=== PATIENT | female | born 1970 | race Caucasian/White ===

== ENCOUNTER 2024-06-12 09:27 | Day surgery (SDC) | payer BC, SELFPAY ==
[2024-06-12] VITALS (9 sets, daily range): BP systolic 102–132; BP diastolic 66–120; PULSE 77–92; RESP 14–18; TEMP 36.4–37.4; O2SAT 94–100; BMI 23.4
--- NOTE | 2024-06-12 09:40 | PRE.ANES_ITS ---
ASA Classification* ASA Classification ASA Classification: 2 Assessment & Plan Anesthesia* Anesthesia Assessment Anesthesia Assessment: Discussed sedation and/or anesthesia options, risks, benefits, and alternatives with patient/parents/legal guardian/POA. Questions invited. The patient/parents/legal guardian/POA seems to understand and agrees to proceed with anesthesia plan. Reviewed the physical assessment, medical history, allergy history and patient home medications list prior to surgery/procedure/anesthetic and documented any changes. Performed airway and anesthesia risk assessments. Anesthesia Type Anesthesia Type: MAC Anesthesia Focused Assessment* Airway Assessment Mouth opens: >3 cm Mallampati Score: II Focused Labs Anesthesia Preop lab: CBC CHEMISTRY COAG Pre-Assessment Diagnosis/Proposed Procedure Planned Operative Procedure(s): Colonoscopy,EGD Anesthesia History Anesthesia History - specialty therapist: Anesthesia History - specialty therapist Hx Hospitalization No 06/07/24 14:20 Any Problems With Anesthesia No 06/07/24 14:20 Cholinesterase deficiency No 06/07/24 14:20 You/Your Family Experience No 06/07/24 14:20 fever (hyperthermia) with Relationship Recent Exposure to Contagious Disease Does patient have nerve No 06/07/24 14:20 stimulator Patient instructed to have device shut off --Does patient have Pacemaker or ICD? When Was Last Pacemaker Check QUESTION #4 FULL TEXT: You/Your Family Experience fever (hyperthermia) with Anesthesia Last Oral Intake Last Oral intake: Last Oral Intake NPO since Meds taken in AM with sips of water? Meds patient instructed to take am of surgery PONV PONV - specialty therapist: PONV - specialty therapist Female Yes 06/07/24 14:20 HX of Motion Sickness No 06/07/24 14:20 HX of N/V After Surgery No 06/07/24 14:20 Non-Smoker No 06/07/24 14:20 Duration of Surgery greater No 06/07/24 14:20 than 60 minutes Number of Risk Factors 1 06/07/24 14:20 PONV Score Low Risk 06/07/24 14:20 Respiratory Assessment Respiratory Assessment - specialty therapist: Respiratory Tract Infection Hx - specialty therapist Hx Respiratory Tract Infection No 06/07/24 14:20 STOP Sleep Apnea STOP Sleep Apnea - specialty therapist: STOP Sleep Apnea - specialty therapist Hx Hypertension No 06/07/24 14:20 Hx Sleep Apnea No 06/07/24 14:20 CPAP BIPAP Do you snore loudly (louder No 06/07/24 14:20 than talking or can be heard Do you often feel tired/ No 06/07/24 14:20 fatigued/ sleepy during daytime? Has anyone observed you stop No 06/07/24 14:20 breathing during sleep? STOP Results Negative 06/07/24 14:20 QUESTION #5 FULL TEXT : Do you snore loudly (louder than talking or can be heard through closed doors)? 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 Specify any problems Hx of Preganancy in last 3 No 06/07/24 14:20 Months Nurse Filling Out Transfusion JZOLLINGE 06/07/24 14:20 & Questions: Date: 06/07/24 06/07/24 14:20 Time: 14:22 06/07/24 14:20 Patient unable to answer at this time (ie. confused, unrespo /Reproduction History /Reproductive History - specialty therapist: /Reproductive Hx- specialty therapist Hx Now No 06/07/24 14:20 Gestational Age (in weeks): EDC: Hx Hx Para Hx Section SAB No 06/07/24 14:20 PFSH Medical History Wears glasses Wears dentures Anxiety High cholesterol Loss of consciousness Heartburn Seizures Smoker Home Medications ?Medication ?Instructions ?Recorded ?Last Taken ?Type atorvastatin 80 mg tablet 80 mg PO QHS 04/04/24 Unknow n History Allergy/AdvReac Type Severity Reaction Status Date / Time No Known Allergies Allergy Verified 06/07/24 14:06 Surgical History Hx of appendectomy Hx of tonsillectomy Hx of hysterectomy, total Social History Smoking Status: Current every day smoker tobacco type: cigarettes Review of Systems (Anesthesia) ROS Narrative System reviewed and no additional complaints, except as documented.
--- NOTE | 2024-06-12 10:45 | EGD_PTH ---
[id number] LOC: EN U#:[id number] AGE/SX: 53/F ROOM: RE06/12/[address]: Dr. Helio Rose DO : 1970 BED: DIS: 06/12/2024 SPEC #: [id number] RECD: 06/12/24 15:46 STATUS: KEE MEGHANA #: [id number] DYLAN: 06/12/24 10:[address]: Helio Rose DEPT: SURGICAL PATHOLOGY RECD BY: Luzma Jaramillo ENTERED: 06/13/24 06:57 SP TYPE: EGD BIOPSY OT DR: Dr. Slim Black MD Tissues: A - Esophagus, NOS B - Gastric mucous membrane C - Duodenum, NOS D - Duodenum, NOS E - Cecum, NOS F - Ascending colon G - Ileum, NOS H - Sigmoid colon biopsy I - Rectum, NOS Procedures: Immunohistochemical Stains Surgery Specimen Level IV HEADER OPERATION: EGD with biopsy, colonoscopy with polypectomies, biopsy PRE-OP DIAGNOSIS: Abdominal symptoms, epigastric pain, alternating constipation and diarrhea TISSUE SUBMITTED: A- Distal esophagus biopsy, B- Gastric ulcer biopsy, C- Duodenum polyp biopsy #1, D- Duodenum polyp biopsy #2, E- Cecum polyps, F- Ascending colon polyp, G- Terminal ileum biopsy, H- Sigmoid colon polyp, I- Rectal sigmoid colon lesion biopsy MICROSCOPIC DIAGNOSIS A. Distal esophagus, biopsy: * Benign squamous epithelium * Oxyntocardiac type mucosa with mild chronic inflammation, negative for goblet cells B. Stomach, gastric ulcer, biopsy: * Oxyntic mucosa with chronic active inflammation with surface erosion and fibrinous material (See note) Note: An immunostain for Helicobacter pylori organisms is in progress and will be reported as an addendum C. Small bowel, duodenum, polyp, biopsy #1: * Benign small bowel mucosa with gastric foveolar metaplasia D. Small bowel, duodenum, polyp, biopsy #2: * Benign small bowel mucosa with prominent Yomi's glands and focal gastric foveolar metaplasia E. Colon, cecum, polyp x 2, biopsy: * Tubular adenomas F. Ascending colon, polyp, biopsy: * Serrated polyp with features of sessile serrated adenoma G. Small bowel, terminal ileum, biopsy: * Small bowel mucosa with no pathologic change H. Sigmoid colon, polyp, biopsy: * Tubular adenoma I. Rectum-sigmoid colon, lesion, biopsy: * Tubular adenoma with high grade dysplasia A. MICROSCOPIC DESCRIPTION Slides are reviewed. These tests were developed and their performance characteristics determined by [facility]. They may not have been cleared or approved by the [place]. Food and Drug Administration. The FDA has determined that such clearance or approval is not necessary. The above immunohistochemical/dualISH markers are ordered and reviewed by the Pathologist. GROSS DESCRIPTION A. Received in formalin in a container labeled with the patient's name, date of , and distal esophagus biopsy are 2 ji-pink fragments of mucosal tissue measuring 0.3 x 0.3 x 0.3 cm and 0.6 x 0.2 x 0.2 cm. Submitted in toto in A1. B. Received in formalin in a container labeled with the patient's name, date of , and gastric ulcer biopsy are 2 ji-pink fragments of mucosal tissue, each measuring 0.7 x 0.2 x 0.2 cm. Submitted in toto in B1. C. Received in formalin in a container labeled with the patient's name, date of , and duodenum polyp biopsy #1 is a 0.6 x 0.3 x 0.2 cm fragment of ji-pink mucosal tissue. Submitted in toto in C1. D. Received in formalin in a container labeled with the patient's name, date of , and duodenum polyp biopsy #2 is a 0.5 x 0.3 x 0.2 cm fragment of ji-pink mucosal tissue. Submitted in toto in D1. E. Received in formalin in a container labeled with the patient's name, date of , and cecum polyps x 2 are multiple ji-pink fragments of mucosal tissue measuring 2.2 x 1.3 x 0.4 cm in aggregate. Submitted in toto in E1. F. Received in formalin in a container labeled with the patient's name, date of , and ascending colon polyp are multiple ji-pink fragments of mucosal tissue measuring 0.7 x 0.5 x 0.3 cm in aggregate. Submitted in toto in F1. G. Received in formalin in a container labeled with the patient's name, date of , and terminal ileum biopsy are 2 ji-pink fragments of mucosal tissue, each measuring approximately 0.5 x 0.3 x 0.2 cm. Submitted in toto in G1. H. Received in formalin in a container labeled with the patient's name, date of , and sigmoid colon polyp is a 1.2 x 0.8 x 0.8 cm red-ji polyp with a 0.5 cm in length by 0.5 cm in diameter stalk (margin inked black). Serial sections reveal ji-brown surfaces. Submitted entirely in H1. I. Received in formalin in a container labeled with the patient's name, date of , and rectal sigmoid colon lesion biopsy are multiple ji-pink fragments of mucosal tissue measuring 1.3 x 0.7 x 0.3 cm in aggregate. Submitted in toto in I1. [facility] 06/18/2024 CPT:[id number] ADDENDUM ADDENDUM 06/18/2024 15:07 ADDENDUM 06/18/2024 15:07 ADDENDUM 06/18/2024 15:07 ADDENDUM 06/18/2024 15:07 ADDENDUM 06/18/2024 15:07 The immunostain for Helicobacter pylori organisms on part A and B is negative.
--- NOTE | 2024-06-12 11:09 | HP.PCM_ITS ---
HPI - General General Date of Admission: 06/12/24 Date of Service: 06/12/24 Chief Complaint: abdominal pain and CRS HPI Narrative Pt has had epigastric abd pain for around 3 years now. The pain is central and does not radiate to either side. She has been seen by her PCP a few time regarding this and they have done work up for her gallbladder which was negative. SHe did try omeprazole for a few months and she did not get relief. SHe does endorse some issues with constipation alternating with loose stools. SHe has had this issues for many years. She takes laxatives PRN but this gives her loose stools. SHe has bright red blood in her stool on occasion. She has never had a colonoscopy. Her brother from colon cancer in his 40s. She denies any n/v, heartburn, or lower abd pain. [facility] Medical History Wears glasses Wears dentures Anxiety High cholesterol Loss of consciousness Heartburn Seizures Smoker Home Medications ?Medication ?Instructions ?Recorded ?Last Taken ?Type atorvastatin 80 mg tablet 80 mg PO QHS 04/04/24 History Allergy/AdvReac Type Severity Reaction Status Date / Time No Known Allergies Allergy Verified 06/12/24 09:49 Surgical History Hx of appendectomy Hx of tonsillectomy Hx of hysterectomy, total Social History Smoking Status: Current every day smoker tobacco type: cigarettes ROS Constitutional Constitutional: Denies fatigue, fever(s), poor appetite, weight gain or weight loss Gastrointestinal Gastrointestinal: Denies belching, bloating, change in bowel habits, change in stool character, chewing difficulty, coffee ground emesis, constipation, cramping, diarrhea, dyspepsia, dysphagia, early satiety, excessive flatus, fecal incontinence, heartburn, hematemesis, hematochezia, hemorrhoids, loose stools, melena, nausea, odynophagia, rectal bleeding, tenesmus, vomiting or weight changes Vital Signs Vital Signs Vital Signs: 06/12/24 09:50 06/12/24 09:50 Temperature 99.3 F H Temperature Source Temporal Pulse Rate 92 Respiratory Rate 16 Respiratory Pattern Normal Blood Pressure 117/66 Blood Pressure Mean 83 Blood Pressure Source Monitor Blood Pressure Position Semi-Fowlers Blood Pressure Location Right Arm Pulse Ox 96 Oxygen Delivery Method Room Air Weight Weight: 136 lb 10.986 oz Body Mass Index (BMI) 23.4 Physical Exam Const alert, oriented x3, no apparent distress and healthy appearing General Appearance: cooperative GI normal to inspection, nondistended, normoactive bowel sounds, soft to palpation, non-tender and non-distended Percussion: normal to percussion Rectal Exam: deferred Assessment & Plan Assessment/Plan (1) Alternating constipation and diarrhea: (2) Epigastric pain: (3) RUQ pain: PLAN: Assessment and Plan Assessment and Plan (1) Abdominal symptoms: (2) Epigastric pain: Status: Acute (3) Alternating constipation and diarrhea: Status: Acute Plan: This is a 53 yo female pt here today for evaluation of abd pain and alternating constipation and loose stools. She has had the abd pain for a few years now. Her PCP has ruled out gallbladder etiology with US. She will undergo EGD to assess for gastritis or esophagitis. She will take Carafate 1 gram BID while she waits on endoscopy. Pt has had IBS type symptoms for many years. She has never had a colonoscopy and has a family hx of colon cancer in her brother. SHe will also have a colonoscopy. -EGD and colonoscopy -Start carafate 1 gram BID -f/u after procedure to discuss treatment plan Medications: New sucralfate 1 g PO BID 60 tabs 0RF
--- NOTE | 2024-06-12 12:20 | OP.CCLET_ITS ---
06/12/2024 Slim Black Re : Upper GI endoscopy procedure for Corine Juniorr Wayne This procedure was performed on Wednesday, June 12, 2024. My impressions and recommendations are as follows: Impressions : - LA Grade B reflux esophagitis with no bleeding. Biopsied. - Small hiatal hernia. - A few gastric polyps. Treated with a hot snare. - Multiple duodenal polyps. Biopsied. Recommendations : - Discharge patient to home. - Resume previous diet. - Continue present medications. - Await pathology results. - Repeat upper endoscopy for surveillance of multiple polyps. My findings are described in the full procedure note, which is enclosed. If I can be of further assistance, please feel free to contact me at . Sincerely, Helio Rose, 06/12/2024 12:20:00 PM This report has been signed electronically.
--- NOTE | 2024-06-12 12:20 | OP.EGD_ITS ---
Patient Name: Corine Rubi Procedure Date: 06/12/2024 11:13 AM Date of : 1970 Age: 53 Procedure: Upper GI endoscopy Indications: Epigastric abdominal pain Providers: Helio Rsoe DO Referring MD: Slim Black Medicines: Monitored Anesthesia Care Patient Profile: This is a 53 year old female. Refer to note in patient chart for documentation of history and physical. Patient has symptoms. Patient has symptoms of chronic abdominal cramping and chronic epigastric abdominal pain. Complications: No immediate complications. Procedure: Pre-Anesthesia Assessment: - Prior to the procedure, a History and Physical was performed, and patient medications and allergies were reviewed. The patient is competent. The risks and benefits of the procedure and the sedation options and risks were discussed with the patient. All questions were answered and informed consent was obtained. Patient identification and proposed procedure were verified by the physician in the pre-procedure area. Mental Status Examination: alert and oriented. Airway Examination: normal oropharyngeal airway and neck mobility. Respiratory Examination: clear to auscultation. CV Examination: normal. Prophylactic Antibiotics: The patient does not require prophylactic antibiotics. Prior Anticoagulants: The patient has taken no anticoagulant or antiplatelet agents except for NSAID medication. ASA Grade Assessment: II - A patient with mild systemic disease. After reviewing the risks and benefits, the patient was deemed in satisfactory condition to undergo the procedure. The anesthesia plan was to use monitored anesthesia care (MAC). Immediately prior to administration of medications, the patient was re-assessed for adequacy to receive sedatives. The heart rate, respiratory rate, oxygen saturations, blood pressure, adequacy of pulmonary ventilation, and response to care were monitored throughout the procedure. The physical status of the patient was re-assessed after the procedure. After obtaining informed consent, the endoscope was passed under direct vision. Throughout the procedure, the patient's blood pressure, pulse, and oxygen saturations were monitored continuously. The Colonoscope was introduced through the mouth, and advanced to the fourth part of the duodenum. Small bowel enteroscopy was deemed necessary. The upper GI endoscopy was accomplished without difficulty. The patient tolerated the procedure well. Scope In: 11:23:11 AM Scope Out: 11:29:36 AM Total Procedure Duration Time 0 hours 6 minutes 25 seconds Findings: LA Grade B (one or more mucosal breaks greater than 5 mm, not extending between the tops of two mucosal folds) esophagitis with no bleeding was found 38 to 40 cm from the incisors. Biopsies were taken with a cold forceps for histology. Verification of patient identification for the specimen was done. Estimated blood loss was minimal. A small hiatal hernia was present. A few 4 mm hyperplastic polyps with bleeding and stigmata of recent bleeding were found in the gastric body. Coagulation for hemostasis using snare was successful. Estimated blood loss was minimal. Multiple 10 mm sessile polyps with no bleeding were found in the duodenal bulb, in the first portion of the duodenum and in the second portion of the duodenum. Biopsies were taken with a cold forceps for histology. Verification of patient identification for the specimen was done. Estimated blood loss was minimal. Few cratered gastric ulcers were found in the gastric body. The largest lesion was 6 mm in largest dimension. Biopsies were taken with a cold forceps for histology. Verification of patient identification for the specimen was done. Biopsies were taken with a cold forceps for Helicobacter pylori testing. Verification of patient identification for the specimen was done. Estimated blood loss was minimal. Impression: - LA Grade B reflux esophagitis with no bleeding. Biopsied. - Small hiatal hernia. - A few gastric polyps. Treated with a hot snare. - Multiple duodenal polyps. Biopsied. Recommendation: - Discharge patient to home. - Resume previous diet. - Continue present medications. - Await pathology results. - Repeat upper endoscopy for surveillance of multiple polyps. Procedure Code(s): --- Professional --- 17027, 59, Small intestinal endoscopy, enteroscopy beyond second portion of duodenum, not including ileum; with control of bleeding (eg, injection, bipolar cautery, unipolar cautery, laser, heater probe, stapler, plasma tungsten tender) 60304, 51, Small intestinal endoscopy, enteroscopy beyond second portion of duodenum, not including ileum; with biopsy, single or multiple CPT copyright 2021 [employer]. All rights reserved. The codes documented in this report are preliminary and upon greens picker review may be revised to meet current compliance requirements. Helio Rose DO 06/12/2024 12:20:00 PM This report has been signed electronically. Number of Addenda: 0 Note Initiated On: 06/12/2024 11:13 AM
--- NOTE | 2024-06-12 12:23 | PCM.POST.ANE ---
Anesthesia: Postop Eval I Current Vital Signs Temperature: 97.7 F Pulse Rate: 77 Blood Pressure: 102/76 Respiratory Rate: 18 Pulse Ox: 94 Oxygen Delivery Method: Room Air Assessment Airway patent: Yes Spontaneous unlabored respirations: Yes Mental status: Awake and Calm nausea: No Vomiting: No Anesthesia Complication: No Fluid Hydration Crystalloid volume administer (ml): 80 Total IV fluid infused: 80 Progress Note Anesthesia document: Postop Eval 1 completed: Yes
--- NOTE | 2024-06-12 12:26 | OP.COLON_ITS ---
Patient Name: Corine Rubi Procedure Date: 06/12/2024 11:29 AM Date of : 1970 Age: 53 Procedure: Colonoscopy Indications: Abdominal pain in the left lower quadrant, Clinically significant diarrhea of unexplained origin Providers: Helio Rose DO Referring MD: Slim Black Medicines: Monitored Anesthesia Care Patient Profile: This is a 53 year old female. Refer to note in patient chart for documentation of history and physical. Patient has symptoms. Patient has symptoms of chronic abdominal cramping and chronic epigastric abdominal pain. Last Colonoscopy: none. The patient's first colonoscopy is today. Complications: No immediate complications. Procedure: Pre-Anesthesia Assessment: - Prior to the procedure, a History and Physical was performed, and patient medications and allergies were reviewed. The patient is competent. The risks and benefits of the procedure and the sedation options and risks were discussed with the patient. All questions were answered and informed consent was obtained. Patient identification and proposed procedure were verified by the physician in the pre-procedure area. Mental Status Examination: alert and oriented. Airway Examination: normal oropharyngeal airway and neck mobility. Respiratory Examination: clear to auscultation. CV Examination: normal. Prophylactic Antibiotics: The patient does not require prophylactic antibiotics. Prior Anticoagulants: The patient has taken no anticoagulant or antiplatelet agents except for NSAID medication. ASA Grade Assessment: II - A patient with mild systemic disease. After reviewing the risks and benefits, the patient was deemed in satisfactory condition to undergo the procedure. The anesthesia plan was to use monitored anesthesia care (MAC). Immediately prior to administration of medications, the patient was re-assessed for adequacy to receive sedatives. The heart rate, respiratory rate, oxygen saturations, blood pressure, adequacy of pulmonary ventilation, and response to care were monitored throughout the procedure. The physical status of the patient was re-assessed after the procedure. After I obtained informed consent, the scope was passed under direct vision. Throughout the procedure, the patient's blood pressure, pulse, and oxygen saturations were monitored continuously. The Colonoscope was introduced through the anus and advanced to the terminal ileum. The colonoscopy was performed without difficulty. The patient tolerated the procedure well. The quality of the bowel preparation was adequate. The terminal ileum, ileocecal valve, appendiceal orifice, and rectum were photographed. Scope In: 11:31:13 AM Scope Withdrawal Time 0 hours 27 minutes 13 seconds Scope Out: 12:06:18 PM Total Procedure Duration Time 0 hours 35 minutes 5 seconds Findings: The perianal and digital rectal examinations were normal. Multiple small and large-mouthed diverticula were found in the recto-sigmoid colon, sigmoid colon and descending colon. Five sessile polyps were found in the sigmoid colon, ascending colon and cecum. The polyps were 16 mm in size. These polyps were removed with a cold snare. Resection and retrieval were complete. Verification of patient identification for the specimen was done. Estimated blood loss was minimal. A 20 mm polyp was found in the sigmoid colon. The polyp was pedunculated. The polyp was removed with a hot snare. Resection and retrieval were complete. Verification of patient identification for the specimen was done. Area was tattooed with an injection of 1 mL of Mariely ink. An infiltrative non-obstructing large mass was found in the recto-sigmoid colon. The mass was partially circumferential (involving one-half of the lumen circumference). The mass measured three cm in length. In addition, its diameter measured seven mm. This was biopsied with a cold forceps for histology. Verification of patient identification for the specimen was done. Estimated blood loss was minimal. Patchy mild inflammation characterized by erythema was found in the distal ileum and in the terminal ileum. Biopsies were taken with a cold forceps for histology. Verification of patient identification for the specimen was done. Estimated blood loss was minimal. A 5 mm polyp was found in the rectum. The polyp was sessile. Impression: - Diverticulosis in the recto-sigmoid colon, in the sigmoid colon and in the descending colon. - Five 16 mm polyps in the sigmoid colon, in the ascending colon and in the cecum, removed with a cold snare. Resected and retrieved. - One 20 mm polyp in the sigmoid colon, removed with a hot snare. Resected and retrieved. Tattooed. - Likely malignant tumor in the recto-sigmoid colon. Biopsied. - Mild inflammation was found in the ileum secondary to ileitis. Biopsied. Recommendation: - Discharge patient to home. - Resume previous diet. - Continue present medications. - Await pathology results. - Repeat colonoscopy for surveillance based on pathology results. Procedure Code(s): --- Professional --- 21977, Colonoscopy, flexible; with removal of tumor(s), polyp(s), or other lesion(s) by snare technique 98400, 59, Colonoscopy, flexible; with biopsy, single or multiple 35355, Colonoscopy, flexible; with directed submucosal injection(s), any substance CPT copyright 2021 [employer]. All rights reserved. The codes documented in this report are preliminary and upon remote medical coder review may be revised to meet current compliance requirements. Helio Rose DO 06/12/2024 12:26:27 PM This report has been signed electronically. Number of Addenda: 0 Note Initiated On: 06/12/2024 11:29 AM
--- NOTE | 2024-06-12 12:27 | OP.CCLET_ITS ---
06/12/2024 Slim Black Re : Colonoscopy procedure for Corine Juniorr Wayne This procedure was performed on Wednesday, June 12, 2024. My impressions and recommendations are as follows: Impressions : - Diverticulosis in the recto-sigmoid colon, in the sigmoid colon and in the descending colon. - Five 16 mm polyps in the sigmoid colon, in the ascending colon and in the cecum, removed with a cold snare. Resected and retrieved. - One 20 mm polyp in the sigmoid colon, removed with a hot snare. Resected and retrieved. Tattooed. - Likely malignant tumor in the recto-sigmoid colon. Biopsied. - Mild inflammation was found in the ileum secondary to ileitis. Biopsied. Recommendations : - Discharge patient to home. - Resume previous diet. - Continue present medications. - Await pathology results. - Repeat colonoscopy for surveillance based on pathology results. My findings are described in the full procedure note, which is enclosed. If I can be of further assistance, please feel free to contact me at . Sincerely, Helio Rose, 06/12/2024 12:26:27 PM This report has been signed electronically.
--- NOTE | 2024-06-12 13:06 | PCM.POSTANE2 ---
Anesthesia Postop Eval I Sum Postop Eval Completion status Anesthesia document: Postop Eval 1 completed: Yes Anesthesia Postop Eval I Summary Anesthesia Postop Eval I Summary: Anesthesia Postop Eval I: Assessment Summary Airway patent Yes 06/12/24 12:24 [email or web address] Spontaneous unlabored Yes 06/12/24 12:24 [email or web address] respirations Mental status Awake,Calm 06/12/24 12:24 [email or web address] nausea No 06/12/24 12:24 [email or web address] Vomiting No 06/12/24 12:24 [email or web address] Anesthesia Postop Eval I: Fluid Summary Crystalloid volume administer 80 06/12/24 12:24 [email or web address] (ml) Colloids volume administered ( ml) Blood Product volume administered (ml) Total IV fluid infused 80 06/12/24 12:24 [email or web address] Anesthesia Postop Eval I: Summary Notes Anesthesia Complication No 06/12/24 12:24 [email or web address] Anesthesia Complication Comment: Post-operative progress note Anesthesia: Postop Eval II Evaluation Mental status: Awake Pain Level: 0 nausea: No Vomiting: No
== END 2024-06-12 13:10 | disposition home or self-care (01) ==
LOC: EN 09:34 → AC 09:36
PROVIDERS: PCP Family Medicine; Referring Provider Family Medicine; Visit Provider Internal Medicine Gastroenterology
PROC: 0DJD8ZZ Inspection of Lower Intestinal Tract, Via Natural or Artificial Opening Endoscopic (ICD-10-PCS; CPT 45378; principal; 2024-06-12 10:40)
DX: K21.00 Gastro-esophageal reflux disease with esophagitis, without bleeding (principal); K44.9 Diaphragmatic hernia without obstruction or gangrene; D12.0 Benign neoplasm of cecum; D12.2 Benign neoplasm of ascending colon; D12.5 Benign neoplasm of sigmoid colon; D12.7 Benign neoplasm of rectosigmoid junction; K31.7 Polyp of stomach and duodenum; K57.30 Diverticulosis of large intestine without perforation or abscess without bleeding; K25.9 Gastric ulcer, unspecified as acute or chronic, without hemorrhage or perforation; G89.29 Other chronic pain; E78.00 Pure hypercholesterolemia, unspecified; F17.210 Nicotine dependence, cigarettes, uncomplicated; Z79.899 Other long term (current) drug therapy; Z80.0 Family history of malignant neoplasm of digestive organs
CPT/HCPCS: 44361; 44366; 45385; 45380; 45381; 88305; 88342; A4216; A4648; J2405

== ENCOUNTER 2024-10-30 08:19 | Day surgery (SDC) | payer BC, SELFPAY ==
[2024-10-30] VITALS (8 sets, daily range): BP systolic 83–123; BP diastolic 62–78; PULSE 66–76; RESP 16–18; TEMP 36.2–36.6; O2SAT 97–100; BMI 22.3
--- NOTE | 2024-10-30 08:45 | HP.PCM_ITS ---
HPI - General General Date of Admission: 10/30/24 Date of Service: 10/30/24 Chief Complaint: Erosive esophagitis and bleeding gastric polyps HPI Narrative HUNTER STUART, is a 54 F who presentsChief Complaint: epigastric pain Details: HUNTER STUART, is a 53 F who presents to the office today for f/u. I established Mar 2024 with epigastric abd pain for around 3 years. Gallbladder work up unremarkable. Constipation alternating with loose stools for many years. Uses laxatives PRN. No hx of colonoscopy. Pt brother passes away from colon cancer in his 40s. EGD 06.12.24; - LA Grade B reflux esophagitis with no bleeding. Biopsied. - Small hiatal hernia. - A few gastric polyps. Treated with a hot snare. - Multiple duodenal polyps. Biopsied. Colonoscopy 06.12.24; - Diverticulosis in the recto-sigmoid colon, in the sigmoid colon and in the descending colon. - Five 16 mm polyps in the sigmoid colon, in the ascending colon and in the cecum, removed with a cold snare. Resected and retrieved. - One 20 mm polyp in the sigmoid colon, removed with a hot snare. Resected and retrieved. Tattooed. - Likely malignant tumor in the recto-sigmoid colon. Biopsied. - Mild inflammation was found in the ileum secondary to ileitis. Biopsied. 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 Dr. Rose contacted patient with results. Recommendation for referral to surgery for partial colectomy OV [id number] Pt here today to discus results of EGD and colonoscopy. [facility] Medical History (Updated 10/24/24 @ 16:27 by Whitley Veronica) Cancer Former smoker Wears glasses Wears dentures Anxiety High cholesterol Loss of consciousness Seizures Home Medications ?Medication ?Instructions ?Recorded ?Last Taken ?Type atorvastatin 80 mg tablet 80 mg PO QHS 04/04/24 History pantoprazole 40 mg tablet,delayed 40 mg PO BID 3 month s #180 tabs 10/04/24 Unknown Rx release lidocaine-prilocaine 2.5 %-2.5 % 1 applic topical PRN PRN PORT 10/24/24 Unknown History topical cream magnesium oxide 250 mg PO DAILY 10/24/24 Unk nown History prochlorperazine maleate 10 mg 10 mg PO Q6H PRN nausea and 10/24/24 Unknown History tablet vomiting Allergy/AdvReac Type Severity Reaction Status Date / Time No Known Allergies Allergy Verified 10/30/24 08:45 Surgical History (Updated 10/24/24 @ 16:27 by Whitley Veronica) History of partial colectomy Hx of colonoscopy History of vascular access device Hx of appendectomy Hx of tonsillectomy Hx of hysterectomy, total Social History Smoking Status: Former smoker ROS Constitutional Constitutional: Denies fatigue, fever(s), poor appetite, weight gain or weight loss Gastrointestinal Gastrointestinal: Denies belching, bloating, change in bowel habits, change in stool character, chewing difficulty, coffee ground emesis, constipation, cramping, diarrhea, dyspepsia, dysphagia, early satiety, excessive flatus, fecal incontinence, heartburn, hematemesis, hematochezia, hemorrhoids, loose stools, melena, nausea, odynophagia, rectal bleeding, tenesmus, vomiting or weight changes Physical Exam Const alert, oriented x3, no apparent distress and healthy appearing General Appearance: cooperative GI normal to inspection, nondistended, normoactive bowel sounds, soft to palpation, non-tender and non-distended Percussion: normal to percussion Rectal Exam: deferred Assessment & Plan Assessment/Plan (1) RUQ pain: (2) Epigastric pain: (3) Alternating constipation and diarrhea: (4) Colonic mass: PLAN: Assessment and Plan Assessment and Plan (1) Colonic mass: Status: Acute Plan: This is a 53 yo female pt here today for follow up after EGD and colonoscopy. Pt established with [facility] in Mar 2024 with epigastric pain and family hx of colon cancer. EGD showed one gastric ulcer. I have started her on pantoprazole 40 mg BID. Repeat EGD in 3 months. Colonoscopy with multiple pre cancerous polyps and one colonic mass with path consistent with TA with high grade dysplasia. Recommendation was for recto-sigmoid resection. I have referred her to colorectal surgery at [facility]. Pt was made aware of these results following her colonoscopy however I discussed referral with her today. -Referred to colorectal for TA with high grade dysplasia -Repeat EGD in 3 months -Start pantopraole 40 mg BID Orders: Referrals General Surgery C18.9 - Malignant neoplasm of colon, unspecified, K63.89 - Other specified diseases of intestine Colon & Rectal Surgery C18.9 - Malignant neoplasm of colon, unspecified, K63.89 - Other specified diseases of intestine
--- NOTE | 2024-10-30 09:12 | PCM.PRE.AN2 ---
ASA Classification* ASA Classification ASA Classification: 2 (colorectal CA, former smoker. Port accessed by nursing for use for the case) Assessment & Plan Anesthesia* Anesthesia Assessment Anesthesia Assessment: Discussed sedation and/or anesthesia options, risks, benefits, and alternatives with patient/parents/legal guardian/POA. Questions invited. The patient/parents/legal guardian/POA seems to understand and agrees to proceed with anesthesia plan. Reviewed the physical assessment, medical history, allergy history and patient home medications list prior to surgery/procedure/anesthetic and documented any changes. Performed airway and anesthesia risk assessments. 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 When Was Last Pacemaker Check QUESTION #4 FULL TEXT: You/Your Family Experience fever (hyperthermia) with Anesthesia Last Oral Intake Last Oral intake: Last Oral Intake NPO since 20:00 10/30/24 08:49 Meds taken in AM with sips of water? Meds patient instructed to take am of surgery PONV PONV - oil and gas superintendent: PONV - oil and gas superintendent Female Yes 10/24/24 16:22 HX of Motion Sickness No 10/24/24 16:22 HX of N/V After Surgery No 10/24/24 16:22 Non-Smoker Yes 10/24/24 16:22 Duration of Surgery greater No 10/24/24 16:22 than 60 minutes Number of Risk Factors 2 10/24/24 16:22 PONV Score Moderate Risk 10/24/24 16:22 Height & Weight Height & Weight: Anesthesia: Height & Weight Height 5 ft 4 in 10/30/24 08:49 Weight: 59 kg 10/30/24 08:49 Body Mass Index (BMI) 22.3 10/30/24 08:49 Respiratory Assessment Respiratory Assessment - oil and gas superintendent: Respiratory Tract Infection Hx - oil and gas superintendent Hx Respiratory Tract Infection No 10/24/24 16:22 STOP Sleep Apnea STOP Sleep Apnea - oil and gas superintendent: STOP Sleep Apnea - oil and gas superintendent Hx Hypertension No 10/24/24 16:22 Hx Sleep Apnea No 10/24/24 16:22 CPAP BIPAP Do you snore loudly (louder No 10/24/24 16:22 than talking or can be heard Do you often feel tired/ Yes 10/24/24 16:22 fatigued/ sleepy during daytime? Has anyone observed you stop No 10/24/24 16:22 breathing during sleep? STOP Results Negative 10/24/24 16:22 QUESTION #5 FULL TEXT : Do you snore loudly (louder than talking or can be heard through closed doors)? 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 Specify any problems Hx of Preganancy in last 3 No 10/24/24 16:22 Months Nurse Filling Out Transfusion DSCHRIBER 10/24/24 16:22 & Questions: Date: 10/24/24 10/24/24 16:22 Time: 16:23 10/24/24 16:22 Patient unable to answer at this time (ie. confused, unrespo /Reproduction History /Reproductive History - oil and gas superintendent: /Reproductive Hx- oil and gas superintendent Hx Now No 10/24/24 16:22 Gestational Age (in weeks): EDC: Hx Hx Para Hx Section SAB No 10/24/24 16:22 Active Medications Active Medications: Current Medications Generic Name Dose Route Start Last Admin Trade Name Freq PRN Reason Stop Dose Admin Lactated Ringer's 1,000 mls @ 15 mls/hr 10/30/24 08:45 IV .Q48H RUDY Sodium Chloride 10 - 40 ml 10/30/24 09:10 0.9% Saline Lock 10 Ml Syringe IV UD PRN Port-a-Cath (VAD)/R Port Flush Sodium Chloride 10 - 40 ml 10/30/24 09:10 0.9 % Nacl (Sterile) Posiflush 10 Ml IV UD PRN Port access or dressing change [facility] Medical History (Updated 10/24/24 @ 16:27 by Whitley Veronica) Cancer Former smoker Wears glasses Wears dentures Anxiety High cholesterol Loss of consciousness Seizures Home Medications ?Medication ?Instructions ?Recorded ?Last Taken ?Type atorvastatin 80 mg tablet 80 mg PO QHS 04/04/24 06/11/24 History pantoprazole 40 mg tablet,delayed 40 mg PO BID 3 months #180 tabs 10/04/24 10/29/24 Rx release lidocaine-prilocaine 2.5 %-2.5 % 1 applic topical PRN PRN PORT 10/24/24 10/30/24 History topical cream magnesium oxide 250 mg PO DAILY 10/24/24 10/29/24 History prochlorperazine maleate 10 mg 10 mg PO Q6H PRN nausea and 10/24/24 Unknown History tablet vomiting MetamuciL 1XD constipa 10/30/24 10/29/24 History Allergy/AdvReac Type Severity Reaction Status Date / Time No Known Allergies Allergy Verified 10/30/24 08:45 Surgical History (Updated 10/24/24 @ 16:27 by Whitley Veronica) History of partial colectomy Hx of colonoscopy History of vascular access device Hx of appendectomy Hx of tonsillectomy Hx of hysterectomy, total Social History Smoking Status: Former smoker Review of Systems (Anesthesia) ROS Narrative System reviewed and no additional complaints, except as documented. Physical Exam Const alert, oriented x3 and average body habitus Resp normal respiratory effort, normal air movement and clear to auscultation bilaterally Cardio regular rate, regular rhythm, no murmurs and diaphoretic
[2024-10-30] MEDS: Lactated Ringers 1,000 ML 15 ML IV (09:13)
--- NOTE | 2024-10-30 09:30 | EGD_PTH ---
PATIENT: HUNTER STUART LOC: EN U#:[id number] AGE/SX: 54/F ROOM: RE10/30/[address]: Dr. Helio Rose DO : 1970 BED: DIS: 10/30/2024 SPEC #: [id number] RECD: 10/30/24 12:40 STATUS: KEE REKristen #: [id number] DYLAN: 10/30/24 09:[address]: Helio Rose DEPT: SURGICAL PATHOLOGY RECD BY: Gus Flood ENTERED: 10/30/24 14:39 SP TYPE: EGD BIOPSY DHRUV DR: Dr. Slim Black MD Tissues: A - Gastric mucous membrane B - Duodenum, NOS C - Ampulla of Vater Procedures: Immunohistochemical Stains Surgery Specimen Level IV HEADER OPERATION: EGD with biopsy and polypectomy, hemostasis clip PRE-OP DIAGNOSIS: Right upper quadrant pain, epigastric pain TISSUE SUBMITTED: A- Gastric antrum biopsy, B- Duodenum polyp biopsy, C- Ampulla biopsy MICROSCOPIC DIAGNOSIS A. Gastric antrum, biopsy: - Chronic gastritis with features of reactive gastropathy. - IHC negative for H. pylori organisms. B. Duodenum, polyp, biopsy: - Yomi gland hyperplasia. - Reactive epithelial change. C. Ampulla, biopsy: - Gastric metaplasia. - Reactive epithelial changes. MICROSCOPIC DESCRIPTION Slides are reviewed. All matched controls reacted appropriately. These tests were developed and their performance characteristics determined by [facility]. They may not have been cleared or approved by the [place]. Food and Drug Administration. The FDA has determined that such clearance or approval is not necessary. The above immunohistochemical/dualISH markers are viewed by the Pathologist. GROSS DESCRIPTION A. Received in fixative is one container labeled with the patient's name and designated Gastric antrum biopsy. The specimen consists of one irregular fragment of light ji soft tissue that measures 0.4 cm. The specimen is totally submitted in one cassette. B. Received in fixative is one container labeled with the patient's name and designated Duodenum polyp. The specimen consists of 6 ji-pink to red focally cauterized polypoid tissue fragments, 0.3 cm to 0.6 x 0.4 x 0.3 cm. The resection margin of the largest fragment is inked black and it is bisected. Entirely submitted in 1 cassette.C. Received in fixative is one container labeled with the patient's name and designated Ampulla biopsy. The specimen consists of one irregular fragment of light ji soft tissue that measures 0.2 cm. The specimen is totally submitted in one cassette. [place] 10/30/2024 CPT:08915q9,10673
--- NOTE | 2024-10-30 10:20 | OP.EGD_ITS ---
Patient Name: Corine Rubi Procedure Date: 10/30/2024 9:49 AM Date of : 1970 Age: 54 Procedure: Upper GI endoscopy Indications: Peptic ulcer Providers: Helio Rose DO Referring MD: Slim Black Medicines: Monitored Anesthesia Care Patient Profile: This is a 54 year old female. Refer to note in patient chart for documentation of history and physical. Patient has symptoms of chronic epigastric abdominal pain. Complications: No immediate complications. Procedure: Pre-Anesthesia Assessment: - Prior to the procedure, a History and Physical was performed, and patient medications and allergies were reviewed. The patient is competent. The risks and benefits of the procedure and the sedation options and risks were discussed with the patient. All questions were answered and informed consent was obtained. Patient identification and proposed procedure were verified by the physician in the pre-procedure area. Mental Status Examination: alert and oriented. Airway Examination: normal oropharyngeal airway and neck mobility. Respiratory Examination: clear to auscultation. CV Examination: normal. ASA Grade Assessment: II - A patient with mild systemic disease. After reviewing the risks and benefits, the patient was deemed in satisfactory condition to undergo the procedure. The anesthesia plan was to use monitored anesthesia care (MAC). Immediately prior to administration of medications, the patient was re-assessed for adequacy to receive sedatives. The heart rate, respiratory rate, oxygen saturations, blood pressure, adequacy of pulmonary ventilation, and response to care were monitored throughout the procedure. The physical status of the patient was re-assessed after the procedure. After obtaining informed consent, the endoscope was passed under direct vision. Throughout the procedure, the patient's blood pressure, pulse, and oxygen saturations were monitored continuously. The Endoscope was introduced through the mouth, and advanced to the second part of duodenum. The patient tolerated the procedure well. Scope In: 9:57:39 AM Scope Out: 10:10:45 AM Total Procedure Duration Time 0 hours 13 minutes 6 seconds Findings: The examined esophagus was normal. One non-bleeding superficial gastric ulcer with no stigmata of bleeding was found in the prepyloric region of the stomach. The lesion was 3 mm in largest dimension. Biopsies were taken with a cold forceps for histology. Verification of patient identification for the specimen was done. Biopsies were taken with a cold forceps for Helicobacter pylori testing. Verification of patient identification for the specimen was done. Estimated blood loss was minimal. Three 8 mm sessile polyps with no bleeding were found in the duodenal bulb, in the first portion of the duodenum and in the second portion of the duodenum. The polyp was removed with a hot snare. Resection and retrieval were complete. Verification of patient identification for the specimen was done. To prevent bleeding after the polypectomy, one hemostatic clip was successfully placed. 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 There was no bleeding at the end of the procedure. Localized moderate mucosal changes characterized by scalloping were found at the major papilla. Biopsies were taken with a cold forceps for histology. Verification of patient identification for the specimen was done. Estimated blood loss was minimal. A single 5 mm sessile polyp was found in the first portion of the duodenum. Coagulation for destruction of remaining portion of lesion using monopolar probe was successful. Estimated blood loss was minimal. Impression: - Normal esophagus. - Non-bleeding gastric ulcer with no stigmata of bleeding. Biopsied. - Three duodenal polyps. Resected and retrieved. Clip was placed. 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 - Mucosal changes in the duodenum. Biopsied. - A single duodenal polyp. Treated with a monopolar probe. Recommendation: - Discharge patient to home. - Resume previous diet. - Continue present medications. - Await pathology results. Procedure Code(s): --- Professional --- 86567, Esophagogastroduodenoscopy, flexible, transoral; with removal of tumor(s), polyp(s), or other lesion(s) by snare technique 42635, 59,51, Esophagogastroduodenoscopy, flexible, transoral; with biopsy, single or multiple CPT copyright 2021 [employer]. All rights reserved. The codes documented in this report are preliminary and upon lease picker review may be revised to meet current compliance requirements. Helio Rose DO 10/30/2024 10:20:05 AM This report has been signed electronically. Number of Addenda: 0 Note Initiated On: 10/30/2024 9:49 AM
--- NOTE | 2024-10-30 10:20 | OP.PROVAT_ITS ---
10/30/2024 Slim Black Re : Upper GI endoscopy procedure for Corine Beck Wayne This procedure was performed on Wednesday, October 30, 2024. My impressions and recommendations are as follows: Impressions : - Normal esophagus. - Non-bleeding gastric ulcer with no stigmata of bleeding. Biopsied. - Three duodenal polyps. Resected and retrieved. Clip was placed. 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 - Mucosal changes in the duodenum. Biopsied. - A single duodenal polyp. Treated with a monopolar probe. Recommendations : - Discharge patient to home. - Resume previous diet. - Continue present medications. - Await pathology results. My findings are described in the full procedure note, which is enclosed. If I can be of further assistance, please feel free to contact me at . Sincerely, Helio Friend, 10/30/2024 10:20:05 AM This report has been signed electronically.
--- NOTE | 2024-10-30 10:21 | PCM.POST.ANE ---
Anesthesia: Postop Eval I Current Vital Signs Temperature: 97.2 F Pulse Rate: 66 Blood Pressure: 119/78 Respiratory Rate: 16 Pulse Ox: 97 Oxygen Delivery Method: Room Air Assessment Airway patent: Yes Spontaneous unlabored respirations: Yes Mental status: Asleep nausea: No Vomiting: No Anesthesia Complication: No Fluid Hydration Crystalloid volume administer (ml): 400 Total IV fluid infused: 400 Progress Note Anesthesia document: Postop Eval 1 completed: Yes
--- NOTE | 2024-10-30 12:46 | PCM.POSTANE2 ---
Anesthesia Postop Eval I Sum Postop Eval Completion status Anesthesia document: Postop Eval 1 completed: Yes Anesthesia Postop Eval I Summary Anesthesia Postop Eval I Summary: Anesthesia Postop Eval I: Assessment Summary Airway patent Yes 10/30/24 10:23 [email or web address] Spontaneous unlabored Yes 10/30/24 10:23 [email or web address] respirations Mental status Asleep 10/30/24 10:23 [email or web address] nausea No 10/30/24 10:23 [email or web address] Vomiting No 10/30/24 10:23 [email or web address] Anesthesia Postop Eval I: Fluid Summary Crystalloid volume administer 400 10/30/24 10:23 [email or web address] (ml) Colloids volume administered ( ml) Blood Product volume administered (ml) Total IV fluid infused 400 10/30/24 10:23 [email or web address] Anesthesia Postop Eval I: Summary Notes Anesthesia Complication No 10/30/24 10:23 [email or web address] Anesthesia Complication Comment: Post-operative progress note Anesthesia: Postop Eval II Evaluation Mental status: Awake Pain Level: 0 nausea: No Vomiting: No Complications Anesthesia Complication: No
== END 2024-10-30 11:03 | disposition home or self-care (01) ==
LOC: EN 08:20 → AC 08:22
PROVIDERS: PCP Family Medicine; Referring Provider Family Medicine; Visit Provider Internal Medicine Gastroenterology
PROC: 0DJ08ZZ Inspection of Upper Intestinal Tract, Via Natural or Artificial Opening Endoscopic (ICD-10-PCS; CPT 43235; principal; 2024-10-30 09:25)
DX: K31.7 Polyp of stomach and duodenum (principal); K21.00 Gastro-esophageal reflux disease with esophagitis, without bleeding; K44.9 Diaphragmatic hernia without obstruction or gangrene; E78.00 Pure hypercholesterolemia, unspecified; K57.30 Diverticulosis of large intestine without perforation or abscess without bleeding; K25.9 Gastric ulcer, unspecified as acute or chronic, without hemorrhage or perforation; K29.50 Unspecified chronic gastritis without bleeding; Z87.891 Personal history of nicotine dependence
CPT/HCPCS: 43251; 43239; 88305; 88342; A4216; J2405

== ENCOUNTER 2024-11-25 10:03 | Day surgery (SDC) | payer BC, SELFPAY ==
--- OUTSIDE RECORDS SUMMARY | 2024-11-20 09:45 | XMS RPT_ITS ---
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 Name Role Phone BROWN, SLIM VIKTORIYA Primary Care Unavailable BROWN, SLIM VIKTORIYA Primary Care Unavailable NESTOR SIMMS Attending Unavailable BROWN, SLIM VIKTORIYA Primary Care Unavailable MERCEDEZ WARD Attending Unavailable BROWN, SLIM VIKTORIYA Primary Care Unavailable BROWN, SLIM VIKTORIYA Primary Care Unavailable JODEE, CATIA A Referring Unavailable NESTOR SIMMS Attending Unavailable BROWN, SLIM VIKTORIYA Primary Care Unavailable BROWN, SLIM VIKTORIYA Primary Care Unavailable NESTOR SIMMS Referring Unavailable BROWN, SLIM VIKTORIYA Primary Care Unavailable BROWN, SLIM VIKTORIYA Primary Care Unavailable MERCEDEZ WARD Attending Unavailable BROWN, SLIM VIKTORIYA Primary Care Unavailable BROWN, SLIM VIKTORIYA Primary Care Unavailable NESTOR SIMMS Referring Unavailable BROWN, SLIM VIKTORIYA Primary Care Unavailable BROWN, SLIM VIKTORIYA Primary Care Unavailable BROWN, SLIM VIKTORIYA Primary Care Unavailable NESTOR SIMMS Attending Unavailable BROWN, SLIM VIKTORIYA Primary Care Unavailable NESTOR SIMMS Referring Unavailable BROWN, SLIM VIKTORIYA Primary Care Unavailable BROWN, SLIM VIKTORIYA Primary Care Unavailable BROWN, SLIM VIKTORIYA Primary Care Unavailable NESTOR SIMMS Referring Unavailable BROWN, SLIM VIKTORIYA Primary Care Unavailable ИВАН GARAY Referring Unavailabl e BROWN, SLIM VIKTORIYA Primary Care Unavailable ИВАН GARAY Referring Unavailabl e BROWN, SLIM VIKTORIYA Primary Care Unavailable NESTOR SIMMS Referring Unavailable BROWN, SLIM VIKTORIYA Primary Care Unavailable NESTOR SIMMS Referring Unavailable BROWN, SLIM VIKTORIYA Primary Care Unavailable BROWN, SLIM VIKTORIYA Referring Unavailable PETROSNA, CATIA A Attending Unavailable BROWN, SLIM VIKTORIYA Primary Care Unavailable NESTOR SIMMS Attending Unavailable BROWN, SLIM VIKTORIYA Primary Care Unavailable PETROSNA, CATIA A Referring Unavailable BROWN, SLIM VIKTORIYA Primary Care Unavailable BROWN, SLIM VIKTORIYA Primary Care Unavailable NESTOR SIMMS Referring Unavailable BROWN, SLIM VIKTORIYA Primary Care Unavailable NESOTR SIMMS Referring Unavailable BROWN, SLIM VIKTORIYA Primary Care Unavailable NESTOR SIMMS Referring Unavailable BROWN, SLIM VIKTORIYA Primary Care Unavailable ИВАН GARAY Admitting Unavailabl e BRANDSTETTER, ИВАН Attending Unavailabl e BRANDSTETTER, ИВАН Referring Unavailabl e BROWN, [facility] Primary Care Unavailable DAYAMI SALEH Attending Unavailable CATIA ELLSWORTH Referring Unavailable [facility], [facility] Primary Care Unavailable BRANDSTETTER, ИВАН Attending Unavailabl e BROWN, [facility] Primary Care Unavailable BRANDSTETTER, ИВАН Referring Unavailabl e BROWN, [facility] Primary Care Unavailable BRANDSTETTER, ИВАН Referring Unavailabl e BROWN, [facility] Primary Care Unavailable BRANDSTETTER, ИВАН Attending Unavailabl e BRANDSTETTER, ИВАН Referring Unavailabl e BROWN, [facility] Primary Care Unavailable BRANDSTETTER, ИВАН Referring Unavailabl e BROWN, [facility] Primary Care Unavailable BRANDSTETTER, ИВАН Referring Unavailabl e BROWN, [facility] Primary Care Unavailable BRANDSTETTER, ИВАН Attending Unavailabl e RA EVELINEHSLAURIE Gupta Referring Unavailable [facility], [facility] Primary Care Unavailable SCAR ESCOBAR Admitting Unavailable SHAWN, SCAR Attending Unavailable SHAWNSCAR Referring Unavailable 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) / C77.5(ICD-10) NA Active [facility] 11/19/2024 Active Malignant neopla sm of sigmoid colon (HCC) / C18.7(ICD-10) NA Active [facility] 10/21/2024 Active Diarrhea, unspec ified type / R19.7(ICD-10) NESTOR SIMMS Active [facility] 09/23/2024 Active Family history o f rectal cancer / Z80.0(ICD-10) NA Active [facility] 09/23/2024 Active Family history o f breast cancer / Z80.3(ICD-10) NA Active [facility] 09/23/2024 Active Family history o f ovarian cancer / Z80.41(ICD-10) NA Active [facility] 07/26/2024 Active Colonic mass / K63.89(ICD-10) ИВАН GARAY Active [facility] 07/26/2024 Active Smoking hx / Z87.891(ICD-10) NA Active [facility] 07/26/2024 Active Seizure (HCC) / R56.9(ICD-10) NA Active [facility] 07/26/2024 Active Preop examinatio n / Z01.818(ICD-10) NA Active [facility] 07/26/2024 Active Gastroesophageal reflux disease, unspecified whether esophagitis present / K21.9(ICD-10) NA Active [facility] 07/26/2024 Active Other hyperlipid emia / E78.49(ICD-10) NA Active [facility] 07/17/2024 Active Malignant neopla sm of rectum (HCC) / C20(ICD-10) NA Active [facility] PROCEDURES No Procedure Records Found RESULTS PROGRESS Observed: 11/20/2024 10:27 AM Status: COMPLETED Source: [facility] HNO ID: [id number] Author: LUDIN GORDON RN Service: ? Author Type: Registered Nurse Type: Progress Notes Filed: 11/20/2024 11:09 Note Text: Redraw CBC today. Dr. Ma reviewed. Pt delayed 1 week. On next cycle pt to receive Neupogen shot the day of DC CADD. Pharmacy and scheduling aware. Pt educated on when to seek emergency care. Pt verbalized understanding. Ludin Gordon RN CBC W AUTO DIFF BLD Collected: 11/21/19 10:12 AM Status: F Source: [facility] Order Comment: Specimen Type : BLOOD SPECIMEN Ordering Facility: [facility] Address: [address] [place] [address] TYPE CODE TESTS RESULT OUT OF RANGE REFERENCE UNITS LAB 6690-2(LOINC) WBC # Bld Auto 1.96 Low 3.70-11.00 k/uL LAB 789-8(LOINC) RBC # Bld Auto 3.55 Low 3.90-5.20 m/ uL LAB 718-7(LOINC) Hgb Bld-mCnc 11.0 Low 11.5-15.5 g/dL LAB 4544-3([facility]) Hct VFr Bld Auto 33.4 Low 36.0-46.0 % LAB 787-2([facility]) MCV RBC Auto 94.1 80.0-100.0 fL LAB 785-6([facility]) MCH RBC Qn Auto 31.0 26.0-34.0 p g LAB 786-4([facility]) MCHC RBC Auto-mCnc 32.9 30.5-36.0 g/dL LAB 74175-5([facility]) RDW RBC-Rto 18.4 High 11.5-15.0 % LAB 777-3([facility]) Platelet # Bld Auto 76 Low 150-400 k/uL Result Comment: No clot dete cted. LAB 29750-6([facility]) PMV Bld Auto 11.5 9.0-12.7 fL LAB 82796-6([facility]) nRBC/100 WBC Bld-Rto 0.0 /100 WBC LAB 771-6([facility]) nRBC # Bld Auto <0.01 <0.01 k/u L LAB 770-8([facility]) Neutrophils/suzi k NFr Bld Auto 19.0 % LAB 751-8([facility]) Neutrophils # Bld Auto 0.37 Low 1.45-7.50 k/uL LAB 736-9([facility]) Lymphocytes/suzi k NFr Bld Auto 59.0 % LAB 731-0([facility]) Lymphocytes # Bld Auto 1.16 1.00-4.00 k/uL LAB 5905-5([facility]) Monocytes/leuk NFr Bld Auto 20.0 % LAB 742-7([facility]) Monocytes # Bld Auto 0.39 <0.87 k/uL LAB 713-8([facility]) Eosinophil/leuk NFr Bld Auto 1.0 % LAB 711-2([facility]) Eosinophil # Bld Auto 0.02 <0.46 k/uL LAB 706-2([facility]) Basophils/leuk NFr Bld Auto 1.0 % LAB 704-7([facility]) Basophils # Bld Auto 0.02 <0.11 k/uL LAB 32903-0([facility]) Platelet # Bld Est Decreased LAB [id number] RED CELL MORPH Reviewed: se e results of individual morphologies LAB ANISO ANISOCYTOSIS Present LAB 774-0(LOINC) Ovalocytes Bld Ql Smear Few LAB 72270-8(LOINC) Differential method Bld Manual Performed By: #### 82103-9 # ### [facility] CLIA [id number] [address] [facility] CLIA [id number] [address] CNPN Observed: 11/20/2024 12:00 AM Status: COMPLETED Source: [facility] Telephone (CORI) CORINE STUART ([id number]) 1970 F Date Time Provider Department 11/20/24 NESTOR SIMMS During your visit today, we recorded the following information about you: Stephy Perez 11/20/2024 11:06 AM Signed Treatment delayed 1wk/ Scheduled 1st treatment with patient. Account locked by another user unable to schedule additional treatments at this time. Patient will see on my chart, no need to call. Kimmy Tan 11/20/2024 11:58 AM Signed 2 cycles entered Allergies As of Date: 11/20/2024 (No Known Allergies) Date Reviewed: 11/20/2024 Reviewed by: Ludin Gordon, KARLEY - Fully Assessed Reason for Visit: Chemotherapy Treatment [771] Prescriptions as of 11/20/2024 - magnesium oxide (MAG-OXIDE ORAL) Take 1 tablet by mouth once daily. - loperamide HCl (IMODIUM A-D) 2 mg tab Take 2 mg by mouth as needed. - docusate sodium (COLACE PO) Take 1 tablet by mouth three times a day as needed. - prochlorperazine (COMPAZINE) 10 mg tablet Take 1 tablet by mouth every 6 hours as needed. - lidocaine-prilocaine (EMLA) 2.5-2.5 % cream Apply to affected area as needed. - atorvastatin (LIPITOR) 80 mg tablet Take 80 mg by mouth daily at bedtime. - pantoprazole DR (PROTONIX) 40 mg tablet Take 1 tablet by mouth every 12 hours. Problem List As Of Date 11/20/2024 Noted Resolved Other hyperlipidemia [E78.49] 07/26/2024 GERD (gastroesophageal reflux disease) [K21.9] 07/26/2024 Preop examination [Z01.818] 07/26/2024 Colonic mass [K63.89] Seizure (HCC) [R56.9] 07/26/2024 Smoking hx [Z87.891] 07/26/2024 Rectal cancer (HCC) [C20] 07/29/2024 Nicotine use disorder, F17.2 [F17.200] 07/31/2024 Encounter Status:Closed by KIMMY PRICE on 11/20/24 CNOVSP Observed: 11/19/2024 10:30 AM Status: COMPLETED Source: [facility] Visit (SP) Office (CORI) CORINE STUART ([id number]) 1970 F Date Time Provider Department 11/19/24 10:30 AM MERCEDEZ WARD During your visit today, we recorded the following information about you: Temperature Pulse Blood pressure Weight 98.8 degrees 79/minute 104/73 60.2 kg Mercedez Ward APRN.C D AREA SUPERVISOR 11/21/2024 1:27 PM Signed Chief Complaint Patient presents with: Established Patient HPI: Corine Stuart is a 54 year old female who presents here today for evaluation for treatment tomorrow. Per Dr. Simms's previous note: H/o LAR for adenocarcinoma of rectosigmoid junction. The patient recently underwent her first colonoscopy which was noted to have severe polyps as well as a rectosigmoid mass concerning for biopsies. EGD was also performed which was significant for a number of duodenal and gastric polyps. CT imaging on 07/10/24 to assess for metastatic disease showed a 2.8 cm ill-defined mass at the rectosigmoid junction, multiple hypodense lesions throughout the liver favored to represent cysts as well as pulmonary nodules (favored to be benign). MRI of the rectum on 07/17/24 showed A 2.6 cm superior rectal mass with adjacent tumor deposit extending into the peritoneal fat as well as suspicious appearing LN's (N1). Sigmoidoscopy performed on 07/19/24 showed rectosigmoid mass with biopsy performed and positive for invasive adenocarcinoma (pMMR). CEA of 12.9 on 07/26/24. Patient then taken to OR on 07/29/24 for LAR ([id number]). She had had no symptoms prior to discovering the cancer. Family history notable for her brother having of colon cancer. Met with Dr Ellsworth at [facility], 12 cycles FolFOx recommended. Per CORS, tumor above peritoneal reflection, no role for radiation. Genetics done, negative Here prior to cycle 4 FolFOx. Diarrhea since last cycle, no neuropathy. Muscle cramps CLINICAL IMPRESSION: Rectosigmoid cancer [id number], stage III RECOMMENDATION/PLAN: 1. FolFOx , cycle 4/12 tomorrow 2. Follow up scans in early October, scheduled. 3. Magnesium supp, immodium, check stool for c diff Pt. has an EGD scheduled on Monday with Dr. Mosquera. Appetite:Good. Food tastes like cardboard. Wt. stable. Energy level:I'm tired. Denies fevers or recent illness. Mouth:denies sores Resp:denies cough or sob Cardiac:denies chest pain/palpitations GI:denies abd pain, occ. nausea-takes compazine with relief, denies vomiting, moving bowels regularly, occ. diarrhea-takes imodium prn :denies dysuria/hematuria Extrem:denies new pain Neuro:+cold sensitivity, denies neuropathy Skin:denies rashes Heme:denies bleeding The ROS is otherwise negative. Past medical history, appointments, medications, allergies reviewed. No changes. EXAM: BP 104/73 Pulse 79 Temp 37.1 ?C (98.8 ?F) (Temporal) Wt 60.2 kg (132 lb 12.8 oz) SpO2 99% BMI 22.45 kg/m? APPEARANCE Well appearing, alert, in no acute distress, well-hydrated, well nourished. MOUTH no mucositis/thrush HEART RRR with normal S1 and S2, no murmurs LUNG clear to auscultation LYMPH NODES No cervical lymphadenopathy, No supraclavicular lymphadenopathy, and No axillary lymphadenopathy. ABDOMEN bowel sounds normoactive, soft, non-tender EXTREMITIES No edema NEURO Awake, alert and oriented x 3, Normal gait, and No involuntary motions. SKIN Skin color, texture, turgor normal, no suspicious rashes or lesions LABS: Latest Ref Rng 10/21/2024 11/04/2024 11/19/2024 WBC 3.70 - 11.00 k/uL 6.12 4.31 2.09 (L) RBC 3.90 - 5.20 m/uL 4.12 3.89 (L) 3.55 (L) Hemoglobin 11.5 - 15.5 g/dL 12.5 12.2 11.0 (L) Hematocrit 36.0 - 46.0 % 37.8 35.9 (L) 32.8 (L) MCV 80.0 - 100.0 fL 91.7 92.3 92.4 MCH 26.0 - 34.0 pg 30.3 31.4 31.0 MCHC 30.5 - 36.0 g/dL 33.1 34.0 33.5 RDW-CV 11.5 - 15.0 % 14.9 16.6 (H) 18.0 (H) Platelet Count 150 - 400 k/uL 133 (L) 84 (L) 68 (L) MPV 9.0 - 12.7 fL 10.1 10.2 11.6 Neut% % 59.9 55.6 18.6 Abs Neut (ANC) 1.45 - 7.50 k/uL 3.67 2.39 0.39 (L) Lymph% % 23.5 27.1 57.4 Abs Lymph 1.00 - 4.00 k/uL 1.44 1.17 1.20 Humphreys% % 14.1 15.3 20.1 Abs Humphreys <0.87 k/uL 0.86 0.66 0.42 Eosin% % 2.1 1.6 1.9 Abs Eosin <0.46 k/uL 0.13 0.07 0.04 Baso% % 0.2 0.2 1.0 Abs Baso <0.11 k/uL <0.03 <0.03 <0.03 Immature Gran % % 0.2 0.2 1.0 IMMATURE GRANS (ABS) <0.10 k/uL <0.03 <0.03 <0.03 NRBC /100 WBC 0.0 0.0 0.0 Absolute nRBC <0.01 k/uL <0.01 <0.01 <0.01 DTYPE Auto Auto Auto CMP/Mag/CEA: Pending ASSESSMENT/PLAN: 1. 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 cramps and diarrhea. - Reviewed CBC with pt. and family member. - CMP/Mag/CEA pending. - Monitor CEA. - Continue current medications. - Repeat CBC tomorrow-to recheck platelet count/ANC. - Proceed as scheduled tomorrow for #6 FOLFOX pending labs. - Follow up as scheduled. - Pt. aware to call office with any questions/concerns. The patient indicates understanding of these issues and agrees with the plan. All documentation from previous visit of 11/04/24-Dr. Simms/myself was copied and pasted, documentation has been reviewed and edited as necessary for today's visit. 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 - loperamide HCl (IMODIUM A-D) 2 mg tab Take 2 mg by mouth as needed. - docusate sodium (COLACE PO) Take 1 tablet by mouth three times a day as needed. - prochlorperazine (COMPAZINE) 10 mg tablet Take 1 tablet by mouth every 6 hours as needed. - lidocaine-prilocaine (EMLA) 2.5-2.5 % cream Apply to affected area as needed. - atorvastatin (LIPITOR) 80 mg tablet Take 80 mg by mouth daily at bedtime. - pantoprazole DR (PROTONIX) 40 mg tablet Take 1 tablet by mouth every 12 hours. Problem List As Of Date 11/19/2024 Noted Resolved Other hyperlipidemia [E78.49] 07/26/2024 GERD (gastroesophageal reflux disease) [K21.9] 07/26/2024 Preop examination [Z01.818] 07/26/2024 Colonic mass [K63.89] Seizure (HCC) [R56.9] 07/26/2024 Smoking hx [Z87.891] 07/26/2024 Rectal cancer (HCC) [C20] 07/29/2024 Nicotine use disorder, F17.2 [F17.200] 07/31/2024 Encounter Status:Closed by MERCEDEZ WARD on 11/21/24 PROGRESS Observed: 11/19/2024 10:01 AM Status: COMPLETED Source: [facility] HNO ID: [id number] Author: MERCEDEZ WARD APRN.C D AREA SUPERVISOR Service: ? Author Type: Nurse Practitioner Type: Progress Notes Filed: 11/21/2024 13:27 Note Text: Chief Complaint Patient presents with: Established Patient HPI: Corine Stuart is a 54 year old female who presents here today for evaluation for treatment tomorrow. Per Dr. Simms's previous note: H/o LAR for adenocarcinoma of rectosigmoid junction. The patient recently underwent her first colonoscopy which was noted to have severe polyps as well as a rectosigmoid mass concerning for biopsies. EGD was also performed which was significant for a number of duodenal and gastric polyps. CT imaging on 07/10/24 to assess for metastatic disease showed a 2.8 cm ill-defined mass at the rectosigmoid junction, multiple hypodense lesions throughout the liver favored to represent cysts as well as pulmonary nodules (favored to be benign). MRI of the rectum on 07/17/24 showed A 2.6 cm superior rectal mass with adjacent tumor deposit extending into the peritoneal fat as well as suspicious appearing LN's (N1). Sigmoidoscopy performed on 07/19/24 showed rectosigmoid mass with biopsy performed and positive for invasive adenocarcinoma (pMMR). CEA of 12.9 on 07/26/24. Patient then taken to OR on 07/29/24 for LAR ([id number]). She had had no symptoms prior to discovering the cancer. Family history notable for her brother having of colon cancer. Met with Dr Ellsworth at [facility], 12 cycles FolFOx recommended. Per CORS, tumor above peritoneal reflection, no role for radiation. Genetics done, negative Here prior to cycle 4 FolFOx. Diarrhea since last cycle, no neuropathy. Muscle cramps CLINICAL IMPRESSION: Rectosigmoid cancer [id number], stage III RECOMMENDATION/PLAN: 1. FolFOx , cycle 4/12 tomorrow 2. Follow up scans in early October, scheduled. 3. Magnesium supp, immodium, check stool for c diff Pt. has an EGD scheduled on Monday with Dr. Mosquera. Appetite:Good. Food tastes like cardboard. Wt. stable. Energy level:I'm tired. Denies fevers or recent illness. Mouth:denies sores Resp:denies cough or sob Cardiac:denies chest pain/palpitations GI:denies abd pain, occ. nausea-takes compazine with relief, denies vomiting, moving bowels regularly, occ. diarrhea-takes imodium prn :denies dysuria/hematuria Extrem:denies new pain Neuro:+cold sensitivity, denies neuropathy Skin:denies rashes Heme:denies bleeding The ROS is otherwise negative. Past medical history, appointments, medications, allergies reviewed. No changes. EXAM: BP 104/73 Pulse 79 Temp 37.1 ?C (98.8 ?F) (Temporal) Wt 60.2 kg (132 lb 12.8 oz) SpO2 99% BMI 22.45 kg/m? APPEARANCE Well appearing, alert, in no acute distress, well-hydrated, well nourished. MOUTH no mucositis/thrush HEART RRR with normal S1 and S2, no murmurs LUNG clear to auscultation LYMPH NODES No cervical lymphadenopathy, No supraclavicular lymphadenopathy, and No axillary lymphadenopathy. ABDOMEN bowel sounds normoactive, soft, non-tender EXTREMITIES No edema NEURO Awake, alert and oriented x 3, Normal gait, and No involuntary motions. SKIN Skin color, texture, turgor normal, no suspicious rashes or lesions LABS: Latest Ref Rng 10/21/2024 11/04/2024 11/19/2024 WBC 3.70 - 11.00 k/uL 6.12 4.31 2.09 (L) RBC 3.90 - 5.20 m/uL 4.12 3.89 (L) 3.55 (L) Hemoglobin 11.5 - 15.5 g/dL 12.5 12.2 11.0 (L) Hematocrit 36.0 - 46.0 % 37.8 35.9 (L) 32.8 (L) MCV 80.0 - 100.0 fL 91.7 92.3 92.4 MCH 26.0 - 34.0 pg 30.3 31.4 31.0 MCHC 30.5 - 36.0 g/dL 33.1 34.0 33.5 RDW-CV 11.5 - 15.0 % 14.9 16.6 (H) 18.0 (H) Platelet Count 150 - 400 k/uL 133 (L) 84 (L) 68 (L) MPV 9.0 - 12.7 fL 10.1 10.2 11.6 Neut% % 59.9 55.6 18.6 Abs Neut (ANC) 1.45 - 7.50 k/uL 3.67 2.39 0.39 (L) Lymph% % 23.5 27.1 57.4 Abs Lymph 1.00 - 4.00 k/uL 1.44 1.17 1.20 Humphreys% % 14.1 15.3 20.1 Abs Humphreys <0.87 k/uL 0.86 0.66 0.42 Eosin% % 2.1 1.6 1.9 Abs Eosin <0.46 k/uL 0.13 0.07 0.04 Baso% % 0.2 0.2 1.0 Abs Baso <0.11 k/uL <0.03 <0.03 <0.03 Immature Gran % % 0.2 0.2 1.0 IMMATURE GRANS (ABS) <0.10 k/uL <0.03 <0.03 <0.03 NRBC /100 WBC 0.0 0.0 0.0 Absolute nRBC <0.01 k/uL <0.01 <0.01 <0.01 DTYPE Auto Auto Auto CMP/Mag/CEA: Pending ASSESSMENT/PLAN: 1. 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 cramps and diarrhea. - Reviewed CBC with pt. and family member. - CMP/Mag/CEA pending. - Monitor CEA. - Continue current medications. - Repeat CBC tomorrow-to recheck platelet count/ANC. - Proceed as scheduled tomorrow for #6 FOLFOX pending labs. - Follow up as scheduled. - Pt. aware to call office with any questions/concerns. The patient indicates understanding of these issues and agrees with the plan. All documentation from previous visit of 11/04/24-Dr. Simms/myself was copied and pasted, documentation has been reviewed and edited as necessary for today's visit. Mercedez Ward APRN.C D AREA SUPERVISOR CEA SERPL-MCNC Collected: 9:52 AM Status: F Source: [facility] Order Comment: Specimen Type : BLOOD SPECIMEN Ordering Facility: [facility] Address: [address] [place] [address] TYPE CODE TESTS RESULT OUT OF RANGE REFERENCE UNITS LAB 2038-07(LOINC) CEA SerPl-mCnc 3.2 High <=2.9 ng/mL Result Comment: Carcinoembry onic antigen test is used as an aid in monitoring response to treatment or recurrence in patients with established colorectal, breast, lung, prostatic, pancreatic, and ovarian carcinomas. Clinical correlation is required. The Carcinoembryonic antigen test was performed using the Iván [employer] DXI paramagnetic particle chemiluminescent immunoassay method. Results obtained with different assay methods or kits cannot be used interchangeably. Performed By: #### 2039-6 ## ## [facility] CLIA [id number] [address] [place], [place] [address] [facility] MAGNESIUM SERPL-MCNC Collected: 11/19/2024 9:52 AM S tatus: F Source: [facility] Order Comment: Specimen Type : BLOOD SPECIMEN Ordering Facility: [facility] Address: [address] [place], [place] [id number] TYPE CODE TESTS RESULT OUT OF RANGE REFERENCE UNITS LAB 07756-6([facility]) Magnesium SerPl-mCnc 2.1 1.7-2.3 mg/dL Performed By: #### 18094-3, 05833-1 #### [facility] CLIA [id number] [id number] [place] [address] [place] COMP METAB 2000 PNL SERPL Collected: 9:52 AM Status: F Source: [facility] Order Comment: Specimen Type : BLOOD SPECIMEN Ordering Facility: [facility] Address: [address] [place], [place] [id number] TYPE CODE TESTS RESULT OUT OF RANGE REFERENCE UNITS LAB 2885-2(INC) Prot SerPl-mCnc 6.6 6.3-8.0 g/dL LAB 1751-7(LOINC) Albumin SerPl-mCnc 3.8 Low 3.9-4.9 g/dL LAB 35214-1(LOINC) Calcium SerPl-mCnc 9.6 8.5-10.2 mg/dL LAB 1975-2(LOINC) Bilirub SerPl-mCnc 0.8 0.2-1.3 mg/dL LAB 6768-6(LOINC) ALP SerPl-cCnc 107 34-123 U/L LAB 1920-8(LOINC) AST SerPl-cCnc 36 High 13-35 U/L LAB 1742-6(LOINC) ALT SerPl-cCnc 38 7-38 U/L LAB 2345-7(LOINC) Glucose SerPl-mCnc 97 74-99 mg/dL Result Comment: The [place] Diabetes Association (ADA) provides guidance for cutoff values for fasting glucose and random glucose. The ADA defines fasting as no caloric intake for at least 8 hours. Fasting plasma glucose results between 100 to 125 mg/dL indicate increased risk for diabetes (prediabetes). Fasting plasma glucose results greater than or equal to 126 mg/dL meet the criteria for diagnosis of diabetes. In the absence of unequivocal hyperglycemia, results should be confirmed by repeat testing. In a patient with classic symptoms of hyperglycemia or hyperglycemic crisis, random plasma glucose results greater than or equal to 200 mg/dL meet the criteria for diagnosis of diabetes. Reference: Standards of Medical Care in Diabetes 2016, [place] [employer]. Diabetes Care. 2016.39(Suppl 1). LAB 3094-0(LOINC) BUN SerPl-mCnc 9 7-21 mg/dL LAB 2160-0(LOINC) Creat SerPl-mCnc 0.84 0.58-0.96 mg/dL LAB 2951-2(LOINC) Sodium SerPl-sCnc 139 136-144 mmol/L LAB 2823-3(LOINC) Potassium SerPl-sCnc 3.7 3.7-5.1 mmol/L LAB 2075-0(LOINC) Chloride SerPl-sCnc 105 98-107 mmol/L LAB 2027-9(LOINC) CO2 SerPl-sCnc 22 22-30 mmol/L LAB 63348-0(LOINC) Anion Gap SerPl-sCnc 12 8-15 mmol/L LAB 97336-0(LOINC) eGFRcr SerPlBld CKD-EPI 2020 83 >=60 mL/min/1. 73m??? Result Comment: Estimated Gl omerular Filtration Rate (eGFR) is calculated using the 2020 CKD-EPI creatinine equation. This equation utilizes serum creatinine, sex, and age as parameters. The creatinine assay has traceable calibration to isotope dilution-mass spectrometry. Refer to KDIGO guidelines for clinical interpretation. In patients with unstable renal function, e.g. those with acute kidney injury, the eGFR may not accurately reflect actual GFR. Performed By: #### 22614-1, 35391-7 #### [facility] CLIA [id number] [address] [place] [address] [place] CBC W AUTO DIFF BLD Collected: 11/19/2024 9:[address] atus: F Source: [facility] Order Comment: Specimen Type : BLOOD SPECIMEN Ordering Facility: [facility] Address: [address] [place] [address] TYPE CODE TESTS RESULT OUT OF RANGE REFERENCE UNITS LAB 6690-2(LOINC) WBC # Bld Auto 2.09 Low 3.70-11.00 k/uL LAB 789-8([facility]) RBC # Bld Auto 3.55 Low 3.90-5.20 m/ uL LAB 718-7([facility]) Hgb Bld-mCnc 11.0 Low 11.5-15.5 g/dL LAB 4544-3([facility]) Hct VFr Bld Auto 32.8 Low 36.0-46.0 % LAB 787-2([facility]) MCV RBC Auto 92.4 80.0-100.0 fL LAB 785-6([facility]) MCH RBC Qn Auto 31.0 26.0-34.0 p g LAB 786-4([facility]) MCHC RBC Auto-mCnc 33.5 30.5-36.0 g/dL LAB 35965-0([facility]) RDW RBC-Rto 18.0 High 11.5-15.0 % LAB 777-3([facility]) Platelet # Bld Auto 68 Low 150-400 k/uL Result Comment: No clot dete cted. LAB 08530-8([facility]) PMV Bld Auto 11.6 9.0-12.7 fL LAB 770-8([facility]) Neutrophils/leuk NFr Bld Auto 18.6 % LAB 751-8([facility]) Neutrophils # Bld Auto 0.39 Low 1.45-7.50 k/uL LAB 736-9([facility]) Lymphocytes/leuk NFr Bld Auto 57.4 % LAB 731-0([facility]) Lymphocytes # Bld Auto 1.20 1.00-4.00 k/uL LAB 5905-5([facility]) Monocytes/leuk NFr Bld Auto 20.1 % LAB 742-7([facility]) Monocytes # Bld Auto 0.42 <0.87 k/uL LAB 713-8([facility]) Eosinophil/leuk NFr Bld Auto 1.9 % LAB 711-2([facility]) Eosinophil # Bld Auto 0.04 <0.46 k/uL LAB 706-2([facility]) Basophils/leuk NFr Bld Auto 1.0 % LAB 704-7([facility]) Basophils # Bld Auto <0.03 <0.11 k/uL LAB 86714-8(LOINC) Imm Granulocytes/suzi k NFr Bld Auto 1.0 % LAB 97858-0(LOINC) Imm Granulocytes # Bld Auto <0.03 <0.10 k/uL LAB 57085-1(LOINC) nRBC/100 WBC Bld-Rto 0.0 /100 WBC LAB 771-6(LOINC) nRBC # Bld Auto <0.01 <0.01 k/u L LAB 08176-4(LOINC) Differential method Bld Auto Performed By: #### 85774-0 # ### [facility] CLIA [id number] [address] [place] [address] PROGRESS Observed: 11/05/2024 9:34 AM Status: COMPLETED Source: [facility] HNO ID: [id number] Author: STERLING GRIMALDO RN Service: ? Author Type: Registered Nurse Type: Progress Notes Filed: 11/05/2024 12:25 Note Text: Assessment unchanged from Esequiel Ward C D AREA SUPERVISOR office visit on 11/04/24 CNOVSP Observed: 11/04/2024 10:00 AM Status: COMPLETED Source: [facility] Visit (SP) Office (HEMAWS) NARCISOCORINE ROMERO ([id number]) 1970 F Date Time Provider Department 11/04/24 10:00 AM MERCEDEZ WARD During your visit today, we recorded the following information about you: Temperature Pulse Blood pressure Weight 98 degrees 94/minute 115/81 60.3 kg Mercedez Ward APRN.CNP 11/04/2024 3:18 PM Signed Chief Complaint Patient presents with: Established Patient HPI: Corine Stuart is a 54 year old female who presents here today for evaluation for treatment tomorrow. Per Dr. Simms's previous note: H/o LAR for adenocarcinoma of rectosigmoid junction. The patient recently underwent her first colonoscopy which was noted to have severe polyps as well as a rectosigmoid mass concerning for biopsies. EGD was also performed which was significant for a number of duodenal and gastric polyps. CT imaging on 07/10/24 to assess for metastatic disease showed a 2.8 cm ill-defined mass at the rectosigmoid junction, multiple hypodense lesions throughout the liver favored to represent cysts as well as pulmonary nodules (favored to be benign). MRI of the rectum on 07/17/24 showed A 2.6 cm superior rectal mass with adjacent tumor deposit extending into the peritoneal fat as well as suspicious appearing LN's (N1). Sigmoidoscopy performed on 07/19/24 showed rectosigmoid mass with biopsy performed and positive for invasive adenocarcinoma (pMMR). CEA of 12.9 on 07/26/24. Patient then taken to OR on 07/29/24 for LAR ([id number]). She had had no symptoms prior to discovering the cancer. Family history notable for her brother having of colon cancer. Met with Dr Ellsworth at [facility], 12 cycles FolFOx recommended. Per CORS, tumor above peritoneal reflection, no role for radiation. Genetics done, negative Here prior to cycle 4 FolFOx. Diarrhea since last cycle, no neuropathy. Muscle cramps CLINICAL IMPRESSION: Rectosigmoid cancer [id number], stage III RECOMMENDATION/PLAN: 1. FolFOx , cycle 4/12 tomorrow 2. Follow up scans in early October, scheduled. 3. Magnesium supp, immodium, check stool for c diff EGD done by Dr. Mosquera last week. Per pt. a biopsy was taking-path pending. Appetite:Good. Energy level:Energy down for about three days after treatment. Denies fevers. Mouth:denies sores Resp:denies cough or sob Cardiac:denies chest pain/palpitations GI:denies abd pain, occ. nausea-takes compazine with relief, denies vomiting, moving bowels regularly, occ. diarrhea-takes imodium prn :denies dysuria/hematuria Extrem:denies new pain Neuro:+cold sensitivity, denies neuropathy Skin:denies rashes Heme:denies bleeding The ROS is otherwise negative. Past medical history, appointments, medications, allergies reviewed. No changes. EXAM: BP 115/81 Pulse 94 Temp 36.7 ?C (98 ?F) (Temporal) Wt 60.3 kg (133 lb) SpO2 99% BMI 22.49 kg/m? APPEARANCE Well appearing, alert, in no acute distress, well-hydrated, well nourished. MOUTH no mucositis/thrush HEART RRR with normal S1 and S2, no murmurs LUNG clear to auscultation ABDOMEN bowel sounds normoactive, soft, non-tender EXTREMITIES No edema NEURO Awake, alert and oriented x 3, Normal gait, and No involuntary motions. SKIN Skin color, texture, turgor normal, no suspicious rashes or lesions LABS: Latest Ref Rng 10/21/2024 11/04/2024 WBC 3.70 - 11.00 k/uL 6.12 4.31 RBC 3.90 - 5.20 m/uL 4.12 3.89 (L) Hemoglobin 11.5 - 15.5 g/dL 12.5 12.2 Hematocrit 36.0 - 46.0 % 37.8 35.9 (L) MCV 80.0 - 100.0 fL 91.7 92.3 MCH 26.0 - 34.0 pg 30.3 31.4 MCHC 30.5 - 36.0 g/dL 33.1 34.0 RDW-CV 11.5 - 15.0 % 14.9 16.6 (H) Platelet Count 150 - 400 k/uL 133 (L) 84 (L) MPV 9.0 - 12.7 fL 10.1 10.2 Neut% % 59.9 55.6 Abs Neut (ANC) 1.45 - 7.50 k/uL 3.67 2.39 Lymph% % 23.5 27.1 Abs Lymph 1.00 - 4.00 k/uL 1.44 1.17 Humphreys% % 14.1 15.3 Abs Humphreys <0.87 k/uL 0.86 0.66 Eosin% % 2.1 1.6 Abs Eosin <0.46 k/uL 0.13 0.07 Baso% % 0.2 0.2 Abs Baso <0.11 k/uL <0.03 <0.03 Immature Gran % % 0.2 0.2 IMMATURE GRANS (ABS) <0.10 k/uL <0.03 <0.03 NRBC /100 WBC 0.0 0.0 Absolute nRBC <0.01 k/uL <0.01 <0.01 DTYPE Auto Auto CMP/Mag/CEA: Pending ASSESSMENT/PLAN: 1. 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 cramps and diarrhea. - Reviewed CBC with pt. and family member. - CMP/Mag/CEA pending. - Monitor CEA. - Reviewed CT's with pt and family member. - Continue current medications. - Advised pt. to use plasticware not metal silverware. - Proceed as scheduled tomorrow for #5 FOLFOX pending labs. - Follow up as scheduled. - Pt. aware to call office with any questions/concerns. The patient indicates understanding of these issues and agrees with the plan. All documentation from previous visit of 10/21/24-Dr. Simms was copied and pasted, documentation has been reviewed and edited as necessary for today's visit. 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 - loperamide HCl (IMODIUM A-D) 2 mg tab Take 2 mg by mouth as needed. - docusate sodium (COLACE PO) Take 1 tablet by mouth three times a day as needed. - prochlorperazine (COMPAZINE) 10 mg tablet Take 1 tablet by mouth every 6 hours as needed. - lidocaine-prilocaine (EMLA) 2.5-2.5 % cream Apply to affected area as needed. - atorvastatin (LIPITOR) 80 mg tablet Take 80 mg by mouth daily at bedtime. - pantoprazole DR (PROTONIX) 40 mg tablet Take 1 tablet by mouth every 12 hours. Problem List As Of Date 11/04/2024 Noted Resolved Other hyperlipidemia [E78.49] 07/26/2024 GERD (gastroesophageal reflux disease) [K21.9] 07/26/2024 Preop examination [Z01.818] 07/26/2024 Colonic mass [K63.89] Seizure (HCC) [R56.9] 07/26/2024 Smoking hx [Z87.891] 07/26/2024 Rectal cancer (HCC) [C20] 07/29/2024 Nicotine use disorder, F17.2 [F17.200] 07/31/2024 Malignant neoplasm of prostate (HCC) [C61] 11/01/2024 Encounter Status:Closed by MERCEDEZ WARD on 11/04/24 PROGRESS Observed: 11/04/2024 9:56 AM Status: COMPLETED Source: [facility] HNO ID: [id number] Author: MERCEDEZ WARD APRN.C D AREA SUPERVISOR Service: ? Author Type: Nurse Practitioner Type: Progress Notes Filed: 11/04/2024 15:18 Note Text: Chief Complaint Patient presents with: Established Patient HPI: Corine Stuart is a 54 year old female who presents here today for evaluation for treatment tomorrow. Per Dr. Simms's previous note: H/o LAR for adenocarcinoma of rectosigmoid junction. The patient recently underwent her first colonoscopy which was noted to have severe polyps as well as a rectosigmoid mass concerning for biopsies. EGD was also performed which was significant for a number of duodenal and gastric polyps. CT imaging on 07/10/24 to assess for metastatic disease showed a 2.8 cm ill-defined mass at the rectosigmoid junction, multiple hypodense lesions throughout the liver favored to represent cysts as well as pulmonary nodules (favored to be benign). MRI of the rectum on 07/17/24 showed A 2.6 cm superior rectal mass with adjacent tumor deposit extending into the peritoneal fat as well as suspicious appearing LN's (N1). Sigmoidoscopy performed on 07/19/24 showed rectosigmoid mass with biopsy performed and positive for invasive adenocarcinoma (pMMR). CEA of 12.9 on 07/26/24. Patient then taken to OR on 07/29/24 for LAR ([id number]). She had had no symptoms prior to discovering the cancer. Family history notable for her brother having of colon cancer. Met with Dr Ellsworth at [facility], 12 cycles FolFOx recommended. Per CORS, tumor above peritoneal reflection, no role for radiation. Genetics done, negative Here prior to cycle 4 FolFOx. Diarrhea since last cycle, no neuropathy. Muscle cramps CLINICAL IMPRESSION: Rectosigmoid cancer fO0mT6e, stage III RECOMMENDATION/PLAN: 1. FolFOx , cycle 4/12 tomorrow 2. Follow up scans in early October, scheduled. 3. Magnesium supp, immodium, check stool for c diff EGD done by Dr. Mosquera last week. Per pt. a biopsy was taking-path pending. Appetite:Good. Energy level:Energy down for about three days after treatment. Denies fevers. Mouth:denies sores Resp:denies cough or sob Cardiac:denies chest pain/palpitations GI:denies abd pain, occ. nausea-takes compazine with relief, denies vomiting, moving bowels regularly, occ. diarrhea-takes imodium prn :denies dysuria/hematuria Extrem:denies new pain Neuro:+cold sensitivity, denies neuropathy Skin:denies rashes Heme:denies bleeding The ROS is otherwise negative. Past medical history, appointments, medications, allergies reviewed. No changes. EXAM: BP 115/81 Pulse 94 Temp 36.7 ?C (98 ?F) (Temporal) Wt 60.3 kg (133 lb) SpO2 99% BMI 22.49 kg/m? APPEARANCE Well appearing, alert, in no acute distress, well-hydrated, well nourished. MOUTH no mucositis/thrush HEART RRR with normal S1 and S2, no murmurs LUNG clear to auscultation ABDOMEN bowel sounds normoactive, soft, non-tender EXTREMITIES No edema NEURO Awake, alert and oriented x 3, Normal gait, and No involuntary motions. SKIN Skin color, texture, turgor normal, no suspicious rashes or lesions LABS: Latest Ref Rng 10/21/2024 11/04/2024 WBC 3.70 - 11.00 k/uL 6.12 4.31 RBC 3.90 - 5.20 m/uL 4.12 3.89 (L) Hemoglobin 11.5 - 15.5 g/dL 12.5 12.2 Hematocrit 36.0 - 46.0 % 37.8 35.9 (L) MCV 80.0 - 100.0 fL 91.7 92.3 MCH 26.0 - 34.0 pg 30.3 31.4 MCHC 30.5 - 36.0 g/dL 33.1 34.0 RDW-CV 11.5 - 15.0 % 14.9 16.6 (H) Platelet Count 150 - 400 k/uL 133 (L) 84 (L) MPV 9.0 - 12.7 fL 10.1 10.2 Neut% % 59.9 55.6 Abs Neut (ANC) 1.45 - 7.50 k/uL 3.67 2.39 Lymph% % 23.5 27.1 Abs Lymph 1.00 - 4.00 k/uL 1.44 1.17 Humphreys% % 14.1 15.3 Abs Humphreys <0.87 k/uL 0.86 0.66 Eosin% % 2.1 1.6 Abs Eosin <0.46 k/uL 0.13 0.07 Baso% % 0.2 0.2 Abs Baso <0.11 k/uL <0.03 <0.03 Immature Gran % % 0.2 0.2 IMMATURE GRANS (ABS) <0.10 k/uL <0.03 <0.03 NRBC /100 WBC 0.0 0.0 Absolute nRBC <0.01 k/uL <0.01 <0.01 DTYPE Auto Auto CMP/Mag/CEA: Pending ASSESSMENT/PLAN: 1. 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 cramps and diarrhea. - Reviewed CBC with pt. and family member. - CMP/Mag/CEA pending. - Monitor CEA. - Reviewed CT's with pt and family member. - Continue current medications. - Advised pt. to use plasticware not metal silverware. - Proceed as scheduled tomorrow for #5 FOLFOX pending labs. - Follow up as scheduled. - Pt. aware to call office with any questions/concerns. The patient indicates understanding of these issues and agrees with the plan. All documentation from previous visit of 10/21/24-Dr. Simms was copied and pasted, documentation has been reviewed and edited as necessary for today's visit. Mercedez Ward APRN.C D AREA SUPERVISOR PROGRESS Observed: 11/04/2024 9:42 AM Status: COMPLETED Source: [facility] HNO ID: [id number] Author: LAURIE TRIPATHI, RN Service: ? Author Type: Registered Nurse Type: Progress Notes Filed: 11/04/2024 09:42 Note Text: Patient is here for IVAD port flush/blood draw per Nursing Fowler protocol. IVAD is located in right upper chest. Site cleansed with Chloraprep IVAD accessed with a #20 gauge 3/4 non-coring Gripper needle Flush with 5cc's Normal Saline. Blood Return: Good. 10 cc's blood aspirated and discarded. Blood drawn for CBC and CMP. Flushed with: 20 ml Normal Saline. Non-coring needle left intact for further therapy. Opsite applied to puncture site. Site negative for redness, edema or tenderness. Patient tolerated procedure well. COMP METAB 2000 PNL SERPL Collected: 9:37 AM Status: F Source: [facility] Order Comment: Specimen Type : BLOOD SPECIMEN Ordering Facility: [facility] Address: [address] [place] [address] TYPE CODE TESTS RESULT OUT OF RANGE REFERENCE UNITS LAB 2885-2(LOINC) Prot SerPl-mCnc 6.7 6.3-8.0 g/dL LAB 1751-7(LOINC) Albumin SerPl-mCnc 4.0 3.9-4.9 g/dL LAB 78381-9(LOINC) Calcium SerPl-mCnc 9.8 8.5-10.2 mg/dL LAB 1975-2(LOINC) Bilirub SerPl-mCnc 0.6 0.2-1.3 mg/dL LAB 6768-6(LOINC) ALP SerPl-cCnc 106 34-123 U/L LAB 1920-8(LOINC) AST SerPl-cCnc 59 High 13-35 U/L LAB 1742-6(LOINC) ALT SerPl-cCnc 77 High 7-38 U/L LAB 2345-7(LOINC) Glucose SerPl-mCnc 132 High 74-99 mg/dL Result Comment: The [place] Diabetes [employer] (ADA) provides guidance for cutoff values for fasting glucose and random glucose. The ADA defines fasting as no caloric intake for at least 8 hours. Fasting plasma glucose results between 100 to 125 mg/dL indicate increased risk for diabetes (prediabetes). Fasting plasma glucose results greater than or equal to 126 mg/dL meet the criteria for diagnosis of diabetes. In the absence of unequivocal hyperglycemia, results should be confirmed by repeat testing. In a patient with classic symptoms of hyperglycemia or hyperglycemic crisis, random plasma glucose results greater than or equal to 200 mg/dL meet the criteria for diagnosis of diabetes. Reference: Standards of Medical Care in Diabetes 2016, [place] [employer]. Diabetes Care. 2016.39(Suppl 1). LAB 3094-0(LOINC) BUN SerPl-mCnc 12 7-21 mg/dL LAB 2160-0(LOINC) Creat SerPl-mCnc 0.86 0.58-0.96 mg/dL LAB 2951-2(LOINC) Sodium SerPl-sCnc 140 136-144 mmol/L LAB 2823-3(LOINC) Potassium SerPl-sCnc 3.8 3.7-5.1 mmol/L LAB 2075-0(LOINC) Chloride SerPl-sCnc 104 98-107 mmol/L LAB 2028-9(LOINC) CO2 SerPl-sCnc 24 22-30 mmol/L LAB 93009-3(LOINC) Anion Gap SerPl-sCnc 12 8-15 mmol/L LAB 35403-5(LOINC) eGFRcr SerPlBld CKD-EPI 2020 80 >=60 mL/min/1. 73m??? Result Comment: Estimated Gl omerular Filtration Rate (eGFR) is calculated using the 2020 CKD-EPI creatinine equation. This equation utilizes serum creatinine, sex, and age as parameters. The creatinine assay has traceable calibration to isotope dilution-mass spectrometry. Refer to KDIGO guidelines for clinical interpretation. In patients with unstable renal function, e.g. those with acute kidney injury, the eGFR may not accurately reflect actual GFR. Performed By: #### 18521-4, 31476-6 #### [facility] CLIA [id number] [address] [place] [address] [place] MAGNESIUM SERPL-MCNC Collected: 11/04/2024 9:37 AM S tatus: F Source: [facility] Order Comment: Specimen Type : BLOOD SPECIMEN Ordering Facility: [facility] Address: [address] [place] [address] TYPE CODE TESTS RESULT OUT OF RANGE REFERENCE UNITS LAB 27128-4(LOINC) Magnesium SerPl-mCnc 2.1 1.7-2.3 mg/dL Performed By: #### 66143-3, 66016-7 #### [facility] CLIA [id number] [address] CEA SERPL-MCNC Collected: 9:37 AM Status: F Source: [facility] Order Comment: Specimen Type : BLOOD SPECIMEN Ordering Facility: [facility] Address: [address] [place] [address] TYPE CODE TESTS RESULT OUT OF RANGE REFERENCE UNITS LAB 2038-6(LOINC) CEA SerPl-mCnc 3.3 High <=2.9 ng/mL Result Comment: Carcinoembry onic antigen test is used as an aid in monitoring response to treatment or recurrence in patients with established colorectal, breast, lung, prostatic, pancreatic, and ovarian carcinomas. Clinical correlation is required. The Carcinoembryonic antigen test was performed using the Iván [employer] Unicel DXI paramagnetic particle chemiluminescent immunoassay method. Results obtained with different assay methods or kits cannot be used interchangeably. Performed By: #### 2039-6 ## ## [facility] CLIA [id number] [address] [place] [address] CBC W AUTO DIFF BLD Collected: 11/04/2024 9:[address] atus: F Source: [facility] Order Comment: Specimen Type : BLOOD SPECIMEN Ordering Facility: [facility] Address: [address] [place] [address] TYPE CODE TESTS RESULT OUT OF RANGE REFERENCE UNITS LAB 6690-2(LOINC) WBC # Bld Auto 4.31 3.70-11.00 k/uL LAB 789-8(LOINC) RBC # Bld Auto 3.89 Low 3.90-5.20 m/ uL LAB 718-7([facility]) Hgb Bld-mCnc 12.2 11.5-15.5 g/dL LAB 4544-3([facility]) Hct VFr Bld Auto 35.9 Low 36.0-46.0 % LAB 787-2([facility]) MCV RBC Auto 92.3 80.0-100.0 fL LAB 785-6([facility]) MCH RBC Qn Auto 31.4 26.0-34.0 p g LAB 786-4([facility]) MCHC RBC Auto-mCnc 34.0 30.5-36.0 g/dL LAB 88005-1([facility]) RDW RBC-Rto 16.6 High 11.5-15.0 % LAB 777-3([facility]) Platelet # Bld Auto 84 Low 150-400 k/uL Result Comment: No clot dete cted. LAB 29487-7([facility]) PMV Bld Auto 10.2 9.0-12.7 fL LAB 770-8([facility]) Neutrophils/leuk NFr Bld Auto 55.6 % LAB 751-8([facility]) Neutrophils # Bld Auto 2.39 1.45-7.50 k/uL LAB 736-9([facility]) Lymphocytes/leuk NFr Bld Auto 27.1 % LAB 731-0([facility]) Lymphocytes # Bld Auto 1.17 1.00-4.00 k/uL LAB 5905-5([facility]) Monocytes/leuk NFr Bld Auto 15.3 % LAB 742-7([facility]) Monocytes # Bld Auto 0.66 <0.87 k/uL LAB 713-8([facility]) Eosinophil/leuk NFr Bld Auto 1.6 % LAB 711-2([facility]) Eosinophil # Bld Auto 0.07 <0.46 k/uL LAB 706-2([facility]) Basophils/leuk NFr Bld Auto 0.2 % LAB 704-7([facility]) Basophils # Bld Auto <0.03 <0.11 k/uL LAB 62691-6([facility]) Imm Granulocytes/szui k NFr Bld Auto 0.2 % LAB 83882-1([facility]) Imm Granulocytes # Bld Auto <0.03 <0.10 k/uL LAB 00068-5(LOINC) nRBC/100 WBC Bld-Rto 0.0 /100 WBC LAB 771-6(LOINC) nRBC # Bld Auto <0.01 <0.01 k/u L [facility] 34252[facility] Differential method Bld Auto Performed By: #### 63596-1 # ### [facility] CLIA [id number] [address] [place] CT ABD/PEL W IVCON Observed: 11/01/2024 12:00 PM Status: F Source: [facility] * * *Final Report* * * DATE OF EXAM: Nov 01 2024 12:00PM [facility] 0530 - CT ABD/PEL W IVCON / PROCEDURE REASON: Malignant neoplasm of sigmoid colon (HCC) * * * * Physician Interpretation * * * * EXAMINATION: CT CHEST WITH IV CONTRAST AND CT ABDOMEN AND PELVIS WITH IV CONTRAST CLINICAL HISTORY: Colon carcinoma TECHNIQUE: CT of the chest from the thoracic inlet to the upper abdomen was performed following administration of IV contrast. CT of the abdomen was performed using standard technique, scanning from just above the dome of the diaphragm to the iliac crest. MQ: [id number] Contrast: IV: 100 ml of Omnipaque 350 Oral: 500 ml of Omni 240 10-25ml diluted with water CT Radiation dose: Integrated Dose-length product (DLP) for this visit = 624 mGy*cm. CT Dose Reduction Employed: Automated exposure control (AEC) COMPARISON: 07/10/2024. RESULT: Limitations: None. Chest: Lines, tubes, and devices: There is a Port-A-Cath seen within the subcutaneous tissues of the right upper chest, causing streak artifact, tip in the right atrium. Lung parenchyma and pleura: No pleural effusion. There is emphysema, with mild, diffuse bronchiectasis. Stable subcentimeter pulmonary nodules. For example, there is a stable, approximately 3 mm nodule medially within the right lower lobe (series 7, image #46). There is a stable, approximately 3 mm nodule seen within the superior segment right lower lobe (series 7, image #92). Other subcentimeter pulmonary nodules are also stable. For example, there is stable 3 mm nodule within the left lung base (series 7, image #148). There is no new pulmonary nodule. No pneumothorax or endobronchial lesion. Thoracic inlet, heart, and mediastinum: There are no pathologically enlarged axillary, mediastinal, or hilar lymph nodes. The heart is normal in size. There is no significant pericardial effusion. Atherosclerotic calcifications are present within the thoracic aorta and coronary arteries. Abdomen/pelvis: Liver: Again seen are subcentimeter, low-attenuation lesions within the liver, which are too small to characterize by statistically related subcentimeter cysts. No new focal discrete hepatic mass is identified. Focal fatty change is seen within the liver, adjacent to the falciform ligament. Biliary: The gallbladder is markedly collapsed. There is no biliary dilation. Spleen: No mass. No splenomegaly. Pancreas: There is no obvious focal discrete pancreatic mass or pancreatic ductal dilation. There is a small amount of nonspecific fluid which has developed adjacent to the pancreatic tail, measuring approximately 1.6 x 1.0 cm (series 2, image #38). Continued interval surveillance is recommended. Adrenals:No mass. Kidneys: There is no hydronephrosis or perinephric fluid collection. Subcentimeter, low-attenuation lesion within the interpolar segment of the left kidney too small to characterize but is stable and statistically relates to a subcentimeter cyst (series 2, image #49). GI tract: There are no dilated loops of bowel to suggest obstruction. Moderate to large stool burden. Postoperative changes are seen involving the rectosigmoid region, with interval resection of mass. There is fat stranding and wall thickening adjacent to the surgical site, likely postoperative in etiology; however, continued interval surveillance is recommended. Lymph nodes: Prominent, less than 1 cm abdominal lymph nodes are likely reactive. Mesentery/Peritoneum: Abdominal ascites. Vasculature: No abdominal aortic aneurysm. Atherosclerotic disease. Pelvis: Patient is status post hysterectomy. There is no pelvic lymphadenopathy, pelvic mass, pelvic ascites. Bones/Soft Tissues: There is no destructive bony lesion. Mild scoliosis of the spine. Vacuum phenomena is seen involving the sacroiliac joint spaces, bilaterally. IMPRESSION: Stable small pulmonary nodules, when compared to the prior examination. There is no new pulmonary nodule. Given history of colon carcinoma, continued interval surveillance is recommended. Emphysema, with mild, diffuse bronchiectasis. No stephany lymphadenopathy is seen within the chest. Interval postsurgical change involving the rectosigmoid region and interval removal of mass. Wall thickening and fat stranding is seen adjacent to the surgery site, likely postoperative in etiology; however, continued interval surveillance is recommended. No convincing CT evidence of metastatic disease within the abdomen and pelvis. Call Center Analyst: JOAQUIN Transcribe Date/Time: Nov 01 2024 1:44P Dictated by : KIMMIE MATA MD This examination was interpreted and the report reviewed and electronically signed by: KIMMIE MATA MD on Nov 01 2024 1:59PM EST [id number] CT CHEST W IVCON Observed: 11/01/2024 12:00 PM Status: F Source: [facility] * * *Final Report* * * DATE OF EXAM: Nov 01 2024 12:00PM [facility] [id number] - CT CHEST W IVCON / PROCEDURE REASON: Malignant neoplasm of sigmoid colon (HCC) * * * * Physician Interpretation * * * * EXAMINATION: CT CHEST WITH IV CONTRAST AND CT ABDOMEN AND PELVIS WITH IV CONTRAST CLINICAL HISTORY: Colon carcinoma TECHNIQUE: CT of the chest from the thoracic inlet to the upper abdomen was performed following administration of IV contrast. CT of the abdomen was performed using standard technique, scanning from just above the dome of the diaphragm to the iliac crest. MQ: [id number]_4 Contrast: IV: 100 ml of Omnipaque 350 Oral: 500 ml of Omni 240 10-25ml diluted with water CT Radiation dose: Integrated Dose-length product (DLP) for this visit = 624 mGy*cm. CT Dose Reduction Employed: Automated exposure control (AEC) COMPARISON: 07/10/2024. RESULT: Limitations: None. Chest: Lines, tubes, and devices: There is a Port-A-Cath seen within the subcutaneous tissues of the right upper chest, causing streak artifact, tip in the right atrium. Lung parenchyma and pleura: No pleural effusion. There is emphysema, with mild, diffuse bronchiectasis. Stable subcentimeter pulmonary nodules. For example, there is a stable, approximately 3 mm nodule medially within the right lower lobe (series 7, image #46). There is a stable, approximately 3 mm nodule seen within the superior segment right lower lobe (series 7, image #92). Other subcentimeter pulmonary nodules are also stable. For example, there is stable 3 mm nodule within the left lung base (series 7, image #148). There is no new pulmonary nodule. No pneumothorax or endobronchial lesion. Thoracic inlet, heart, and mediastinum: There are no pathologically enlarged axillary, mediastinal, or hilar lymph nodes. The heart is normal in size. There is no significant pericardial effusion. Atherosclerotic calcifications are present within the thoracic aorta and coronary arteries. Abdomen/pelvis: Liver: Again seen are subcentimeter, low-attenuation lesions within the liver, which are too small to characterize by statistically related subcentimeter cysts. No new focal discrete hepatic mass is identified. Focal fatty change is seen within the liver, adjacent to the falciform ligament. Biliary: The gallbladder is markedly collapsed. There is no biliary dilation. Spleen: No mass. No splenomegaly. Pancreas: There is no obvious focal discrete pancreatic mass or pancreatic ductal dilation. There is a small amount of nonspecific fluid which has developed adjacent to the pancreatic tail, measuring approximately 1.6 x 1.0 cm (series 2, image #38). Continued interval surveillance is recommended. Adrenals:No mass. Kidneys: There is no hydronephrosis or perinephric fluid collection. Subcentimeter, low-attenuation lesion within the interpolar segment of the left kidney too small to characterize but is stable and statistically relates to a subcentimeter cyst (series 2, image #49). GI tract: There are no dilated loops of bowel to suggest obstruction. Moderate to large stool burden. Postoperative changes are seen involving the rectosigmoid region, with interval resection of mass. There is fat stranding and wall thickening adjacent to the surgical site, likely postoperative in etiology; however, continued interval surveillance is recommended. Lymph nodes: Prominent, less than 1 cm abdominal lymph nodes are likely reactive. Mesentery/Peritoneum: Abdominal ascites. Vasculature: No abdominal aortic aneurysm. Atherosclerotic disease. Pelvis: Patient is status post hysterectomy. There is no pelvic lymphadenopathy, pelvic mass, pelvic ascites. Bones/Soft Tissues: There is no destructive bony lesion. Mild scoliosis of the spine. Vacuum phenomena is seen involving the sacroiliac joint spaces, bilaterally. IMPRESSION: Stable small pulmonary nodules, when compared to the prior examination. There is no new pulmonary nodule. Given history of colon carcinoma, continued interval surveillance is recommended. Emphysema, with mild, diffuse bronchiectasis. No stephany lymphadenopathy is seen within the chest. Interval postsurgical change involving the rectosigmoid region and interval removal of mass. Wall thickening and fat stranding is seen adjacent to the surgery site, likely postoperative in etiology; however, continued interval surveillance is recommended. No convincing CT evidence of metastatic disease within the abdomen and pelvis. Call Center Analyst: JOAQUIN Transcribe Date/Time: Nov 01 2024 1:44P Dictated by : KIMMIE MATA MD This examination was interpreted and the report reviewed and electronically signed by: KIMMIE MATA MD on Nov 01 2024 1:59PM EST [id number] PROGRESS Observed: 11/01/2024 11:20 AM Status: COMPLETED Source: [facility] HNO ID: [id number] Author: ABRIL PAN RT(R) Service: Radiology Author Type: Technologist Type: Progress Notes Filed: 11/01/2024 11:37 Note Text: Radiology Service Progress Note PATIENT NAME: Corine Stuart DATE OF SERVICE: November 01, 2024 TIME: 11:36 AM PATIENT IDENTITY VERIFICATION COMPLETED USING TWO (2) IDENTIFIERS: Name and Date of confirmed by patient verbally. FALL SCREENING: Has the patient had 2 falls in the last year or 1 fall with injury or currently using an Ambulatory Assistive Device (Walker, Cane, Wheelchair, Crutches, etc.)? No PATIENT GENDER DATA: Assigned female at . status: : No status: NO. PATIENT RELEVANT IMPLANT DATA REVIEWED: Not Applicable PATIENT PRESENTS WITH AN IMPLANTABLE OR ATTACHED COMPONENT PREP OPERATOR: No RADIOLOGY DEPARTMENT: CT; Exam(s) Completed: Chest Abdomen Pelvis. Anesthesia: No PERIPHERAL IV DATA: Site assessment: Clean,Dry and Intact, Site disposition Discontinued power port accessed by RN SIGNED BY: RT Cande(R) November 01, 2024 11:36 AM CNPN Observed: 10/31/2024 12:00 AM Status: COMPLETED Source: [facility] Telephone ([facility]) CORINE STUART ([id number]) 1970 F Date Time Provider Department 10/31/24 ENID MA During your visit today, we recorded the following information about you: Carri Meier PSS 10/31/2024 11:30 AM Signed Pt would like to use port for appt for tomorrow 11/01/[address] @ 10:20 for Drink 11:20 for scan Sebas Gill 10/31/2024 12:19 PM Signed This has been scheduled. Sebas Gill Allergies As of Date: 10/31/2024 (No Known Allergies) Date Reviewed: 10/25/2024 Reviewed by: Rae Sarah, RT(R) - Fully Assessed Reason for Visit: Appointment [186] Prescriptions as of 10/31/2024 - docusate sodium (COLACE PO) Take 1 tablet by mouth three times a day as needed. - prochlorperazine (COMPAZINE) 10 mg tablet Take 1 tablet by mouth every 6 hours as needed. - lidocaine-prilocaine (EMLA) 2.5-2.5 % cream Apply to affected area as needed. - promethazine (PHENERGAN) 25 mg tablet Take 1 tab by mouth every 4 hours as needed for nausea. - Protein Supplement liqd Take 30 g by mouth once daily. Protein drink daily - atorvastatin (LIPITOR) 80 mg tablet Take 80 mg by mouth daily at bedtime. - pantoprazole DR (PROTONIX) 40 mg tablet Take 1 tablet by mouth every 12 hours. - iv contrast (will be provided with radiology test) CT Chest ABD/PEL-Inject, intravenously, once for 1 dose.No IV access, insert saline lock prior to the beginning of sedation, infusion, injection of imaging exam. Discontinue saline lock post exam. If Pt. has a central line or IVAD, may access for administration according to line specific nursing protocol. Once exam is complete flush line and de-access according to line specific nursing protocol in the CT contrast administration guidelines link. - enteric contrast (will be provided with radiology test) For CT CHESTABD/PEL W IVCON Routine order Administer, As Directed One Time Only, via Oral, Rectal, both Oral and Rectal, Enteric Tube, Stoma or Indwelling Catheter, Enteric Contrast as designated per enteric contrast guidelines Problem List As Of Date 10/31/2024 Noted Resolved Other hyperlipidemia [E78.49] 07/26/2024 GERD (gastroesophageal reflux disease) [K21.9] 07/26/2024 Preop examination [Z01.818] 07/26/2024 Colonic mass [K63.89] Seizure (HCC) [R56.9] 07/26/2024 Smoking hx [Z87.891] 07/26/2024 Rectal cancer (HCC) [C20] 07/29/2024 Nicotine use disorder, F17.2 [F17.200] 07/31/2024 Encounter Status:Closed by SEBAS GILL on 10/31/24 C DIFF TOX GENS STL QL SEBASTIAN+PROBE Collected: 10/21/2024 12:03 PM Status: F Source: [facility] Order Comment: Specimen Type : STOOL SPECIMEN Ordering Facility: [facility] Address: [address] [place] [address] TYPE CODE TESTS RESULT OUT OF RANGE REFERENCE UNITS LAB 61407-7(LOINC) C diff Tox gens Stl Ql SEBASTIAN+probe Negative for C. difficile toxin by PCR Negative for C. difficile toxin by PCR Performed By: #### 62742-7 # ### [facility] CLIA [id number] [address] [place] [address] [place] Observed: 10/21/2024 10:20 AM Status: COMPLETED Source: [facility] Visit (SP) Office (CORI) CORINE STUART ([id number]) 1970 F Date Time Provider Department 10/21/24 10:20 AM NESTOR SIMMS During your visit today, we recorded the following information about you: Temperature Pulse Blood pressure Weight 98.2 degrees 85/minute 105/73 61 kg Nestor Simms MD 10/21/2024 11:17 AM Signed (Elements copied from my note dated ,October 07, 2024 have been reviewed and updated where appropriate, and all reflect current assessment and medical decision making from today's encounter, October 21, 2024) HISTORY OF PRESENT ILLNESS: Corine Stuart is a 54 year old 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 The patient recently underwent her first colonoscopy which was noted to have severe polyps as well as a rectosigmoid mass concerning for biopsies. EGD was also performed which was significant for a number of duodenal and gastric polyps. CT imaging on 07/10/24 to assess for metastatic disease showed a 2.8 cm ill-defined mass at the rectosigmoid junction, multiple hypodense lesions throughout the liver favored to represent cysts as well as pulmonary nodules (favored to be benign). MRI of the rectum on 07/17/24 showed A 2.6 cm superior rectal mass with adjacent tumor deposit extending into the peritoneal fat as well as suspicious appearing LN's (N1). Sigmoidoscopy performed on 07/19/24 showed rectosigmoid mass with biopsy performed and positive for invasive adenocarcinoma (pMMR). CEA of 12.9 on 07/26/24. Patient then taken to OR on 07/29/24 for LAR ([id number]). She had had no symptoms prior to discovering the cancer. Family history notable for her brother having of colon cancer. Met with Dr Ellsworth at [facility], 12 cycles FolFOx recommended. Per CORS, tumor above peritoneal reflection, no role for radiation. Genetics done, negative Here prior to cycle 4 FolFOx. Diarrhea since last cycle, no neuropathy. Muscle cramps CLINICAL IMPRESSION: Rectosigmoid cancer [id number], stage III RECOMMENDATION/PLAN: 1. FolFOx , cycle 4/12 tomorrow 2. Follow up scans in early October, scheduled. 3. Magnesium supp, immodium, check stool for c diff Written and verbal health teaching given to patient, patient verbalizes understanding and agrees with treatment plan. PAST MEDICAL HISTORY Diagnosis Date Colonic mass Gastric ulcer Mixed hyperlipidemia PAST SURGICAL HISTORY Procedure Laterality Date AMPUTATION FINGER/THUMB Right part of thumb APPENDECTOMY PAST SURGICAL HISTORY OF 07/29/2024 Colon, rectum, low anterior resection SIGMOIDOSCOPY 07/19/2024 TONSILLECTOMY AND ADENOIDECTOMY <AGE 12 1988 TOTAL ABDOM HYSTERECTOMY 1998 partial FAMILY HISTORY Problem Relation Age of Onset other (CAD, ALS) Father other ( age 40's colon cancer) Brother Breast Cancer Paternal Grandmother Cancer Paternal Aunt Social History Tobacco Use Smoking status: Former Types: Cigarettes Smokeless tobacco: Never Tobacco comments: Pt smoked one pack daily x 40 years, quit 07/26/24 Vaping Use Vaping status: Never Used Substance Use Topics Alcohol use: Not Currently Drug use: Not Currently ALLERGIES: ALLERGIES No Known Allergies CURRENT OUTPATIENT MEDICATIONS: docusate sodium (COLACE PO) Take 1 tablet by mouth three times a day as needed. prochlorperazine (COMPAZINE) 10 mg tablet Take 1 tablet by mouth every 6 hours as needed. lidocaine-prilocaine (EMLA) 2.5-2.5 % cream Apply to affected area as needed. atorvastatin (LIPITOR) 80 mg tablet Take 80 mg by mouth daily at bedtime. pantoprazole DR (PROTONIX) 40 mg tablet Take 1 tablet by mouth every 12 hours. promethazine (PHENERGAN) 25 mg tablet Take 1 tab by mouth every 4 hours as needed for nausea. (Patient not taking: Reported on 08/13/2024) Protein Supplement liqd Take 30 g by mouth once daily. Protein drink daily (Patient not taking: Reported on 08/27/2024) iv contrast (will be provided with radiology test) CT Chest ABD/PEL-Inject, intravenously, once for 1 dose.No IV access, insert saline lock prior to the beginning of sedation, infusion, injection of imaging exam. Discontinue saline lock post exam. If Pt. has a central line or IVAD, may access for administration according to line specific nursing protocol. Once exam is complete flush line and de-access according to line specific nursing protocol in the CT contrast administration guidelines link. (Patient not taking: Reported on 08/13/2024) enteric contrast (will be provided with radiology test) For CT CHESTABD/PEL W IVCON Routine order Administer, As Directed One Time Only, via Oral, Rectal, both Oral and Rectal, Enteric Tube, Stoma or Indwelling Catheter, Enteric Contrast as designated per enteric contrast guidelines (Patient not taking: Reported on 08/13/2024) REVIEW OF SYSTEMS: GENERAL: No fever, night sweats, weight loss or malaise. All other reviewed and negative other than HPI. PHYSICAL EXAMINATION: VITAL SIGNS: BP 105/73 Pulse 85 Temp 98.2 Wt 134 lb 7.7 oz (61.0kg) SpO2 99% GENERAL APPEARANCE: Well appearing, in no acute distress, alert and oriented x3, well-hydrated, well nourished. HEART: Reg LUNGS: CTA I spent a total of 20 minutes on the date of the service which included preparing to see the patient, [id number] patient care, completing clinical documentation, obtaining and/or reviewing separately obtained history, counseling and educating the patient/family/caregiver, ordering medications, tests, or procedures, communicating with other HCPs (not separately reported), independently interpreting results (not separately reported), communicating results to the patient/family/caregiver, and care coordination (not separately reported). Electronically Signed: Nestor Simms MD October 21, 2024 Nestor Simms MD 10/21/2024 9:56 AM Addendum Take magnesium oxide supplement once a day. 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 #:[id number] LAB EXTRA TUBES [[id number]] Order #: [id number]. #:[id number] EXTRA ECOFIX CONTAINER PERFORMABLE [[id number]] Reflex Order#: [id number] (Ord#:[id number])Spec. #:[id number] EXTRA ASHLEY-ELENI CONTAINER PERFORMABLE [[id number]] Reflex Order#: [id number] (Ord#:[id number])Spec. #:[id number] Follow-up and Disposition History for Encounter Date Provider Department Center 10/21/2024 [id number], DREW CORI [facility]man Prescriptions as of 10/22/2024 - docusate sodium (COLACE PO) Take 1 tablet by mouth three times a day as needed. - prochlorperazine (COMPAZINE) 10 mg tablet Take 1 tablet by mouth every 6 hours as needed. - lidocaine-prilocaine (EMLA) 2.5-2.5 % cream Apply to affected area as needed. - promethazine (PHENERGAN) 25 mg tablet Take 1 tab by mouth every 4 hours as needed for nausea. - Protein Supplement liqd Take 30 g by mouth once daily. Protein drink daily - atorvastatin (LIPITOR) 80 mg tablet Take 80 mg by mouth daily at bedtime. - pantoprazole DR (PROTONIX) 40 mg tablet Take 1 tablet by mouth every 12 hours. - iv contrast (will be provided with radiology test) CT Chest ABD/PEL-Inject, intravenously, once for 1 dose.No IV access, insert saline lock prior to the beginning of sedation, infusion, injection of imaging exam. Discontinue saline lock post exam. If Pt. has a central line or IVAD, may access for administration according to line specific nursing protocol. Once exam is complete flush line and de-access according to line specific nursing protocol in the CT contrast administration guidelines link. - enteric contrast (will be provided with radiology test) For CT CHESTABD/PEL W IVCON Routine order Administer, As Directed One Time Only, via Oral, Rectal, both Oral and Rectal, Enteric Tube, Stoma or Indwelling Catheter, Enteric Contrast as designated per enteric contrast guidelines Problem List As Of Date 10/21/2024 Noted Resolved Other hyperlipidemia [E78.49] 07/26/2024 GERD (gastroesophageal reflux disease) [K21.9] 07/26/2024 Preop examination [Z01.818] 07/26/2024 Colonic mass [K63.89] Seizure (HCC) [R56.9] 07/26/2024 Smoking hx [Z87.891] 07/26/2024 Rectal cancer (HCC) [C20] 07/29/2024 Nicotine use disorder, F17.2 [F17.200] 07/31/2024 Other instructions from your clinician: Take magnesium oxide supplement once a day. Take imodium as directed Encounter Status:Closed by NESTOR SIMMS on 10/21/24 PROGRESS Observed: 10/21/2024 9:51 AM Status: COMPLETED Source: [facility] HNO ID: [id number] Author: NESTOR SIMMS MD Service: ? Author Type: Physician Type: Progress Notes Filed: 10/21/2024 11:17 Note Text: (Elements copied from my note dated ,October 07, 2024 have been reviewed and updated where appropriate, and all reflect current assessment and medical decision making from today's encounter, October 21, 2024) HISTORY OF PRESENT ILLNESS: Corine Stuart is a 54 year old 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 The patient recently underwent her first colonoscopy which was noted to have severe polyps as well as a rectosigmoid mass concerning for biopsies. EGD was also performed which was significant for a number of duodenal and gastric polyps. CT imaging on 07/10/24 to assess for metastatic disease showed a 2.8 cm ill-defined mass at the rectosigmoid junction, multiple hypodense lesions throughout the liver favored to represent cysts as well as pulmonary nodules (favored to be benign). MRI of the rectum on 07/17/24 showed A 2.6 cm superior rectal mass with adjacent tumor deposit extending into the peritoneal fat as well as suspicious appearing LN's (N1). Sigmoidoscopy performed on 07/19/24 showed rectosigmoid mass with biopsy performed and positive for invasive adenocarcinoma (pMMR). CEA of 12.9 on 07/26/24. Patient then taken to OR on 07/29/24 for LAR ([id number]). She had had no symptoms prior to discovering the cancer. Family history notable for her brother having of colon cancer. Met with Dr Ellsworth at [facility], 12 cycles FolFOx recommended. Per CORS, tumor above peritoneal reflection, no role for radiation. Genetics done, negative Here prior to cycle 4 FolFOx. Diarrhea since last cycle, no neuropathy. Muscle cramps CLINICAL IMPRESSION: Rectosigmoid cancer [id number], stage III RECOMMENDATION/PLAN: 1. FolFOx , cycle 4/12 tomorrow 2. Follow up scans in early October, scheduled. 3. Magnesium supp, immodium, check stool for c diff Written and verbal health teaching given to patient, patient verbalizes understanding and agrees with treatment plan. PAST MEDICAL HISTORY Diagnosis Date Colonic mass Gastric ulcer Mixed hyperlipidemia PAST SURGICAL HISTORY Procedure Laterality Date AMPUTATION FINGER/THUMB Right part of thumb APPENDECTOMY PAST SURGICAL HISTORY OF 07/29/2024 Colon, rectum, low anterior resection SIGMOIDOSCOPY 07/19/2024 TONSILLECTOMY AND ADENOIDECTOMY <AGE 12 1988 TOTAL ABDOM HYSTERECTOMY 1997 partial FAMILY HISTORY Problem Relation Age of Onset other (CAD, ALS) Father other ( age 40's colon cancer) Brother Breast Cancer Paternal Grandmother Cancer Paternal Aunt Social History Tobacco Use Smoking status: Former Types: Cigarettes Smokeless tobacco: Never Tobacco comments: Pt smoked one pack daily x 40 years, quit 07/26/24 Vaping Use Vaping status: Never Used Substance Use Topics Alcohol use: Not Currently Drug use: Not Currently ALLERGIES: ALLERGIES No Known Allergies CURRENT OUTPATIENT MEDICATIONS: docusate sodium (COLACE PO) Take 1 tablet by mouth three times a day as needed. prochlorperazine (COMPAZINE) 10 mg tablet Take 1 tablet by mouth every 6 hours as needed. lidocaine-prilocaine (EMLA) 2.5-2.5 % cream Apply to affected area as needed. atorvastatin (LIPITOR) 80 mg tablet Take 80 mg by mouth daily at bedtime. pantoprazole DR (PROTONIX) 40 mg tablet Take 1 tablet by mouth every 12 hours. promethazine (PHENERGAN) 25 mg tablet Take 1 tab by mouth every 4 hours as needed for nausea. (Patient not taking: Reported on 08/13/2024) Protein Supplement liqd Take 30 g by mouth once daily. Protein drink daily (Patient not taking: Reported on 08/27/2024) iv contrast (will be provided with radiology test) CT Chest ABD/PEL-Inject, intravenously, once for 1 dose.No IV access, insert saline lock prior to the beginning of sedation, infusion, injection of imaging exam. Discontinue saline lock post exam. If Pt. has a central line or IVAD, may access for administration according to line specific nursing protocol. Once exam is complete flush line and de-access according to line specific nursing protocol in the CT contrast administration guidelines link. (Patient not taking: Reported on 08/13/2024) enteric contrast (will be provided with radiology test) For CT CHESTABD/PEL W IVCON Routine order Administer, As Directed One Time Only, via Oral, Rectal, both Oral and Rectal, Enteric Tube, Stoma or Indwelling Catheter, Enteric Contrast as designated per enteric contrast guidelines (Patient not taking: Reported on 08/13/2024) REVIEW OF SYSTEMS: GENERAL: No fever, night sweats, weight loss or malaise. All other reviewed and negative other than HPI. PHYSICAL EXAMINATION: VITAL SIGNS: BP 105/73 Pulse 85 Temp 98.2 Wt 134 lb 7.7 oz (61.0kg) SpO2 99% GENERAL APPEARANCE: Well appearing, in no acute distress, alert and oriented x3, well-hydrated, well nourished. HEART: Reg LUNGS: CTA I spent a total of 20 minutes on the date of the service which included preparing to see the patient, [id number] patient care, completing clinical documentation, obtaining and/or reviewing separately obtained history, counseling and educating the patient/family/caregiver, ordering medications, tests, or procedures, communicating with other HCPs (not separately reported), independently interpreting results (not separately reported), communicating results to the patient/family/caregiver, and care coordination (not separately reported). Electronically Signed: Nestor Simms MD October 21, 2024 CEA SERPL-MCNC Collected: 9:41 AM Status: F Source: [facility] Order Comment: Specimen Type : BLOOD SPECIMEN Ordering Facility: [facility] Address: [address] [place] [address] TYPE CODE TESTS RESULT OUT OF RANGE REFERENCE UNITS LAB 2038-07(LOINC) CEA SerPl-mCnc 2.9 <=2.9 ng/mL Result Comment: Carcinoembry onic antigen test is used as an aid in monitoring response to treatment or recurrence in patients with established colorectal, breast, lung, prostatic, pancreatic, and ovarian carcinomas. Clinical correlation is required. The Carcinoembryonic antigen test was performed using the [employer] DXI paramagnetic particle chemiluminescent immunoassay method. Results obtained with different assay methods or kits cannot be used interchangeably. Performed By: #### 2039-6 ## ## [facility] CLIA [id number] [address] [place], [place] [address] [place] [address] [place] CBC W AUTO DIFF BLD Collected: 10/21/2024 9:[address] atus: F Source: [facility] Order Comment: Specimen Type : BLOOD SPECIMEN Ordering Facility: [facility] Address: [place] [address] TYPE CODE TESTS RESULT OUT OF RANGE REFERENCE UNITS LAB 6690-2([facility]) WBC # Bld Auto 6.12 3.70-11.00 k/uL LAB 789-8([facility]) RBC # Bld Auto 4.12 3.90-5.20 m/ uL LAB 718-7([facility]) Hgb Bld-mCnc 12.5 11.5-15.5 g/dL LAB 4544-3([facility]) Hct VFr Bld Auto 37.8 36.0-46.0 % LAB 787-2([facility]) MCV RBC Auto 91.7 80.0-100.0 fL LAB 785-6([facility]) MCH RBC Qn Auto 30.3 26.0-34.0 p g LAB 786-4([facility]) MCHC RBC Auto-mCnc 33.1 30.5-36.0 g/dL LAB 55213-7([facility]) RDW RBC-Rto 14.9 11.5-15.0 % LAB 777-3([facility]) Platelet # Bld Auto 133 Low 150-400 k/uL Result Comment: No clot dete cted. LAB 97570-2([facility]) PMV Bld Auto 10.1 9.0-12.7 fL LAB 770-8([facility]) Neutrophils/leuk NFr Bld Auto 59.9 % LAB 751-8(INC) Neutrophils # Bld Auto 3.67 1.45-7.50 k/uL LAB 736-9(INC) Lymphocytes/leuk NFr Bld Auto 23.5 % LAB 731-0(INC) Lymphocytes # Bld Auto 1.44 1.00-4.00 k/uL LAB 5905-5(INC) Monocytes/leuk NFr Bld Auto 14.1 % LAB 742-7(LOINC) Monocytes # Bld Auto 0.86 <0.87 k/uL LAB 713-8(INC) Eosinophil/leuk NFr Bld Auto 2.1 % LAB 711-2(LOINC) Eosinophil # Bld Auto 0.13 <0.46 k/uL LAB 706-2(INC) Basophils/leuk NFr Bld Auto 0.2 % LAB 704-7(LOINC) Basophils # Bld Auto <0.03 <0.11 k/uL LAB 34756-9(LOINC) Imm Granulocytes/suzi k NFr Bld Auto 0.2 % LAB 60425-9(INC) Imm Granulocytes # Bld Auto <0.03 <0.10 k/uL LAB 25656-3(INC) nRBC/100 WBC Bld-Rto 0.0 /100 WBC LAB 771-6([facility]) nRBC # Bld Auto <0.01 <0.01 k/u L LAB 95103-1([facility]) Differential method Bld Auto Performed By: #### 21670-2 # ### [facility] CLIA [id number] [address] [place] [address] [facility] [place] [facility] COMP METAB 2000 PNL SERPL Collected: 9:28 AM Status: F Source: [facility] Order Comment: Specimen Type : BLOOD SPECIMEN Ordering Facility: [facility] Address: [address] [place] [address] TYPE CODE TESTS RESULT OUT OF RANGE REFERENCE UNITS LAB 2885-2(INC) Prot SerPl-mCnc 6.5 6.3-8.0 g/dL LAB 1751-7(INC) Albumin SerPl-mCnc 4.1 3.9-4.9 g/dL LAB 86813-4(LOINC) Calcium SerPl-mCnc 9.4 8.5-10.2 mg/dL LAB 1975-2(LOINC) Bilirub SerPl-mCnc 0.3 0.2-1.3 mg/dL LAB 6768-6(INC) ALP SerPl-cCnc 101 34-123 U/L LAB 1920-8(LOINC) AST SerPl-cCnc 21 13-35 U/L LAB 1742-6(LOINC) ALT SerPl-cCnc 18 7-38 U/L LAB 2345-7(LOINC) Glucose SerPl-mCnc 96 74-99 mg/dL Result Comment: The [place] Diabetes [employer] (ADA) provides guidance for cutoff values for fasting glucose and random glucose. The ADA defines fasting as no caloric intake for at least 8 hours. Fasting plasma glucose results between 100 to 125 mg/dL indicate increased risk for diabetes (prediabetes). Fasting plasma glucose results greater than or equal to 126 mg/dL meet the criteria for diagnosis of diabetes. In the absence of unequivocal hyperglycemia, results should be confirmed by repeat testing. In a patient with classic symptoms of hyperglycemia or hyperglycemic crisis, random plasma glucose results greater than or equal to 200 mg/dL meet the criteria for diagnosis of diabetes. Reference: Standards of Medical Care in Diabetes 2016, [place] [employer]. Diabetes Care. 2016.39(Suppl 1). LAB 3094-0(LOINC) BUN SerPl-mCnc 12 7-21 mg/dL LAB 2160-0(LOINC) Creat SerPl-mCnc 0.71 0.58-0.96 mg/dL LAB 2951-2(LOINC) Sodium SerPl-sCnc 141 136-144 mmol/L LAB 2823-3(LOINC) Potassium SerPl-sCnc 3.8 3.7-5.1 mmol/L LAB 2075-0(LOINC) Chloride SerPl-sCnc 107 98-107 mmol/L LAB 2028-9(LOINC) CO2 SerPl-sCnc 22 22-30 mmol/L LAB 05478-5(LOINC) Anion Gap SerPl-sCnc 12 8-15 mmol/L LAB 34706-7(LOINC) eGFRcr SerPlBld CKD-EPI 2020 101 >=60 mL/min/1. 73m??? Result Comment: Estimated Gl omerular Filtration Rate (eGFR) is calculated using the 2020 CKD-EPI creatinine equation. This equation utilizes serum creatinine, sex, and age as parameters. The creatinine assay has traceable calibration to isotope dilution-mass spectrometry. Refer to KDIGO guidelines for clinical interpretation. In patients with unstable renal function, e.g. those with acute kidney injury, the eGFR may not accurately reflect actual GFR. Performed By: #### 22760-8, 45388-1 #### [facility] CLIA [id number] [address] [place] [address] [place] MAGNESIUM SERPL-MCNC Collected: 10/21/2024 9:28 AM S tatus: F Source: [facility] Order Comment: Specimen Type : BLOOD SPECIMEN Ordering Facility: [facility] Address: [address] [place] [id number] TYPE CODE TESTS RESULT OUT OF RANGE REFERENCE UNITS LAB (LOINC) Magnesium SerPl-mCnc 1.8 1.7-2.3 mg/dL Performed By: #### 18139-3, 59789-4 #### [facility] CLIA [id number] [address] [id number] [place] CNOVSP Observed: 10/07/2024 2:20 PM Status: COMPLETED Source: [facility] Visit (SP) Office (HEMAWS) CORINE STUART ([id number]) 1970 F Date Time Provider Department 10/07/24 2:20 PM NESTOR SIMMS During your visit today, we recorded the following information about you: Temperature Pulse Blood pressure Weight 98.2 degrees 87/minute 104/75 61 kg Nestor Simms MD 10/07/2024 2:04 PM Signed (Elements copied from my note dated September 23, 2024, have been reviewed and updated where appropriate, and all reflect current assessment and medical decision making from today's encounter, October 07, 2024) HISTORY OF PRESENT ILLNESS: Corine Stuart is a 54 year old 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 The patient recently underwent her first colonoscopy which was noted to have severe polyps as well as a rectosigmoid mass concerning for biopsies. EGD was also performed which was significant for a number of duodenal and gastric polyps. CT imaging on 07/10/24 to assess for metastatic disease showed a 2.8 cm ill-defined mass at the rectosigmoid junction, multiple hypodense lesions throughout the liver favored to represent cysts as well as pulmonary nodules (favored to be benign). MRI of the rectum on 07/17/24 showed A 2.6 cm superior rectal mass with adjacent tumor deposit extending into the peritoneal fat as well as suspicious appearing LN's (N1). Sigmoidoscopy performed on 07/19/24 showed rectosigmoid mass with biopsy performed and positive for invasive adenocarcinoma (pMMR). CEA of 12.9 on 07/26/24. Patient then taken to OR on 07/29/24 for LAR ([id number]). She had had no symptoms prior to discovering the cancer. Family history notable for her brother having of colon cancer. Met with Dr Ellsworth at [facility], 12 cycles FolFOx recommended. Per CORS, tumor above peritoneal reflection, no role for radiation. Genetics done, negative CLINICAL IMPRESSION: Rectosigmoid cancer [id number], stage III RECOMMENDATION/PLAN: 1. FolFOx , cycle 3/12 tomorrow 2. Follow up scans in early October, scheduled. Written and verbal health teaching given to patient, patient verbalizes understanding and agrees with treatment plan. Past Medical History: No date: Colonic mass No date: Gastric ulcer No date: Mixed hyperlipidemia PAST SURGICAL HISTORY Procedure Laterality Date AMPUTATION FINGER/THUMB Right part of thumb APPENDECTOMY PAST SURGICAL HISTORY OF 07/29/2024 Colon, rectum, low anterior resection SIGMOIDOSCOPY 07/19/2024 TONSILLECTOMY AND ADENOIDECTOMY <AGE 12 1988 TOTAL ABDOM HYSTERECTOMY 1997 partial Review of patient's family history indicates: Problem: other (CAD, ALS) Relation: Father Age of Onset: (Not Specified) Problem: other ( age 40's colon cancer) Relation: Brother Age of Onset: (Not Specified) Problem: Breast Cancer Relation: Paternal Grandmother Age of Onset: (Not Specified) Problem: Cancer Relation: Paternal Aunt Age of Onset: (Not Specified) Social History Tobacco Use Smoking status: Former Types: Cigarettes Smokeless tobacco: Never Tobacco comments: Pt smoked one pack daily x 40 years, quit 07/26/24 Vaping Use Vaping status: Never Used Substance Use Topics Alcohol use: Not Currently Drug use: Not Currently ALLERGIES: No Known Allergies CURRENT OUTPATIENT MEDICATIONS: docusate sodium (COLACE PO) Take 1 tablet by mouth three times a day as needed. prochlorperazine (COMPAZINE) 10 mg tablet Take 1 tablet by mouth every 6 hours as needed. lidocaine-prilocaine (EMLA) 2.5-2.5 % cream Apply to affected area as needed. atorvastatin (LIPITOR) 80 mg tablet Take 80 mg by mouth daily at bedtime. pantoprazole DR (PROTONIX) 40 mg tablet Take 1 tablet by mouth every 12 hours. promethazine (PHENERGAN) 25 mg tablet Take 1 tab by mouth every 4 hours as needed for nausea. (Patient not taking: Reported on 08/13/2024) Protein Supplement liqd Take 30 g by mouth once daily. Protein drink daily (Patient not taking: Reported on 08/27/2024) iv contrast (will be provided with radiology test) CT Chest ABD/PEL-Inject, intravenously, once for 1 dose.No IV access, insert saline lock prior to the beginning of sedation, infusion, injection of imaging exam. Discontinue saline lock post exam. If Pt. has a central line or IVAD, may access for administration according to line specific nursing protocol. Once exam is complete flush line and de-access according to line specific nursing protocol in the CT contrast administration guidelines link. (Patient not taking: Reported on 08/13/2024) enteric contrast (will be provided with radiology test) For CT CHESTABD/PEL W IVCON Routine order Administer, As Directed One Time Only, via Oral, Rectal, both Oral and Rectal, Enteric Tube, Stoma or Indwelling Catheter, Enteric Contrast as designated per enteric contrast guidelines (Patient not taking: Reported on 08/13/2024) REVIEW OF SYSTEMS: GENERAL: No fever, night sweats, weight loss or malaise. All other reviewed and negative other than HPI. PHYSICAL EXAMINATION: VITAL SIGNS: BP 104/75 Pulse 87 Temp (Src) 98.2 (Temporal) Wt 134 lb 8 oz (61.0kg) SpO2 98% GENERAL APPEARANCE: Well appearing, in no acute distress, alert and oriented x3, well-hydrated, well nourished. HEART: Reg LUNGS: CTA I spent a total of 20 minutes on the date of the service which included preparing to see the patient, [id number] patient care, completing clinical documentation, obtaining and/or reviewing separately obtained history, counseling and educating the patient/family/caregiver, ordering medications, tests, or procedures, communicating with other HCPs (not separately reported), independently interpreting results (not separately reported), communicating results to the patient/family/caregiver, and care coordination (not separately reported). Electronically Signed: Nestor Simms MD October 07, 2024 Allergies As of Date: 10/07/2024 (No Known Allergies) Date Reviewed: 10/07/2024 Reviewed by: Milvia Flower Ma, MA - Fully Assessed Reason for Visit: Established Patient [175] Primary Visit Diagnosis:Malignant neoplasm of sigmoid colon (HCC) [C18.7] Prescriptions as of 10/07/2024 - docusate sodium (COLACE PO) Take 1 tablet by mouth three times a day as needed. - prochlorperazine (COMPAZINE) 10 mg tablet Take 1 tablet by mouth every 6 hours as needed. - lidocaine-prilocaine (EMLA) 2.5-2.5 % cream Apply to affected area as needed. - promethazine (PHENERGAN) 25 mg tablet Take 1 tab by mouth every 4 hours as needed for nausea. - Protein Supplement liqd Take 30 g by mouth once daily. Protein drink daily - atorvastatin (LIPITOR) 80 mg tablet Take 80 mg by mouth daily at bedtime. - pantoprazole DR (PROTONIX) 40 mg tablet Take 1 tablet by mouth every 12 hours. - iv contrast (will be provided with radiology test) CT Chest ABD/PEL-Inject, intravenously, once for 1 dose.No IV access, insert saline lock prior to the beginning of sedation, infusion, injection of imaging exam. Discontinue saline lock post exam. If Pt. has a central line or IVAD, may access for administration according to line specific nursing protocol. Once exam is complete flush line and de-access according to line specific nursing protocol in the CT contrast administration guidelines link. - enteric contrast (will be provided with radiology test) For CT CHESTABD/PEL W IVCON Routine order Administer, As Directed One Time Only, via Oral, Rectal, both Oral and Rectal, Enteric Tube, Stoma or Indwelling Catheter, Enteric Contrast as designated per enteric contrast guidelines Problem List As Of Date 10/07/2024 Noted Resolved Other hyperlipidemia [E78.49] 07/26/2024 GERD (gastroesophageal reflux disease) [K21.9] 07/26/2024 Preop examination [Z01.818] 07/26/2024 Colonic mass [K63.89] Seizure (HCC) [R56.9] 07/26/2024 Smoking hx [Z87.891] 07/26/2024 Rectal cancer (HCC) [C20] 07/29/2024 Nicotine use disorder, F17.2 [F17.200] 07/31/2024 Encounter Status:Closed by NESTOR SIMMS on 10/07/24 PROGRESS Observed: 10/07/2024 1:49 PM Status: COMPLETED Source: [facility] HNO ID: [id number] Author: NESTOR SIMMS MD Service: ? Author Type: Physician Type: Progress Notes Filed: 10/07/2024 14:04 Note Text: (Elements copied from my note dated September 23, 2024, have been reviewed and updated where appropriate, and all reflect current assessment and medical decision making from today's encounter, October 07, 2024) HISTORY OF PRESENT ILLNESS: Corine Stuart is a 54 year old 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 The patient recently underwent her first colonoscopy which was noted to have severe polyps as well as a rectosigmoid mass concerning for biopsies. EGD was also performed which was significant for a number of duodenal and gastric polyps. CT imaging on 07/10/24 to assess for metastatic disease showed a 2.8 cm ill-defined mass at the rectosigmoid junction, multiple hypodense lesions throughout the liver favored to represent cysts as well as pulmonary nodules (favored to be benign). MRI of the rectum on 07/17/24 showed A 2.6 cm superior rectal mass with adjacent tumor deposit extending into the peritoneal fat as well as suspicious appearing LN's (N1). Sigmoidoscopy performed on 07/19/24 showed rectosigmoid mass with biopsy performed and positive for invasive adenocarcinoma (pMMR). CEA of 12.9 on 07/26/24. Patient then taken to OR on 07/29/24 for LAR ([id number]). She had had no symptoms prior to discovering the cancer. Family history notable for her brother having of colon cancer. Met with Dr Ellsworth at [facility], 12 cycles FolFOx recommended. Per CORS, tumor above peritoneal reflection, no role for radiation. Genetics done, negative CLINICAL IMPRESSION: Rectosigmoid cancer [id number], stage III RECOMMENDATION/PLAN: 1. FolFOx , cycle 05/08 tomorrow 2. Follow up scans in early October, scheduled. Written and verbal health teaching given to patient, patient verbalizes understanding and agrees with treatment plan. Past Medical History: No date: Colonic mass No date: Gastric ulcer No date: Mixed hyperlipidemia PAST SURGICAL HISTORY Procedure Laterality Date AMPUTATION FINGER/THUMB Right part of thumb APPENDECTOMY PAST SURGICAL HISTORY OF 07/29/2024 Colon, rectum, low anterior resection SIGMOIDOSCOPY 07/19/2024 TONSILLECTOMY AND ADENOIDECTOMY <AGE 12 1988 TOTAL ABDOM HYSTERECTOMY 1998 partial Review of patient's family history indicates: Problem: other (CAD, ALS) Relation: Father Age of Onset: (Not Specified) Problem: other ( age 40's colon cancer) Relation: Brother Age of Onset: (Not Specified) Problem: Breast Cancer Relation: Paternal Grandmother Age of Onset: (Not Specified) Problem: Cancer Relation: Paternal Aunt Age of Onset: (Not Specified) Social History Tobacco Use Smoking status: Former Types: Cigarettes Smokeless tobacco: Never Tobacco comments: Pt smoked one pack daily x 40 years, quit 07/26/24 Vaping Use Vaping status: Never Used Substance Use Topics Alcohol use: Not Currently Drug use: Not Currently ALLERGIES: No Known Allergies CURRENT OUTPATIENT MEDICATIONS: docusate sodium (COLACE PO) Take 1 tablet by mouth three times a day as needed. prochlorperazine (COMPAZINE) 10 mg tablet Take 1 tablet by mouth every 6 hours as needed. lidocaine-prilocaine (EMLA) 2.5-2.5 % cream Apply to affected area as needed. atorvastatin (LIPITOR) 80 mg tablet Take 80 mg by mouth daily at bedtime. pantoprazole DR (PROTONIX) 40 mg tablet Take 1 tablet by mouth every 12 hours. promethazine (PHENERGAN) 25 mg tablet Take 1 tab by mouth every 4 hours as needed for nausea. (Patient not taking: Reported on 08/13/2024) Protein Supplement liqd Take 30 g by mouth once daily. Protein drink daily (Patient not taking: Reported on 08/27/2024) iv contrast (will be provided with radiology test) CT Chest ABD/PEL-Inject, intravenously, once for 1 dose.No IV access, insert saline lock prior to the beginning of sedation, infusion, injection of imaging exam. Discontinue saline lock post exam. If Pt. has a central line or IVAD, may access for administration according to line specific nursing protocol. Once exam is complete flush line and de-access according to line specific nursing protocol in the CT contrast administration guidelines link. (Patient not taking: Reported on 08/13/2024) enteric contrast (will be provided with radiology test) For CT CHESTABD/PEL W IVCON Routine order Administer, As Directed One Time Only, via Oral, Rectal, both Oral and Rectal, Enteric Tube, Stoma or Indwelling Catheter, Enteric Contrast as designated per enteric contrast guidelines (Patient not taking: Reported on 08/13/2024) REVIEW OF SYSTEMS: GENERAL: No fever, night sweats, weight loss or malaise. All other reviewed and negative other than HPI. PHYSICAL EXAMINATION: VITAL SIGNS: BP 104/75 Pulse 87 Temp (Src) 98.2 (Temporal) Wt 134 lb 8 oz (61.0kg) SpO2 98% GENERAL APPEARANCE: Well appearing, in no acute distress, alert and oriented x3, well-hydrated, well nourished. HEART: Reg LUNGS: CTA I spent a total of 20 minutes on the date of the service which included preparing to see the patient, [id number] patient care, completing clinical documentation, obtaining and/or reviewing separately obtained history, counseling and educating the patient/family/caregiver, ordering medications, tests, or procedures, communicating with other HCPs (not separately reported), independently interpreting results (not separately reported), communicating results to the patient/family/caregiver, and care coordination (not separately reported). Electronically Signed: Nestor Simms MD October 07, 2024 COMP METAB 1999 PNL SERPL Collected: 1:32 PM Status: F Source: [facility] Order Comment: Specimen Type : BLOOD SPECIMEN Ordering Facility: [facility] Address: [address] [place] [address] TYPE CODE TESTS RESULT OUT OF RANGE REFERENCE UNITS LAB 2885-2(LOINC) Prot SerPl-mCnc 7.0 6.3-8.0 g/dL LAB 1751-7(LOINC) Albumin SerPl-mCnc 4.2 3.9-4.9 g/dL LAB 59271-3(LOINC) Calcium SerPl-mCnc 9.5 8.5-10.2 mg/dL LAB 1975-2(LOINC) Bilirub SerPl-mCnc 0.5 0.2-1.3 mg/dL LAB 6768-6(LOINC) ALP SerPl-cCnc 125 High 34-123 U/L LAB 1920-8(LOINC) AST SerPl-cCnc 30 13-35 U/L LAB 1742-6(LOINC) ALT SerPl-cCnc 32 7-38 U/L LAB 2345-7(LOINC) Glucose SerPl-mCnc 107 High 74-99 mg/dL Result Comment: The [place] [employer] (ADA) provides guidance for cutoff values for fasting glucose and random glucose. The ADA defines fasting as no caloric intake for at least 8 hours. Fasting plasma glucose results between 100 to 125 mg/dL indicate increased risk for diabetes (prediabetes). Fasting plasma glucose results greater than or equal to 126 mg/dL meet the criteria for diagnosis of diabetes. In the absence of unequivocal hyperglycemia, results should be confirmed by repeat testing. In a patient with classic symptoms of hyperglycemia or hyperglycemic crisis, random plasma glucose results greater than or equal to 200 mg/dL meet the criteria for diagnosis of diabetes. Reference: Standards of Medical Care in Diabetes 2016, [place] [employer]. Diabetes Care. 2016.39(Suppl 1). LAB 3094-0(LOINC) BUN SerPl-mCnc 13 7-21 mg/dL LAB 2160-0(LOINC) Creat SerPl-mCnc 0.91 0.58-0.96 mg/dL LAB 2951-2(LOINC) Sodium SerPl-sCnc 139 136-144 mmol/L LAB 2823-3(LOINC) Potassium SerPl-sCnc 3.6 Low 3.7-5.1 mmol/L LAB 2075-0(LOINC) Chloride SerPl-sCnc 104 98-107 mmol/L LAB 2028-9(LOINC) CO2 SerPl-sCnc 22 22-30 mmol/L LAB 10161-9(LOINC) Anion Gap SerPl-sCnc 13 8-15 mmol/L LAB 14206-5(LOINC) eGFRcr SerPlBld CKD-EPI 2020 75 >=60 mL/min/1. 73m??? Result Comment: Estimated Gl omerular Filtration Rate (eGFR) is calculated using the 2020 CKD-EPI creatinine equation. This equation utilizes serum creatinine, sex, and age as parameters. The creatinine assay has traceable calibration to isotope dilution-mass spectrometry. Refer to KDIGO guidelines for clinical interpretation. In patients with unstable renal function, e.g. those with acute kidney injury, the eGFR may not accurately reflect actual GFR. Performed By: #### 29182-9, 96012-0 #### [facility] CLIA [id number] [address] [place] [address] OF [facility] MAGNESIUM SERPL-MCNC Collected: 10/07/2024 1:32 PM S tatus: F Source: [facility] Order Comment: Specimen Type : BLOOD SPECIMEN Ordering Facility: [facility] Address: [address] [place] [address] TYPE CODE TESTS RESULT OUT OF RANGE REFERENCE UNITS LAB 81011-6([facility]) Magnesium SerPl-mCnc 1.9 1.7-2.3 mg/dL Performed By: #### 23593-8, 92274-1 #### [facility] CLIA [id number] [address] [place] [address] [place] CBC W AUTO DIFF BLD Collected: 10/07/2024 1:[address] atus: F Source: [facility] Order Comment: Specimen Type : BLOOD SPECIMEN Ordering Facility: [facility] Address: [address] [place] [address] TYPE CODE TESTS RESULT OUT OF RANGE REFERENCE UNITS LAB 6690-2(LOINC) WBC # Bld Auto 6.47 3.70-11.00 k/uL LAB 789-8(LOINC) RBC # Bld Auto 4.27 3.90-5.20 m/ uL LAB 718-7(LOINC) Hgb Bld-mCnc 13.0 11.5-15.5 g/dL LAB 4544-3(LOINC) Hct VFr Bld Auto 38.8 36.0-46.0 % LAB 787-2(LOINC) MCV RBC Auto 90.9 80.0-100.0 fL LAB 785-6(LOINC) MCH RBC Qn Auto 30.4 26.0-34.0 p g LAB 786-4([facility]) MCHC RBC Auto-mCnc 33.5 30.5-36.0 g/dL LAB 54437-0([facility]) RDW RBC-Rto 14.2 11.5-15.0 % LAB 777-3([facility]) Platelet # Bld Auto 199 150-400 k/uL LAB 45439-7([facility]) PMV Bld Auto 9.4 9.0-12.7 fL LAB 770-8([facility]) Neutrophils/leuk NFr Bld Auto 55.0 % LAB 751-8([facility]) Neutrophils # Bld Auto 3.57 1.45-7.50 k/uL LAB 736-9([facility]) Lymphocytes/leuk NFr Bld Auto 29.4 % LAB 731-0([facility]) Lymphocytes # Bld Auto 1.90 1.00-4.00 k/uL LAB 5905-5([facility]) Monocytes/leuk NFr Bld Auto 14.1 % LAB 742-7([facility]) Monocytes # Bld Auto 0.91 High <0.87 k/uL LAB 713-8([facility]) Eosinophil/leuk NFr Bld Auto 1.1 % LAB 711-2([facility]) Eosinophil # Bld Auto 0.07 <0.46 k/uL LAB 706-2([facility]) Basophils/leuk NFr Bld Auto 0.2 % LAB 704-7([facility]) Basophils # Bld Auto <0.03 <0.11 k/uL LAB 00403-5([facility]) Imm Granulocytes/suzi k NFr Bld Auto 0.2 % LAB 30907-8([facility]) Imm Granulocytes # Bld Auto <0.03 <0.10 k/uL LAB 61601-8([facility]) nRBC/100 WBC Bld-Rto 0.0 /100 WBC LAB 771-6([facility]) nRBC # Bld Auto <0.01 <0.01 k/u L LAB 01360-5([facility]) Differential method Bld Auto Performed By: #### 76327-6 # ### [facility] CLIA [id number] [address] [place] [address] OF NABIL ABRAM Observed: 09/24/2024 12:00 AM Status: COMPLETED Source: [facility] Telephone (HEMAWS) NARCISO,CORINE L ([id number]) 1970 F Date Time Provider Department 09/24/24 NESTOR SIMMS During your visit today, we recorded the following information about you: Sharmaine Morris RN 09/24/2024 1:36 PM Signed Pt c/o cramping in hands and a dry, hoarse throat after Oxaliplatin infusion. Pt able to drink water, denies Shortness of Breath or chills/cramping. Will monitor before discharging. Sharmaine Morris RN 09/24/2024 1:46 PM Signed Pt drank glass of water. States she feels fine. Will. Discharge. Allergies As of Date: 09/24/2024 (No Known Allergies) Date Reviewed: 09/23/2024 Reviewed by: Salvador Fox MA - Fully Assessed Reason for Visit: Patient Update [1234] Prescriptions as of 09/24/2024 - iv contrast (will be provided with radiology test) CT Chest ABD/PEL-Inject, intravenously, once for 1 dose.No IV access, insert saline lock prior to the beginning of sedation, infusion, injection of imaging exam. Discontinue saline lock post exam. If Pt. has a central line or IVAD, may access for administration according to line specific nursing protocol. Once exam is complete flush line and de-access according to line specific nursing protocol in the CT contrast administration guidelines link. - enteric contrast (will be provided with radiology test) For CT CHESTABD/PEL W IVCON Routine order Administer, As Directed One Time Only, via Oral, Rectal, both Oral and Rectal, Enteric Tube, Stoma or Indwelling Catheter, Enteric Contrast as designated per enteric contrast guidelines - prochlorperazine (COMPAZINE) 10 mg tablet Take 1 tablet by mouth every 6 hours as needed. - lidocaine-prilocaine (EMLA) 2.5-2.5 % cream Apply to affected area as needed. - promethazine (PHENERGAN) 25 mg tablet Take 1 tab by mouth every 4 hours as needed for nausea. - Protein Supplement liqd Take 30 g by mouth once daily. Protein drink daily - atorvastatin (LIPITOR) 80 mg tablet Take 80 mg by mouth daily at bedtime. - pantoprazole DR (PROTONIX) 40 mg tablet Take 1 tablet by mouth every 12 hours. - iv contrast (will be provided with radiology test) CT Chest ABD/PEL-Inject, intravenously, once for 1 dose.No IV access, insert saline lock prior to the beginning of sedation, infusion, injection of imaging exam. Discontinue saline lock post exam. If Pt. has a central line or IVAD, may access for administration according to line specific nursing protocol. Once exam is complete flush line and de-access according to line specific nursing protocol in the CT contrast administration guidelines link. - enteric contrast (will be provided with radiology test) For CT CHESTABD/PEL W IVCON Routine order Administer, As Directed One Time Only, via Oral, Rectal, both Oral and Rectal, Enteric Tube, Stoma or Indwelling Catheter, Enteric Contrast as designated per enteric contrast guidelines Facility-Administered Medications as of 09/24/2024 - fluorouracil (ADRUCIL) 3,936 mg in NaCl 0.9% 102 mL in empty bag - NaCl 0.9% iv infusion - diphenhydrAMINE 50 mg injection (BENADRYL) - hydrocortisone sodium succinate (PF) 100 mg injection (Solu-CORTEF) - EPINEPHrine HCl (PF) 1 mg/mL (1 mL) 0.3 mg injection Problem List As Of Date 09/24/2024 Noted Resolved Other hyperlipidemia [E78.49] 07/26/2024 GERD (gastroesophageal reflux disease) [K21.9] 07/26/2024 Preop examination [Z01.818] 07/26/2024 Colonic mass [K63.89] Seizure (HCC) [R56.9] 07/26/2024 Smoking hx [Z87.891] 07/26/2024 Rectal cancer (HCC) [C20] 07/29/2024 Nicotine use disorder, F17.2 [F17.200] 07/31/2024 Encounter Status:Closed by SHARMAINE MORRIS on 09/24/24 CNOVSP Observed: 09/23/2024 3:00 PM Status: COMPLETED Source: [facility] Visit (SP) Office (CORI) CORINE STUART ([id number]) 1970 F Date Time Provider Department 09/23/24 3:00 PM NESTOR SIMMS During your visit today, we recorded the following information about you: Temperature Pulse Blood pressure Weight 98.8 degrees 89/minute 137/81 61.5 kg Nestor Simms MD 09/23/2024 3:09 PM Signed (Elements copied from my note dated August 27, 2024, have been reviewed and updated where appropriate, and all reflect current assessment and medical decision making from today's encounter, September 23, 2024) HISTORY OF PRESENT ILLNESS: Corine Stuart is a 54 year old 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 The patient recently underwent her first colonoscopy which was noted to have severe polyps as well as a rectosigmoid mass concerning for biopsies. EGD was also performed which was significant for a number of duodenal and gastric polyps. CT imaging on 07/10/24 to assess for metastatic disease showed a 2.8 cm ill-defined mass at the rectosigmoid junction, multiple hypodense lesions throughout the liver favored to represent cysts as well as pulmonary nodules (favored to be benign). MRI of the rectum on 07/17/24 showed A 2.6 cm superior rectal mass with adjacent tumor deposit extending into the peritoneal fat as well as suspicious appearing LN's (N1). Sigmoidoscopy performed on 07/19/24 showed rectosigmoid mass with biopsy performed and positive for invasive adenocarcinoma (pMMR). CEA of 12.9 on 07/26/24. Patient then taken to OR on 07/29/24 for LAR ([id number]). She had had no symptoms prior to discovering the cancer. Family history notable for her brother having of colon cancer. Met with Dr Ellsworth at [facility], 12 cycles FolFOx recommended. Per CORS, tumor above peritoneal reflection, no role for radiation. CLINICAL IMPRESSION: Rectosigmoid cancer [id number], stage III RECOMMENDATION/PLAN: 1. FolFOx 12 cycles, cycle 2 tomorrow 2. Genetics consult follow up. 3. Follow up scans in 3- months or so given findings on staging scans Written and verbal health teaching given to patient, patient verbalizes understanding and agrees with treatment plan. PAST MEDICAL HISTORY Diagnosis Date Colonic mass Gastric ulcer Mixed hyperlipidemia PAST SURGICAL HISTORY Procedure Laterality Date AMPUTATION FINGER/THUMB Right part of thumb APPENDECTOMY PAST SURGICAL HISTORY OF 07/29/2024 Colon, rectum, low anterior resection SIGMOIDOSCOPY 07/19/2024 TONSILLECTOMY AND ADENOIDECTOMY <AGE 12 1988 TOTAL ABDOM HYSTERECTOMY 1997 partial FAMILY HISTORY Problem Relation Age of Onset other (CAD, ALS) Father other ( age 40's colon cancer) Brother Breast Cancer Paternal Grandmother Cancer Paternal Aunt Social History Tobacco Use Smoking status: Former Types: Cigarettes Smokeless tobacco: Never Tobacco comments: Pt smoked one pack daily x 40 years, quit 07/26/24 Vaping Use Vaping status: Never Used Substance Use Topics Alcohol use: Not Currently Drug use: Not Currently ALLERGIES: ALLERGIES No Known Allergies CURRENT OUTPATIENT MEDICATIONS: prochlorperazine (COMPAZINE) 10 mg tablet Take 1 tablet by mouth every 6 hours as needed. lidocaine-prilocaine (EMLA) 2.5-2.5 % cream Apply to affected area as needed. atorvastatin (LIPITOR) 80 mg tablet Take 80 mg by mouth daily at bedtime. pantoprazole DR (PROTONIX) 40 mg tablet Take 1 tablet by mouth every 12 hours. promethazine (PHENERGAN) 25 mg tablet Take 1 tab by mouth every 4 hours as needed for nausea. (Patient not taking: Reported on 08/13/2024) Protein Supplement liqd Take 30 g by mouth once daily. Protein drink daily (Patient not taking: Reported on 08/27/2024) iv contrast (will be provided with radiology test) CT Chest ABD/PEL-Inject, intravenously, once for 1 dose.No IV access, insert saline lock prior to the beginning of sedation, infusion, injection of imaging exam. Discontinue saline lock post exam. If Pt. has a central line or IVAD, may access for administration according to line specific nursing protocol. Once exam is complete flush line and de-access according to line specific nursing protocol in the CT contrast administration guidelines link. (Patient not taking: Reported on 08/13/2024) enteric contrast (will be provided with radiology test) For CT CHESTABD/PEL W IVCON Routine order Administer, As Directed One Time Only, via Oral, Rectal, both Oral and Rectal, Enteric Tube, Stoma or Indwelling Catheter, Enteric Contrast as designated per enteric contrast guidelines (Patient not taking: Reported on 08/13/2024) REVIEW OF SYSTEMS: GENERAL: No fever, night sweats, weight loss or malaise. All other reviewed and negative other than HPI. PHYSICAL EXAMINATION: VITAL SIGNS: BP 137/81 Pulse 89 Temp (Src) 98.8 (Temporal) Wt 135 lb 8 oz (61.5kg) SpO2 99% GENERAL APPEARANCE: Well appearing, in no acute distress, alert and oriented x3, well-hydrated, well nourished. HEART: Reg LUNGS: CTA I spent a total of 30 minutes on the date of the service which included preparing to see the patient, [id number] patient care, completing clinical documentation, obtaining and/or reviewing separately obtained history, counseling and educating the patient/family/caregiver, ordering medications, tests, or procedures, communicating with other HCPs (not separately reported), independently interpreting results (not separately reported), communicating results to the patient/family/caregiver, and care coordination (not separately reported). Electronically Signed: Nestor Simms MD September 23, 2024 Allergies As of Date: 09/23/2024 (No Known Allergies) Date Reviewed: 09/23/2024 Reviewed by: Salvador Fox MA - Fully Assessed Reason for Visit: Established Patient [175] Primary Visit Diagnosis:Malignant neoplasm of sigmoid colon (HCC) [C18.7] Order(s):CT ABD/PEL W IVCON [4330743] Order #: [id number] FUTURE CT CHEST W IVCON [2915764] Order #: [id number] FUTURE iv contrast (will be provided with radiology test)CT Chest ABD/PEL-Inject, intravenously, once for 1 dose.No IV access, insert saline lock prior to the beginning of sedation, infusion, injection of imaging exam. Discontinue saline lock post exam. If Pt. has a central line or IVAD, may access for administration according to line specific nursing protocol. Once exam is complete flush line and de-access according to line specific nursing protocol in the CT contrast administration guidelines link.Disp: 1 eachRfl: 0 enteric contrast (will be provided with radiology test)For CT CHESTABD/PEL W IVCON Routine order Administer, As Directed One Time Only, via Oral, Rectal, both Oral and Rectal, Enteric Tube, Stoma or Indwelling Catheter, Enteric Contrast as designated per enteric contrast guidelinesDisp: 1 eachRfl: 0 Follow-up and Disposition History for Encounter Date Provider Department Center 09/23/2024 [id number] SIMMS [place] Prescriptions as of 09/23/2024 - iv contrast (will be provided with radiology test) CT Chest ABD/PEL-Inject, intravenously, once for 1 dose.No IV access, insert saline lock prior to the beginning of sedation, infusion, injection of imaging exam. Discontinue saline lock post exam. If Pt. has a central line or IVAD, may access for administration according to line specific nursing protocol. Once exam is complete flush line and de-access according to line specific nursing protocol in the CT contrast administration guidelines link. - enteric contrast (will be provided with radiology test) For CT CHESTABD/PEL W IVCON Routine order Administer, As Directed One Time Only, via Oral, Rectal, both Oral and Rectal, Enteric Tube, Stoma or Indwelling Catheter, Enteric Contrast as designated per enteric contrast guidelines - prochlorperazine (COMPAZINE) 10 mg tablet Take 1 tablet by mouth every 6 hours as needed. - lidocaine-prilocaine (EMLA) 2.5-2.5 % cream Apply to affected area as needed. - promethazine (PHENERGAN) 25 mg tablet Take 1 tab by mouth every 4 hours as needed for nausea. - Protein Supplement liqd Take 30 g by mouth once daily. Protein drink daily - atorvastatin (LIPITOR) 80 mg tablet Take 80 mg by mouth daily at bedtime. - pantoprazole DR (PROTONIX) 40 mg tablet Take 1 tablet by mouth every 12 hours. - iv contrast (will be provided with radiology test) CT Chest ABD/PEL-Inject, intravenously, once for 1 dose.No IV access, insert saline lock prior to the beginning of sedation, infusion, injection of imaging exam. Discontinue saline lock post exam. If Pt. has a central line or IVAD, may access for administration according to line specific nursing protocol. Once exam is complete flush line and de-access according to line specific nursing protocol in the CT contrast administration guidelines link. - enteric contrast (will be provided with radiology test) For CT CHESTABD/PEL W IVCON Routine order Administer, As Directed One Time Only, via Oral, Rectal, both Oral and Rectal, Enteric Tube, Stoma or Indwelling Catheter, Enteric Contrast as designated per enteric contrast guidelines Problem List As Of Date 09/23/2024 Noted Resolved Other hyperlipidemia [E78.49] 07/26/2024 GERD (gastroesophageal reflux disease) [K21.9] 07/26/2024 Preop examination [Z01.818] 07/26/2024 Colonic mass [K63.89] Seizure (HCC) [R56.9] 07/26/2024 Smoking hx [Z87.891] 07/26/2024 Rectal cancer (HCC) [C20] 07/29/2024 Nicotine use disorder, F17.2 [F17.200] 07/31/2024 Encounter Status:Closed by NESTOR SIMMS on 09/23/24 CBC W AUTO DIFF BLD Collected: 09/23/2024 2:[address] atus: F Source: [facility] Order Comment: Specimen Type : BLOOD SPECIMEN Ordering Facility: [facility] Address: [address] [place] [address] TYPE CODE TESTS RESULT OUT OF RANGE REFERENCE UNITS LAB 6690-2(LOINC) WBC # Bld Auto 6.35 3.70-11.00 k/uL LAB 789-8(LOINC) RBC # Bld Auto 4.22 3.90-5.20 m/ uL LAB 718-7(LOINC) Hgb Bld-mCnc 12.8 11.5-15.5 g/dL LAB 4544-3(LOINC) Hct VFr Bld Auto 38.6 36.0-46.0 % LAB 787-2(LOINC) MCV RBC Auto 91.5 80.0-100.0 fL LAB 785-6(LOINC) MCH RBC Qn Auto 30.3 26.0-34.0 p g LAB 786-4([facility]) MCHC RBC Auto-mCnc 33.2 30.5-36.0 g/dL LAB 11094-1([facility]) RDW RBC-Rto 13.4 11.5-15.0 % LAB 777-3([facility]) Platelet # Bld Auto 175 150-400 k/uL LAB 80889-3([facility]) PMV Bld Auto 9.4 9.0-12.7 fL LAB 770-8([facility]) Neutrophils/leuk NFr Bld Auto 59.4 % LAB 751-8([facility]) Neutrophils # Bld Auto 3.77 1.45-7.50 k/uL LAB 736-9([facility]) Lymphocytes/leuk NFr Bld Auto 28.8 % LAB 731-0([facility]) Lymphocytes # Bld Auto 1.83 1.00-4.00 k/uL LAB 5905-5([facility]) Monocytes/leuk NFr Bld Auto 8.3 % LAB 742-7([facility]) Monocytes # Bld Auto 0.53 <0.87 k/uL LAB 713-8([facility]) Eosinophil/leuk NFr Bld Auto 3.1 % LAB 711-2([facility]) Eosinophil # Bld Auto 0.20 <0.46 k/uL LAB 706-2([facility]) Basophils/leuk NFr Bld Auto 0.2 % LAB 704-7([facility]) Basophils # Bld Auto <0.03 <0.11 k/uL LAB 63003-7([facility]) Imm Granulocytes/suzi k NFr Bld Auto 0.2 % LAB 82236-7([facility]) Imm Granulocytes # Bld Auto <0.03 <0.10 k/uL LAB 26437-7([facility]) nRBC/100 WBC Bld-Rto 0.0 /100 WBC LAB 771-6([facility]) nRBC # Bld Auto <0.01 <0.01 k/u L LAB 84088-1([facility]) Differential method Bld Auto Performed By: #### 48402-4 # ### [facility] CLIA [id number] [address] [place], [place] [id number] [place] COMP METAB 2000 PNL SERPL Collected: 2:24 PM Status: F Source: [facility] Order Comment: Specimen Type : BLOOD SPECIMEN Ordering Facility: [facility] Address: [address] [place] [address] TYPE CODE TESTS RESULT OUT OF RANGE REFERENCE UNITS LAB 2885-2(LOINC) Prot SerPl-mCnc 6.9 6.3-8.0 g/dL LAB 1751-7(LOINC) Albumin SerPl-mCnc 4.0 3.9-4.9 g/dL LAB 16766-4(LOINC) Calcium SerPl-mCnc 9.4 8.5-10.2 mg/dL LAB 1975-2(LOINC) Bilirub SerPl-mCnc 0.2 0.2-1.3 mg/dL LAB 6768-6(LOINC) ALP SerPl-cCnc 116 34-123 U/L LAB 1920-8(LOINC) AST SerPl-cCnc 20 13-35 U/L LAB 1742-6(LOINC) ALT SerPl-cCnc 25 7-38 U/L LAB 2345-7(LOINC) Glucose SerPl-mCnc 116 High 74-99 mg/dL Result Comment: The [place] Diabetes Association (ADA) provides guidance for cutoff values for fasting glucose and random glucose. The ADA defines fasting as no caloric intake for at least 8 hours. Fasting plasma glucose results between 100 to 125 mg/dL indicate increased risk for diabetes (prediabetes). Fasting plasma glucose results greater than or equal to 126 mg/dL meet the criteria for diagnosis of diabetes. In the absence of unequivocal hyperglycemia, results should be confirmed by repeat testing. In a patient with classic symptoms of hyperglycemia or hyperglycemic crisis, random plasma glucose results greater than or equal to 200 mg/dL meet the criteria for diagnosis of diabetes. Reference: Standards of Medical Care in Diabetes 2016, [place] [employer]. Diabetes Care. 2016.39(Suppl 1). LAB 3094-0(LOINC) BUN SerPl-mCnc 9 7-21 mg/dL LAB 2160-0(LOINC) Creat SerPl-mCnc 0.69 0.58-0.96 mg/dL LAB 2951-2(LOINC) Sodium SerPl-sCnc 141 136-144 mmol/L LAB 2823-3(LOINC) Potassium SerPl-sCnc 3.9 3.7-5.1 mmol/L LAB 2075-0(LOINC) Chloride SerPl-sCnc 106 98-107 mmol/L LAB 2027-9(LOINC) CO2 SerPl-sCnc 23 22-30 mmol/L LAB 07440-1(LOINC) Anion Gap SerPl-sCnc 12 8-15 mmol/L LAB 25574-5(LOINC) eGFRcr SerPlBld CKD-EPI 2020 103 >=60 mL/min/1. 73m??? Result Comment: Estimated Gl omerular Filtration Rate (eGFR) is calculated using the 2020 CKD-EPI creatinine equation. This equation utilizes serum creatinine, sex, and age as parameters. The creatinine assay has traceable calibration to isotope dilution-mass spectrometry. Refer to KDIGO guidelines for clinical interpretation. In patients with unstable renal function, e.g. those with acute kidney injury, the eGFR may not accurately reflect actual GFR. Performed By: #### 05223-8, #### [facility] CLIA [id number] [address] [place] [address] [place] MAGNESIUM SERPL-MCNC Collected: 09/23/2024 2:24 PM S tatus: F Source: [facility] Order Comment: Specimen Type : BLOOD SPECIMEN Ordering Facility: [facility] Address: [address] [place] [address] TYPE CODE TESTS RESULT OUT OF RANGE REFERENCE UNITS LAB 68743-9([facility]) Magnesium SerPl-mCnc 2.1 1.7-2.3 mg/dL Performed By: #### 64520-8, #### [facility] CLIA [id number] [address] [place] [address] [place] PROGRESS Observed: 09/23/2024 2:13 PM Status: COMPLETED Source: [facility] HNO ID: [id number] Author: NESTOR SIMMS MD Service: ? 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 The patient recently underwent her first colonoscopy which was noted to have severe polyps as well as a rectosigmoid mass concerning for biopsies. EGD was also performed which was significant for a number of duodenal and gastric polyps. CT imaging on 07/10/24 to assess for metastatic disease showed a 2.8 cm ill-defined mass at the rectosigmoid junction, multiple hypodense lesions throughout the liver favored to represent cysts as well as pulmonary nodules (favored to be benign). MRI of the rectum on 07/17/24 showed A 2.6 cm superior rectal mass with adjacent tumor deposit extending into the peritoneal fat as well as suspicious appearing LN's (N1). Sigmoidoscopy performed on 07/19/24 showed rectosigmoid mass with biopsy performed and positive for invasive adenocarcinoma (pMMR). CEA of 12.9 on 07/26/24. Patient then taken to OR on 07/29/24 for LAR ([id number]). She had had no symptoms prior to discovering the cancer. Family history notable for her brother having of colon cancer. Met with Dr Ellsworth at [facility], 12 cycles FolFOx recommended. Per CORS, tumor above peritoneal reflection, no role for radiation. CLINICAL IMPRESSION: Rectosigmoid cancer [id number], stage III RECOMMENDATION/PLAN: 1. FolFOx 12 cycles, cycle 2 tomorrow 2. Genetics consult follow up. 3. Follow up scans in 3- months or so given findings on staging scans Written and verbal health teaching given to patient, patient verbalizes understanding and agrees with treatment plan. PAST MEDICAL HISTORY Diagnosis Date Colonic mass Gastric ulcer Mixed hyperlipidemia PAST SURGICAL HISTORY Procedure Laterality Date AMPUTATION FINGER/THUMB Right part of thumb APPENDECTOMY PAST SURGICAL HISTORY OF 07/29/2024 Colon, rectum, low anterior resection SIGMOIDOSCOPY 07/19/2024 TONSILLECTOMY AND ADENOIDECTOMY <AGE 12 1988 TOTAL ABDOM HYSTERECTOMY 1997 partial FAMILY HISTORY Problem Relation Age of Onset other (CAD, ALS) Father other ( age 40's colon cancer) Brother Breast Cancer Paternal Grandmother Cancer Paternal Aunt Social History Tobacco Use Smoking status: Former Types: Cigarettes Smokeless tobacco: Never Tobacco comments: Pt smoked one pack daily x 40 years, quit 07/26/24 Vaping Use Vaping status: Never Used Substance Use Topics Alcohol use: Not Currently Drug use: Not Currently ALLERGIES: ALLERGIES No Known Allergies CURRENT OUTPATIENT MEDICATIONS: prochlorperazine (COMPAZINE) 10 mg tablet Take 1 tablet by mouth every 6 hours as needed. lidocaine-prilocaine (EMLA) 2.5-2.5 % cream Apply to affected area as needed. atorvastatin (LIPITOR) 80 mg tablet Take 80 mg by mouth daily at bedtime. pantoprazole DR (PROTONIX) 40 mg tablet Take 1 tablet by mouth every 12 hours. promethazine (PHENERGAN) 25 mg tablet Take 1 tab by mouth every 4 hours as needed for nausea. (Patient not taking: Reported on 08/13/2024) Protein Supplement liqd Take 30 g by mouth once daily. Protein drink daily (Patient not taking: Reported on 08/27/2024) iv contrast (will be provided with radiology test) CT Chest ABD/PEL-Inject, intravenously, once for 1 dose.No IV access, insert saline lock prior to the beginning of sedation, infusion, injection of imaging exam. Discontinue saline lock post exam. If Pt. has a central line or IVAD, may access for administration according to line specific nursing protocol. Once exam is complete flush line and de-access according to line specific nursing protocol in the CT contrast administration guidelines link. (Patient not taking: Reported on 08/13/2024) enteric contrast (will be provided with radiology test) For CT CHESTABD/PEL W IVCON Routine order Administer, As Directed One Time Only, via Oral, Rectal, both Oral and Rectal, Enteric Tube, Stoma or Indwelling Catheter, Enteric Contrast as designated per enteric contrast guidelines (Patient not taking: Reported on 08/13/2024) REVIEW OF SYSTEMS: GENERAL: No fever, night sweats, weight loss or malaise. All other reviewed and negative other than HPI. PHYSICAL EXAMINATION: VITAL SIGNS: BP 137/81 Pulse 89 Temp (Src) 98.8 (Temporal) Wt 135 lb 8 oz (61.5kg) SpO2 99% GENERAL APPEARANCE: Well appearing, in no acute distress, alert and oriented x3, well-hydrated, well nourished. HEART: Reg LUNGS: CTA I spent a total of 30 minutes on the date of the service which included preparing to see the patient, [id number] patient care, completing clinical documentation, obtaining and/or reviewing separately obtained history, counseling and educating the patient/family/caregiver, ordering medications, tests, or procedures, communicating with other HCPs (not separately reported), independently interpreting results (not separately reported), communicating results to the patient/family/caregiver, and care coordination (not separately reported). Electronically Signed: Nestor Simms MD September 23, 2024 PROGRESS Observed: 09/20/2024 1:00 PM Status: COMPLETED Source: [facility] HNO ID: [id number] Author: DAYAMI SALEH MS Service: ? Author Type: Genetic Counselor Type: Progress Notes Filed: 09/20/2024 13:45 Note Text: [facility] Department of Medical Genetics Consultation Note Genetic Counselor: Dayami Saleh MS, [facility] [place] Patient: Corine Stuart Patient Name and confirmed at initiation of visit. HIGH LEVEL SUMMARY: The patient's personal and family history is potentially suggestive of a hereditary cancer syndrome. The patient provided informed consent for Multi-Cancer panel through [facility]. Results are expected in 2-3 weeks from the time of sample collection. Patient plans to have blood drawn with next pre-treatment labs. IDENTIFICATION AND CHIEF COMPLAINT: Catia Ellsworth MD requested a consultation for genetic counseling and risk assessment for Corine Stuart, a 54 year old female, for discussion of her personal and family history of cancer. She presents to clinic today to discuss the possibility of a genetic predisposition to cancer, and to further clarify her risks, as well as her family members' risks for cancer. HISTORY OF PRESENT ILLNESS: In 2024, at the age of 53, Corine Stuart was diagnosed with rectal cancer. This is being treated with surgery and chemotherapy. PAST MEDICAL HISTORY Diagnosis Date Colonic mass Gastric ulcer Mixed hyperlipidemia PAST SURGICAL HISTORY Procedure Laterality Date AMPUTATION FINGER/THUMB Right part of thumb APPENDECTOMY PAST SURGICAL HISTORY OF 07/29/2024 Colon, rectum, low anterior resection SIGMOIDOSCOPY 07/19/2024 TONSILLECTOMY AND ADENOIDECTOMY <AGE 12 1988 TOTAL ABDOM HYSTERECTOMY 1998 partial CANCER SURVEILLANCE HISTORY: Mammograms: last more than ten years ago Breast MRI's: N/A Breast Biopsies: N/A Colonoscopy: last this year EGD: last this year, ulcers GI Polyps: Yes Dermatology: No REPRODUCTIVE HISTORY AND PERSONAL RISK ASSESSMENT FACTORS: Weight: Last 1 Encounter Wt Readings: Date: Wt: 09/10/2024 60.8 kg (134 lb) Height: Last 1 Encounter Ht Readings: Date: Ht: 09/10/2024 163.8 cm (5' 4.49) Menarche was at age 12 Postmenopausal Uterus Intact: No Ovaries Intact: Yes First live at age 23 She has not used HRT in the past. SOCIAL HISTORY: Social History Tobacco Use Smoking status: Former Types: Cigarettes Smokeless tobacco: Never Tobacco comments: Pt smoked one pack daily x 40 years, quit 07/26/24 Vaping Use Vaping status: Never Used Substance Use Topics Alcohol use: Not Currently Drug use: Not Currently FAMILY HISTORY: We obtained a detailed, 4-generation family history. Significant diagnoses are listed below: FAMILY HISTORY Problem Relation Age of Onset other (CAD, ALS) Father other ( age 40's colon cancer) Brother Breast Cancer Paternal Grandmother Cancer Paternal Aunt The patient's maternal ancestors are of mixed / descent and paternal ancestors are of mixed / descent. There is no known Ashkenazi Sabianist ancestry. There is no known consanguinity. A copy of the patient's pedigree will be available under the scanned documents tab following today's visit. GENETIC COUNSELING RISK ASSESSMENT, DISCUSSION, AND SUGGESTED FOLLOW UP: We reviewed the natural history and genetic etiology of sporadic, familial and hereditary cancer syndromes. The patient's personal and family history is potentially suggestive of: a hereditary cancer syndrome The patient meets NCCN Domínguez syndrome testing criteria based on her LS-related cancer and 1 first-degree or second-degree relative with a LS-related cancer diagnosed <50y. We discussed that identification of a hereditary cancer syndrome may help her care providers tailor her medical management. If a mutation is detected, the National Comprehensive Cancer Network and/or expert opinion recommendations could include increased cancer surveillance and prophylactic surgery options. If a mutation is detected, the patient will be referred back to the referring provider and to any additional appropriate care providers to discuss the relevant options. Inheritance of hereditary cancer syndromes was discussed with the patient. If a mutation is not found in the patient, this will decrease the likelihood of a hereditary cancer syndrome as the explanation for the patient's personal and family history of cancer. However, it cannot completely rule out this possibility. Cancer surveillance options would be discussed for the patient according to the appropriate standard National Comprehensive Cancer Network and [place] Cancer [employer] guidelines, with consideration of their personal and family history risk factors. In this case, the patient will be referred back to their care providers for discussions of management. Based on this assessment of the patient's family and personal history, genetic testing is recommended. The patient was offered Multi-Cancer panel through [facility]. After considering the risks, benefits, and limitations, the patient chose to pursue and provided informed consent for the following testing: Multi-Cancer panel through [facility]. The Multi-Cancer Panel includes the following 70 genes: AIP, ALK, APC, RANGEL, AXIN2, BAP1, BARD1, BLM, BMPR1A, BRCA1, BRCA2, BRIP1, CDC73, CDH1, CDK4, CDKN1B, CDKN2A, CHEK2, CTNNA1, DICER1, EGFR, EPCAM, FH, FLCN, GREM1, HOXB13, KIT, LZTR1, MAX, MBD4, MEN1, MET, MITF, MLH1, MSH2, MSH3, MSH6, MUTYH, NF1, NF2, NTHL1, PALB2, PDGFRA, PMS2, POLD1, POLE, POT1, PXWGH8H, PTCH1, PTEN, RAD51C, RAD51D, RB1, RET, SDHA, SDHAF2, SDHB, SDHC, SDHD, SMAD4, SMARCA4, SMARCB1, SMARCE1, STK11, SUFU, CBCT069, TP53, TSC1, TSC2, VHL The Multi-Cancer panel looks at genes associated with cancers of the breast, gynecologic tract (ovarian, uterine/endometrial), gastrointestinal system (colorectal, gastric, pancreatic), endocrine glands (thyroid, parathyroid, pituitary, adrenal glands), genitourinary tract (renal/urinary tract, prostate), skin (melanoma, basal cell carcinoma), and brain/nervous system. We discussed that an NGS panel can rarely result in an unexpected finding which may or may not be related to the presenting phenotype. We discussed that [employer] may contact the patient regarding billing. The patient should watch for this communication and respond promptly. The patient should contact [employer] directly with any billing questions (ph. [phone] or [email or web address]). Per the patient's request, we will contact her by myChart or telephone to review these results. A follow up genetic counseling visit will be scheduled if requested. I spent a total of 30 minutes on the date of the service, which included preparing to see the patient, [id number] patient care, completing clinical documentation, obtaining and/or reviewing separately obtained history, counseling and educating the patient/family/caregiver, ordering tests, communicating with other HCPs (not separately reported), independently interpreting results (not separately reported), communicating results to the patient/family/caregiver, and care coordination (not separately reported). This plan is being carried out under the oversight of Dr. Michelle Holder MD, PhD. This note will also be sent to the referring provider via the electronic medical record. Dayami Saleh MS, [facility] CC: MD Michelle Franz MD, PhD CNOV Observed: 09/20/2024 1:00 PM Status: COMPLETED Source: [facility] Office Visit (AAP) NARCISOCORINE ROMERO ([id number]) 1970 F Date Time Provider Department 09/20/24 1:00 PM DAYAMI SALEH [facility] During your visit today, we recorded the following information about you: Dayami Saleh MS 09/20/2024 1:45 PM Addendum [facility] Department of Medical Genetics Consultation Note Genetic Counselor: Dayami Saleh MS, [facility] [place] Patient: Corine Stuart Patient Name and confirmed at initiation of visit. HIGH LEVEL SUMMARY: The patient's personal and family history is potentially suggestive of a hereditary cancer syndrome. The patient provided informed consent for Multi-Cancer panel through [facility]. Results are expected in 2-3 weeks from the time of sample collection. Patient plans to have blood drawn with next pre-treatment labs. IDENTIFICATION AND CHIEF COMPLAINT: Catia Ellsworth MD requested a consultation for genetic counseling and risk assessment for Corine Stuart, a 54 year old female, for discussion of her personal and family history of cancer. She presents to clinic today to discuss the possibility of a genetic predisposition to cancer, and to further clarify her risks, as well as her family members' risks for cancer. HISTORY OF PRESENT ILLNESS: In 2024, at the age of 53, Corine Stuart was diagnosed with rectal cancer. This is being treated with surgery and chemotherapy. PAST MEDICAL HISTORY Diagnosis Date Colonic mass Gastric ulcer Mixed hyperlipidemia PAST SURGICAL HISTORY Procedure Laterality Date AMPUTATION FINGER/THUMB Right part of thumb APPENDECTOMY PAST SURGICAL HISTORY OF 07/29/2024 Colon, rectum, low anterior resection SIGMOIDOSCOPY 07/19/2024 TONSILLECTOMY AND ADENOIDECTOMY <AGE 12 1988 TOTAL ABDOM HYSTERECTOMY 1997 partial CANCER SURVEILLANCE HISTORY: Mammograms: last more than ten years ago Breast MRI's: N/A Breast Biopsies: N/A Colonoscopy: last this year EGD: last this year, ulcers GI Polyps: Yes Dermatology: No REPRODUCTIVE HISTORY AND PERSONAL RISK ASSESSMENT FACTORS: Weight: Last 1 Encounter Wt Readings: Date: Wt: 09/10/2024 60.8 kg (134 lb) Height: Last 1 Encounter Ht Readings: Date: Ht: 09/10/2024 163.8 cm (5' 4.49) Menarche was at age 12 Postmenopausal Uterus Intact: No Ovaries Intact: Yes First live at age 23 She has not used HRT in the past. SOCIAL HISTORY: Social History Tobacco Use Smoking status: Former Types: Cigarettes Smokeless tobacco: Never Tobacco comments: Pt smoked one pack daily x 40 years, quit 07/26/24 Vaping Use Vaping status: Never Used Substance Use Topics Alcohol use: Not Currently Drug use: Not Currently FAMILY HISTORY: We obtained a detailed, 4-generation family history. Significant diagnoses are listed below: FAMILY HISTORY Problem Relation Age of Onset other (CAD, ALS) Father other ( age 40's colon cancer) Brother Breast Cancer Paternal Grandmother Cancer Paternal Aunt The patient's maternal ancestors are of mixed / descent and paternal ancestors are of mixed / descent. There is no known Ashkenazi Sabianist ancestry. There is no known consanguinity. A copy of the patient's pedigree will be available under the scanned documents tab following today's visit. GENETIC COUNSELING RISK ASSESSMENT, DISCUSSION, AND SUGGESTED FOLLOW UP: We reviewed the natural history and genetic etiology of sporadic, familial and hereditary cancer syndromes. The patient's personal and family history is potentially suggestive of: a hereditary cancer syndrome The patient meets NCCN Domínguez syndrome testing criteria based on her LS-related cancer and 1 first-degree or second-degree relative with a LS-related cancer diagnosed <50y. We discussed that identification of a hereditary cancer syndrome may help her care providers tailor her medical management. If a mutation is detected, the National Comprehensive Cancer Network and/or expert opinion recommendations could include increased cancer surveillance and prophylactic surgery options. If a mutation is detected, the patient will be referred back to the referring provider and to any additional appropriate care providers to discuss the relevant options. Inheritance of hereditary cancer syndromes was discussed with the patient. If a mutation is not found in the patient, this will decrease the likelihood of a hereditary cancer syndrome as the explanation for the patient's personal and family history of cancer. However, it cannot completely rule out this possibility. Cancer surveillance options would be discussed for the patient according to the appropriate standard National Comprehensive Cancer Network and [place] Cancer Society guidelines, with consideration of their personal and family history risk factors. In this case, the patient will be referred back to their care providers for discussions of management. Based on this assessment of the patient's family and personal history, genetic testing is recommended. The patient was offered Multi-Cancer panel through [facility]. After considering the risks, benefits, and limitations, the patient chose to pursue and provided informed consent for the following testing: Multi-Cancer panel through [facility]. The Multi-Cancer Panel includes the following 70 genes: AIP, ALK, APC, RANGEL, AXIN2, BAP1, BARD1, BLM, BMPR1A, BRCA1, BRCA2, BRIP1, CDC73, CDH1, CDK4, CDKN1B, CDKN2A, CHEK2, CTNNA1, DICER1, EGFR, EPCAM, FH, FLCN, GREM1, HOXB13, KIT, LZTR1, MAX, MBD4, MEN1, MET, MITF, MLH1, MSH2, MSH3, MSH6, MUTYH, NF1, NF2, NTHL1, PALB2, PDGFRA, PMS2, POLD1, POLE, POT1, DPESM9T, PTCH1, PTEN, RAD51C, RAD51D, RB1, RET, SDHA, SDHAF2, SDHB, SDHC, SDHD, SMAD4, SMARCA4, SMARCB1, SMARCE1, STK11, SUFU, [id number], TP53, TSC1, TSC2, VHL The Multi-Cancer panel looks at genes associated with cancers of the breast, gynecologic tract (ovarian, uterine/endometrial), gastrointestinal system (colorectal, gastric, pancreatic), endocrine glands (thyroid, parathyroid, pituitary, adrenal glands), genitourinary tract (renal/urinary tract, prostate), skin (melanoma, basal cell carcinoma), and brain/nervous system. We discussed that an NGS panel can rarely result in an unexpected finding which may or may not be related to the presenting phenotype. We discussed that [employer] may contact the patient regarding billing. The patient should watch for this communication and respond promptly. The patient should contact [facility] directly with any billing questions (ph. [phone] or [email or web address]). Per the patient's request, we will contact her by [employer] or telephone to review these results. A follow up genetic counseling visit will be scheduled if requested. I spent a total of 30 minutes on the date of the service, which included preparing to see the patient, [id number] patient care, completing clinical documentation, obtaining and/or reviewing separately obtained history, counseling and educating the patient/family/caregiver, ordering tests, communicating with other HCPs (not separately reported), independently interpreting results (not separately reported), communicating results to the patient/family/caregiver, and care coordination (not separately reported). This plan is being carried out under the oversight of Dr. Michelle Holder MD, PhD. This note will also be sent to the referring provider via the electronic medical record. 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 - lidocaine-prilocaine (EMLA) 2.5-2.5 % cream Apply to affected area as needed. - promethazine (PHENERGAN) 25 mg tablet Take 1 tab by mouth every 4 hours as needed for nausea. - Protein Supplement liqd Take 30 g by mouth once daily. Protein drink daily - atorvastatin (LIPITOR) 80 mg tablet Take 80 mg by mouth daily at bedtime. - pantoprazole DR (PROTONIX) 40 mg tablet Take 1 tablet by mouth every 12 hours. - iv contrast (will be provided with radiology test) CT Chest ABD/PEL-Inject, intravenously, once for 1 dose.No IV access, insert saline lock prior to the beginning of sedation, infusion, injection of imaging exam. Discontinue saline lock post exam. If Pt. has a central line or IVAD, may access for administration according to line specific nursing protocol. Once exam is complete flush line and de-access according to line specific nursing protocol in the CT contrast administration guidelines link. - enteric contrast (will be provided with radiology test) For CT CHESTABD/PEL W IVCON Routine order Administer, As Directed One Time Only, via Oral, Rectal, both Oral and Rectal, Enteric Tube, Stoma or Indwelling Catheter, Enteric Contrast as designated per enteric contrast guidelines Problem List As Of Date 09/20/2024 Noted Resolved Other hyperlipidemia [E78.49] 07/26/2024 GERD (gastroesophageal reflux disease) [K21.9] 07/26/2024 Preop examination [Z01.818] 07/26/2024 Colonic mass [K63.89] Seizure (HCC) [R56.9] 07/26/2024 Smoking hx [Z87.891] 07/26/2024 Rectal cancer (HCC) [C20] 07/29/2024 Nicotine use disorder, F17.2 [F17.200] 07/31/2024 Encounter Status:Closed by DAYAMI SALEH on 09/20/24 ABRAM Observed: 09/18/2024 12:00 AM Status: COMPLETED Source: [facility] Telephone (HEMROLANDO) CORINE STUART ([id number]) 1970 F Date Time Provider Department 09/18/24 KESHIA RAHMAN During your visit today, we recorded the following information about you: Keshia Rahman RN 09/18/2024 9:58 AM Signed TOXICITY CHECK SYMPTOM ASSESSMENT The patient is on FOLFOX Headache: No Visual Changes: No Dizziness: No Do you have any periods of confusion? No Mood changes: No Mouth or throat pain: No Appetite: no changes in appetite, appetite good Taste changes: Yes but finding things that taste ok to her. Hardest thing to find are drinks but she does like [employer] ice tea. Nausea: Yes 09/13/24, for 2 days. Compazine helped. Vomiting: No Heartburn: No. Weight gain/loss: No Episodes of palpitations/chest discomfort/pressure/pain No Shortness of breath: No Cough: No Diarrhea: no Constipation: no, last BM yesterday. Used Colace with good results. Advised to take every day or every other day to keep BM's regular. Bladder/Urinary Changes: None Pain: No=0 (pain 0 on a scale of 0-10). Fever: No Chills: No Cold sensitivity: Yes can not drink things cold and using gloves to get things out of freezer. No numbness or tingling. Numbness/weakness: No Edema: No Skin changes: No Itching: No Yellowing of skin or eyes: No Musculoskeletal/joint changes/issues No Bleeding issues: No Activity Level (0-100%): decreased over the weekend, getting better now. Does the patient need interventions or same day appointment:No Reinforced CURRENT treatment education based on current and anticipated symptoms. Discussed port/line care and patient verbalizes understanding: Not Applicable Patient instructed to contact office or after hours Hematology/Oncology fellow for: temperature >= 100.4; questions or concerns. Patient verbalized understanding of when to seek medical attention and after hours number protocol. Keshia Rahman RN Allergies As of Date: 09/18/2024 (No Known Allergies) Date Reviewed: 09/12/2024 Reviewed by: Johnna Wayne RN - Fully Assessed Reason for Visit: Care Coordination [3491] Cmt: Toxicity Check Prescriptions as of 09/18/2024 - prochlorperazine (COMPAZINE) 10 mg tablet Take 1 tablet by mouth every 6 hours as needed. - lidocaine-prilocaine (EMLA) 2.5-2.5 % cream Apply to affected area as needed. - promethazine (PHENERGAN) 25 mg tablet Take 1 tab by mouth every 4 hours as needed for nausea. - Protein Supplement liqd Take 30 g by mouth once daily. Protein drink daily - atorvastatin (LIPITOR) 80 mg tablet Take 80 mg by mouth daily at bedtime. - pantoprazole DR (PROTONIX) 40 mg tablet Take 1 tablet by mouth every 12 hours. - iv contrast (will be provided with radiology test) CT Chest ABD/PEL-Inject, intravenously, once for 1 dose.No IV access, insert saline lock prior to the beginning of sedation, infusion, injection of imaging exam. Discontinue saline lock post exam. If Pt. has a central line or IVAD, may access for administration according to line specific nursing protocol. Once exam is complete flush line and de-access according to line specific nursing protocol in the CT contrast administration guidelines link. - enteric contrast (will be provided with radiology test) For CT CHESTABD/PEL W IVCON Routine order Administer, As Directed One Time Only, via Oral, Rectal, both Oral and Rectal, Enteric Tube, Stoma or Indwelling Catheter, Enteric Contrast as designated per enteric contrast guidelines Problem List As Of Date 09/18/2024 Noted Resolved Other hyperlipidemia [E78.49] 07/26/2024 GERD (gastroesophageal reflux disease) [K21.9] 07/26/2024 Preop examination [Z01.818] 07/26/2024 Colonic mass [K63.89] Seizure (HCC) [R56.9] 07/26/2024 Smoking hx [Z87.891] 07/26/2024 Rectal cancer (HCC) [C20] 07/29/2024 Nicotine use disorder, F17.2 [F17.200] 07/31/2024 Encounter Status:Closed by KESHIA RAHMAN on 09/18/24 JAVYN Observed: 09/18/2024 12:00 AM Status: COMPLETED Source: [facility] Telephone ([employer]) CORINE STUART ([id number]) 1970 F Date Time Provider Department 09/18/24 YOLANDA GARCIA During your visit today, we recorded the following information about you: Yolanda Garcia LISW 09/18/2024 2:54 PM Signed SOCIAL WORK FOLLOW UP NOTE: [facility] Date of service: September 12, 2024 Corine Omid Stuart is being seen for a follow up social work visit. Today's visit includes: patient and daughter TOPICS ADDRESSED: JUSTIN met with pt and her daughter this date. Pt's daughter presented FMLA forms this date. SW reviewed with her and completed. Physician signed and faxed to daughter's employer. Forms sent to internal scanning. No other needs identified. PLAN: Continue follow up as needed F/U APPOINTMENT: PRN Assigned SW listed in Care Team tab: Yes KAELYN Burton-Kourtney Allergies As of Date: 09/18/2024 (No Known Allergies) Date Reviewed: 09/12/2024 Reviewed by: Johnna Wayne, RN - Fully Assessed Reason for Visit: Social Work Services [507] Prescriptions as of 09/18/2024 - prochlorperazine (COMPAZINE) 10 mg tablet Take 1 tablet by mouth every 6 hours as needed. - lidocaine-prilocaine (EMLA) 2.5-2.5 % cream Apply to affected area as needed. - promethazine (PHENERGAN) 25 mg tablet Take 1 tab by mouth every 4 hours as needed for nausea. - Protein Supplement liqd Take 30 g by mouth once daily. Protein drink daily - atorvastatin (LIPITOR) 80 mg tablet Take 80 mg by mouth daily at bedtime. - pantoprazole DR (PROTONIX) 40 mg tablet Take 1 tablet by mouth every 12 hours. - iv contrast (will be provided with radiology test) CT Chest ABD/PEL-Inject, intravenously, once for 1 dose.No IV access, insert saline lock prior to the beginning of sedation, infusion, injection of imaging exam. Discontinue saline lock post exam. If Pt. has a central line or IVAD, may access for administration according to line specific nursing protocol. Once exam is complete flush line and de-access according to line specific nursing protocol in the CT contrast administration guidelines link. - enteric contrast (will be provided with radiology test) For CT CHESTABD/PEL W IVCON Routine order Administer, As Directed One Time Only, via Oral, Rectal, both Oral and Rectal, Enteric Tube, Stoma or Indwelling Catheter, Enteric Contrast as designated per enteric contrast guidelines Problem List As Of Date 09/18/2024 Noted Resolved Other hyperlipidemia [E78.49] 07/26/2024 GERD (gastroesophageal reflux disease) [K21.9] 07/26/2024 Preop examination [Z01.818] 07/26/2024 Colonic mass [K63.89] Seizure (HCC) [R56.9] 07/26/2024 Smoking hx [Z87.891] 07/26/2024 Rectal cancer (HCC) [C20] 07/29/2024 Nicotine use disorder, F17.2 [F17.200] 07/31/2024 Encounter Status:Closed by YOLANDA GARCIA on 09/18/24 ABRAM Observed: 09/11/2024 12:00 AM Status: COMPLETED Source: [facility] Telephone ([employer]) CORINE STUART ([id number]) 1970 F Date Time Provider Department 09/11/24 KESHIA RAHMAN During your visit today, we recorded the following information about you: Keshia Rahman RN 09/11/2024 11:05 AM Signed CYCLE 1/DAY 1 POST TREATMENT CALL Today's date: September 11, 2024 Treatment Regimen: FOLFOX C1D1 Date: 09/10/24 Called patient to follow-up on symptom management. Spoke with patient. SYMPTOM ASSESSMENT Neuro: None CV/Resp: None GI/: Appetite: no changes in appetite, appetite good. Fluid intake: water ok intake, she prefer her drinks on ice but can't do that. She is not drinking as much. Encouraged to push fluids and find something that taste ok. Juice, flavored water, etc. Constipation: maybe, last BM 09/09/24, soft. Yesterday, very small and soft. She thinks she should have had a better BM by now. States she has not really been regular since surgery. They are always soft or loose. Advised to take a stool softener and increase fluids. Integument: None Activity: Activity Level (0-100%): same as baseline Pain: No=0 (pain 0 on a scale of 0-10). Fever: No Chills: No Any new referrals needed? No Reinforced CURRENT treatment education based on current and anticipated symptoms. Discussed port/line care and patient verbalizes understanding: Yes Patient instructed to contact office or after hours Hematology/Oncology fellow for: temperature >= 100.4; questions or concerns. Patient verbalized understanding of when to seek medical attention and after hours number protocol. Keshia Rahman RN Allergies As of Date: 09/11/2024 (No Known Allergies) Date Reviewed: 09/10/2024 Reviewed by: Jaylene Matta RN - Fully Assessed Reason for Visit: Care Coordination [4306] Cmt: CYCLE 1/DAY 1 POST TREATMENT CALL Prescriptions as of 09/11/2024 - prochlorperazine (COMPAZINE) 10 mg tablet Take 1 tablet by mouth every 6 hours as needed. - lidocaine-prilocaine (EMLA) 2.5-2.5 % cream Apply to affected area as needed. - promethazine (PHENERGAN) 25 mg tablet Take 1 tab by mouth every 4 hours as needed for nausea. - Protein Supplement liqd Take 30 g by mouth once daily. Protein drink daily - atorvastatin (LIPITOR) 80 mg tablet Take 80 mg by mouth daily at bedtime. - pantoprazole DR (PROTONIX) 40 mg tablet Take 1 tablet by mouth every 12 hours. - iv contrast (will be provided with radiology test) CT Chest ABD/PEL-Inject, intravenously, once for 1 dose.No IV access, insert saline lock prior to the beginning of sedation, infusion, injection of imaging exam. Discontinue saline lock post exam. If Pt. has a central line or IVAD, may access for administration according to line specific nursing protocol. Once exam is complete flush line and de-access according to line specific nursing protocol in the CT contrast administration guidelines link. - enteric contrast (will be provided with radiology test) For CT CHESTABD/PEL W IVCON Routine order Administer, As Directed One Time Only, via Oral, Rectal, both Oral and Rectal, Enteric Tube, Stoma or Indwelling Catheter, Enteric Contrast as designated per enteric contrast guidelines Problem List As Of Date 09/11/2024 Noted Resolved Other hyperlipidemia [E78.49] 07/26/2024 GERD (gastroesophageal reflux disease) [K21.9] 07/26/2024 Preop examination [Z01.818] 07/26/2024 Colonic mass [K63.89] Seizure (HCC) [R56.9] 07/26/2024 Smoking hx [Z87.891] 07/26/2024 Rectal cancer (HCC) [C20] 07/29/2024 Nicotine use disorder, F17.2 [F17.200] 07/31/2024 Encounter Status:Closed by KESHIA RAHMAN on 09/11/24 CBC W AUTO DIFF BLD Collected: 09/10/2024 7:[address] atus: F Source: [facility] Order Comment: Specimen Type : BLOOD SPECIMEN Ordering Facility: [facility] Address: [address] [place] [address] TYPE CODE TESTS RESULT OUT OF RANGE REFERENCE UNITS LAB 6690-2(LOINC) WBC # Bld Auto 8.06 3.70-11.00 k/uL LAB 789-8([facility]) RBC # Bld Auto 4.81 3.90-5.20 m/ uL LAB 718-7([facility]) Hgb Bld-mCnc 14.3 11.5-15.5 g/dL LAB 4544-3([facility]) Hct VFr Bld Auto 43.8 36.0-46.0 % LAB 787-2([facility]) MCV RBC Auto 91.1 80.0-100.0 fL LAB 785-6([facility]) MCH RBC Qn Auto 29.7 26.0-34.0 p g LAB 786-4([facility]) MCHC RBC Auto-mCnc 32.6 30.5-36.0 g/dL LAB 48180-4([facility]) RDW RBC-Rto 13.6 11.5-15.0 % LAB 777-3([facility]) Platelet # Bld Auto 259 150-400 k/uL LAB 30343-1([facility]) PMV Bld Auto 9.7 9.0-12.7 fL LAB 770-8([facility]) Neutrophils/leuk NFr Bld Auto 69.4 % LAB 751-8([facility]) Neutrophils # Bld Auto 5.59 1.45-7.50 k/uL LAB 736-9([facility]) Lymphocytes/leuk NFr Bld Auto 21.2 % LAB 731-0([facility]) Lymphocytes # Bld Auto 1.71 1.00-4.00 k/uL LAB 5905-5([facility]) Monocytes/leuk NFr Bld Auto 6.6 % LAB 742-7([facility]) Monocytes # Bld Auto 0.53 <0.87 k/uL LAB 713-8([facility]) Eosinophil/leuk NFr Bld Auto 2.4 % LAB 711-2([facility]) Eosinophil # Bld Auto 0.19 <0.46 k/uL LAB 706-2([facility]) Basophils/leuk NFr Bld Auto 0.2 % LAB 704-7([facility]) Basophils # Bld Auto <0.03 <0.11 k/uL LAB 60788-2([facility]) Imm Granulocytes/suzi k NFr Bld Auto 0.2 % LAB 00956-5(INC) Imm Granulocytes # Bld Auto <0.03 <0.10 k/uL LAB 52125-8([facility]) nRBC/100 WBC Bld-Rto 0.0 /100 WBC LAB 771-6([facility]) nRBC # Bld Auto <0.01 <0.01 k/u L LAB 82838-8([facility]) Differential method Bld Auto Performed By: #### 92163-0 # ### [facility] CLIA [id number] [address] [place] [address] [place] COMP METAB 2000 PNL SERPL Collected: 7:53 AM Status: F Source: [facility] Comment: Specimen Type : BLOOD SPECIMEN Ordering Facility: [facility] Address: [address] [place] [address] TYPE CODE TESTS RESULT OUT OF RANGE REFERENCE UNITS LAB 2885-2([facility]) Prot SerPl-mCnc 7.3 6.3-8.0 g/dL LAB 1751-7([facility]) Albumin SerPl-mCnc 4.3 3.9-4.9 g/dL LAB 32561-3([facility]) Calcium SerPl-mCnc 10.2 8.5-10.2 mg/dL LAB 1975-2([facility]) Bilirub SerPl-mCnc 0.4 0.2-1.3 mg/dL LAB 6768-6([facility]) ALP SerPl-cCnc 128 High 34-123 U/L LAB 1920-8([facility]) AST SerPl-cCnc 27 13-35 U/L LAB 1742-6(INC) ALT SerPl-cCnc 38 7-38 U/L LAB 2345-7([facility]) Glucose SerPl-mCnc 104 High 74-99 mg/dL Result Comment: The [place] Diabetes Association (ADA) provides guidance for cutoff values for fasting glucose and random glucose. The ADA defines fasting as no caloric intake for at least 8 hours. Fasting plasma glucose results between 100 to 125 mg/dL indicate increased risk for diabetes (prediabetes). Fasting plasma glucose results greater than or equal to 126 mg/dL meet the criteria for diagnosis of diabetes. In the absence of unequivocal hyperglycemia, results should be confirmed by repeat testing. In a patient with classic symptoms of hyperglycemia or hyperglycemic crisis, random plasma glucose results greater than or equal to 200 mg/dL meet the criteria for diagnosis of diabetes. Reference: Standards of Medical Care in Diabetes 2016, [place] [employer]. Diabetes Care. 2016.39(Suppl 1). LAB 3094-0(LOINC) BUN SerPl-mCnc 15 7-21 mg/ dL LAB 2160-0(LOINC) Creat SerPl-mCnc 0.83 0.58-0.96 mg/dL LAB 2951-2(LOINC) Sodium SerPl-sCnc 138 136-144 mmol/L LAB 2823-3(LOINC) Potassium SerPl-sCnc 3.8 3.7-5.1 mmol/L LAB 2075-0(LOINC) Chloride SerPl-sCnc 102 98-107 mmol/L LAB 8-9(LOINC) CO2 SerPl-sCnc 25 22-30 mmo l/L LAB 24170-2(LOINC) Anion Gap SerPl-sCnc 11 8-15 mmol/L LAB 05397-2(LOINC) Creatinine + eGFR Pnl SerPlBld 84 >=60 mL/min/1 .73m??? Result Comment: Estimated Gl omerular Filtration Rate (eGFR) is calculated using the 2020 CKD-EPI creatinine equation. This equation utilizes serum creatinine, sex, and age as parameters. The creatinine assay has traceable calibration to isotope dilution-mass spectrometry. Refer to KDIGO guidelines for clinical interpretation. In patients with unstable renal function, e.g. those with acute kidney injury, the eGFR may not accurately reflect actual GFR. Performed By: #### 54804-9, 64852-5 #### [facility] CLIA [id number] [address] [place] [address] [place] MAGNESIUM SERPL-MCNC Collected: 09/10/2024 7:53 AM S tatus: F Source: [facility] Order Comment: Specimen Type : BLOOD SPECIMEN Ordering Facility: [facility] Address: [address] [place] [address] TYPE CODE TESTS RESULT OUT OF RANGE REFERENCE UNITS LAB 03613-0(LOINC) Magnesium SerPl-mCnc 2.0 1.7-2.3 mg/dL Performed By: #### 63418-1, 62564-4 #### [facility] DEEPTI [id number] [address] [place] [address] [facility] CNPN Observed: 09/06/2024 12:00 AM Status: COMPLETED Source: [facility] Telephone (AGGENS3) CORINE STUART ([id number]) 1970 F Date Time Provider Department 09/06/24 KELLEY MONTOYA AGGENS3 During your visit today, we recorded the following information about you: Kelley Montoya RN 09/06/2024 11:10 AM Signed [facility] ONE MONTH FOLLOW UP PHONE CALL PHONE CALL DATE: 09/06/2024 PHONE CALL TIME: 11:07 AM DATE OF SURGERY: 07/29/2024 PROCEDURE: LAR FOLLOW UP QUESTIONS: Is your appetite gradually improving? Yes Is your incision healing well? Yes Are you having regular bowel movements? Yes Did you have a good experience with your recent hospital stay? Yes Have you completed your follow up visit with your surgeon? Yes Patient states she's feeling well. She has no concerns at this time. Encouraged to call MD for questions/concerns. SIGNATURE: Kelley Montoya RN DATE: 09/06/2024 TIME: 11:07 AM CONTACT #:[phone] Allergies As of Date: 09/06/2024 (No Known Allergies) Date Reviewed: 08/27/2024 Reviewed by: Milvia Flower Ma, MA - Fully Assessed Reason for Visit: Hospital Follow Up [177] Prescriptions as of 09/06/2024 - prochlorperazine (COMPAZINE) 10 mg tablet Take 1 tablet by mouth every 6 hours as needed. - lidocaine-prilocaine (EMLA) 2.5-2.5 % cream Apply to affected area as needed. - promethazine (PHENERGAN) 25 mg tablet Take 1 tab by mouth every 4 hours as needed for nausea. - Protein Supplement liqd Take 30 g by mouth once daily. Protein drink daily - atorvastatin (LIPITOR) 80 mg tablet Take 80 mg by mouth daily at bedtime. - pantoprazole DR (PROTONIX) 40 mg tablet Take 1 tablet by mouth every 12 hours. - iv contrast (will be provided with radiology test) CT Chest ABD/PEL-Inject, intravenously, once for 1 dose.No IV access, insert saline lock prior to the beginning of sedation, infusion, injection of imaging exam. Discontinue saline lock post exam. If Pt. has a central line or IVAD, may access for administration according to line specific nursing protocol. Once exam is complete flush line and de-access according to line specific nursing protocol in the CT contrast administration guidelines link. - enteric contrast (will be provided with radiology test) For CT CHESTABD/PEL W IVCON Routine order Administer, As Directed One Time Only, via Oral, Rectal, both Oral and Rectal, Enteric Tube, Stoma or Indwelling Catheter, Enteric Contrast as designated per enteric contrast guidelines Problem List As Of Date 09/06/2024 Noted Resolved Other hyperlipidemia [E78.49] 07/26/2024 GERD (gastroesophageal reflux disease) [K21.9] 07/26/2024 Preop examination [Z01.818] 07/26/2024 Colonic mass [K63.89] Seizure (HCC) [R56.9] 07/26/2024 Smoking hx [Z87.891] 07/26/2024 Rectal cancer (HCC) [C20] 07/29/2024 Nicotine use disorder, F17.2 [F17.200] 07/31/2024 Encounter Status:Closed by KELLEY MONTOYA on 09/06/24 PROGRESS Observed: 09/02/2024 4:29 PM Status: COMPLETED Source: [facility] HNO ID: [id number] Author: KESHIA RAHMAN RN Service: ? Author Type: Registered Nurse Type: Progress Notes Filed: 09/03/2024 10:21 Note Text: Patient teaching was completed over the phone. Keshia Rahman RN Hollow Handle Bench Worker Pre Chemo Patient identified by name and date of . YES Confirmed date and time for chemotherapy ? YES Other appointments (labs, imaging) discussed? 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 NO Described the infusion room and what to expect. (What to wear, what to bring [iPad, books] amount of time treatment can take, meals and CC options for food) YES Note: na Discussed whether the patient can eat prior to labs and treatment. YES Who is driving you to and from treatment? Daughter Discussed why it is important to bring someone with you. Yes, yina, first treatment Resources discussed (music therapy, Art therapy, pet therapy, etc.) YES Education on chemotherapy (drug, side effects) discussed and that the patient will be receiving a C1D1 call within 7 days of treatment. YES Other topics discussed, interventions needed: Per Dr. Simms ok to have Endoscopy on 09/09/24. Keshia Rahman RNONCOLOGY PATIENT EDUCATION NOTE TOPIC: Chemotherapy, Medications: FOLFOX daughter and patient called today for education for treatment of Colon / Rectal Cancer Anticipated/Scheduled start date: 09/10/24 READINESS TO LEARN: COGNITIVE ABILITY: Alert and oriented MOTIVATION TO LEARN: Interested FAMILY SUPPORT: High - Very involved in pt care INSTRUCTION PROVIDED TO: Patient and Daughter INSTRUCTION PROVIDED BY: Nurse Coordinator PATIENT LEARNS BEST BY: Multiple Methods FACTORS AFFECTING LEARNING: None PHYSICAL LIMITATIONS AFFECTING LEARNING: None LEARNING RESPONSE METHOD OF INSTRUCTION: Individual instruction Written instruction/Handouts Verbal instruction PATIENT/FAMILY RESPONSE: Verbalizes understanding of: CHEMOTHERAPY-Regimen, toxicity and side effects FOLLOW UP PLAN: Recommend - Recommend continued instruction and follow up as directed Contact information given. SUPPLEMENTAL MATERIAL: Written material was provided at this visit with the following information: - Chemotherapy education was provided by a pharmacist NO - Side effect management information was provided/discussed including but not limited to: anemia, appetite changes, bowel habit changes, cold sensitivity, fatigue, hand-foot syndrome, infection, mouth hygiene, mucositis, nausea/vomitting, neutropenia, peripheral neuropathy, rash, taste changes, thrombocytopenia YES - Provided important phone numbers and contacts during and after hours. YES - Provided information on symptoms that require immediate assistance. YES - Provided Chemotherapy when to call handouts YES - Preventing infection. YES - Treatment schedule and confirmation of appointment times. YES - Available support groups. YES - The importance of contraception during the course of chemotherapy YES - Neutropenic fever protocol discussed with patient, which included the importance of reporting any fever of 100.4F (38.0C) or greater to the healthcare team as noted on the provided wallet card and/or magnet. YES Time Spent: 70 minutes REFERRAL (RECOMMENDATION): Social Work, to call at a later time. Keshia Rahman RN CNOVSP Observed: 08/27/2024 11:00 AM Status: COMPLETED Source: [facility] Visit (SP) Office (CORI) CORINE STUART ([id number]) 1970 F Date Time Provider Department 08/27/24 11:00 AM NESTOR SIMMS During your visit today, we recorded the following information about you: Temperature Pulse Blood pressure Weight 99.7 degrees 79/minute 141/82 59.9 kg Height 1.626 m Nestor Simms MD 08/27/2024 2:25 PM Addendum HISTORY OF PRESENT ILLNESS: Corine Stuart is a 54 year old 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 The patient recently underwent her first colonoscopy which was noted to have severe polyps as well as a rectosigmoid mass concerning for biopsies. EGD was also performed which was significant for a number of duodenal and gastric polyps. CT imaging on 07/10/24 to assess for metastatic disease showed a 2.8 cm ill-defined mass at the rectosigmoid junction, multiple hypodense lesions throughout the liver favored to represent cysts as well as pulmonary nodules (favored to be benign). MRI of the rectum on 07/17/24 showed A 2.6 cm superior rectal mass with adjacent tumor deposit extending into the peritoneal fat as well as suspicious appearing LN's (N1). Sigmoidoscopy performed on 07/19/24 showed rectosigmoid mass with biopsy performed and positive for invasive adenocarcinoma (pMMR). CEA of 12.9 on 07/26/24. Patient then taken to OR on 07/29/24 for LAR ([id number]). She had had no symptoms prior to discovering the cancer. Family history notable for her brother having of colon cancer. Met with Dr Ellsworth at [facility], 12 cycles FolFOx recommended. Per CORS, tumor above peritoneal reflection, no role for radiation. CLINICAL IMPRESSION: Rectosigmoid cancer [id number], stage III RECOMMENDATION/PLAN: 1. Commence adjuvant FolFox next 7-10 days 2. Genetics consult as scheduled. 3. Follow up scans in 3- months or so given findings on staging scans Written and verbal health teaching given to patient, patient verbalizes understanding and agrees with treatment plan. PAST MEDICAL HISTORY Diagnosis Date Colonic mass Gastric ulcer Mixed hyperlipidemia PAST SURGICAL HISTORY Procedure Laterality Date AMPUTATION FINGER/THUMB Right part of thumb APPENDECTOMY TONSILLECTOMY AND ADENOIDECTOMY <AGE 12 1988 TOTAL ABDOM HYSTERECTOMY 1997 partial FAMILY HISTORY Problem Relation Age of Onset other (CAD, ALS) Father other ( age 40's colon cancer) Brother Breast Cancer Paternal Grandmother Cancer Paternal Aunt Social History Tobacco Use Smoking status: Former Types: Cigarettes Smokeless tobacco: Never Tobacco comments: Pt smoked one pack daily x 40 years, quit 07/26/24 Vaping Use Vaping status: Never Used Substance Use Topics Alcohol use: Not Currently Drug use: Not Currently ALLERGIES: ALLERGIES No Known Allergies CURRENT OUTPATIENT MEDICATIONS: atorvastatin (LIPITOR) 80 mg tablet Take 80 mg by mouth daily at bedtime. pantoprazole DR (PROTONIX) 40 mg tablet Take 1 tablet by mouth every 12 hours. promethazine (PHENERGAN) 25 mg tablet Take 1 tab by mouth every 4 hours as needed for nausea. (Patient not taking: Reported on 08/13/2024) Protein Supplement liqd Take 30 g by mouth once daily. Protein drink daily (Patient not taking: Reported on 08/27/2024) iv contrast (will be provided with radiology test) CT Chest ABD/PEL-Inject, intravenously, once for 1 dose.No IV access, insert saline lock prior to the beginning of sedation, infusion, injection of imaging exam. Discontinue saline lock post exam. If Pt. has a central line or IVAD, may access for administration according to line specific nursing protocol. Once exam is complete flush line and de-access according to line specific nursing protocol in the CT contrast administration guidelines link. (Patient not taking: Reported on 08/13/2024) enteric contrast (will be provided with radiology test) For CT CHESTABD/PEL W IVCON Routine order Administer, As Directed One Time Only, via Oral, Rectal, both Oral and Rectal, Enteric Tube, Stoma or Indwelling Catheter, Enteric Contrast as designated per enteric contrast guidelines (Patient not taking: Reported on 08/13/2024) REVIEW OF SYSTEMS: GENERAL: No fever, night sweats, weight loss or malaise. All other reviewed and negative other than HPI. PHYSICAL EXAMINATION: VITAL SIGNS: BP 141/82 Pulse 79 Temp (Src) 99.7 (Temporal) Ht 5' 4 (1.63m) Wt 132 lb (59.9kg) SpO2 100% BMI 22.65 kg/(m2). GENERAL APPEARANCE: Well appearing, in no acute distress, alert and oriented x3, well-hydrated, well nourished. I spent a total of 60 minutes on the date of the service which included preparing to see the patient, [id number] patient care, completing clinical documentation, obtaining and/or reviewing separately obtained history, counseling and educating the patient/family/caregiver, ordering medications, tests, or procedures, communicating with other HCPs (not separately reported), independently interpreting results (not separately reported), communicating results to the patient/family/caregiver, and care coordination (not separately reported). 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 (HCC) [C20, C77.5] Order(s):CONSULT TO HEMATOLOGY/ONCOLOGY [19990227] Order #: [id number]: 1 COMPLETE BLOOD COUNT AND DIFFERENTIAL [SQCBCDIF] Order #: [id number] STANDING COMPREHENSIVE METABOLIC PANEL [SQCMP] Order #: [id number] STANDING MAGNESIUM [SQMG1] Order #: [id number] STANDING lidocaine-prilocaine (EMLA) 2.5-2.5 % creamApply to affected area as needed.Disp: 30 gRfl: 2 Follow-up and Disposition History for Encounter Date Provider Department Center 08/27/2024 [id number], DREW CORI Bowman Prescriptions as of 08/27/2024 - lidocaine-prilocaine (EMLA) 2.5-2.5 % cream Apply to affected area as needed. - promethazine (PHENERGAN) 25 mg tablet Take 1 tab by mouth every 4 hours as needed for nausea. - Protein Supplement liqd Take 30 g by mouth once daily. Protein drink daily - atorvastatin (LIPITOR) 80 mg tablet Take 80 mg by mouth daily at bedtime. - pantoprazole DR (PROTONIX) 40 mg tablet Take 1 tablet by mouth every 12 hours. - iv contrast (will be provided with radiology test) CT Chest ABD/PEL-Inject, intravenously, once for 1 dose.No IV access, insert saline lock prior to the beginning of sedation, infusion, injection of imaging exam. Discontinue saline lock post exam. If Pt. has a central line or IVAD, may access for administration according to line specific nursing protocol. Once exam is complete flush line and de-access according to line specific nursing protocol in the CT contrast administration guidelines link. - enteric contrast (will be provided with radiology test) For CT CHESTABD/PEL W IVCON Routine order Administer, As Directed One Time Only, via Oral, Rectal, both Oral and Rectal, Enteric Tube, Stoma or Indwelling Catheter, Enteric Contrast as designated per enteric contrast guidelines Problem List As Of Date 08/27/2024 Noted Resolved Other hyperlipidemia [E78.49] 07/26/2024 GERD (gastroesophageal reflux disease) [K21.9] 07/26/2024 Preop examination [Z01.818] 07/26/2024 Colonic mass [K63.89] Seizure (HCC) [R56.9] 07/26/2024 Smoking hx [Z87.891] 07/26/2024 Rectal cancer (HCC) [C20] 07/29/2024 Nicotine use disorder, F17.2 [F17.200] 07/31/2024 Encounter Status:Closed by NESTOR SIMMS on 08/27/24 PROGRESS Observed: 08/27/2024 10:48 AM Status: COMPLETED Source: [facility] HNO ID: [id number] Author: NESTOR SIMMS MD Service: ? Author Type: Physician Type: Progress Notes Filed: 08/27/2024 14:25 Note Text: HISTORY OF PRESENT ILLNESS: Corine Stuart is a 54 year old 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 The patient recently underwent her first colonoscopy which was noted to have severe polyps as well as a rectosigmoid mass concerning for biopsies. EGD was also performed which was significant for a number of duodenal and gastric polyps. CT imaging on 07/10/24 to assess for metastatic disease showed a 2.8 cm ill-defined mass at the rectosigmoid junction, multiple hypodense lesions throughout the liver favored to represent cysts as well as pulmonary nodules (favored to be benign). MRI of the rectum on 07/17/24 showed A 2.6 cm superior rectal mass with adjacent tumor deposit extending into the peritoneal fat as well as suspicious appearing LN's (N1). Sigmoidoscopy performed on 07/19/24 showed rectosigmoid mass with biopsy performed and positive for invasive adenocarcinoma (pMMR). CEA of 12.9 on 07/26/24. Patient then taken to OR on 07/29/24 for LAR ([id number]). She had had no symptoms prior to discovering the cancer. Family history notable for her brother having of colon cancer. Met with Dr Ellsworth at [facility], 12 cycles FolFOx recommended. Per CORS, tumor above peritoneal reflection, no role for radiation. CLINICAL IMPRESSION: Rectosigmoid cancer [id number], stage III RECOMMENDATION/PLAN: 1. Commence adjuvant FolFox next 7-10 days 2. Genetics consult as scheduled. 3. Follow up scans in 3- months or so given findings on staging scans Written and verbal health teaching given to patient, patient verbalizes understanding and agrees with treatment plan. PAST MEDICAL HISTORY Diagnosis Date Colonic mass Gastric ulcer Mixed hyperlipidemia PAST SURGICAL HISTORY Procedure Laterality Date AMPUTATION FINGER/THUMB Right part of thumb APPENDECTOMY TONSILLECTOMY AND ADENOIDECTOMY <AGE 12 1988 TOTAL ABDOM HYSTERECTOMY 1997 partial FAMILY HISTORY Problem Relation Age of Onset other (CAD, ALS) Father other ( age 40's colon cancer) Brother Breast Cancer Paternal Grandmother Cancer Paternal Aunt Social History Tobacco Use Smoking status: Former Types: Cigarettes Smokeless tobacco: Never Tobacco comments: Pt smoked one pack daily x 40 years, quit 07/26/24 Vaping Use Vaping status: Never Used Substance Use Topics Alcohol use: Not Currently Drug use: Not Currently ALLERGIES: ALLERGIES No Known Allergies CURRENT OUTPATIENT MEDICATIONS: atorvastatin (LIPITOR) 80 mg tablet Take 80 mg by mouth daily at bedtime. pantoprazole DR (PROTONIX) 40 mg tablet Take 1 tablet by mouth every 12 hours. promethazine (PHENERGAN) 25 mg tablet Take 1 tab by mouth every 4 hours as needed for nausea. (Patient not taking: Reported on 08/13/2024) Protein Supplement liqd Take 30 g by mouth once daily. Protein drink daily (Patient not taking: Reported on 08/27/2024) iv contrast (will be provided with radiology test) CT Chest ABD/PEL-Inject, intravenously, once for 1 dose.No IV access, insert saline lock prior to the beginning of sedation, infusion, injection of imaging exam. Discontinue saline lock post exam. If Pt. has a central line or IVAD, may access for administration according to line specific nursing protocol. Once exam is complete flush line and de-access according to line specific nursing protocol in the CT contrast administration guidelines link. (Patient not taking: Reported on 08/13/2024) enteric contrast (will be provided with radiology test) For CT CHESTABD/PEL W IVCON Routine order Administer, As Directed One Time Only, via Oral, Rectal, both Oral and Rectal, Enteric Tube, Stoma or Indwelling Catheter, Enteric Contrast as designated per enteric contrast guidelines (Patient not taking: Reported on 08/13/2024) REVIEW OF SYSTEMS: GENERAL: No fever, night sweats, weight loss or malaise. All other reviewed and negative other than HPI. PHYSICAL EXAMINATION: VITAL SIGNS: BP 141/82 Pulse 79 Temp (Src) 99.7 (Temporal) Ht 5' 4 (1.63m) Wt 132 lb (59.9kg) SpO2 100% BMI 22.65 kg/(m2). GENERAL APPEARANCE: Well appearing, in no acute distress, alert and oriented x3, well-hydrated, well nourished. I spent a total of 60 minutes on the date of the service which included preparing to see the patient, [id number] patient care, completing clinical documentation, obtaining and/or reviewing separately obtained history, counseling and educating the patient/family/caregiver, ordering medications, tests, or procedures, communicating with other HCPs (not separately reported), independently interpreting results (not separately reported), communicating results to the patient/family/caregiver, and care coordination (not separately reported). Electronically Signed: Nestor Simms MD August 27, 2024 10:48 AM CNPN Observed: 08/27/2024 12:00 AM Status: COMPLETED Source: [facility] Telephone (HEMAWS) CORINE SUTART ([id number]) 1970 F Date Time Provider Department 08/27/24 KESHIA RAHMAN During your visit today, we recorded the following information about you: Keshia Rahman RN 08/27/2024 11:21 AM Signed Met with patient and introduced myself. Patient was given a My Journey binder with chemocare information, office contact information, thermometer, and additional chemotherapy resource booklets. Patient aware this nurse will review on scheduled appointment date. Karon Rahman RN Allergies As of Date: 08/27/2024 (No Known Allergies) Date Reviewed: 08/27/2024 Reviewed by: Milvia Flower Ma, MA - Fully Assessed Reason for Visit: Care Coordination [9796] Cmt: Introduction Prescriptions as of 08/27/2024 - promethazine (PHENERGAN) 25 mg tablet Take 1 tab by mouth every 4 hours as needed for nausea. - Protein Supplement liqd Take 30 g by mouth once daily. Protein drink daily - atorvastatin (LIPITOR) 80 mg tablet Take 80 mg by mouth daily at bedtime. - pantoprazole DR (PROTONIX) 40 mg tablet Take 1 tablet by mouth every 12 hours. - iv contrast (will be provided with radiology test) CT Chest ABD/PEL-Inject, intravenously, once for 1 dose.No IV access, insert saline lock prior to the beginning of sedation, infusion, injection of imaging exam. Discontinue saline lock post exam. If Pt. has a central line or IVAD, may access for administration according to line specific nursing protocol. Once exam is complete flush line and de-access according to line specific nursing protocol in the CT contrast administration guidelines link. - enteric contrast (will be provided with radiology test) For CT CHESTABD/PEL W IVCON Routine order Administer, As Directed One Time Only, via Oral, Rectal, both Oral and Rectal, Enteric Tube, Stoma or Indwelling Catheter, Enteric Contrast as designated per enteric contrast guidelines Problem List As Of Date 08/27/2024 Noted Resolved Other hyperlipidemia [E78.49] 07/26/2024 GERD (gastroesophageal reflux disease) [K21.9] 07/26/2024 Preop examination [Z01.818] 07/26/2024 Colonic mass [K63.89] Seizure (HCC) [R56.9] 07/26/2024 Smoking hx [Z87.891] 07/26/2024 Rectal cancer (HCC) [C20] 07/29/2024 Nicotine use disorder, F17.2 [F17.200] 07/31/2024 Encounter Status:Closed by KESHIA RAHMAN on 08/27/24 CNPJosse Observed: 08/27/2024 12:00 AM Status: COMPLETED Source: [facility] Telephone (CORI) CORINE STUART ([id number]) 1970 F Date Time Provider Department 08/27/24 NESTOR SIMMS During your visit today, we recorded the following information about you: Stephy Perez 08/27/2024 11:22 AM Signed Chemo Education-SCHEDULED 09/02 Start Q2wk Folfox, CBC/CMP straight back to start CBC/CMP/Mg/OV prior to each cycle CEA monthly Kimmy Price 08/27/2024 12:20 PM Signed 3 cycles scheduled Start email sent Please enter chemo orders Keshia Rahman, RN 08/27/2024 1:48 PM Signed [place] orders have been entered. KARLEY Wilburn Angela 08/28/2024 11:50 AM Signed Attached referral to treatments Stephy Perez Allergies As of Date: 08/27/2024 (No Known Allergies) Date Reviewed: 08/27/2024 Reviewed by: Milvia Flower Ma, MA - Fully Assessed Reason for Visit: AVS 08/27 [Other] Prescriptions as of 11/18/2024 - magnesium oxide (MAG-OXIDE ORAL) Take 1 tablet by mouth once daily. - loperamide HCl (IMODIUM A-D) 2 mg tab Take 2 mg by mouth as needed. - docusate sodium (COLACE PO) Take 1 tablet by mouth three times a day as needed. - prochlorperazine (COMPAZINE) 10 mg tablet Take 1 tablet by mouth every 6 hours as needed. - lidocaine-prilocaine (EMLA) 2.5-2.5 % cream Apply to affected area as needed. - atorvastatin (LIPITOR) 80 mg tablet Take 80 mg by mouth daily at bedtime. - pantoprazole DR (PROTONIX) 40 mg tablet Take 1 tablet by mouth every 12 hours. Problem List As Of Date 08/27/2024 Noted Resolved Other hyperlipidemia [E78.49] 07/26/2024 GERD (gastroesophageal reflux disease) [K21.9] 07/26/2024 Preop examination [Z01.818] 07/26/2024 Colonic mass [K63.89] Seizure (HCC) [R56.9] 07/26/2024 Smoking hx [Z87.891] 07/26/2024 Rectal cancer (HCC) [C20] 07/29/2024 Nicotine use disorder, F17.2 [F17.200] 07/31/2024 Encounter Status:Closed by STEPHY PEREZ on 11/18/24 CNCO Observed: 08/26/2024 12:00 AM Status: COM PLETED Source: [facility] Letter Text CNCO Observed: 08/26/2024 12:00 AM Status: COM PLETED Source: [facility] Letter Text PROGRESS Observed: 08/19/2024 12:02 PM Status: COMPLETED Source: [facility] HNO ID: [id number] Author: ИВАН GARAY MD Service: ? Author Type: Physician Type: Progress Notes Filed: 08/19/2024 12:33 Note Text: DISTANCE HEALTH VISIT This Team Access Model visit is a phone encounter. It required patient-provider interaction for the medical decision making as documented below. I have communicated my name and active licensure. The patient's identity and physical location were verified at the time of this visit. Either the patient or their legal loss prevention representative has been informed of the risks and benefits of -- and alternatives to -- treatment through a remote evaluation and consents to proceed with the evaluation remotely. Corine Stuart is a 54 year old female seen for postop low anterior resection. She is doing well and notes that her wounds are healing appropriately. She still has occasional mild pains but this is mostly resolved. She has still had some looser stools which also have improved slowly and steadily. Early on she was having issues with control because of this but for the last week it has been less of an issue. She had a port placed and is supposed to start chemotherapy soon, meeting with an oncologist closer to home on August 27. HISTORY REVIEWED (electronic chart updated): - medical history - medications - allergies REVIEW OF SYSTEMS: GENERAL: feeling well without fatigue, no recent change in weight GI: normal appetite, tolerating PO well, and still some looser stools but improving : urination is normal PHYSICAL EXAMINATION: VIDEO EXAM: (if done, performed via video enabled technology) No exam performed ASSESSMENT/PLAN: 1. Malignant neoplasm of rectum (HCC) - ICD9: 154.1, ICD10: C20 She is doing well, notes improvement in several aspects but still some nuisance issues with looser stools. I asked her to try a fiber supplement to see if this is helpful. She is also able to go back to a regular diet and her lifting restrictions are ended. She will start chemotherapy soon. I will plan to see her back in 6 months There are no Patient Instructions on file for this visit. Иван Garay MD CNPN Observed: 08/19/2024 12:00 AM Status: COMPLETED Source: [facility] Telephone (AGGENS3) CORINE STUART ([id number]) 1970 F Date Time Provider Department 08/19/24 ИВАН GARAY AGGENS3 During your visit today, we recorded the following information about you: Aura Astudilol 08/19/2024 1:29 PM Signed The patient called and wanted to know when she would be able to resume intercourse? She said you can MyChart her. Aura Astudillo Allergies As of Date: 08/19/2024 (No Known Allergies) Date Reviewed: 08/19/2024 Reviewed by: Иван Garay MD - Fully Assessed Reason for Visit: Patient Question [8419] Prescriptions as of 08/19/2024 - promethazine (PHENERGAN) 25 mg tablet Take 1 tab by mouth every 4 hours as needed for nausea. - Protein Supplement liqd Take 30 g by mouth once daily. Protein drink daily - atorvastatin (LIPITOR) 80 mg tablet Take 80 mg by mouth daily at bedtime. - pantoprazole DR (PROTONIX) 40 mg tablet Take 1 tablet by mouth every 12 hours. - iv contrast (will be provided with radiology test) CT Chest ABD/PEL-Inject, intravenously, once for 1 dose.No IV access, insert saline lock prior to the beginning of sedation, infusion, injection of imaging exam. Discontinue saline lock post exam. If Pt. has a central line or IVAD, may access for administration according to line specific nursing protocol. Once exam is complete flush line and de-access according to line specific nursing protocol in the CT contrast administration guidelines link. - enteric contrast (will be provided with radiology test) For CT CHESTABD/PEL W IVCON Routine order Administer, As Directed One Time Only, via Oral, Rectal, both Oral and Rectal, Enteric Tube, Stoma or Indwelling Catheter, Enteric Contrast as designated per enteric contrast guidelines Problem List As Of Date 08/19/2024 Noted Resolved Other hyperlipidemia [E78.49] 07/26/2024 GERD (gastroesophageal reflux disease) [K21.9] 07/26/2024 Preop examination [Z01.818] 07/26/2024 Colonic mass [K63.89] Seizure (HCC) [R56.9] 07/26/2024 Smoking hx [Z87.891] 07/26/2024 Rectal cancer (HCC) [C20] 07/29/2024 Nicotine use disorder, F17.2 [F17.200] 07/31/2024 Encounter Status:Closed by AURA ASTUDILLO on 08/19/24 OPERATIVE NO Observed: 08/16/2024 8:00 AM Status: COMPLETED Source: [facility] HNO ID: [id number] Author: SCAR ESCOBAR MD Service: Vascular Surgery Author Type: Physician Type: Operative Report Filed: 08/16/2024 09:50 Note Text: OPERATIVE/PROCEDURE REPORT LOG ID: [id number] Surgery/Procedure Date: 08/16/2024 Incision/Procedure Start Time: 8:26 AM Incision Close/Procedure End Time: 8:40 AM Surgeon(s)/Proceduralist(s) and Application Support(s): Surgeons and Role: * Scar Escobar MD - Primary No Additional Staff Procedure(s): US guided right internal jugular vein access, Central implanted port under fluoroscopic guidance Anesthesia: Local Anesthesia Operative indications: 53 year old female who presents for powerport placement Procedure details: The procedure was performed by Scar Escobar MD in the radiology suite. The patient was taken to the IR suite where informed consent was obtained. The patient was positioned supine on the operating table. The right neck and chest was prepped and draped in the usual sterile fashion. All elements of maximal barrier technique including cap and mask, sterile gown, sterile gloves, a large sterile drape, hand hygiene, and appropriate prep agent for cutaneous antisepsis were utilized and maintained during the procedure. After time-in, the internal jugular vein was interrogated with the ultrasound and found to be patent. Utilizing local anesthesia, ultrasound guidance, and micropuncture system, access was obtained in the right internal jugular vein and the tip of the needle within the vein was documented. Utilizing guidewire exchange and Seldinger technique, a peel-away sheath was placed. An area of the superior anterior chest was anesthetized with Lidocaine and the port catheter was tunneled through the area to the peel-away sheath. The catheter was then introduced into the sheath and guided fluoroscopically with the tip in the superior vena cava right atrial junction. The peel-away sheath was removed, the catheter was cut to the appropriate length and attached to the port septum. Utilizing blunt dissection, a subcutaneous pocket was formed in the upper right chest and the port placed in the pocket. The port was secured with suture material, the incision closed with suture material and bandage. The port was accessed with the appropriate Damon needle and flushed with appropriate Hep-Lock solution. The port is ready for use. Findings: Technically successful placement of Central implanted port via the right internal jugular vein approach with the tip of the catheter in the superior vena caval right atrial junction. Pre-Op/Pre-Procedure Diagnosis: Rectal Ca Post-Op/Post-Procedure Diagnosis: Same Estimated Blood Loss: 0 ml Specimens: None Implantable Devices: Powerport Complications: None I/primary surgeon/proceduralist performed the entire procedure. Scar Escobar MD DPYD/UGT1A1 GENOTYPING PANEL Collected: 08/13/2024 12:46 PM Status: F Source: [facility] Order Comment: Specimen Type : BLOOD SPECIMEN Ordering Facility: [facility] Address: [address] [place] [address] TYPE CODE TESTS RESULT OUT OF RANGE REFERENCE UNITS LAB [facility] DPYD/UGT1A1 GENOTYPING PANEL RESULT Result Comment: Pharmacogeno mics (PGx) DPYD and UGT1A1 Genotyping Laboratory Accession Number: [id number] DPYD Genotype: *1/*1 DPYD Activity Score: 2 DPYD Predicted Phenotype: DPYD Normal Metabolizer UGT1A1 Genotype: *1/*80+*28 UGT1A1 Predicted Phenotype: UGT1A1 Intermediate Metabolizer Interpretation: Two normal function alleles were observed in the DPYD gene (see variant details below) resulting in an activity score of 2. This activity score is associated with a DPYD normal metabolizer phenotype. DPYD normal metabolizers are not expected to require (based on pharmacogenomic results alone) selective adjustment of the dose of medications metabolized by DPD. Please consult a clinical pharmacist for more information regarding drug therapy. Questions regarding molecular testing details should be directed to . One decreased function UGT1A1 allele, in combination with either one normal function or one increased function UGT1A1 allele, was observed in this sample (see variant details below). This is associated with a UGT1A1 intermediate metabolizer phenotype. UGT1A1 intermediate metabolizers are not expected to require (based on pharmacogenomic results alone) selective adjustment of the dose of medications metabolized by UGT. Please consult a clinical pharmacist for more information regarding drug therapy. Questions regarding molecular testing details should be directed to [email or web address]. The DPYD gene encodes dihydropyrimidine dehydrogenase (DPD). This enzyme is involved in the metabolism of fluoropyrimidines. The UGT1A1 gene encodes UDP-glucuronosyltransferase (UGT). UGT is involved in the metabolism of certain medications including ones used in oncology. For clinical correlation, drug-specific guidelines are available to provide phenotype assignment and therapeutic recommendations based on phenotype. Patients who carry genetic variants associated with altered metabolism may be at risk for an adverse or poor response to drugs that are predominantly metabolized by the associated enzyme (DPD or UGT). For patients with altered DPD and/or UGT activity, alternative pharmacological agents or dosing adjustments may be needed for medications metabolized by this enzyme to avoid an unexpected or adverse response. Please note that this DPYD genotyping test includes variants that may not have been assayed in a previous test performed elsewhere. If there is discordance of phenotype results between laboratories, it is likely a function of the different variants assayed in each test. The methodology section of the report (see below) lists the variants interrogated by this test. DPYD Variant Details: NA UGT1A1 Variant Details: UGT1A1 [id number], c.-346C>T, [id number]>T (legacy name 80); UGT1A1 [id number], c.-41_-40dupTA [id number] (legacy name 28) DPYD Additional Information: In addition to increased risk of 5-fluorouracil toxicity, variants in the DPYD gene may be associated with DPD deficiency, an autosomal recessive inborn error of metabolism (OMIM: 604823). DPD deficiency exhibits a wide range of phenotypic variability, from no symptoms to a very rare severe neurological disorder with onset in infancy or childhood (prevalence unknown). For the vast majority of affected individuals, the first and only symptom is sensitivity to 5-fluorouracil and capecitabine. It is possible that individuals with DPD deficiency may be identified by the presence of two no-function DPYD variants (activity score = 0). However, this test is designed as a pharmacogenomic test and is not intended as a diagnostic or carrier test for DPD deficiency. A formal genetics consultation is recommended for those with concerns regarding DPD deficiency. Limitations: DNA studies do not provide a definitive genetic or pharmacogenomic risk in all individuals. This test is designed to detect a specific set of variants (see list below) in the DPYD gene (OMIM 398178) and UGT1A1 gene (OMIM 359533). This test does not detect all sequence variants in either gene. Uncommon variants or single nucleotide polymorphisms may affect binding of primers and probes and may result in false negative, false positive, or indeterminate results. The absence of abnormal variants as analyzed in this test is interpreted as the presence of *1/*1 (wild type/normal) genotype. The phenotype provided in the interpretation may be impacted by undetected genetic and/or non-genetic factors such as drug-drug interactions. Methodology: Purified genomic DNA was subjected to polymerase chain reaction-based amplification. The DPYD (NM_000110.3) and UGT1A1 (NM_000463.3) genes were interrogated for known, clinically relevant variants. Primer extension products were analyzed using matrix-assisted laser desorption/ionization massspectrometry, and specific genotypes assigned were then translated to the appropriate star (*) allele (DPYD and UGT1A1) and activity score (DPYD), see lists below. The reference genome used is GRCh38/hg38. UGT1A1 star alleles: *1, *6, *27, *28, *36, *37, *80, *80+*28, *80+*36, and *80+*37. These alleles are detected using the presence or absence of the following variants, RefSNP ID: [id number], [id number], [id number] (TA repeats), and [id number]. DPYD star alleles and targeted variants: RefSNP ID Legacy Total Allele Highest Allele Name Frequency Frequency General Population (Population) No variant detected *1 [id number] *2A 0.6% 2.4% (Eur F) [id number] *8 0.01% 0.03% (S ) [id number] *10 n/a [id number] *12 0.0008% 0.003% (S ) [id number] *13 0.03% 0.06% (Eur F) [id number] Y186C 0.2% 2.15% () [id number] c.2846A>T 0.3% 0.5% (Eur NF) [id number] HapB3 1.4% 2.1 % (Eur NF) [id number] HapB3(c.1236G>A) 1.4% 2.1% (Eur NF) Population frequencies are from gnomAD and may be different in specific ethnic groups. The allele frequency shown is the total allele frequency in all populations. The highest allele frequency for a single population is also noted (Eur F = B[place]ian, Eur NF = non-Bermudian, S = South ). Note: [id number] (HapB3) and [id number] (c.1236G>A) are in linkage disequilibrium thus are typically seen together. References: 1) Clinical Pharmacogenetics Implementation Consortium (CPIC): www.CPICpgx.org 2) Pharmacogene Variation Consortium (PharmVar): www.PharmVar.org 3) Genome Aggregation Database V2.1.1 (gnomAD), accessed 04 March 2021, https://gnomad.broadinstitute.org 4) Coral-Christian M, Trinh EM, Ramirez JM, et al. Pharmacogenomics Knowledge for Personalized Medicine Clinical Pharmacology and Therapeutics (2012) 92(4): 414-417. 5) Kwesi U, Efraín SMITH, Charisse SM, et al. Clinical Pharmacogenetics Implementation Consortium (CPIC) Guideline for Dihydropyrimidine Dehydrogenase Genotype and Fluoropyrimidine Dosin Update. Clin Pharmacol Ther. 2018;103(2):210-216. 6) Medlineplus, [employer] Library of Medicine 2020. Dihydropyrimidine dehydrogenase deficiency, accessed 15 September 2020, https://medlineplus.gov/genetics/condition/dihydropyrimidine- dehydrogenase-deficiency/#resources 7) Zhane N, Valorie BEACH, Jairo CUTLER, zaida KING. Purine and Pyrimidine Metabolism: Pyrimidine Metabolism: Dihydropyrimidine Dehydrogenase. Adriana's Principles and Practice of Medical Genetics and Genomics: Metabolic Disorders, Seventh Edition. Edited by ANETTE Koch et al, Elsevier. 2020. Sections 6.3.4 - 6.3.4.4 https://uiz-uwhgyxbrjng-rhz.ccmain.[facility].org/#!/content/book/3-s2.0- [email or web address]?[email or web address] 8) Meeta RS, Nory MH, Clemencia CE, et al. Clinical Pharmacogenetics Implementation Consortium (CPIC) Guideline for UGT1A1 and Atazanavir Prescribing. Clinical Pharmacology and Therapeutics (2016) Apr;99(4): 363-9. 9) Zain Best. Overview of Glibert's syndrome. Drug Ther Bull. 2019 Mar 57(2):27-30. 10) [facility] 2020, Gilbert Syndrome, accessed 15 September 2020, https://[facility].org/health/diseases/40974-pscnqdrg-lrvmrcvw Disclaimer: This test was developed and its performance characteristics determined by [facility]'s Pathology and Laboratory Medicine Department. It has not been cleared or approved by the FDA. [facility] Department is regulated under CLIA as certified to perform high-complexity testing. This test is used for clinical purposes. It should not be regarded as investigational or for research. Test performed at [facility], [address] [place] [address]. CLIA Number: [id number] Interpretation performed by Cathy De La Vega MD Performed By: #### [email or web address] ## ## [facility] CLIA [id number] [address] [place] [address] [place] COMP METAB 2000 PNL SERPL Collected: 12:46 PM Status: F Source: [facility] Order Comment: Specimen Type : BLOOD SPECIMEN Ordering Facility: [facility] Address: [address] [place] [address] TYPE CODE TESTS RESULT OUT OF RANGE REFERENCE UNITS LAB 2885-2(LOINC) Prot SerPl-mCnc 7.9 6.3-8.0 g/dL LAB 1751-7(LOINC) Albumin SerPl-mCnc 4.3 3.9-4.9 g/dL LAB 52392-7(LOINC) Calcium SerPl-mCnc 10.2 8.5-10.2 mg/dL LAB 1975-2(LOINC) Bilirub SerPl-mCnc 0.4 0.2-1.3 mg/dL LAB 6768-6(LOINC) ALP SerPl-cCnc 152 High 34-123 U/L LAB 1920-8(LOINC) AST SerPl-cCnc 42 High 13-35 U/L LAB 1742-6(LOINC) ALT SerPl-cCnc 66 High 7-38 U/L LAB 2345-7(LOINC) Glucose SerPl-mCnc 100 High 74-99 mg/dL Result Comment: The [place] Diabetes Association (ADA) provides guidance for cutoff values for fasting glucose and random glucose. The ADA defines fasting as no caloric intake for at least 8 hours. Fasting plasma glucose results between 100 to 125 mg/dL indicate increased risk for diabetes (prediabetes). Fasting plasma glucose results greater than or equal to 126 mg/dL meet the criteria for diagnosis of diabetes. In the absence of unequivocal hyperglycemia, results should be confirmed by repeat testing. In a patient with classic symptoms of hyperglycemia or hyperglycemic crisis, random plasma glucose results greater than or equal to 200 mg/dL meet the criteria for diagnosis of diabetes. Reference: Standards of Medical Care in Diabetes 2016, [place] Diabetes Association. Diabetes Care. 2016.39(Suppl 1). LAB 3094-0(LOINC) BUN SerPl-mCnc 10 7-21 mg/ dL LAB 2160-0(LOINC) Creat SerPl-mCnc 0.83 0.58-0.96 mg/dL LAB 2951-2(LOINC) Sodium SerPl-sCnc 141 136-144 mmol/L LAB 2823-3(LOINC) Potassium SerPl-sCnc 4.5 3.7-5.1 mmol/L LAB 2075-0(LOINC) Chloride SerPl-sCnc 103 98-107 mmol/L LAB 2028-9(LOINC) CO2 SerPl-sCnc 27 22-30 mmo l/L LAB 86372-8(LOINC) Anion Gap SerPl-sCnc 11 8-15 mmol/L LAB 20670-7(LOINC) Creatinine + eGFR Pnl SerPlBld 84 >=60 mL/min/1 .73m??? Result Comment: Estimated Gl omerular Filtration Rate (eGFR) is calculated using the 2020 CKD-EPI creatinine equation. This equation utilizes serum creatinine, sex, and age as parameters. The creatinine assay has traceable calibration to isotope dilution-mass spectrometry. Refer to KDIGO guidelines for clinical interpretation. In patients with unstable renal function, e.g. those with acute kidney injury, the eGFR may not accurately reflect actual GFR. Performed By: #### 17106-9 # ### [facility] CLIA [id number] [address] [place] [address] STATES OF [facility] CEA SERPL-MCNC Collected: 12:46 PM Status: F Source: [facility] Order Comment: Specimen Type : BLOOD SPECIMEN Ordering Facility: [facility] Address: [address] [place] [address] TYPE CODE TESTS RESULT OUT OF RANGE REFERENCE UNITS LAB 9-6(LOINC) CEA SerPl-mCnc 4.0 High <=2.9 ng/mL Result Comment: Carcinoembry onic antigen test is used as an aid in monitoring response to treatment or recurrence in patients with established colorectal, breast, lung, prostatic, pancreatic, and ovarian carcinomas. Clinical correlation is required. The Carcinoembryonic antigen test was performed using the Iván Toledo Unicel DXI paramagnetic particle chemiluminescent immunoassay method. Results obtained with different assay methods or kits cannot be used interchangeably. Performed By: #### 2039-6 ## ## [facility] CLIA [id number] [address] [place] [address] STATES OF [facility] CBC W AUTO DIFF BLD Collected: 08/13/2024 12:46 PM S tatus: F Source: [facility] Order Comment: Specimen Type : BLOOD SPECIMEN Ordering Facility: [facility] Address: [address] [place] [address] TYPE CODE TESTS RESULT OUT OF RANGE REFERENCE UNITS LAB 6690-2(LOINC) WBC # Bld Auto 8.06 3.70-11.00 k/uL LAB 789-8(LOINC) RBC # Bld Auto 4.74 3.90-5.20 m/ uL LAB 718-7(LOINC) Hgb Bld-mCnc 14.0 11.5-15.5 g/dL LAB 4544-3([facility]) Hct VFr Bld Auto 43.9 36.0-46.0 % LAB 787-2([facility]) MCV RBC Auto 92.6 80.0-100.0 fL LAB 785-6([facility]) MCH RBC Qn Auto 29.5 26.0-34.0 p g LAB 786-4([facility]) MCHC RBC Auto-mCnc 31.9 30.5-36.0 g/dL LAB 56753-8([facility]) RDW RBC-Rto 14.1 11.5-15.0 % LAB 777-3([facility]) Platelet # Bld Auto 554 High 150-400 k/uL LAB 92685-1([facility]) PMV Bld Auto 9.0 9.0-12.7 fL LAB 770-8([facility]) Neutrophils/leuk NFr Bld Auto 70.7 % LAB 751-8([facility]) Neutrophils # Bld Auto 5.70 1.45-7.50 k/uL LAB 736-9([facility]) Lymphocytes/leuk NFr Bld Auto 21.7 % LAB 731-0([facility]) Lymphocytes # Bld Auto 1.75 1.00-4.00 k/uL LAB 5905-5([facility]) Monocytes/leuk NFr Bld Auto 5.6 % LAB 742-7([facility]) Monocytes # Bld Auto 0.45 <0.87 k/uL LAB 713-8([facility]) Eosinophil/leuk NFr Bld Auto 1.1 % LAB 711-2([facility]) Eosinophil # Bld Auto 0.09 <0.46 k/uL LAB 706-2([facility]) Basophils/leuk NFr Bld Auto 0.4 % LAB 704-7([facility]) Basophils # Bld Auto 0.03 <0.11 k/uL LAB 08279-1([facility]) Imm Granulocytes/suzi k NFr Bld Auto 0.5 % LAB 82652-3([facility]) Imm Granulocytes # Bld Auto 0.04 <0.10 k/uL LAB 86767-7([facility]) nRBC/100 WBC Bld-Rto 0.0 /100 WBC LAB 771-6(LOINC) nRBC # Bld Auto <0.01 <0.01 k/u L LAB 68995-5(LOINC) Differential method Bld Auto Performed By: #### 81782-3 # ### [facility] CLIA [id number] [address] [place] [address] [place] PROGRESS Observed: 08/13/2024 11:17 AM Status: COMPLETED Source: [facility] HNO ID: [id number] Author: MICHELLE HOLLAND LPN Service: ? Author Type: LICENSED NURSE Type: Progress Notes Filed: 08/13/2024 11:20 Note Text: Additional intake questions: Has the patient had fever, nausea, vomiting, diarrhea, constipation, fatigue for > 1 week? No Does the patient have a decreased appetite? No Does patient want to see a Leader Tier? No (yes to any of above refer patient to schedulers for dietitian appointment) ) Does patient have any new or increased numbness or tingling of extremities? No Is patient interested in fertility information? NA Does patient need any prescription refills? No Does patient have an advanced directive in place? No, Patient aware of Resource Center Electronically Signed By: Michelle Holland LPN CNOVSP Observed: 08/13/2024 11:15 AM Status: COMPLETED Source: [facility] Visit (SP) Office ([facility]) CORINE STUART ([id number]) 1970 F Date Time Provider Department 08/13/24 11:15 AM CATIA ELLSWORTH [facility] During your visit today, we recorded the following information about you: Temperature Pulse Respiration Blood pressure 97.9 degrees 83/minute 18/minute 148/57 Weight Height 60.1 kg 1.635 m Catia Ellsworth MD 08/13/2024 12:50 PM Signed [facility] GASTROENTEROLOGY ONCOLOGY NEW PATIENT EVALUATION PATIENT NAME: Corine Stuart : 1970 ATTENDING PHYSICIAN: Dr. Ellsworth DATE OF SERVICE: August 13, 2024 REASON FOR EVALUATION: Consultation requested by Dr. Garay for an opinion regarding the medical oncologic management of colorectal cancer. 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 The patient recently underwent her first colonoscopy which was noted to have severe polyps as well as a rectosigmoid mass concerning for biopsies. EGD was also performed which was significant for a number of duodenal and gastric polyps. CT imaging on 07/10/24 to assess for metastatic disease showed a 2.8 cm ill-defined mass at the rectosigmoid junction, multiple hypodense lesions throughout the liver favored to represent cysts as well as pulmonary nodules (favored to be benign). MRI of the rectum on 07/17/24 showed A 2.6 cm superior rectal mass with adjacent tumor deposit extending into the peritoneal fat as well as suspicious appearing LN's (N1). Sigmoidoscopy performed on 07/19/24 showed rectosigmoid mass with biopsy performed and positive for invasive adenocarcinoma (pMMR). CEA of 12.9 on 07/26/24. Patient then taken to OR on 07/29/24 for LAR ([id number]). She is now recovering well following surgery and presents to discuss adjuvant treatment options. GENOMICS: 07/19/24: MMR Interpretation Proficient (Microsatellite Stable) MLH1 Immunohistochemical Results Normal/Intact Nuclear Expression PMS2 Immunohistochemical Results Normal/Intact Nuclear Expression MSH2 Immunohistochemical Results Normal/Intact Nuclear Expression MSH6 Immunohistochemical Results Normal/Intact Nuclear Expression MLH1 Promoter Methylation Assay No Tumor Type Primary Colorectal Adenocarcinoma PAST MEDICAL HISTORY: PAST MEDICAL HISTORY Diagnosis Date Colonic mass Gastric ulcer Mixed hyperlipidemia PAST SURGICAL HISTORY: PAST SURGICAL HISTORY Procedure Laterality Date AMPUTATION FINGER/THUMB Right part of thumb APPENDECTOMY TONSILLECTOMY AND ADENOIDECTOMY <AGE 12 1988 TOTAL ABDOM HYSTERECTOMY 1997 partial ALLERGIES: ALLERGIES No Known Allergies MEDICATIONS: Current Outpatient Medications on File Prior to Visit Medication Sig promethazine (PHENERGAN) 25 mg tablet Take 1 tab by mouth every 4 hours as needed for nausea. Protein Supplement liqd Take 30 g by mouth once daily. Protein drink daily atorvastatin (LIPITOR) 80 mg tablet Take 80 mg by mouth daily at bedtime. pantoprazole DR (PROTONIX) 40 mg tablet Take 1 tablet by mouth every 12 hours. iv contrast (will be provided with radiology test) CT Chest ABD/PEL-Inject, intravenously, once for 1 dose.No IV access, insert saline lock prior to the beginning of sedation, infusion, injection of imaging exam. Discontinue saline lock post exam. If Pt. has a central line or IVAD, may access for administration according to line specific nursing protocol. Once exam is complete flush line and de-access according to line specific nursing protocol in the CT contrast administration guidelines link. enteric contrast (will be provided with radiology test) For CT CHESTABD/PEL W IVCON Routine order Administer, As Directed One Time Only, via Oral, Rectal, both Oral and Rectal, Enteric Tube, Stoma or Indwelling Catheter, Enteric Contrast as designated per enteric contrast guidelines No current facility-administered medications on file prior to visit. ? SOCIAL HISTORY: Tobacco Use: 0.5 ppd Alcohol Use: Denies Recreational Drug Use: Denies ? FAMILY HISTORY: FAMILY HISTORY Problem Relation Age of Onset other (CAD, ALS) Father other ( age 40's colon cancer) Brother Brother: diagnosed in early 40's (exact age unknown). Lived with metastatic cancer for 7 years prior to passing away. Great Aunt: Lung cancer Daughter and son 29 and 31. REVIEW OF SYSTEMS: Complete 10-point review of systems reviewed and negative except for that noted in the history of present illness. PHYSICAL EXAM: BP 148/57 Pulse 83 Temp 36.6 ?C (97.9 ?F) (Temporal) Resp 18 Ht 163.5 cm (5' 4.37) Wt 60.1 kg (132 lb 7.9 oz) SpO2 100% BMI 22.48 kg/m? Body surface area is 1.65 meters squared. Last Wt 08/13/24 : 60.1 kg (132 lb 7.9 oz) 07/29/24 : 62.1 kg (137 lb) General: In no acute distress, comfortable HEENT: Normocephalic, EOMI, conjunctiva clear Lungs: non-labored respirations Extremities: No lower extremity edema Skin: No rashes or lesions Neuro: No gross or focal motor deficits, sensation intact ECOG PERFORMANCE STATUS: 1- Restricted in physically strenuous activity. Carries out light duty. LABS: Latest Ref Rng AND Units 07/31/2024 CBC WBC 3.70 - 11.00 k/uL 8.71 RBC 3.90 - 5.20 m/uL 3.54 Hemoglobin 11.5 - 15.5 g/dL 10.7 Hematocrit 36.0 - 46.0 % 34.0 MCV 80.0 - 100.0 fL 96.0 MCH 26.0 - 34.0 pg 30.2 MCHC 30.5 - 36.0 g/dL 31.5 RDW-CV 11.5 - 15.0 % 14.4 Platelet Count 150 - 400 k/uL 214 MPV 9.0 - 12.7 fL 10.0 Latest Ref Rng AND Units 07/31/2024 CMP Sodium 136 - 144 mmol/L 136 Potassium 3.7 - 5.1 mmol/L 3.7 Chloride 98 - 107 mmol/L 105 CO2 22 - 30 mmol/L 25 Glucose 74 - 99 mg/dL 85 BUN 7 - 21 mg/dL 8 Creatinine 0.58 - 0.96 mg/dL 0.74 EGFR >=60 mL/min/1.73m? 97 Calcium 8.5 - 10.2 mg/dL 8.5 PATHOLOGY: 07/29/24: FINAL DIAGNOSIS A. Colon, rectum, low anterior resection: - Invasive moderately differentiated adenocarcinoma involving rectosigmoid junction (see comment). - Tumor invades visceral peritoneum. - Margins negative for tumor. - Metastatic adenocarcinoma in four out of nineteen lymph nodes (4/19). - Three unremarkable mucosal rings. - Diverticulosis. at 1126 EDT Diagnosis Comment Multiple elastin stains (blocks A5, A6, A7) were examined to evaluate for tumor in blood vessels and show no evidence of vascular invasion by tumor. Multiple additional UMU stained sections were examined of selected blocks to assess tumor involvement of peritoneal surface and show evidence of visceral peritoneal invasion. 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 Jacinto Funk who agrees with the final interpretation. Block for additional Biomarkers/Molecular studies A5 Synoptic Report COLON AND RECTUM: Resection 8th Edition - Protocol posted: 4COLON AND RECTUM: RESECTION - All Specimens SPECIMEN Procedure Low anterior resection TUMOR Tumor Site Rectosigmoid: per operative note Histologic Type Adenocarcinoma Histologic Grade G2, moderately differentiated Tumor Size Greatest dimension (Centimeters): 3.2 cm Additional Dimension (Centimeters) 3.2 cm 1 cm Tumor Extent Invades visceral peritoneum Macroscopic Tumor Perforation Not identified Lymphatic and / or Vascular Invasion Not identified Perineural Invasion Present Tumor Budding Score High (10 or more) Treatment Effect No known presurgical therapy MARGINS Margin Status for Invasive Carcinoma All margins negative for invasive carcinoma Closest Margin(s) to Invasive Carcinoma Radial (circumferential) Distance from Invasive Carcinoma to Closest Margin 1.5 mm Distance from Invasive Carcinoma to Radial (Circumferential) Margin Distance already reported as closest margin Margin Status for Non-Invasive Tumor Not applicable REGIONAL LYMPH NODES Regional Lymph Node Status Tumor present in regional lymph node(s) Number of Lymph Nodes with Tumor 4 Number of Lymph Nodes Examined 19 Tumor Deposits Not identified pTNM CLASSIFICATION (AJCC 8th Edition) Reporting of pT, pN, and (when applicable) pM categories is based on information available to the pathologist at the time the report is issued. As per the AJCC (Chapter 1, 8th Ed.) it is the managing physician's responsibility to establish the final pathologic stage based upon all pertinent information, including but potentially not limited to this pathology report. pT Category pT4a pN Category pN2a ADDITIONAL FINDINGS Additional Findings Diverticulosis IMAGING: CT CHEST W IVCON Result Date: 07/10/2024 IMPRESSION: CT CHEST: Small right upper lobe and right lower lobe pulmonary nodules measuring up to 0.3 cm. Technically indeterminant if patient is positive for malignancy, however these are favored to be benign. No thoracic lymphadenopathy. Ill-defined groundglass opacities in the right upper lobe, likely infectious or inflammatory. CT ABDOMEN AND PELVIS: 2.8 cm ill-defined mass at the rectosigmoid junction likely corresponding to findings on recent colonoscopy. No lymphadenopathy in the abdomen or pelvis. Multiple hypodense lesions throughout the liver are too small to accurately characterize but favored to represent cysts. Call Center Analyst: JOAQUIN Transcribe Date/Time: Jul 10 2024 2:24P Dictated by : ROXY ESCOBAR MD This examination was interpreted and the report reviewed and electronically signed by: ROXY ESCOBAR MD on Jul 10 2024 2:40PM EST . CT ABD/PEL W IVCON Result Date: 07/10/2024 IMPRESSION: CT CHEST: Small right upper lobe and right lower lobe pulmonary nodules measuring up to 0.3 cm. Technically indeterminant if patient is positive for malignancy, however these are favored to be benign. No thoracic lymphadenopathy. Ill-defined groundglass opacities in the right upper lobe, likely infectious or inflammatory. CT ABDOMEN AND PELVIS: 2.8 cm ill-defined mass at the rectosigmoid junction likely corresponding to findings on recent colonoscopy. No lymphadenopathy in the abdomen or pelvis. Multiple hypodense lesions throughout the liver are too small to accurately characterize but favored to represent cysts. Call Center Analyst: PSCB Transcribe Date/Time: Jul 10 2024 2:24P Dictated by : ROXY ESCOBAR MD This examination was interpreted and the report reviewed and electronically signed by: ROXY ESCOBAR MD on Jul 10 2024 2:40PM EST 07/17/24 MRI rectum: IMPRESSION: A 2.6 cm superior rectal mass with adjacent tumor deposit extending into the peritoneal fat. Stage: T N+ MRF: Tumor invades peritoneal fat Sphincter involvement: No. Suspicious extra mesorectal lymph nodes: Perirectal tumor deposit EMVI: No. 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 Pathology revealed visceral invasion into the perineum. High risk for recurrence. Staging CT's revealed multiple hypodense lesions throughout the liver favored to represent cysts as well as pulmonary nodules. These will need to be closely monitored. Family history is concerning for possible underlying genetic predisposition. We discussed role of adjuvant chemotherapy and recommendations regarding duration. They live in [place], [place]. Planning to purse treatment closer to home ([place]). Recommendations: - Recommend FOLFOX x 6 months - DPYD testing (ordered today) - Port placement - Genetics referral (brother with colon cancer at age 40; EGD with numerous polyps of stomach and duodenum) - Will need repeat CEA prior to starting chemotherapy (12.9 pre-operatively) - Consider follow-up imaging of liver lesions and pulmonary nodules Patient seen and discussed with Gastroenterology Oncology staff, Dr. Ellsworth. Baljinder Pool MD Hematology/Oncology Fellow [facility] STAFF PHYSICIAN NOTE OF PERSONAL INVOLVEMENT IN CARE I have reviewed the history and physical examination obtained and documented by the fellow and I personally participated in the christensen components. I have discussed the case and management of the patient's care. The following comments revise or confirm relevant christensen components of the note. IMPRESSION: This is a 53 year old with recent diagnosis of rectosigmoid adenocarcinoma s/p resection with stage III disease here to discuss adjuvant therapy. Informed pt of high risk of recurrence given T4 status and 4 positive nodes. Recommended 6 months of FOLFOX which pt will get at [facility]. MD Amalia Franz Denise, LPN 08/13/2024 11:20 AM Signed Additional intake questions: Has the patient had fever, nausea, vomiting, diarrhea, constipation, fatigue for > 1 week? No Does the patient have a decreased appetite? No Does patient want to see a Leader Tier? No (yes to any of above refer patient to schedulers for dietitian appointment) ) Does patient have any new or increased numbness or tingling of extremities? No Is patient interested in fertility information? NA Does patient need any prescription refills? No Does patient have an advanced directive in place? No, Patient aware of Resource Center Electronically Signed By: Michelle Holland LPN Referring Provider: SLIM LUTZ [[id number]] Allergies As of Date: 08/13/2024 (No Known Allergies) Date Reviewed: 08/13/2024 Reviewed by: Michelle Holland LPN - Fully Assessed Reason for Visit: Consult [173] Visit Diagnosis:Rectal cancer metastasized to intrapelvic lymph node (HCC) [C20, C77.5] Order(s):CONSULT TO HEMATOLOGY/ONCOLOGY [19990227] Order #: [id number]: 1 IR PORTOCATH PLACEMENT [[id number]] Order #: [id number]/[id number] GENOTYPING PANEL [SQDUPNL] Order #: [id number] FUTURE COMPLETE BLOOD COUNT AND DIFFERENTIAL [SQCBCDIF] Order #: [id number] FUTURE COMPREHENSIVE METABOLIC PANEL [SQCMP] Order #: [id number] FUTURE CARCINOEMBRYONIC ANTIGEN [SQCEA] Order #: [id number] FUTURE CONSULT TO MEDICAL GENETICS - CANCER [[id number]] Order #: [id number]: 1 FUTURE CONSULT TO HEMATOLOGY/ONCOLOGY [19990227] Order #: [id number]: 1 FUTURE Disposition: Return in about 1 week (around 08/20/2024) for Lab, Imaging and/or other scheduling needs only. . Follow-up and Disposition History for Encounter Date Provider Department Center 08/13/2024 [id number], ALOK A [facility] Prescriptions as of 08/13/2024 - promethazine (PHENERGAN) 25 mg tablet Take 1 tab by mouth every 4 hours as needed for nausea. - Protein Supplement liqd Take 30 g by mouth once daily. Protein drink daily - atorvastatin (LIPITOR) 80 mg tablet Take 80 mg by mouth daily at bedtime. - pantoprazole DR (PROTONIX) 40 mg tablet Take 1 tablet by mouth every 12 hours. - iv contrast (will be provided with radiology test) CT Chest ABD/PEL-Inject, intravenously, once for 1 dose.No IV access, insert saline lock prior to the beginning of sedation, infusion, injection of imaging exam. Discontinue saline lock post exam. If Pt. has a central line or IVAD, may access for administration according to line specific nursing protocol. Once exam is complete flush line and de-access according to line specific nursing protocol in the CT contrast administration guidelines link. - enteric contrast (will be provided with radiology test) For CT CHESTABD/PEL W IVCON Routine order Administer, As Directed One Time Only, via Oral, Rectal, both Oral and Rectal, Enteric Tube, Stoma or Indwelling Catheter, Enteric Contrast as designated per enteric contrast guidelines Problem List As Of Date 08/13/2024 Noted Resolved Other hyperlipidemia [E78.49] 07/26/2024 GERD (gastroesophageal reflux disease) [K21.9] 07/26/2024 Preop examination [Z01.818] 07/26/2024 Colonic mass [K63.89] Seizure (HCC) [R56.9] 07/26/2024 Smoking hx [Z87.891] 07/26/2024 Rectal cancer (HCC) [C20] 07/29/2024 Nicotine use disorder, F17.2 [F17.200] 07/31/2024 Encounter Status:Closed by CATIA ELLSWORTH on 08/13/24 PROGRESS Observed: 08/13/2024 11:15 AM Status: COMPLETED Source: [facility] HNO ID: [id number] Author: CATIA ELLSWORTH MD Service: ? Author Type: Physician Type: Progress Notes Filed: 08/13/2024 12:50 Note Text: [facility] GASTROENTEROLOGY ONCOLOGY NEW PATIENT EVALUATION PATIENT NAME: Corine Stuart : 1970 ATTENDING PHYSICIAN: Dr. Ellsworth DATE OF SERVICE: August 13, 2024 REASON FOR EVALUATION: Consultation requested by Dr. Garay for an opinion regarding the medical oncologic management of colorectal cancer. 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 The patient recently underwent her first colonoscopy which was noted to have severe polyps as well as a rectosigmoid mass concerning for biopsies. EGD was also performed which was significant for a number of duodenal and gastric polyps. CT imaging on 07/10/24 to assess for metastatic disease showed a 2.8 cm ill-defined mass at the rectosigmoid junction, multiple hypodense lesions throughout the liver favored to represent cysts as well as pulmonary nodules (favored to be benign). MRI of the rectum on 07/17/24 showed A 2.6 cm superior rectal mass with adjacent tumor deposit extending into the peritoneal fat as well as suspicious appearing LN's (N1). Sigmoidoscopy performed on 07/19/24 showed rectosigmoid mass with biopsy performed and positive for invasive adenocarcinoma (pMMR). CEA of 12.9 on 07/26/24. Patient then taken to OR on 07/29/24 for LAR ([id number]). She is now recovering well following surgery and presents to discuss adjuvant treatment options. GENOMICS: 07/19/24: MMR Interpretation Proficient (Microsatellite Stable) MLH1 Immunohistochemical Results Normal/Intact Nuclear Expression PMS2 Immunohistochemical Results Normal/Intact Nuclear Expression MSH2 Immunohistochemical Results Normal/Intact Nuclear Expression MSH6 Immunohistochemical Results Normal/Intact Nuclear Expression MLH1 Promoter Methylation Assay No Tumor Type Primary Colorectal Adenocarcinoma PAST MEDICAL HISTORY: PAST MEDICAL HISTORY Diagnosis Date Colonic mass Gastric ulcer Mixed hyperlipidemia PAST SURGICAL HISTORY: PAST SURGICAL HISTORY Procedure Laterality Date AMPUTATION FINGER/THUMB Right part of thumb APPENDECTOMY TONSILLECTOMY AND ADENOIDECTOMY <AGE 12 1988 TOTAL ABDOM HYSTERECTOMY 1997 partial ALLERGIES: ALLERGIES No Known Allergies MEDICATIONS: Current Outpatient Medications on File Prior to Visit Medication Sig promethazine (PHENERGAN) 25 mg tablet Take 1 tab by mouth every 4 hours as needed for nausea. Protein Supplement liqd Take 30 g by mouth once daily. Protein drink daily atorvastatin (LIPITOR) 80 mg tablet Take 80 mg by mouth daily at bedtime. pantoprazole DR (PROTONIX) 40 mg tablet Take 1 tablet by mouth every 12 hours. iv contrast (will be provided with radiology test) CT Chest ABD/PEL-Inject, intravenously, once for 1 dose.No IV access, insert saline lock prior to the beginning of sedation, infusion, injection of imaging exam. Discontinue saline lock post exam. If Pt. has a central line or IVAD, may access for administration according to line specific nursing protocol. Once exam is complete flush line and de-access according to line specific nursing protocol in the CT contrast administration guidelines link. enteric contrast (will be provided with radiology test) For CT CHESTABD/PEL W IVCON Routine order Administer, As Directed One Time Only, via Oral, Rectal, both Oral and Rectal, Enteric Tube, Stoma or Indwelling Catheter, Enteric Contrast as designated per enteric contrast guidelines No current facility-administered medications on file prior to visit. ? SOCIAL HISTORY: Tobacco Use: 0.5 ppd Alcohol Use: Denies Recreational Drug Use: Denies ? FAMILY HISTORY: FAMILY HISTORY Problem Relation Age of Onset other (CAD, ALS) Father other ( age 40's colon cancer) Brother Brother: diagnosed in early 40's (exact age unknown). Lived with metastatic cancer for 7 years prior to passing away. Great Aunt: Lung cancer Daughter and son 29 and 31. REVIEW OF SYSTEMS: Complete 10-point review of systems reviewed and negative except for that noted in the history of present illness. PHYSICAL EXAM: BP 148/57 Pulse 83 Temp 36.6 ?C (97.9 ?F) (Temporal) Resp 18 Ht 163.5 cm (5' 4.37) Wt 60.1 kg (132 lb 7.9 oz) SpO2 100% BMI 22.48 kg/m? Body surface area is 1.65 meters squared. Last Wt 08/13/24 : 60.1 kg (132 lb 7.9 oz) 07/29/24 : 62.1 kg (137 lb) General: In no acute distress, comfortable HEENT: Normocephalic, EOMI, conjunctiva clear Lungs: non-labored respirations Extremities: No lower extremity edema Skin: No rashes or lesions Neuro: No gross or focal motor deficits, sensation intact ECOG PERFORMANCE STATUS: 1- Restricted in physically strenuous activity. Carries out light duty. LABS: Latest Ref Rng AND Units 07/31/2024 CBC WBC 3.70 - 11.00 k/uL 8.71 RBC 3.90 - 5.20 m/uL 3.54 Hemoglobin 11.5 - 15.5 g/dL 10.7 Hematocrit 36.0 - 46.0 % 34.0 MCV 80.0 - 100.0 fL 96.0 MCH 26.0 - 34.0 pg 30.2 MCHC 30.5 - 36.0 g/dL 31.5 RDW-CV 11.5 - 15.0 % 14.4 Platelet Count 150 - 400 k/uL 214 MPV 9.0 - 12.7 fL 10.0 Latest Ref Rng AND Units 07/31/2024 CMP Sodium 136 - 144 mmol/L 136 Potassium 3.7 - 5.1 mmol/L 3.7 Chloride 98 - 107 mmol/L 105 CO2 22 - 30 mmol/L 25 Glucose 74 - 99 mg/dL 85 BUN 7 - 21 mg/dL 8 Creatinine 0.58 - 0.96 mg/dL 0.74 EGFR >=60 mL/min/1.73m? 97 Calcium 8.5 - 10.2 mg/dL 8.5 PATHOLOGY: 07/29/24: FINAL DIAGNOSIS A. Colon, rectum, low anterior resection: - Invasive moderately differentiated adenocarcinoma involving rectosigmoid junction (see comment). - Tumor invades visceral peritoneum. - Margins negative for tumor. - Metastatic adenocarcinoma in four out of nineteen lymph nodes (4/19). - Three unremarkable mucosal rings. - Diverticulosis. at 1126 EDT Diagnosis Comment Multiple elastin stains (blocks A5, A6, A7) were examined to evaluate for tumor in blood vessels and show no evidence of vascular invasion by tumor. Multiple additional UMU stained sections were examined of selected blocks to assess tumor involvement of peritoneal surface and show evidence of visceral peritoneal invasion. 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 Jacinto Funk who agrees with the final interpretation. Block for additional Biomarkers/Molecular studies A5 Synoptic Report COLON AND RECTUM: Resection 8th Edition - Protocol posted: 4COLON AND RECTUM: RESECTION - All Specimens SPECIMEN Procedure Low anterior resection TUMOR Tumor Site Rectosigmoid: per operative note Histologic Type Adenocarcinoma Histologic Grade G2, moderately differentiated Tumor Size Greatest dimension (Centimeters): 3.2 cm Additional Dimension (Centimeters) 3.2 cm 1 cm Tumor Extent Invades visceral peritoneum Macroscopic Tumor Perforation Not identified Lymphatic and / or Vascular Invasion Not identified Perineural Invasion Present Tumor Budding Score High (10 or more) Treatment Effect No known presurgical therapy MARGINS Margin Status for Invasive Carcinoma All margins negative for invasive carcinoma Closest Margin(s) to Invasive Carcinoma Radial (circumferential) Distance from Invasive Carcinoma to Closest Margin 1.5 mm Distance from Invasive Carcinoma to Radial (Circumferential) Margin Distance already reported as closest margin Margin Status for Non-Invasive Tumor Not applicable REGIONAL LYMPH NODES Regional Lymph Node Status Tumor present in regional lymph node(s) Number of Lymph Nodes with Tumor 4 Number of Lymph Nodes Examined 19 Tumor Deposits Not identified pTNM CLASSIFICATION (AJCC 8th Edition) Reporting of pT, pN, and (when applicable) pM categories is based on information available to the pathologist at the time the report is issued. As per the AJCC (Chapter 1, 8th Ed.) it is the managing physician's responsibility to establish the final pathologic stage based upon all pertinent information, including but potentially not limited to this pathology report. pT Category pT4a pN Category pN2a ADDITIONAL FINDINGS Additional Findings Diverticulosis IMAGING: CT CHEST W IVCON Result Date: 07/10/2024 IMPRESSION: CT CHEST: Small right upper lobe and right lower lobe pulmonary nodules measuring up to 0.3 cm. Technically indeterminant if patient is positive for malignancy, however these are favored to be benign. No thoracic lymphadenopathy. Ill-defined groundglass opacities in the right upper lobe, likely infectious or inflammatory. CT ABDOMEN AND PELVIS: 2.8 cm ill-defined mass at the rectosigmoid junction likely corresponding to findings on recent colonoscopy. No lymphadenopathy in the abdomen or pelvis. Multiple hypodense lesions throughout the liver are too small to accurately characterize but favored to represent cysts. Call Center Analyst: [facility] Transcribe Date/Time: Jul 10 2024 2:24P Dictated by : ROXY ESCOBAR MD This examination was interpreted and the report reviewed and electronically signed by: ROXY ESCOBAR MD on Jul 10 2024 2:40PM EST . CT ABD/PEL W IVCON Result Date: 07/10/2024 IMPRESSION: CT CHEST: Small right upper lobe and right lower lobe pulmonary nodules measuring up to 0.3 cm. Technically indeterminant if patient is positive for malignancy, however these are favored to be benign. No thoracic lymphadenopathy. Ill-defined groundglass opacities in the right upper lobe, likely infectious or inflammatory. CT ABDOMEN AND PELVIS: 2.8 cm ill-defined mass at the rectosigmoid junction likely corresponding to findings on recent colonoscopy. No lymphadenopathy in the abdomen or pelvis. Multiple hypodense lesions throughout the liver are too small to accurately characterize but favored to represent cysts. Call Center Analyst: [facility] Transcribe Date/Time: Jul 10 2024 2:24P Dictated by : ROXY ESCOBAR MD This examination was interpreted and the report reviewed and electronically signed by: ROXY ESCOBAR MD on Jul 10 2024 2:40PM EST 07/17/24 MRI rectum: IMPRESSION: A 2.6 cm superior rectal mass with adjacent tumor deposit extending into the peritoneal fat. Stage: T N+ MRF: Tumor invades peritoneal fat Sphincter involvement: No. Suspicious extra mesorectal lymph nodes: Perirectal tumor deposit EMVI: No. 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 Pathology revealed visceral invasion into the perineum. High risk for recurrence. Staging CT's revealed multiple hypodense lesions throughout the liver favored to represent cysts as well as pulmonary nodules. These will need to be closely monitored. Family history is concerning for possible underlying genetic predisposition. We discussed role of adjuvant chemotherapy and recommendations regarding duration. They live in [place], [place]. Planning to purse treatment closer to home ([place]). Recommendations: - Recommend FOLFOX x 6 months - DPYD testing (ordered today) - Port placement - Genetics referral (brother with colon cancer at age 40; EGD with numerous polyps of stomach and duodenum) - Will need repeat CEA prior to starting chemotherapy (12.9 pre-operatively) - Consider follow-up imaging of liver lesions and pulmonary nodules Patient seen and discussed with Gastroenterology Oncology staff, Dr. Ellsworth. Baljinder Pool MD Hematology/Oncology Fellow [facility] STAFF PHYSICIAN NOTE OF PERSONAL INVOLVEMENT IN CARE I have reviewed the history and physical examination obtained and documented by the fellow and I personally participated in the christensen components. I have discussed the case and management of the patient's care. The following comments revise or confirm relevant christensen components of the note. IMPRESSION: This is a 53 year old with recent diagnosis of rectosigmoid adenocarcinoma s/p resection with stage III disease here to discuss adjuvant therapy. Informed pt of high risk of recurrence given T4 status and 4 positive nodes. Recommended 6 months of FOLFOX which pt will get at [facility]. Catia Ellsworth MD [facility] Observed: 08/13/2024 12:00 AM Status: COMPLETED Source: [facility] Telephone ([employer]) CORINE STUART ([id number]) 1970 F Date Time Provider Department 08/13/24 ENID MA During your visit today, we recorded the following information about you: Ranjit Vanegas Kimmy 08/13/2024 12:44 PM Signed Please review and advise CONSULT TO HEMATOLOGY/ONCOLOGY Status: Needs Scheduling Requested appt date: Authorizing: Catia Ellsworth MD in [facility] [place] [facility] Referral: [id number] (Authorized) Expires: 08/13/2025 Priority: Routine Diagnosis: Rectal cancer metastasized to intrapelvic lymph node (HCC) [C20, C77.5] Scheduling Instructions Patient requesting transfer to Regional site for continued care. Please schedule with solid tumor oncologist within the next 2 weeks to establish care. Rita Costa LPN 08/13/2024 1:35 PM Signed First avail with either physician , Dr. Mckeon has opening 08/27. BOB Carrillo Naomi 08/13/2024 1:55 PM Signed Spoke w pt and this is scheduled w Dr Simms on 08/27. Sebas Gill Allergies As of Date: 08/13/2024 (No Known Allergies) Date Reviewed: 08/13/2024 Reviewed by: Michelle Hloland LPN - Fully Assessed Reason for Visit: New Patient [172] Prescriptions as of 08/13/2024 - promethazine (PHENERGAN) 25 mg tablet Take 1 tab by mouth every 4 hours as needed for nausea. - Protein Supplement liqd Take 30 g by mouth once daily. Protein drink daily - atorvastatin (LIPITOR) 80 mg tablet Take 80 mg by mouth daily at bedtime. - pantoprazole DR (PROTONIX) 40 mg tablet Take 1 tablet by mouth every 12 hours. - iv contrast (will be provided with radiology test) CT Chest ABD/PEL-Inject, intravenously, once for 1 dose.No IV access, insert saline lock prior to the beginning of sedation, infusion, injection of imaging exam. Discontinue saline lock post exam. If Pt. has a central line or IVAD, may access for administration according to line specific nursing protocol. Once exam is complete flush line and de-access according to line specific nursing protocol in the CT contrast administration guidelines link. - enteric contrast (will be provided with radiology test) For CT CHESTABD/PEL W IVCON Routine order Administer, As Directed One Time Only, via Oral, Rectal, both Oral and Rectal, Enteric Tube, Stoma or Indwelling Catheter, Enteric Contrast as designated per enteric contrast guidelines Problem List As Of Date 08/13/2024 Noted Resolved Other hyperlipidemia [E78.49] 07/26/2024 GERD (gastroesophageal reflux disease) [K21.9] 07/26/2024 Preop examination [Z01.818] 07/26/2024 Colonic mass [K63.89] Seizure (HCC) [R56.9] 07/26/2024 Smoking hx [Z87.891] 07/26/2024 Rectal cancer (HCC) [C20] 07/29/2024 Nicotine use disorder, F17.2 [F17.200] 07/31/2024 Encounter Status:Closed by SEBAS GILL on 08/13/24 ABRAM Observed: 08/13/2024 12:00 AM Status: COMPLETED Source: [facility] Telephone ([place]) CORINE STUART ([id number]) 1970 F Date Time Provider Department 08/13/24 CATIA ELLSWORTH During your visit today, we recorded the following information about you: Dorothy Dave 08/13/2024 3:42 PM Signed Corine Stuart is calling Catia Ellsworth MD today regarding 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 Patient was told they can do it this Monday so the patient wants to confirm it is okay to place it so soon. Patient has been identified by name and birthdate. Requesting response back: [phone] (cell) Dorothy Dave August 13, 2024 Zoila Verma RN 08/13/2024 4:33 PM Signed Returned call to patient, ok to proceed with port placement as scheduled. Zoila Verma RN Allergies As of Date: 08/13/2024 (No Known Allergies) Date Reviewed: 08/13/2024 Reviewed by: Michelle Holland LPN - Fully Assessed Reason for Visit: Care Coordination [3067] Patient Question [9011] Cmt: Port Prescriptions as of 08/13/2024 - promethazine (PHENERGAN) 25 mg tablet Take 1 tab by mouth every 4 hours as needed for nausea. - Protein Supplement liqd Take 30 g by mouth once daily. Protein drink daily - atorvastatin (LIPITOR) 80 mg tablet Take 80 mg by mouth daily at bedtime. - pantoprazole DR (PROTONIX) 40 mg tablet Take 1 tablet by mouth every 12 hours. - iv contrast (will be provided with radiology test) CT Chest ABD/PEL-Inject, intravenously, once for 1 dose.No IV access, insert saline lock prior to the beginning of sedation, infusion, injection of imaging exam. Discontinue saline lock post exam. If Pt. has a central line or IVAD, may access for administration according to line specific nursing protocol. Once exam is complete flush line and de-access according to line specific nursing protocol in the CT contrast administration guidelines link. - enteric contrast (will be provided with radiology test) For CT CHESTABD/PEL W IVCON Routine order Administer, As Directed One Time Only, via Oral, Rectal, both Oral and Rectal, Enteric Tube, Stoma or Indwelling Catheter, Enteric Contrast as designated per enteric contrast guidelines Problem List As Of Date 08/13/2024 Noted Resolved Other hyperlipidemia [E78.49] 07/26/2024 GERD (gastroesophageal reflux disease) [K21.9] 07/26/2024 Preop examination [Z01.818] 07/26/2024 Colonic mass [K63.89] Seizure (HCC) [R56.9] 07/26/2024 Smoking hx [Z87.891] 07/26/2024 Rectal cancer (HCC) [C20] 07/29/2024 Nicotine use disorder, F17.2 [F17.200] 07/31/2024 Encounter Status:Closed by ZOILA VERMA on 08/13/24 ELÍAS Observed: 08/13/2024 12:00 AM Status: MARILIA PLETED Source: [facility] Letter Text CNPN Observed: 08/05/2024 12:00 AM Status: COMPLETED Source: [facility] Telephone ([facility]) CORINE STUART ([id number]) 1970 F Date Time Provider Department 08/05/24 KELLEY MONTOYA NVPJ During your visit today, we recorded the following information about you: Kelley Montoya RN 08/05/2024 1:27 PM Signed GENERAL SURGERY/ERAS MARBLEIZER DISCHARGE FOLLOW UP PHONE CALL Phone Call Date: 08/05/2024 Phone Call Time: 1:26 PM Date of Surgery: 07/29/2024 Procedure: LAR FOLLOW-UP QUESTIONS: Did you receive adequate written instructions upon discharge? Yes Do you have your follow-up appointment scheduled? YES Is your pain controlled with current medication regimen? YES Current Pain level out of 10: 1 Are you tolerating your diet? YES Nausea/vomiting? NO Are you experiencing fever or chills? NO Are you having any redness at your incision site? No Are you having bowel function? YES Patient states she's feeling well. She has no concerns at this time. Encouraged to call MD for questions/concerns. SIGNATURE: Kelley Montoya RN PATIENT NAME: Corine Stuart DATE: August 05, 2024 TIME: 1:26 PM PAGER/CONTACT #: [phone] Allergies As of Date: 08/05/2024 (No Known Allergies) Date Reviewed: 07/30/2024 Reviewed by: Danelle Reyez RN - Fully Assessed Prescriptions as of 08/05/2024 - traMADol (ULTRAM) 50 mg tablet Take 1 tablet by mouth every 8 hours as needed for up to 5 days. - promethazine (PHENERGAN) 25 mg tablet Take 1 tab by mouth every 4 hours as needed for nausea. - Protein Supplement liqd Take 30 g by mouth once daily. Protein drink daily - atorvastatin (LIPITOR) 80 mg tablet Take 80 mg by mouth daily at bedtime. - pantoprazole DR (PROTONIX) 40 mg tablet Take 1 tablet by mouth every 12 hours. - iv contrast (will be provided with radiology test) CT Chest ABD/PEL-Inject, intravenously, once for 1 dose.No IV access, insert saline lock prior to the beginning of sedation, infusion, injection of imaging exam. Discontinue saline lock post exam. If Pt. has a central line or IVAD, may access for administration according to line specific nursing protocol. Once exam is complete flush line and de-access according to line specific nursing protocol in the CT contrast administration guidelines link. - enteric contrast (will be provided with radiology test) For CT CHESTABD/PEL W IVCON Routine order Administer, As Directed One Time Only, via Oral, Rectal, both Oral and Rectal, Enteric Tube, Stoma or Indwelling Catheter, Enteric Contrast as designated per enteric contrast guidelines Problem List As Of Date 08/05/2024 Noted Resolved Other hyperlipidemia [E78.49] 07/26/2024 GERD (gastroesophageal reflux disease) [K21.9] 07/26/2024 Preop examination [Z01.818] 07/26/2024 Colonic mass [K63.89] Seizure (HCC) [R56.9] 07/26/2024 Smoking hx [Z87.891] 07/26/2024 Rectal cancer (HCC) [C20] 07/29/2024 Nicotine use disorder, F17.2 [F17.200] 07/31/2024 Encounter Status:Closed by KELLEY MONTOYA on 08/05/24 PROGRESS Observed: 07/31/2024 3:00 PM Status: COMPLETED Source: [facility] HNO ID: [id number] Author: ИВАН GARAY MD Service: Colorectal Author Type: Physician Type: Progress Notes Filed: 08/02/2024 16:03 Note Text: Documentation Query Please clarify the significance of the pathology report I agree with the pathology findings dated 07/29/24 which confirms the clinically significant diagnosis of metastatic adenocarcinoma to the lymph nodes and peritoneum; and colon diverticulosis This document will become part of the patient's medical record. Иван Garay MD August 02, 2024 4:03 PM PLAN OF CARE Observed: 07/31/2024 2:19 PM Status: COMPLETED Source: [facility] HNO ID: [id number] Author: WILLY BRAGG CPhT Service: Pharmacy Author Type: Cellars Supervisor Type: Plan of Care Filed: 07/31/2024 14:19 Note Text: PHARMACY BEDSIDE DELIVERY SERVICE Patient Name: Corine Stuart The marked outpatient medications were Filled at: [facility] and delivered to the patient's bedside to patient. Medication List START taking these medications traMADol 50 mg tablet Commonly known as: ULTRAM Take 1 tablet by mouth every 8 hours as needed for up to 5 days. CONTINUE taking these medications atorvastatin 80 mg tablet Commonly known as: LIPITOR enteric contrast (will be provided with radiology test) For CT CHESTABD/PEL W IVCON Routine order Administer, As Directed One Time Only, via Oral, Rectal, both Oral and Rectal, Enteric Tube, Stoma or Indwelling Catheter, Enteric Contrast as designated per enteric contrast guidelines iv contrast (will be provided with radiology test) CT Chest ABD/PEL-Inject, intravenously, once for 1 dose.No IV access, insert saline lock prior to the beginning of sedation, infusion, injection of imaging exam. Discontinue saline lock post exam. If Pt. has a central line or IVAD, may access for administration according to line specific nursing protocol. Once exam is complete flush line and de-access according to line specific nursing protocol in the CT contrast administration guidelines link. pantoprazole DR 40 mg tablet Commonly known as: PROTONIX promethazine 25 mg tablet Commonly known as: PHENERGAN Take 1 tab by mouth every 4 hours as needed for nausea. Protein Supplement Liqd You might also be taking other medications not listed above. If you have questions about any of your other medications, talk to the person who prescribed them or your Primary Care Provider. STOP taking these medications metroNIDAZOLE 500 mg tablet Commonly known as: FlagyL neomycin 500 mg tablet Willy Bragg [facility] PAGER: Willy Bragg ([facility]) [phone] July 31, 2024 2:19 PM CNDS Observed: 07/31/2024 12:54 PM Status: COMPLETED Source: [facility] HNO ID: [id number] Author: ИВАН GARAY MD Service: General Surgery Author Type: Resident Type: Discharge Summary Filed: 07/31/2024 17:10 Note Text: Attestation signed by Иван Garay MD at 07/31/2024 5:10 PM I reviewed resident's discharge summary note. I agree with his assessment, plan and recommendations unless otherwise noted. Иван Garay MD 5:10 PM 07/31/24 DISCHARGE SUMMARY PATIENT NAME: Corine Stuart Code Status: Not on file Highest Readmission Risk Score: 8 The 30 day readmissions risk score is derived from an internally validated risk model which evaluates patient level characteristics, utilization history, medication orders and lab results up until the day of discharge. Patients with a score of 39 or above are considered highest risk for readmission. Specific patient level drivers will be listed at the bottom of the summary. Admission Information Admission Information ADMIT DATE: 07/29/2024 DISCHARGE DATE: 07/31/2024 MY DOCTORS AND MEDICAL TEAM: My Main Hospital Doctor: Иван Garay MD Primary Care Provider: Slim Lutz MD My Medical Team Members: Treatment Team: Attending Provider: Иван Garay MD MY CONDITION AT DISCHARGE: Stable REASON I WAS IN THE HOSPITAL: elective laparoscopic LAR SUMMARY OF WHAT HAPPENED WHILE I WAS IN THE HOSPITAL: You were admitted on 07/29 for an elective laparoscopic LAR for rectal cancer. Your procedure went as planned and you were placed on the ERAS pathway postoperatively. You tolerated CLD, then FLD then a GI soft diet without nausea or vomiting. You were having bowel function and your pain was controlled. You were ambulating independently. You will be discharged home in stable condition on 07/31/2024. Please follow up with Dr. Garay. OTHER PROBLEMS/DIAGNOSIS: Principal Problem: Rectal cancer (HCC) Active Problems: Nicotine use disorder, F17.2 Resolved Problems: * No resolved hospital problems. * OPERATIONS PERFORMED WHILE IN THE HOSPITAL: Laparoscopic low-anterior resection IMPORTANT TEST/PROCEDURES: No procedures performed TEST RESULTS NOT AVAILABLE AT THIS TIME: Pathology report from surgery Discharge Disposition Discharge Disposition: Home With Self Care Activity When You Leave the Hospital Other: Avoid heavy (>15 lbs) lifting, pushing, pulling for the next 4 weeks. You may shower 24 hours post operatively. Avoid submerging your wounds in water (ie swimming, hot tubs, baths, etc) for the next 2-3 weeks. Diet Instructions Other: Continue your soft diet until follow-up with Dr. Garay For Pain When You Leave the Hospital If you become constipated, you may use any mmsk-dmw-ntwdisq treatment such as Milk of Magnesia, Sennakot, Prune Juice, Suppositories, etc. in addition to the stool softener/fiber supplement No alcohol or driving while on pain medication Use acetaminophen (Tylenol) as recommended on the bottle Use the dispensed medication (see prescription) Call Your Doctor If There is severe pain at the operative site You have a severe headache You have lightheadedness, fainting, or confusion You have persistent nausea/vomiting over 24 hours You have persistent or heavy bleeding You have redness, swelling, pus or drainage from the wound You have swollen glands or cold and clammy skin Your temperature is greater than 101F Additional Provider to Provider Information: Treatment Team: Attending Provider: Иван Garay MD FINAL DIAGNOSIS: Rectal Cancer Active Hospital Problems Diagnosis POA Rectal cancer (HCC) Yes Nicotine use disorder, F17.2 Unknown Resolved Hospital Problems No resolved problems to display. Transitions of Care Critical Issues: Outpatient follow-up LABS AND PROCEDURES PENDING AT DISCHARGE: No pending results. FOLLOW-UP APPOINTMENTS ALREADY SCHEDULED WITH A [facility] PROVIDER: Future Appointments Date Time Provider Department Center 08/19/2024 2:30 PM Иван Garay MD [facility] ALLERGIES No Known Allergies DISCHARGE MEDICATION: Medication List START taking these medications traMADol 50 mg tablet Commonly known as: ULTRAM Take 1 tablet by mouth every 8 hours as needed for up to 5 days. CONTINUE taking these medications atorvastatin 80 mg tablet Commonly known as: LIPITOR enteric contrast (will be provided with radiology test) For CT CHESTABD/PEL W IVCON Routine order Administer, As Directed One Time Only, via Oral, Rectal, both Oral and Rectal, Enteric Tube, Stoma or Indwelling Catheter, Enteric Contrast as designated per enteric contrast guidelines iv contrast (will be provided with radiology test) CT Chest ABD/PEL-Inject, intravenously, once for 1 dose.No IV access, insert saline lock prior to the beginning of sedation, infusion, injection of imaging exam. Discontinue saline lock post exam. If Pt. has a central line or IVAD, may access for administration according to line specific nursing protocol. Once exam is complete flush line and de-access according to line specific nursing protocol in the CT contrast administration guidelines link. pantoprazole DR 40 mg tablet Commonly known as: PROTONIX promethazine 25 mg tablet Commonly known as: PHENERGAN Take 1 tab by mouth every 4 hours as needed for nausea. Protein Supplement Liqd STOP taking these medications metroNIDAZOLE 500 mg tablet Commonly known as: FlagyL neomycin 500 mg tablet Where to Get Your Medications These medications were sent to [facility] [address] [place] [address] Hours: Monday-Monday, 8am-7pm, Monday 9am-1pm traMADol 50 mg tablet The patient's risk for 30-day readmission is determined using the following contributing factors: Predictive Model Details 6% (Low) Factor Value Calculated 07/31/2024 05:21 -18% Hospital Unit [place] [facility] GENERAL SURGERY [facility] READMISSION RISK Model -12% Admissions (365d) 1 -11% ED visits (365d) 0 10% Admission Provider Speciality GENERAL SURGERY -10% Diagnosis Count 7 -9% Albumin (Avg) 4.7 -7% Length of Stay (d) 2 -6% [facility] -6% Observations (365d) 0 -5% Sodium (Avg) 140.5 SIGNATURE: Min Brito MD DATE: July 31, 2024 TIME: 12:55 PM PROGRESS Observed: 07/31/2024 7:24 AM Status: COMPLETED Source: [facility] HNO ID: [id number] Author: ИВАН GARAY MD Service: General Surgery Author Type: Resident Type: Progress Notes Filed: 07/31/2024 17:12 Note Text: Attestation signed by Иван Garay MD at 07/31/2024 5:12 PM I personally saw and examined the patient on 07/31/2024. I reviewed the resident?s note. I agree with the resident?s assessment and plan unless otherwise noted Иван Garay MD 5:12 PM 07/31/24 Please Note: This office note has been created using Mogotest, a speech recognition software program, and may contain errors including punctuation, grammar, spelling, gender, and inappropriate words or phrases that pertain to the sytem. Elective General Surgery (Green Surgery) Progress Note SERVICE DATE: July 31, 2024 Elective General Surgery (Green Surgery) Service Pager: For questions or concerns Mon-Fri 6a-5p please page [phone]. After 5pm and on Weekends and Holidays, please page [phone]. SUBJECTIVE: NAEO. Tolerated FLD. Eager for soft foods. Passing gas. No BM. Ambulated out of bed without issue. OBJECTIVE: Vitals: Temp (24hrs), Av.9 ?C (98.4 ?F), Min:36.8 ?C (98.2 ?F), Max:37.1 ?C (98.7 ?F) BP 114/53 Pulse 68 Temp 36.8 ?C (98.3 ?F) (Oral) Resp 16 Ht 162.6 cm (5' 4) Wt 62.1 kg (137 lb) SpO2 97% BMI 23.52 kg/m? O2 Therapy: Room Air IANDO: Date 07/30/24699 - 07/31/2465807/31/24699 - 08/01/24658 Shift 5636-8751 3866-0686 4314-6978 24 Hour Total 5867-0117 7759-6417 2577-3943 24 Hour Total INTAKE Shift Total OUTPUT Urine 800 508 233 0839 Void (ml) 800 270 092 1746 Shift Total 800 936 777 1922 Weight (kg) 62.1 62.1 62.1 62.1 62.1 62.1 62.1 62.1 MEDICATIONS: Current Facility-Administered Medications Medication Dose Route Frequency pantoprazole DR 40 mg tab(s) (PROTONIX) 40 mg ORAL DAILY (6 AM) magnesium oxide 400 mg tab(s) (MAG-OX) 400 mg ORAL DAILY ondansetron (PF) 4 mg injection (ZOFRAN) 4 mg INTRAVENOUS q 4 H PRN acetaminophen 975 mg tab(s) (TYLENOL) 975 mg ORAL q 6 H traMADol 50-100 mg tab(s) (ULTRAM) 50-100 mg ORAL q 6 H PRN enoxaparin 40 mg injection (LOVENOX) 40 mg SUBCUTANEOUS q 24 HR NaCl 0.9% iv flush bag 20 mL INTRAVENOUS PRN Labs: Recent Labs 07/31/24 0521 07/30/24 0316 NA 136 140 K 3.7 4.2 CHLOR 105 105 CO2 25 23 BUN 8 8 CREAT 0.74 0.81 GLUC 85 125* ANION 6* 12 CA 8.5 8.6 WBC 8.71 10.00 HB 10.7* 11.5 HCT 34.0* 35.3* PLT 214 258 Physical Exam: GENERAL: resting comfortably, in no acute distress HEENT: normocephalic, atraumatic, EOMI NECK: trachea midline, no JVD. LUNGS: Unlabored breathing, equal chest rise bilaterally CARDIAC: Regular rate, warm extremities, good perfusion throughout ABDOMEN: Soft, non-tender, non-distended. No rebound or guarding, bandaids CDI, midline incision left open to air, CDI EXTREMITIES: GARAY, No deformities, No edema SKIN: Skin color, texture, turgor normal, No rashes or lesions NEURO: AANDOx3, CN II-XII grossly intact PSYCH: normal mood and affect ASSESSMENT AND PLAN: Assessment Active Hospital Problems Diagnosis Date Noted Rectal cancer (HCC) 07/29/2024 Assessment: 53 year old female with hx of Rectal cancer, partial BALDO s/p LAR on 07/29. Hospital Course/Operations/Procedures: 07/29/2024 Procedure(s) with comments: LAP LOW ANTEIOR RESECTION, mobilization of the splenic flexure, omental pedical flap, colorectal anastomosis, flexible sigmoidoscopy - Error found in Charging summary - The charge code is not specified for the supply CUTTER FLEX 60 ARTICULATING [[id number]]. BLOCK TRANSVERSUS ABDOMINIS PLANE (TAP) BILATERAL; BY INJECTION(S) INCLUDES IMAGING GUIDANCE, WHEN PERFORMED Rectal cancer S/p LAR on 07/29 - ERAS pathway - advance to GIS - multimodal pain control - IS, OOB - possible dc later today vs tomorrow pending toleration of diet and return of bowel function Discussed with attending: Dr. Garay Follow up needs: Dr. Garay Portions of the physical exam and assessment/plan of the previous day's note has been copied over. However changes were made to reflect the care plan for today, July 31, 2024 SIGNATURE: Letha Woods DO PATIENT NAME: Corine Stuart DATE: July 31, 2024 TIME: 7:24 AM Pager: see below Elective General Surgery (Green Surgery) Service Pager: For questions or concerns Mon-Fri 6a-5p please page [phone]. After 5pm and on Weekends and Holidays, please page [phone] if in ICU or [phone] if on RNF. PROGRESS Observed: 07/31/2024 7:07 AM Status: COMPLETED Source: [facility] HNO ID: [id number] Author: ИВАН GARAY MD Service: General Surgery Author Type: ? Type: Progress Notes Filed: 07/31/2024 17:11 Note Text: Attestation signed by Иван Garay MD at 07/31/2024 5:11 PM I personally saw and examined the patient on 07/31/2024. I reviewed the resident?s note. I agree with the resident?s assessment and plan unless otherwise noted Иван Garay MD 5:11 PM 07/31/24 Please Note: This office note has been created using Mogotest, a speech recognition software program, and may contain errors including punctuation, grammar, spelling, gender, and inappropriate words or phrases that pertain to the sytem. Elective General Surgery (Green Surgery) Progress Note SERVICE DATE: July 31, 2024 Elective General Surgery (Green Surgery) Service Pager: For questions or concerns Mon-Fri 6a-5p please page [phone]. After 5pm and on Weekends and Holidays, please page [phone]. SUBJECTIVE: Patient seen and examined on morning rounds. Pain is well controlled. Beginning to pass flatus and stool. Tolerating liquid diet well without issues. Tolerating diet DIET LIQUID OBJECTIVE: Vitals: Temp (24hrs), Av.9 ?C (98.4 ?F), Min:36.8 ?C (98.2 ?F), Max:37.1 ?C (98.7 ?F) BP 114/53 Pulse 68 Temp 36.8 ?C (98.3 ?F) (Oral) Resp 16 Ht 162.6 cm (5' 4) Wt 62.1 kg (137 lb) SpO2 97% BMI 23.52 kg/m? O2 Therapy: Room Air IANDO: Date 07/30/24699 - 07/31/24 0659 07/31/24 07 - 08/01/24 0659 Shift 7896-9502 6110-6798 6159-9097 24 Hour Total 4300-2377 4131-7804 7120-5474 24 Hour Total INTAKE Shift Total OUTPUT Urine 800 750 975 6277 Void (ml) 800 143 767 0783 Shift Total 800 425 269 8232 Weight (kg) 62.1 62.1 62.1 62.1 62.1 62.1 62.1 62.1 MEDICATIONS: Current Facility-Administered Medications Medication Dose Route Frequency pantoprazole DR 40 mg tab(s) (PROTONIX) 40 mg ORAL DAILY (6 AM) magnesium oxide 400 mg tab(s) (MAG-OX) 400 mg ORAL DAILY ondansetron (PF) 4 mg injection (ZOFRAN) 4 mg INTRAVENOUS q 4 H PRN acetaminophen 975 mg tab(s) (TYLENOL) 975 mg ORAL q 6 H traMADol 50-100 mg tab(s) (ULTRAM) 50-100 mg ORAL q 6 H PRN enoxaparin 40 mg injection (LOVENOX) 40 mg SUBCUTANEOUS q 24 HR NaCl 0.9% iv flush bag 20 mL INTRAVENOUS PRN lactated ringers iv infusion 75 mL/hr INTRAVENOUS CONTINUOUS Labs: Recent Labs 07/31/24 0521 07/30/24 0316 NA 136 140 K 3.7 4.2 CHLOR 105 105 CO2 25 23 BUN 8 8 CREAT 0.74 0.81 GLUC 85 125* ANION 6* 12 CA 8.5 8.6 WBC 8.71 10.00 HB 10.7* 11.5 HCT 34.0* 35.3* PLT 214 258 Physical Exam: GENERAL: resting comfortably, in no acute distress HEENT: normocephalic, atraumatic, EOMI NECK: trachea midline, no JVD LUNGS: Unlabored breathing, equal chest rise bilaterally CARDIAC: Regular rate, warm extremities, good perfusion throughout ABDOMEN: Soft, non-tender, non-distended. No rebound or guarding, bandaids CDI. EXTREMITIES: GARAY, No deformities, No edema SKIN: Skin color, texture, turgor normal, No rashes or lesions NEURO: AANDOx3, CN II-XII grossly intact PSYCH: normal mood and affect ASSESSMENT AND PLAN: Assessment Active Hospital Problems Diagnosis Date Noted Rectal cancer (HCC) 07/29/2024 Assessment: 53 year old female with hx of Rectal cancer, partial BALDO s/p LAR on 07/29. Hospital Course/Operations/Procedures: 07/29/2024 Procedure(s) with comments: LAP LOW ANTEIOR RESECTION, mobilization of the splenic flexure, omental pedical flap, colorectal anastomosis, flexible sigmoidoscopy - Error found in Charging summary - The charge code is not specified for the supply CUTTER FLEX 60 ARTICULATING [[id number]]. BLOCK TRANSVERSUS ABDOMINIS PLANE (TAP) BILATERAL; BY INJECTION(S) INCLUDES IMAGING GUIDANCE, WHEN PERFORMED Plan: POD2 LAR on 07/29 -ERAS pathway -Having bowel function -advance diet today -Continue to ambulate OOB -Multimodal pain control Discussed with attending: Dr. Garay Follow up needs: Dr. Garay Portions of the physical exam and assessment/plan of the previous day's note has been copied over. However, changes were made to reflect the care plan for today, July 31, 2024. SIGNATURE: Edgardo Mendoza PATIENT NAME: Corine Stuart DATE: July 31, 2024 TIME: 7:09 AM Pager: see below Elective General Surgery (Green Surgery) Service Pager: For questions or concerns Mon-Fri 6a-5p please page [phone]. After 5pm and on Weekends and Holidays, please page [phone] if in ICU or [phone] if on RNF. BAS METAB 2000 PNL SERPL Collected: 05/2024 5:21 AM Status: F Source: [facility] Order Comment: Specimen Type : BLOOD SPECIMEN Ordering Facility: [facility] Address: [address] [place] [address] TYPE CODE TESTS RESULT OUT OF RANGE REFERENCE UNITS LAB 2345-7(LOINC) Glucose SerPl-mCnc 85 74-99 mg/dL Result Comment: The [place] [employer] Association (ADA) provides guidance for cutoff values for fasting glucose and random glucose. The ADA defines fasting as no caloric intake for at least 8 hours. Fasting plasma glucose results between 100 to 125 mg/dL indicate increased risk for diabetes (prediabetes). Fasting plasma glucose results greater than or equal to 126 mg/dL meet the criteria for diagnosis of diabetes. In the absence of unequivocal hyperglycemia, results should be confirmed by repeat testing. In a patient with classic symptoms of hyperglycemia or hyperglycemic crisis, random plasma glucose results greater than or equal to 200 mg/dL meet the criteria for diagnosis of diabetes. Reference: Standards of Medical Care in Diabetes 2016, [place] [employer]. Diabetes Care. 2016.39(Suppl 1). LAB 3094-0(LOINC) BUN SerPl-mCnc 8 7-21 mg/ dL LAB 2160-0(LOINC) Creat SerPl-mCnc 0.74 0.58-0.96 mg/dL LAB 2951-2(LOINC) Sodium SerPl-sCnc 136 136-144 mmol/L LAB 2823-3(LOINC) Potassium SerPl-sCnc 3.7 3.7-5.1 mmol/L LAB 2075-0(LOINC) Chloride SerPl-sCnc 105 98-107 mmol/L LAB 2027-9(LOINC) CO2 SerPl-sCnc 25 22-30 mmo l/L LAB 1863-0(LOINC) Anion Gap4 SerPl-sCnc 6 Low 8-15 mmol/L LAB 63521-2(LOINC) Calcium SerPl-mCnc 8.5 8.5-10.2 mg/dL LAB 93505-4(LOINC) Creatinine + eGFR Pnl SerPlBld 97 >=60 mL/min/1. 73m??? Result Comment: Estimated Gl omerular Filtration Rate (eGFR) is calculated using the 2020 CKD-EPI creatinine equation. This equation utilizes serum creatinine, sex, and age as parameters. The creatinine assay has traceable calibration to isotope dilution-mass spectrometry. Refer to KDIGO guidelines for clinical interpretation. In patients with unstable renal function, e.g. those with acute kidney injury, the eGFR may not accurately reflect actual GFR. Performed By: #### [id number] # ### [facility] CLIA [id number] [address] CBC PNL BLD AUTO Collected: 07/31/2024 5:21 AM Statu s: F Source: [facility] Order Comment: Specimen Type : BLOOD SPECIMEN Ordering Facility: [facility] Address: [address] [place] [address] TYPE CODE TESTS RESULT OUT OF RANGE REFERENCE UNITS LAB 6690-2(LOINC) WBC # Bld Auto 8.71 3.70-11.00 k/uL LAB 789-8(LOINC) RBC # Bld Auto 3.54 Low 3.90-5.20 m/ uL LAB 718-7(LOINC) Hgb Bld-mCnc 10.7 Low 11.5-15.5 g/dL LAB 4544-3(LOINC) Hct VFr Bld Auto 34.0 Low 36.0-46.0 % LAB 787-2(LOINC) MCV RBC Auto 96.0 80.0-100.0 fL LAB 785-6(LOINC) MCH RBC Qn Auto 30.2 26.0-34.0 pg LAB 786-4(LOINC) MCHC RBC Auto-mCnc 31.5 30.5-36.0 g/dL LAB 80236-7(LOINC) RDW RBC-Rto 14.4 11.5-15.0 % LAB 777-3([facility]) Platelet # Bld Auto 214 150-400 k/uL LAB 92239-9([facility]) PMV Bld Auto 10.0 9.0-12.7 fL LAB 771-6([facility]) nRBC # Bld Auto <0.01 <0.01 k/uL Performed By: #### 45863-0 # ### [facility] CLIA [id number] [address] CNPN Observed: 07/31/2024 12:00 AM Status: COMPLETED Source: [facility] Telephone ([id number]) CORINE STURAT ([id number]) 1970 F Date Time Provider Department 07/31/24 ИВАН GARAY3 During your visit today, we recorded the following information about you: Aura Astudillo 07/31/2024 4:34 PM Signed The patient's CT Chest ABD/Pel is being denied. Are you able to please tell me why it was important for the patient to have this imaging? I can then type up and fax over a appeal letter to the patient's insurance company. I am going to also call them because I believe the insurance company thinks she had 2 CT's on 2 separate days. Aura Astudillo Allergies As of Date: 07/31/2024 (No Known Allergies) Date Reviewed: 07/30/2024 Reviewed by: Danelle Reyez, KARLEY - Fully Assessed Reason for Visit: Patient Update [1234] Prescriptions as of 08/01/2024 - traMADol (ULTRAM) 50 mg tablet Take 1 tablet by mouth every 8 hours as needed for up to 5 days. - promethazine (PHENERGAN) 25 mg tablet Take 1 tab by mouth every 4 hours as needed for nausea. - Protein Supplement liqd Take 30 g by mouth once daily. Protein drink daily - atorvastatin (LIPITOR) 80 mg tablet Take 80 mg by mouth daily at bedtime. - pantoprazole DR (PROTONIX) 40 mg tablet Take 1 tablet by mouth every 12 hours. - iv contrast (will be provided with radiology test) CT Chest ABD/PEL-Inject, intravenously, once for 1 dose.No IV access, insert saline lock prior to the beginning of sedation, infusion, injection of imaging exam. Discontinue saline lock post exam. If Pt. has a central line or IVAD, may access for administration according to line specific nursing protocol. Once exam is complete flush line and de-access according to line specific nursing protocol in the CT contrast administration guidelines link. - enteric contrast (will be provided with radiology test) For CT CHESTABD/PEL W IVCON Routine order Administer, As Directed One Time Only, via Oral, Rectal, both Oral and Rectal, Enteric Tube, Stoma or Indwelling Catheter, Enteric Contrast as designated per enteric contrast guidelines Problem List As Of Date 07/31/2024 Noted Resolved Other hyperlipidemia [E78.49] 07/26/2024 GERD (gastroesophageal reflux disease) [K21.9] 07/26/2024 Preop examination [Z01.818] 07/26/2024 Colonic mass [K63.89] Seizure (HCC) [R56.9] 07/26/2024 Smoking hx [Z87.891] 07/26/2024 Rectal cancer (HCC) [C20] 07/29/2024 Nicotine use disorder, F17.2 [F17.200] 07/31/2024 Encounter Status:Closed by AURA ASTUDILLO on 08/01/24 [facility] Observed: 07/30/2024 12:46 PM Status: COMPLETED Source: [facility] HNO ID: [id number] Author: KELLEY MONTOYA RN Service: General Surgery Author Type: Registered Nurse Type: Allied Health Filed: 07/30/2024 12:48 Note Text: GENERAL SURGERY/ERAS MARBLEIZER NOTE SERVICE DATE: 07/30/2024 SERVICE TIME: 12:46 PM ERAS discharge instructions given to patient with good understanding. Written instructions given to patient. Encouraged to call MD for questions/concerns. DISCHARGE PLAN: Home - with spouse DISCHARGE NEEDS: No Services Indicated EDUCATION: Postoperative diet, Activity restrictions, Incision care, Pain medication regimen, and Signs/symptoms to report to physician OUTPATIENT APPOINTMENTS: Scheduled with Dr. Glaser SIGNATURE: Kelley Montoya RN PATIENT NAME: Corine Stuart DATE: July 30, 2024 TIME: 12:46 PM PAGER/CONTACT #: [phone] CASE MGT INYULIANA RODGERS Observed: 07/30/2024 10:34 AM Status: COMPLETED Source: [facility] HNO ID: [id number] Author: JAYCEE OLIVEIRA RN Service: Care Management Author Type: Registered Nurse Type: Care Mgt Initial Assessment Filed: 07/30/2024 10:35 Note Text: CARE MANAGEMENT: ASSESSMENT AND DISCHARGE PLAN SERVICE DATE: July 30, 2024 SERVICE TIME: 10:34 AM PCP: Slim Lutz MD Primary Contact: Extended Emergency Contact Information Primary Emergency Contact: Randolph Stuart Mobile Relation: Spouse Secondary Emergency Contact: Earline Harrison Mobile Relation: Daughter Mother: Liliya Vazquez Mobile Admission Status: Inpatient Insurance Provider: BLUE CARD PPO OOS Discharge Planning requested by: Per Department Practice Potential Transition Plans Home Advance Directives Current Advance Directive: None Pants Cutter Attempted to Assist with AD Completion: Yes Action: Education Provided Current Living Arrangements and Support Lives with: Spouse/significant other Type of Residence: Private Residence (House) Support: Family members, Spouse/significant other How do you manage to accomplish the following: Independent: Ambulation, Bathe/Shower, Dress, Meals/Meal Prep, Going to the bathroom, Medication Management, Transportation to appointments/community Current Services/Equipment Current Post-Acute Service(s): None Discharge Planning Patient Goal(s): Less pain, General wellness [place] of Choice Explained: [place] of Choice Given: No Reason Not Given: No placements necessary Are you interested in bedside delivery of your medications? No Discharge Planning Participant(s): Patient Patient/Family Comments: Caregiver Assessment: Caregiver is ready, willing and able to meet the patient's needs as recommended by the inter-professional team: No Caregiver needed Transport at Discharge: Transportation Arrangements: Car Destination: home Needs Prior to Discharge: Needs Prior to Discharge: None Post-Acute Discharge Plan: Patient is a 53 year old female with hx of Rectal cancer, partial BALDO s/p LAR on 07/29. Patient lives with her and is independent with ADLs. She does not use DME and her PCP is up to date in chart. At this time she does not have any dc needs and her can transport her home at dc. CM will continue to follow. SIGNATURE: Jaycee Oliveira RN PATIENT NAME: Corine Stuart DATE: July 30, 2024 TIME: 10:34 AM PROGRESS Observed: 07/30/2024 7:20 AM Status: COMPLETED [facility] [id number] Author: ИВАН GARAY MD Service: General Surgery Author Type: Resident Type: Progress Notes Filed: 07/30/2024 15:25 Note Text: Attestation signed by Иван Garay MD at 07/30/2024 3:25 PM I personally saw and examined the patient on 07/30/2024. I reviewed the resident?s note. I agree with the resident?s assessment and plan unless otherwise noted Иван Garay MD 3:24 PM 07/30/24 Please Note: This office note has been created using Mogotest, a speech recognition software program, and may contain errors including punctuation, grammar, spelling, gender, and inappropriate words or phrases that pertain to the sytem. Elective General Surgery (Green Surgery) Progress Note SERVICE DATE: July 30, 2024 Elective General Surgery (Green Surgery) Service Pager: For questions or concerns Mon-Fri 6a-5p please page [phone]. After 5pm and on Weekends and Holidays, please page [phone]. SUBJECTIVE: Doing well this AM. Pain controlled. No n/v. No flatus yet. Tolerating CLD and eager to eat more. Hypotensive overnight with BP 80s/50s and received 3L IVF. Thought maybe due to volume down versus improper cuff usage. She was asymptomatic throughout. OBJECTIVE: Vitals: Temp (24hrs), Av.7 ?C (98 ?F), Min:36 ?C (96.8 ?F), Max:37.2 ?C (98.9 ?F) BP 102/63 Pulse 89 Temp 37.1 ?C (98.7 ?F) (Oral) Resp 16 Ht 162.6 cm (5' 4) Wt 62.1 kg (137 lb) SpO2 96% BMI 23.52 kg/m? O2 Therapy: Room Air IANDO: Date 07/29/24699 - 07/30/2465807/30/24699 - 07/31/24 0659 Shift 0356-3958 8556-8210 5651-7516 24 Hour Total 6730-9580 3070-7618 3919-6713 24 Hour Total INTAKE IV 1150 1800 3000 5950 Volume (mL) (lactated ringers 500 mL iv bolus) 500 500 Volume (mL) (lactated ringers 500 mL iv bolus) 500 500 Volume (mL) (lactated ringers 1,000 mL iv bolus) 1000 1000 Volume (mL) (lactated ringers 1,000 mL iv bolus) 1000 1000 Volume (mL) (cefTRIAXone iv piggyback 2 g in dextrose (iso-osmotic) 50 mL (ROCEPHIN)) 50 50 Volume (mL) (metroNIDAZOLE iv piggyback 500 mg in NaCl (iso-osmotic) 100 mL (FLAGYL)) 100 100 Volume (mL) (lactated ringers iv infusion) 800 800 Volume (mL) (lactated ringers iv infusion) 1000 1000 2000 Shift Total 1150 1800 3000 5950 OUTPUT Urine 478 536 7505 Void (ml) 417 885 3973 OR Urine Output 100 100 Shift Total 363 709 0965 Weight (kg) 62.1 62.1 62.1 62.1 62.1 62.1 62.1 MEDICATIONS: Current Facility-Administered Medications Medication Dose Route Frequency pantoprazole DR 40 mg tab(s) (PROTONIX) 40 mg ORAL DAILY (6 AM) magnesium oxide 400 mg tab(s) (MAG-OX) 400 mg ORAL DAILY ondansetron (PF) 4 mg injection (ZOFRAN) 4 mg INTRAVENOUS q 4 H PRN acetaminophen 975 mg tab(s) (TYLENOL) 975 mg ORAL q 6 H traMADol 50-100 mg tab(s) (ULTRAM) 50-100 mg ORAL q 6 H PRN enoxaparin 40 mg injection (LOVENOX) 40 mg SUBCUTANEOUS q 24 HR NaCl 0.9% iv flush bag 20 mL INTRAVENOUS PRN lactated ringers iv infusion 75 mL/hr INTRAVENOUS CONTINUOUS Labs: Recent Labs 07/30/246 07/30/24 0047 NA 140 -- K 4.2 -- CHLOR 105 -- CO2 23 -- BUN 8 -- CREAT 0.81 -- GLUC 125* -- ANION 12 -- CA 8.6 -- WBC 10.00 11.80* HB 11.5 12.0 HCT 35.3* 37.7 PLT 258 253 Physical Exam: GENERAL: resting comfortably, in no acute distress HEENT: normocephalic, atraumatic, EOMI NECK: trachea midline, no JVD. LUNGS: Unlabored breathing, equal chest rise bilaterally CARDIAC: Regular rate, warm extremities, good perfusion throughout ABDOMEN: Soft, non-tender, non-distended. No rebound or guarding, bandaids CDI EXTREMITIES: GARAY, No deformities, No edema SKIN: Skin color, texture, turgor normal, No rashes or lesions NEURO: AANDOx3, CN II-XII grossly intact PSYCH: normal mood and affect ASSESSMENT AND PLAN: Assessment Active Hospital Problems Diagnosis Date Noted Rectal cancer (HCC) 07/29/2024 Assessment: 53 year old female with hx of Rectal cancer, partial BALDO s/p LAR on 07/29. Hospital Course/Operations/Procedures: 07/29/2024 Procedure(s): LAP LOW ANTEIOR RESECTION, mobilization of the splenic flexure, omental pedical flap, colorectal anastomosis, flexible sigmoidoscopy BLOCK TRANSVERSUS ABDOMINIS PLANE (TAP) BILATERAL; BY INJECTION(S) INCLUDES IMAGING GUIDANCE, WHEN PERFORMED Rectal cancer S/p LAR on 07/29 - ERAS pathway - on CLD, advance to FLD - hypotensive overnight s/p 3 L, resolved this AM - multimodal pain control - IS, OOB Discussed with attending: Dr. Garay Follow up needs: Dr. Garay Portions of the physical exam and assessment/plan of the previous day's note has been copied over. However changes were made to reflect the care plan for today, July 30, 2024 SIGNATURE: Letha Woods DO PATIENT NAME: Corine Stuart DATE: July 30, 2024 TIME: 7:21 AM Pager: see below Elective General Surgery (Green Surgery) Service Pager: For questions or concerns Mon-Fri 6a-5p please page [phone]. After 5pm and on Weekends and Holidays, please page [phone] if in ICU or [phone] if on RNF. BAS METAB 2000 PNL SERPL Collected: 04/2024 3:16 AM Status: F Source: [facility] Order Comment: Specimen Type : BLOOD SPECIMEN Ordering Facility: [facility] Address: [address] [place] [address] TYPE CODE TESTS RESULT OUT OF RANGE REFERENCE UNITS LAB 2345-7(LOINC) Glucose SerPl-mCnc 125 High 74-99 mg/dL Result Comment: The [place] [employer] (ADA) provides guidance for cutoff values for fasting glucose and random glucose. The ADA defines fasting as no caloric intake for at least 8 hours. Fasting plasma glucose results between 100 to 125 mg/dL indicate increased risk for diabetes (prediabetes). Fasting plasma glucose results greater than or equal to 126 mg/dL meet the criteria for diagnosis of diabetes. In the absence of unequivocal hyperglycemia, results should be confirmed by repeat testing. In a patient with classic symptoms of hyperglycemia or hyperglycemic crisis, random plasma glucose results greater than or equal to 200 mg/dL meet the criteria for diagnosis of diabetes. Reference: Standards of Medical Care in Diabetes 2016, [place] [employer]. Diabetes Care. 2016.39(Suppl 1). LAB 3094-0(LOINC) BUN SerPl-mCnc 8 7-21 mg/ dL LAB 2160-0(LOINC) Creat SerPl-mCnc 0.81 0.58-0.96 mg/dL LAB 2951-2(LOINC) Sodium SerPl-sCnc 140 136-144 mmol/L LAB 2823-3(LOINC) Potassium SerPl-sCnc 4.2 3.7-5.1 mmol/L LAB 2075-0(LOINC) Chloride SerPl-sCnc 105 98-107 mmol/L LAB 2027-9(LOINC) CO2 SerPl-sCnc 23 22-30 mmo l/L LAB 1863-0(LOINC) Anion Gap4 SerPl-sCnc 12 8-15 mmol/L LAB 69112-2(LOINC) Calcium SerPl-mCnc 8.6 8.5-10.2 mg/dL LAB 60575-0(LOINC) Creatinine + eGFR Pnl SerPlBld 87 >=60 mL/min/1. 73m??? Result Comment: Estimated Gl omerular Filtration Rate (eGFR) is calculated using the 2020 CKD-EPI creatinine equation. This equation utilizes serum creatinine, sex, and age as parameters. The creatinine assay has traceable calibration to isotope dilution-mass spectrometry. Refer to KDIGO guidelines for clinical interpretation. In patients with unstable renal function, e.g. those with acute kidney injury, the eGFR may not accurately reflect actual GFR. Performed By: #### 63846-5 # ### [facility] CLIA [id number] [address] [place] [address] [place] [facility] CBC PNL BLD AUTO Collected: 07/30/2024 3:16 AM Statu s: F Source: [facility] Order Comment: Specimen Type : BLOOD SPECIMEN Ordering Facility: [facility] Address: [address] [place] [address] TYPE CODE TESTS RESULT OUT OF RANGE REFERENCE UNITS LAB 6690-2(LOINC) WBC # Bld Auto 10.00 3.70-11.00 k/uL LAB 789-8(LOINC) RBC # Bld Auto 3.83 Low 3.90-5.20 m/ uL LAB 718-7(LOINC) Hgb Bld-mCnc 11.5 11.5-15.5 g/dL LAB 4544-3(LOINC) Hct VFr Bld Auto 35.3 Low 36.0-46.0 % LAB 787-2(LOINC) MCV RBC Auto 92.2 80.0-100.0 fL LAB 785-6(LOINC) MCH RBC Qn Auto 30.0 26.0-34.0 pg LAB 786-4([facility]) MCHC RBC Auto-mCnc 32.6 30.5-36.0 g/dL LAB 38556-7([facility]) RDW RBC-Rto 14.1 11.5-15.0 % LAB 777-3([facility]) Platelet # Bld Auto 258 150-400 k/uL LAB 99626-4([facility]) PMV Bld Auto 9.8 9.0-12.7 fL LAB 771-6([facility]) nRBC # Bld Auto <0.01 <0.01 k/uL Performed By: #### 38047-4 # ### [facility] CLIA [id number] [address] [facility] CBC PNL BLD AUTO Collected: 07/30/2024 12:47 AM Stat us: F Source: [facility] Order Comment: Specimen Type : BLOOD SPECIMEN Ordering Facility: [facility] Address: [address] [place] [address] TYPE CODE TESTS RESULT OUT OF RANGE REFERENCE UNITS LAB 6690-2([facility]) WBC # Bld Auto 11.80 High 3.70-11.00 k/uL LAB 789-8([facility]) RBC # Bld Auto 3.94 3.90-5.20 m/ uL LAB 718-7([facility]) Hgb Bld-mCnc 12.0 11.5-15.5 g/dL LAB 4544-3([facility]) Hct VFr Bld Auto 37.7 36.0-46.0 % LAB 787-2([facility]) MCV RBC Auto 95.7 80.0-100.0 fL LAB 785-6([facility]) MCH RBC Qn Auto 30.5 26.0-34.0 pg LAB 786-4([facility]) MCHC RBC Auto-mCnc 31.8 30.5-36.0 g/dL LAB 05650-8([facility]) RDW RBC-Rto 14.1 11.5-15.0 % LAB 777-3([facility]) Platelet # Bld Auto 253 150-400 k/uL LAB 31892-6([facility]) PMV Bld Auto 10.0 9.0-12.7 fL LAB 771-6([facility]) nRBC # Bld Auto <0.01 <0.01 k/uL Performed By: #### 74546-3 # ### [facility] CLIA [id number] [address] PLAN OF CARE Observed: 07/30/2024 12:29 AM Status: COMPLETED Source: [facility] HNO ID: [id number] Author: ELTON BARTLETT DO Service: General Surgery Author Type: Resident Type: Plan of Care Filed: 07/30/2024 04:59 Note Text: General Surgery Plan of Care Surgery paged by nursing staff concerning low blood pressure after OR. Patient states that she feels good with no dizziness reported. She does endorse some blurriness in vision after coming out of anesthesia that has since improved. Abdomen examined with dressing remaining clean and dry. Very small area of blood noted on dressing. BP: 88/54 Temp: 37.2 ?C (98.9 ?F) Temp src: Oral Pulse: 91 Resp: 16 Oxygen Therapy: Supplemental oxygen O2 Therapy: Room Air SpO2: 95 % (Repeat vitals after second bolus) BP: 89/58 Temp: 37.2 ?C (98.9 ?F) Temp src: Oral Pulse: 91 Resp: 16 Oxygen Therapy: Supplemental oxygen O2 Therapy: Room Air SpO2: 95 % Plan: 1L of bolus's given CBC ordered Repeat blood pressure after bolus Update 1:05am: repeat BP remain unchanged after 2nd bolus. Nursing reported patient remains asymptomatic and it up ambulating without issue. Can recheck Blood pressure again in 30-60 minutes. CBC remains unremarkable Update 2:45 am: another 1 Liter bolus was ordered for patient with repeat blood pressure planned for after Update 4:30am repeat blood pressure showing 89/54, additional 1 L bolus ordered. Recheck bp after completion Elton Bartlett DO General Surgery July 30, 2024 12:29 AM NURSING PROG Observed: 07/29/2024 11:38 PM Status: COMPLETED Source: [facility] HNO ID: [id number] Author: CHELLY AYERS RN Service: Nursing Author Type: Registered Nurse Type: Nursing Progress Note Filed: 07/29/2024 23:39 Note Text: RN notified of patient's manual BP of 80/56. Order for bolus received. ANES POSTPROC EVAL Observed: 07/29/2024 8:32 PM Status: COMPLETED Source: [facility] HNO ID: [id number] Author: AVELINO ALEJANDRA DO Service: Anesthesiology Author Type: Anesthesiologist Type: Anesthesia Postprocedure Evaluation Filed: 07/29/2024 20:32 Note Text: POST ANESTHESIA EVALUATION NOTE : 1970 Procedure Summary Date: 07/29/24 Room / Location: [place] [address] [place] [address] OR Anesthesia Start: 1142 Anesthesia Stop: 1728 Procedures: LAP LOW ANTEIOR RESECTION, mobilization of the splenic flexure, omental pedical flap, colorectal anastomosis, flexible sigmoidoscopy (Abdomen) BLOCK TRANSVERSUS ABDOMINIS PLANE (TAP) BILATERAL; BY INJECTION(S) INCLUDES IMAGING GUIDANCE, WHEN PERFORMED (Bilateral) Diagnosis: Colonic mass (Colonic mass [K63.89]) Surgeons: Иван Garay MD Responsible Provider: Avelino Alejandra DO Anesthesia Type: general ASA Status: 3 Anesthesia Type: general Airway Type: ETT Last Vitals Vitals Value Taken Time BP 92/56 07/29/241954 Temp 36.2 ?C (97.2 ?F) 07/29/241914 HR SpO2 91 07/29/241954 Resp 22 07/29/241954 SpO2 99 % 07/29/241954 Post Anesthesia Patient Status Patient Evaluation: bedside. Anticipated Disposition: inpatient floor planned admission. Neurological Status: aware and responsive. Pulmonary Status: breathing comfortably on room air Airway Control: returned to baseline unsupported. Cardiovascular Status: stable. Pain Management: clinically adequate Postoperative Hydration: acceptable. Post Operative Nausea/Vomiting Status: no significant post operative nausea or vomiting Recommendation: further care per PACU/ICU/floor team. Anesthesia Observations No Documentation SIGNATURE: Avelino Alejandra DO PATIENT NAME: Corine Stuart DATE: July 29, 2024 TIME: 8:32 PM CSN: [id number] BRIEF OP NOT Observed: 07/29/2024 6:20 PM Status: COMPLETED Source: [facility] HNO ID: [id number] Author: ИВАН GARAY MD Service: General Surgery Author Type: Resident Type: Brief Op Note Filed: 07/30/2024 15:25 Note Text: Attestation signed by Иван Garay MD at 07/30/2024 3:25 PM I was present for the critical and christensen portions of the surgery and I was immediately available to provide assistance. Иван Garay MD. 3:25 PM July 30, 2024 GENERAL SURGERY BRIEF OP NOTE LOG ID: [id number] Surgery/Procedure Date: 07/29/2024 Incision/Procedure Start Time: 12:23 PM Incision Close/Procedure End Time: 5:15 PM Surgeon(s) and Application Support(s): Surgeons and Role: * Иван Garay MD - Primary * Amira Iverson DO - Resident - Assisting Physician Application Support: Igor Valentine PA-C Procedure(s): Procedure(s): LAP LOW ANTEIOR RESECTION, mobilization of the splenic flexure, omental pedical flap, colorectal anastomosis, flexible sigmoidoscopy BLOCK TRANSVERSUS ABDOMINIS PLANE (TAP) BILATERAL; BY INJECTION(S) INCLUDES IMAGING GUIDANCE, WHEN PERFORMED Anesthesia: General Findings: Laparoscopic LAR w/ end to side anastomosis Please see operative report for full details Drains: None IV Fluids:Per anesthesia report Estimated Blood Loss: 25 cc Estimated Urine Output: Per anesthesia report Specimens: ID Type Source Tests Collected by Time Destination A : LOW ANTERIOR RESECTION Tissue Colon, Low Anterior Resection SURGICAL PATHOLOGY Иван Garay MD 07/29/2024 2:51 PM Wound Classification: Class 2, operative wound clean-contaminated, gastrointestinal/biliary tract entered without significant spillage Complications: None Pre-Op/Pre-Procedure Diagnosis: Pre-Op Diagnosis Codes: * Colonic mass [K63.89] Post-Op/Post-Procedure Diagnosis: Same as pre-operative SIGNATURE: Amira Iverson DO PATIENT NAME: Corine Stuart DATE: July 29, 2024 TIME: 6:20 PM PAGER/CONTACT #: [phone] From 5pm to 6 am and on weekends, please page general surgery on-call [phone] XR SURGICAL COUNT -NB Observed: 07/30/19 4:49 PM Status: F Source: [facility] * * *Final Report* * * DATE OF EXAM: Jul 29 2024 4:49PM [place] 5393 - XR SURGICAL COUNT -NB / PROCEDURE REASON: SURGICAL COUNT- NEEDLE COUNT IS OFF. * * * * Physician Interpretation * * * * EXAM TITLE: SURGICAL COUNT X-RAY DATE: 07/29/2024 COMPARISON: None. CLINICAL INDICATION/HISTORY: Incorrect needle count. TECHNIQUE: AP images were obtained of the abdomen. A total of 4 intraoperative AP views were obtained. FINDINGS: Surgical towel clips are noted in the drymm-cm-qgqw. No evidence of radiopaque needle in the xgcfh-oq-istc. NG/OG tube noted with tip in the distal stomach. Endotracheal tube tip noted above the ever. Multiple staple rows noted in the pelvis. IMPRESSION: 1. No evidence of radiopaque needle in the vlflq-tv-qwmz. COMMUNICATION: Communicated with OR on 07/29/2024 5:05 PM via verbal communication. Call Center Analyst: PSCB Transcribe Date/Time: Jul 29 2024 5:05P Dictated by : EDGARDO HUFFMAN MD This examination was interpreted and the report reviewed and electronically signed by: EDGARDO HUFFMAN MD on Jul 29 2024 5:09PM EST [id number] TISS PATH BX REPORT Collected: 07/30/19 2:51 PM Status: F Source: [facility] Order Comment: Specimen Type : TISSUE SPECIMEN Ordering Facility: [facility] Address: [address] [place] [address] TYPE CODE TESTS RESULT OUT OF RANGE REFERENCE UNITS PATHOLOGY [id number] CASE REPORT Result Comment: Surgical Pat hology Report Case: [id number] Authorizing Provider: Иван Garay MD Collected: 07/29/2024 02:51 PM Ordering Location: [facility] Received: 07/30/2024 07:43 AM Pathologist: Stefan Waddell MD Specimen: Colon, Low Anterior Resection, LOW ANTERIOR RESECTION PATHOLOGY [id number] FINAL DIAGNOSIS Result Comment: A. 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 - Tumor invades visceral peritoneum. - Margins negative for tumor. - Metastatic adenocarcinoma in four out of nineteen lymph nodes (4/19). - Three unremarkable mucosal rings. - Diverticulosis. at 1126 EDT PATHOLOGY [id number] DIAGNOSIS COMMENT Multiple elastin stains (blocks A5, A6, A7) were examined to evaluate for tumor in blood vessels and show no evidence of vascular invasion by tumor. Multiple additional H AND E stained sections were examined of selected blocks to assess tumor involvement of peritoneal surface and show evidence of visceral peritoneal invasion. 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 Jacinto Funk who agrees with the final interpretation. PATHOLOGY [id number] BLOCK FOR ADDITIONAL BIOMARKERS/MOL ECULAR STUDIES A5 PATHOLOGY [id number] SYNOPTIC REPORT Result Comment: COLON AND RE CTUM: Resection COLON AND RECTUM: RESECTION - All Specimens 8th Edition - Protocol posted: 08/16/2023 SPECIMEN Procedure: Low anterior resection TUMOR Tumor Site: Rectosigmoid: per operative note Histologic Type: Adenocarcinoma Histologic Grade: G2, moderately differentiated Tumor Size: Greatest dimension (Centimeters): 3.2 cm Additional Dimension (Centimeters): 3.2 cm Additional Dimension (Centimeters): 1 cm Tumor Extent: Invades visceral peritoneum Macroscopic Tumor Perforation: Not identified Lymphatic and / or Vascular Invasion: Not identified Perineural Invasion: Present Tumor Budding Score: High (10 or more) Treatment Effect: No known presurgical therapy MARGINS Margin Status for Invasive Carcinoma: All margins negative for invasive carcinoma Closest Margin(s) to Invasive Carcinoma: Radial (circumferential) Distance from Invasive Carcinoma to Closest Margin: 1.5 mm Distance from Invasive Carcinoma to Radial (Circumferential) Margin: Distance already reported as closest margin Margin Status for Non-Invasive Tumor: Not applicable REGIONAL LYMPH NODES Regional Lymph Node Status: : Tumor present in regional lymph node(s) Number of Lymph Nodes with Tumor: 4 Number of Lymph Nodes Examined: 19 Tumor Deposits: Not identified pTNM CLASSIFICATION (AJCC 8th Edition) Reporting of pT, pN, and (when applicable) pM categories is based on information available to the pathologist at the time the report is issued. As per the AJCC (Chapter 1, 8th Ed.) it is the managing physician's responsibility to establish the final pathologic stage based upon all pertinent information, including but potentially not limited to this pathology report. pT Category: pT4a pN Category: pN2a ADDITIONAL FINDINGS Additional Findings: Diverticulosis PATHOLOGY [id number] GROSS DESCRIPTION Result Comment: A. Colon, Lo w Anterior Resection Received in form labeled low anterior resection is a segment of bowel measuring 24 cm in length. The distal margin is inked blue and the proximal margin is inked orange. There is a short segment of mesorectal surface. The mesorectal surface is intact and inked black. The serosal surface is pink-ji smooth and glistening. The lumen of the bowel at the distal aspect measures 8.0 cm in circumference and the lumen of the bowel at the proximal aspect measures 5.0 cm in circumference. The wall the specimen measures 0.6 cm in thickness. The mucosal surface displays a ji- pink ulcerated mass with fungating edges measuring 3.2 x 3.2 x 1.0 cm. It is on the left lateral wall and extends onto the anterior and posterior wall. It involves approximately 60% of the lumen. The mass extends within 3.2 cm of the distal margin, 15.3 cm of the proximal margin and 11.6 cm of the mesenteric margin. Upon sectioning the mass extends into the wall 0.6 cm and 1.3 cm into the surrounding fat. The mass appears to extend to the radial margin on the posterior left middle one third of the mesorectal surface. The mass also grossly appears to extend to surface of the overlying fat on the left lateral aspect (inked green). Also identified from the distal margin heading proximally for 5 cm are greater than 20 ji-white inflammatory polyp-like structures ranging in size from 0.1 to 0.2 cm. The closest extends within 0.5 cm of the blue inked distal margin. In addition on sectioning multiple diverticula are present. The perforated diverticula is not seen. Also received in the same container are 3 mucosal covered segments of tissue aggregating to 3.5 x 2.8 x 1.5 cm. Tissue is submitted as follows: A1 perpendicular loss prevention representative section distal margin A2 perpendicular loss prevention representative section proximal margin A3-A4 loss prevention representative sections of mass extending to radial margin and posterior left lateral aspect A5-A7 loss prevention representative sections of mass extending to overlying fat on left lateral aspect A8 loss prevention representative sections of inflammatory polyp-like structures A9 loss prevention representative section of uninvolved bowel with diverticula A10 shave of mesenteric margin A11 loss prevention representative section of first mucosal covered tissue sectioned and totally submitted A12 loss prevention representative section of second mucosal covered segment of tissue A13 loss prevention representative sections of third segment of mucosal covered tissue A14-A15 5 possible lymph nodes in each cassette A16-A18 4 possible lymph nodes in each cassette A19 2 possible lymph nodes A20 One possible lymph node bisected and totally submitted Gross examination performed at [facility], [address] [place] [address] KVB July 30, 2024 11:30 AM PATHOLOGY CDX2 CLINICAL HISTORY Result Comment: Pre-op diagn osis: Colonic mass [K63.89] PATHOLOGY FPLAB FINAL PERFORMING LAB Result Comment: Diagnostic i nterpretation performed at: [facility], [address] [place] [address] CLIA# [id number] Assistant Professor In Family Studies: Herb Rodriguez MD PATHOLOGY [id number] AP DISCLAIMER Result Comment: Laboratory D eveloped Test (LDT) Disclaimer: Performance characteristics of immunohistochemical, immunofluorescent, and chromogenic in-situ hybridization tests have been determined by the performing laboratory within [facility]'s Masood [facility] Pathology and Laboratory Medicine Department ([facility], [facility], [facility], [facility], [facility], Count Includes [facility], or [facility]) in a manner consistent with CLIA requirements. One or more of these tests may not have been cleared or approved by the FDA. [facility] is regulated under CLIA as qualified to perform high-complexity testing. These tests are used for clinical purposes. These should not be regarded as investigational or for research. Positive and negative controls stain appropriately. Performed By: #### [id number] # ### [facility] CLIA [id number] [address] [place] [address] OF NABIL ANES PROCEDURE NOTE Observed: 07/29/2024 1:03 PM Status: COMPLETED Source: [facility] HNO ID: [id number] Author: KRISTOFER LOPEZ APRN.CRNA Service: Anesthesiology Author Type: Nurse Facilities Officer Type: Anesthesia Procedure Notes Filed: 07/29/2024 13:03 Note Text: ANESTHESIOLOGY PROCEDURE NOTE PIV General Information Procedure Start Time/Medication Administration: 07/29/2024 12:00 PM Procedure End Time: 07/29/2024 12:04 PM Patient Location: OR Staffing TROUBLE LINEMAN: Kristofer Lopez APRN.TROUBLE LINEMAN Performed by: TROUBLE LINEMAN Preparation Sterility Preparation: hand hygiene performed prior to procedure, surgical cap used, mask used, skin prep agent completely dried prior to procedure Site Prep: alcohol Procedure Details Indication: need for IV access Needle Size/Type: 18 gauge angiocath Orientation: Left Location: Wrist Imaging Guidance Used: No SIGNATURE: Kristofer Lopez APRN.TROUBLE LINEMAN PATIENT NAME: Corine Stuart DATE: July 29, 2024 TIME: 1:03 PM CSN: [id number] ANES PROCEDURE NOTE Observed: 07/29/2024 12:35 PM Status: COMPLETED Source: [facility] HNO ID: [id number] Author: ADRIEN NAVARRO DO Service: Anesthesiology Author Type: Physician Type: Anesthesia Procedure Notes Filed: 07/29/2024 12:41 Note Text: ANESTHESIOLOGY PROCEDURE NOTE Peripheral Nerve Block General Information Procedure Start Time/Medication Administration: 07/29/2024 12:03 PM Procedure End time: 07/29/2024 12:12 PM Patient location during procedure: OR Timeout Performed Pre-procedure: timeout performed Consent Obtained: Yes Patient identity confirmed: arm band and care steamer gum candy Reason for block: post-op pain management/at surgeon's request Staffing Anesthesiologist: Adrien Navarro DO Performed by: anesthesiologist Preparation Sterility Preparation: hand hygiene performed prior to procedure, sterile gloves, drapes, and procedure tray, surgical cap used, mask used, sterile drape used during line insertion, skin prep agent completely dried prior to procedure Site Prep: Chloraprep Pre-Procedure Neuro Exam Location: TRUNK Procedure Details Patient Position: supine Monitoring: Pulse OX, EKG and NIBP Block Type Trunk: TAP block Laterality: bilateral Injection Technique: single-shot Ultrasound Guided: Yes Image in Chart: No Local Infiltration: No Needle Needle Type: blunt and echogenic Needle Localization: anatomical landmarks and ultrasound Assessment Injection assessment: negative aspiration, local visualized surrounding nerve on ultrasound and incremental injection Medications Administered bupivacaine (PF) 0.25 % (2.5 mg/mL) injection (SENSORCAINE MPF) - peripheral nerve block 30 mL - 07/29/2024 12:03:00 PM bupivacaine liposome (PF) 1.3 % (13.3 mg/mL) injection (EXPAREL) - INFILTRATION 266 mg - 07/29/2024 12:03:00 PM SIGNATURE: Adrien Navarro DO PATIENT NAME: Corine Stuart DATE: July 29, 2024 TIME: 12:35 PM CSN: [id number] ANES PROCEDURE NOTE Observed: 07/29/2024 12:28 PM Status: COMPLETED Source: [facility] HNO ID: [id number] Author: KRISTOFER LOPEZ APRN.CRNA Service: Anesthesiology Author Type: Nurse Facilities Officer Type: Anesthesia Procedure Notes Filed: 07/29/2024 13:02 Note Text: ANESTHESIOLOGY PROCEDURE NOTE Airway General Information Procedure Start Time/Medication Administration: 07/29/2024 11:58 AM Procedure End Time: 07/29/2024 12:00 PM Patient location during procedure: OR Timeout Performed Pre-procedure: timeout performed Consent Obtained: Yes Patient identity confirmed: arm band Staffing Performed by: EMILE Indications and Patient Condition Indications for airway management: anesthesia Preoxygenated: yes anesthesia circuit Method: asleep Difficult Mask: No Final Airway Details Final airway type: endotracheal airway Final Endotracheal Airway: ETT Cuffed: yes Successful intubation technique: direct laryngoscopy Devices used: intubating stylet Endotracheal tube insertion site: oral Blade: Tim Blade size: #3 ETT size (mm): 7.0 Measured from: lips Measurement (cm): 21 Placement verified by: chest auscultation and capnometry Cormack-Lehane Classification: grade I - full view of glottis Number of attempts at approach: 1 Failed airway: no Unrecognized esophageal intubation: no Airway not difficult SIGNATURE: Kristofer Lopez APRN.CRNA PATIENT NAME: Corine Stuart DATE: July 29, 2024 TIME: 12:28 PM CSN: [id number] OPERATIVE NO Observed: 07/29/2024 11:42 AM Status: COMPLETED Source: [facility] HNO ID: [id number] Author: ИВАН GARAY MD Service: Colorectal Author Type: Physician Type: Operative Report Filed: 07/29/2024 16:47 Note Text: OPERATIVE REPORT Log ID: [id number] Surgery Date: 07/29/2024 Incision/Procedure Start Time: 12:23 PM Incision Close/Procedure End Time: Surgeon(s) and Application Support(s): Surgeons and Role: * Иван Garay MD - Primary * Amira Iverson DO - Resident - Assisting Preoperative Diagnosis: rectal cancer Postoperative Diagnosis: Same PROCEDURE AND ANESTHESIA TYPE: Procedure(s) and Anesthesia Type: * LAP LOW ANTEIOR RESECTION, mobilization of the splenic flexure, omental pedical flap, colorectal anastomosis, flexible sigmoidoscopy - General * BLOCK TRANSVERSUS ABDOMINIS PLANE (TAP) BILATERAL; BY INJECTION(S) INCLUDES IMAGING GUIDANCE, WHEN PERFORMED - General OPERATIVE INDICATIONS: The patient is with a history of malignancy in the upper rectum. Staging is significant for no evidence of metastatic disease. After a thorough discussion of the risks and benefits of surgery She understood the risks and wished to proceed. She understood the risks included but not limited to pain, bleeding, infection, anastomotic leak, temporary or permanent ostomy, sexual dysfunction and urinary dysfunction. She consented to proceed. OPERATIVE FINDINGS: Dense adhesions existed between the sigmoid and a loop of distal small bowel as well as from the sigmoid colon to the anterior abdominal wall with an abscess noted in the abdominal wall 3 cm below the umbilicus. These were carefully lysed. We created a 28 mm end to side anastomosis for reconstruction after resection. Commission on Cancer - Standard 5.6: Colon Resection Synoptic Operative Reporting Operation performed with curative intent: Yes Tumor location(s): Rectosigmoid junction Extent of colon and vascular resection: Sigmoid resection: Inferior mesenteric Estimated Blood Loss: 25 ml Specimens: Low anterior resection with doughnuts Condition: Stable Disposition: PACU DESCRIPTION OF PROCEDURE: The patient was brought to the operating room. A timeout was completed. she underwent the smooth induction of general endotracheal anesthesia. Subcutaneous heparin was given. The patient was placed into modified lithotomy position. We began by prepping and draping in usual sterile fashion. The patient's abdomen had been shaved. He had been previously marked for an ileostomy. We created an supraumbilical incision. We cut down on this area, entering the abdomen sharply and placing a 12 mm balloon trocar. We placed a right lower quadrant 12 mm port and two 5 mm ports, one in the left lower quadrant and one in the right mid-abdomen under direct visualization. The patient was placed in head down and left side up position. The vascular pedicle of the sigmoid colon was identified and this was put on tension . The mesentery of the sigmoid colon was scored with monopolar cautery and gentle dissection was used to find the retroperitoneal plane on the other side of the mesentery sweeping the mesentery upward. After we found the correct plane and identified the left ureter which we swept downward along with the rest of the retroperitoneal structures, we proceeded to isolate the vascular pedicle. The JESSICA was surrounded after the peritoneum overlying it was scored. This was done with a [place]. We skeletonized a centimeter of the JESSICA proximal to the takeoff of the left colic and after this was done we visualized the ureter again and then proceeded to take the JESSIAC using a bipolar [place] dissecting device. We placed two vicente on the down stay side and two vicente on the specimen side, one between and then cut. The JESSICA was noted to be hemostatic. We then proceeded up the mesentery scoring the peritoneum and then clearing off the IMV which we are also able to take with two adjacent double fires of the bipolar cautery device. We then elevated the vascular pedicle and continued sweeping the retroperitoneum down and carrying out a thorough medial to lateral dissection. This was carried out to the level of the splenic flexure. The mesentery was incised to above the IMV lateral to the ligament of Treitz. We performed another medial mobilization of the IMV just lateral to the ligament of Treitz, coming under this and finding the plane above Gerota's fascia. The IMV was taken with bipolar cautery with good hemostasis noted. We entered the lesser sac by coming through the transverse mesentery and from both these directions continue to take down the splenic flexure from the underside working our way out until we had undermined this sufficiently. We continued mobilization of the splenic flexure starting by entering the lesser sac over the transverse colon and moving antegrade along the colon using the bipolar electrocautery to take the omentum and gastrocolic ligament down. After we reached the splenic flexure we proceeded from the sigmoid colon mobilizing laterally using the bipolar electrocautery and we were able to mobilize from the descending colon up along the splenic flexure. Once this was done hemostasis wasconfirmed in the splenic flexure. We then turned our attention to the pelvis. Bilateral ureters were visualized. We mobilized the peritoneum medial to these and lateral to the rectum. We entered the TME plane posteriorly, and this came apart well including in the left posterior position where we were concerned there could be an area of tumor close to our TME plane. We made our way down to the mid rectum at the peritoneal reflection We then thinned the rectum at this level with bipolar cautery until only the rectum remained. We dissected slightly into the rectovaginal septum to separate the vagina off for anastomotic preparation. Once this was complete we introduced a purple load 60 mm Endo BIB stapler through the right lower quadrant port and transected the rectum with one fire of the stapler. We noted hemostasis on the distal side of the rectum. We then checked that the descending colon proximal to the rectum seemed to have enough reach to make it into the pelvis which it did . Then we grasped the staple line of the sigmoid colon. We desufflated the abdomen made a 5 cm incision around the umbilicus through which we brought this sigmoid colon out through an Jayce wound retractor. Next we proceeded to take down the mesentery at a proximal transection point of healthy descending colon. This was done with Bovie electrocautery and the marginal artery was isolated. We clamped this artery and cut it distally with good blood flow from the marginal artery. Next we placed a Maritza clamp across the transection site. We transected on the stay side of the [place] and passed the specimen off the field. The Marginal was controlled with bipolar cautery. We decided to perform a side and stapled anastomosis with a 28 EEA stapler. The anvil was taken down the bowel 7 cm and at the antimesenteric side with the spike. We used a fire of the linear Endo BIB stapler, blue, to remove the distal end closing off the bowel. We placed a 2-0 Prolene pursestring around the anvil to keep this snug. We brought the colon down in the pelvis with the distal end easily reach the pelvis without tension. The EEA handle was introduced to the end of the rectal stump and pierced the wall of the rectum just anterior to our transverse staple line . It was docked with the anvil. The handle was tightened and we assured that the bowel was straight with no small bowel trapped under it and very clear of the pelvic sidewall, then it was fired. We had two complete doughnuts. The anastomosis was checked with flexible sigmoidoscopy and air insufflation. No bubbles were seen and the bowel proximal and distal to the anastomosis were both noted on endoscopy to be pink with no significant bleeding from the anastomosis. we again confirmed that the bowel was in good position with no twisting and that no small bowel was trapped under the colon mesentery. We gently irrigated the pelvis which returned clear fluid. We again inspected the splenic flexure and irrigated over the spleen with clear return of fluid. We created an omental pedicle by cutting the omentum off the transverse colon on the right to create a long pedicle which reached to the pelvis. This was placed over the anastomosis and excluded small bowel from the pelvis. Using a Franco Powell device we placed a [id number] 2-0 PDS suture to close the fascia of the right lower quadrant 12 mm port site. At this point the abdomen was desufflated after the trochars were removed under direct visualization The abdomen was then closed. The Midline incision was closed with running 2-0 PDS suture on the fascia, then interrupted 4-0 Monocryl and covered by a gauze and tape dressing. We irrigated the subcutaneous space prior to closing with saline until clear. The skin of the port sites was closed with Monocryl 4-0 interrupted sutures and covered with Band-Aids. The patient will be taken extubated to the PACU in stable condition. All counts of needles and sponges were correct times two. I/primary surgeon/proceduralist performed the procedure with assistance. SIGNATURE: Иван Garay MD PATIENT NAME: Corine Stuart DATE: July 29, 2024 TIME: 4:41 PM PAGER/CONTACT #: [phone] Please Note: This office note has been created using Mogotest, a speech recognition software program, and may contain errors including punctuation, grammar, spelling, gender, and inappropriate words or phrases that pertain to the sytem. HISTORY PHYSICAL Observed: 07/29/2024 11:21 AM Status: COMPLETED Source: [facility] HNO ID: [id number] Author: ИВАН GARAY MD Service: Colorectal Author Type: Physician Type: H&P Filed: 07/29/2024 11:21 Note Text: UPDATED HISTORY AND PHYSICAL EXAMINATION SERVICE DATE: 07/29/24 SERVICE TIME: 11:21 AM PHYSICAL EXAM MUST BE COMPLETED ON ADMISSION The History and Physical (completed in the past 30 days) has been reviewed and the patient has been examined. The contents accurately reflect the patient's condition with the following additions or revisions since the HANDP was completed. Examination indicates no changes. This HANDP can be found in the Electronic Medical Record. SIGNATURE: Иван Garay MD PATIENT NAME: Corine Stuart DATE: 07/29/24 TIME: 11:21 AM PAGER: [phone] ANES PRE-OP Observed: 07/29/2024 10:30 AM Status: COMPLETED Source: [facility] HNO ID: [id number] Author: RAMESH NOLAN MD Service: Anesthesiology Author Type: Anesthesiologist Type: Anesthesia Preprocedure Evaluation Filed: 07/29/2024 10:38 Note Text: ANESTHESIOLOGY DAY OF SURGERY NOTE : 1970 Procedure Information Date/Time: 07/29/24 1153 Procedures: LAP LOW ANTEIOR RESECTION (Abdomen) BLOCK TRANSVERSUS ABDOMINIS PLANE (TAP) BILATERAL; BY INJECTION(S) INCLUDES IMAGING GUIDANCE, WHEN PERFORMED (Bilateral) Location: [facility] [address] [place] [address] OR Surgeons: Иван Garay MD Estimated body mass index is 23.69 kg/m? as calculated from the following: Height as of 07/26/24: 162.6 cm (5' 4). Weight as of 07/26/24: 62.6 kg (138 lb). Most recent hematocrit and potassium results: Hematocrit 49.8 07/26/2024 Potassium 4.1 07/26/2024 Relevant Problems GI (+) GERD (gastroesophageal reflux disease) NEURO-PSYCH (+) Seizure (HCC) I - PHYSICAL EVALUATION AIRWAY Patient intubated: No. Tracheostomy tube not present Mallampati: I. TM distance: >3 FB. Neck ROM: full ROM without neurological symptoms. Mouth opening: adequate. Short neck: no. Thick neck: no DENTAL Dental findings: missing tooth/teeth. Dentures, upper: complete. II - ANESTHESIA PLAN ASA Score: 3 Anesthetic Plan: general Airway type: ETT NPO Status: adequate Anesthetic plan additional comments: Consent for GA +/- nerve block +/- arterial line. Beta Anuradha Monitoring Plan Monitoring plan: standard ASA. Post Procedure Analgesic Plan Postoperative analgesic plan: multimodal analgesia. Informed Consent Anesthetic risks, benefits, alternatives, personnel and consent discussed: yes. Patient / Responsible Constitution Party agrees to proceed: yes Patient / Surrogate agrees to blood products: Yes Vitals Value Taken Time BP 140/72 07/29/24 1008 Pulse Resp 16 07/29/24 1008 Temp 36.9 ?C (98.4 ?F) 07/29/24 1008 SpO2 98 % 07/29/24 1008 Facility-Administered Medications as of 07/29/2024 Medication Dose Route Frequency [COMPLETED] enoxaparin 40 mg injection (LOVENOX) 40 mg SUBCUTANEOUS Pre-Op Once lidocaine (PF) 10 mg/mL (1 %) 1-2 mg injection (XYLOCAINE) 0.1-0.2 mL INTRADERMAL PRN lactated ringers iv infusion 5-30 mL/hr INTRAVENOUS CONTINUOUS NaCl 0.9% iv flush bag 20 mL INTRAVENOUS PRN ertapenem 1 g in NaCl 0.9% 100 mL Vial-Bag (INVanz) 1 g INTRAVENOUS Pre-Op Once [COMPLETED] alvimopan 12 mg cap(s) (ENTEREG) 12 mg ORAL Pre-Op Once [COMPLETED] celecoxib 200 mg cap(s) (CeleBREX) 200 mg ORAL Pre-Op Once [COMPLETED] gabapentin 300 mg cap(s) (NEURONTIN) 300 mg ORAL Pre-Op Once [COMPLETED] acetaminophen 975 mg tab(s) (TYLENOL) 975 mg ORAL Pre-Op Once cefTRIAXone iv piggyback 2 g in dextrose (iso-osmotic) 50 mL (ROCEPHIN) 2 g INTRAVENOUS Pre-Op Once metroNIDAZOLE iv piggyback 500 mg in NaCl (iso-osmotic) 100 mL (FLAGYL) 500 mg INTRAVENOUS Pre-Op Once magnesium sulfate iv piggyback in sterile water 2 g 50 mL 2 g INTRAVENOUS ONCE Outpatient Medications as of 07/29/2024 Medication Sig atorvastatin (LIPITOR) 80 mg tablet Take 80 mg by mouth daily at bedtime. pantoprazole DR (PROTONIX) 40 mg tablet Take 1 tablet by mouth every 12 hours. iv contrast (will be provided with radiology test) CT Chest ABD/PEL-Inject, intravenously, once for 1 dose.No IV access, insert saline lock prior to the beginning of sedation, infusion, injection of imaging exam. Discontinue saline lock post exam. If Pt. has a central line or IVAD, may access for administration according to line specific nursing protocol. Once exam is complete flush line and de-access according to line specific nursing protocol in the CT contrast administration guidelines link. enteric contrast (will be provided with radiology test) For CT CHESTABD/PEL W IVCON Routine order Administer, As Directed One Time Only, via Oral, Rectal, both Oral and Rectal, Enteric Tube, Stoma or Indwelling Catheter, Enteric Contrast as designated per enteric contrast guidelines I have interviewed and examined the patient. I have reviewed the medical record and/or the pre-anesthesia evaluation, pertinent labs, and test results. This contains updated information obtained within 48 hours of Surgery/Procedure. SIGNATURE: Ramesh Nolan MD PATIENT NAME: Corine Stuart DATE: July 29, 2024 TIME: 10:30 AM CSN: [id number] CONSULT PROG Observed: 07/29/2024 10:20 AM Status: COMPLETED [facility] [id number] Author: RHONDA PEREZ RN Service: Wound/Ostomy Author Type: Registered Nurse Type: Consult Progress Note Filed: 07/29/2024 12:12 Note Text: Summary: Ostomy nurse consult OSTOMY CARE CONSULT NOTE SERVICE DATE: 07/29/2024 SERVICE TIME: 1020 REASON FOR CONSULT: Stoma marking. TIME SPENT (minutes): 30 Pre-Op Education Patient can state a basic understanding of the disease and plan of surgery resulting in an ostomy. Ostomy type: possible ileostomy A description and explanation of the following was provided to the patient: Stoma apperance and function Purpose of the pouching system Postoperative ostomy care per ET/WOC Nurse Postoperative self ostomy care instruction Discharge equipment ordering and support options The following post operative concerns were addressed: Diet Fluid Intake ADL'S Clothing Adjustment Printed Literature specific to ostomy type was provided to the patient: yes The patient or accompanying person can verbalize understanding of the information given in the preoperative instructions: yes Stoma Marking The stoma marking purpose and procedure was explained: yes. The patient verbalized understanding and agrees to the marking: yes. Rectus Muscle borders are located: yes. Abdominal contour evaluation was performed in the lying position and sitting position. The stoma marking was made in the RLQ and the RUQ avoiding creases, scars, and midline. Patient is able to see site in the following positions: lying position and sitting position Norman was made with surgical marker and covered with tegaderm. Patient given extra tegaderm to reinforce as needed. Comments: Patient seen in Pre-surg. NO family at the bedside. Patient receptive to learning. Acuity Level: 2 Thank you for including me in the care of this patient. Ostomy care to follow after surgery when consulted. SIGNATURE: Rhonda Perez RN PATIENT NAME: Corine Stuart DATE: July 29, 2024 TIME: 12:10 PM CONTACT#: [id number] TYPE AND SCREEN,30 DAY Collected: 07/26/2024 3:20 PM Status: F Source: [facility] Order Comment: Specimen Type : BLOOD SPECIMEN Ordering Facility: [facility] Address: [address] [place] [address] TYPE CODE TESTS RESULT OUT OF RANGE REFERENCE UNITS LAB [id number] ABO A LAB [id number] RH Positive LAB [id number] ANTIBODY SCREEN Negative Performed By: #### [id number] ## ## [facility] CLIA [id number] [address] [facility] CBC PNL BLD AUTO Collected: 07/26/2024 3:20 PM Statu s: F Source: [facility] Order Comment: Specimen Type : BLOOD SPECIMEN Ordering Facility: [facility] Address: [address] [place] [address] TYPE CODE TESTS RESULT OUT OF RANGE REFERENCE UNITS LAB 6690-2(LOINC) WBC # Bld Auto 9.40 3.70-11.00 k/uL LAB 789-8(LOINC) RBC # Bld Auto 5.32 High 3.90-5.20 m/ uL LAB 718-7(LOINC) Hgb Bld-mCnc 15.9 High 11.5-15.5 g/dL LAB 4544-3(LOINC) Hct VFr Bld Auto 49.8 High 36.0-46.0 % LAB 787-2(LOINC) MCV RBC Auto 93.6 80.0-100.0 fL LAB 785-6(LOINC) MCH RBC Qn Auto 29.9 26.0-34.0 pg LAB 786-4(LOINC) MCHC RBC Auto-mCnc 31.9 30.5-36.0 g/dL LAB 15671-5(INC) RDW RBC-Rto 13.7 11.5-15.0 % LAB 777-3(LOINC) Platelet # Bld Auto 367 150-400 k/uL LAB 32220-6(LOINC) PMV Bld Auto 9.6 9.0-12.7 fL LAB 771-6(LOINC) nRBC # Bld Auto <0.01 <0.01 k/uL Performed By: #### 86811-3 # ### [facility] CLIA [id number] [address] COMP METAB 2000 PNL SERPL Collected: 3:20 PM Status: F Source: [facility] Order Comment: Specimen Type : BLOOD SPECIMEN Ordering Facility: [facility] Address: [address] [place] [address] TYPE CODE TESTS RESULT OUT OF RANGE REFERENCE UNITS LAB 2885-2(LOINC) Prot SerPl-mCnc 7.8 6.3-8.0 g/dL LAB 1751-7(LOINC) Albumin SerPl-mCnc 4.7 3.9-4.9 g/dL LAB 90520-9(LOINC) Calcium SerPl-mCnc 10.1 8.5-10.2 mg/dL LAB 1975-2(LOINC) Bilirub SerPl-mCnc 0.3 0.2-1.3 mg/dL LAB 6768-6(LOINC) ALP SerPl-cCnc 152 High 34-123 U/L LAB 22641-0(LOINC) AST SerPl w P-5'-P-cCnc 33 13-35 U/L LAB 1743-4(LOINC) ALT SerPl w P-5'-P-cCnc 45 High 7-38 U/L LAB 2345-7(INC) Glucose SerPl-mCnc 85 74-99 mg/dL Result Comment: The [place] Diabetes Association (ADA) provides guidance for cutoff values for fasting glucose and random glucose. The ADA defines fasting as no caloric intake for at least 8 hours. Fasting plasma glucose results between 100 to 125 mg/dL indicate increased risk for diabetes (prediabetes). Fasting plasma glucose results greater than or equal to 126 mg/dL meet the criteria for diagnosis of diabetes. In the absence of unequivocal hyperglycemia, results should be confirmed by repeat testing. In a patient with classic symptoms of hyperglycemia or hyperglycemic crisis, random plasma glucose results greater than or equal to 200 mg/dL meet the criteria for diagnosis of diabetes. Reference: Standards of Medical Care in Diabetes 2016, [place] [employer] Association. Diabetes Care. 2016.39(Suppl 1). LAB 3094-0(LOINC) BUN SerPl-mCnc 17 7-21 mg/ dL LAB 2160-0(LOINC) Creat SerPl-mCnc 0.86 0.58-0.96 mg/dL LAB 2951-2(LOINC) Sodium SerPl-sCnc 141 136-144 mmol/L LAB 2823-3(LOINC) Potassium SerPl-sCnc 4.1 3.7-5.1 mmol/L LAB 2075-0(LOINC) Chloride SerPl-sCnc 101 98-107 mmol/L LAB 2028-9(LOINC) CO2 SerPl-sCnc 29 22-30 mmo l/L LAB 1863-0(LOINC) Anion Gap4 SerPl-sCnc 11 8-15 mmol/L LAB 79787-1(LOINC) Creatinine + eGFR Pnl SerPlBld 81 >=60 mL/min/1. 73m??? Result Comment: Estimated Gl omerular Filtration Rate (eGFR) is calculated using the 2020 CKD-EPI creatinine equation. This equation utilizes serum creatinine, sex, and age as parameters. The creatinine assay has traceable calibration to isotope dilution-mass spectrometry. Refer to KDIGO guidelines for clinical interpretation. In patients with unstable renal function, e.g. those with acute kidney injury, the eGFR may not accurately reflect actual GFR. Performed By: #### 34724-3, 2038-07 #### [facility] CLIA [id number] [address] CEA SERPL-MCNC Collected: 3:20 PM Status: F Source: [facility] Order Comment: Specimen Type : BLOOD SPECIMEN Ordering Facility: [facility] Address: [address] [place] [address] TYPE CODE TESTS RESULT OUT OF RANGE REFERENCE UNITS LAB 2038-07(LOINC) CEA SerPl-mCnc 12.9 High <3.0 ng/mL Result Comment: This is a OnMyBlock assay using chemiluminescence test methodology. Results determined by different manufacturers may not be comparable Performed By: #### 30869-2, 2038-07 #### [facility] CLIA [id number] [address] PROGRESS Observed: 07/26/2024 2:30 PM Status: COMPLETED Source: [facility] HNO ID: [id number] Author: KELLEY MONTOYA RN Service: ? Author Type: Registered Nurse Type: Progress Notes Filed: 07/26/2024 15:19 Note Text: GENERAL SURGERY/ERAS MARBLEIZER PREOPERATIVE EDUCATION Date: 07/26/2024 Time: 2:30 PM Education provide to: patient and friend Lives with: Spouse Mobility: Independent ERAS protocol instructions given with good understanding. Written instructions given to patient. Encouraged to call with any questions. SIGNATURE: Kelley Montoya RN PATIENT NAME: Corine Stuart DATE: July 26, 2024 TIME: 3:19 PM PAGER/CONTACT #: [phone] HISTORY PHYSICAL Observed: 07/26/2024 2:20 PM Status: COMPLETED Source: [facility] HNO ID: [id number] Author: SHERIDAN YAO APRN.CNP Service: ? Author Type: Nurse Practitioner Type: H&P Filed: 07/26/2024 14:55 Note Text: [facility] HISTORY AND PHYSICAL EXAMINATION SERVICE DATE: 07/26/2024 SERVICE TIME: 2:48 PM PRIMARY CARE PHYSICIAN: Slim Lutz MD Assessment Patient has the following medical conditions which may affect phoebe-operative course: Preop examination Patient has the following medical conditions which may affect phoebe-operative course addressed in assessment and plan today. Colonic mass Surgery scheduled for July 29, 2024 Other hyperlipidemia Atorvastatin continue preoperatively GERD (gastroesophageal reflux disease) Controlled with pantoprazole okay to take day of surgery Seizure (HCC) Patient states she had a seizure in 1997 after her hysterectomy. She is on no medications and has had no seizures since that time. Smoking hx 1 pack/day x 30 plus years 1/2 pack/day x 2 months ago Now smoking 1 to 2 cigarettes daily Encouraged to cut back prior to surgery and avoid morning of surgery ANESTHESIA FINDINGS: Intubation History: No history of difficult intubation Significant Anesthesia Considerations: none Airway History: No history of difficult airway Patino Activity Status Index: METS: Climb a flight of stairs or walk up a hill (5.50 METs) DASI Score: 5.5 Patient denies any chest pain or undue shortness of breath with the above physical activity. ARISCAT Score: Age: 51-80 Preoperative SpO2: >=96% Respiratory infection in the last month: No Preoperative anemia: No Surgical incision: upper abdominal Duration of surgery: >3 hrs Emergency procedure: No ARISCAT Score: 41 I - PHYSICAL EVALUATION AIRWAY Patient intubated: No. DENTAL Dental findings: teeth intact. Dentures, upper: complete. II - ANESTHESIA PLAN Anesthetic Plan: general Beta Anuradha Monitoring Plan Post Procedure Analgesic Plan Prepared for Surgery: . Per patient-no optimizations requested by surgeon for plan procedure. CONSULTS: Planned Anesthetic: general The Following Tests/Procedures Have Been Initiated: No orders of the defined types were placed in this encounter. The reason for this visit is to perform a comprehensive review of the patient's past medical history, assess their current health status and obtain any additional testing required based on anesthesia guidelines. We will also identify any potential anesthesia problems or contraindications to the planned procedure. REASON FOR VISIT: Corine Stuart is a 53 year old female who is scheduled for Procedure(s): LAP LOW ANTEIOR RESECTION (N/A) at the request of Dr. Иван Garay for routine HANDP. My final recommendation will be communicated back to the requesting physician by way of shared medical record or letter. Subjective The patient has the following: COVID-19 Immunization Status Current Care Gaps Covid-19 Vaccine ( season) Never done No completion, postpone, frequency change, or communication history exists for this topic. CHIEF COMPLAINT: The reason for this visit is to perform a comprehensive review of the patient's past medical history, assess their current health status and obtain any additional testing required based on anesthesia guidelines. We will also identify any potential anesthesia problems or contraindications to the planned procedure. HPI: Patient is a 53 year old female who presents for pre surgical testing. Patient was having abdominal pain and went for an EGD (for ulcers) and was told she needed a screening colonoscopy also. Patient is status post her first colonoscopy. She she has a brother who had colon cancer in his 40s and shortly afterwards. She denies any symptoms she has no pain she has no blood in the stool. She had a CT of the abdomen. Biopsy was positive for cancer. After discussion with the surgeon the patient agrees to surgical intervention. REVIEW OF SYSTEMS: General: Negative for: unintentional weight change, malaise and fever. Neurological: Positive for: seizures. Negative for: headaches and strokes. Respiratory: Negative for: asthma, COPD, pneumonia within 6 weeks, URI < 2 weeks and obstructive sleep apnea. Cardiovascular: Positive for: hyperlipidemia Negative for: atrial fibrillation, CAD, chest pain, CHF, DVT/PE and hypertension. GI: See HPI. Positive for: GERD Negative for: abdominal pain, nausea and vomiting. : Negative for: dysuria, hematuria and renal failure. Endocrine: Negative for: diabetes mellitus, hyperthyroidism and hypothyroidism. Hematology: Negative for: anemia, factor V Leiden and von Willebrand disease. Oncology: No history of CA metastasis, chemo within 30 days, or radiotherapy within 90 days. No history of oncological symptoms or problems. Psych: Negative for: anxiety and depression. Musculoskeletal: Positive for: back pain. Negative for: joint pain. Skin: Negative for lesions, rash and itching. PAST MEDICAL HISTORY Diagnosis Date Colonic mass Gastric ulcer Mixed hyperlipidemia PAST SURGICAL HISTORY Procedure Laterality Date AMPUTATION FINGER/THUMB Right part of thumb APPENDECTOMY TONSILLECTOMY AND ADENOIDECTOMY <AGE 12 1988 TOTAL ABDOM HYSTERECTOMY 1997 partial FAMILY HISTORY Problem Relation Age of Onset other (CAD, ALS) Father other ( age 40's colon cancer) Brother Social History Tobacco Use Smoking status: Every Day Current packs/day: 0.50 Types: Cigarettes Smokeless tobacco: Never Tobacco comments: Now only a couple puffs daily less than 1 cigarette Vaping Use Vaping status: Never Used Substance Use Topics Alcohol use: Not Currently Drug use: Not Currently Prior to Admission medications as of 07/26/24 1424 Medication Sig Last Dose Taking Protein Supplement liqd Take 30 g by mouth once daily. Protein drink daily Yes atorvastatin (LIPITOR) 80 mg tablet Take 80 mg by mouth daily at bedtime. Yes pantoprazole DR (PROTONIX) 40 mg tablet Take 1 tablet by mouth every 12 hours. Yes metroNIDAZOLE (FLAGYL) 500 mg tablet Take two tabs by mouth at 1pm, 3pm, and 11pm the day prior to surgery. neomycin 500 mg tablet Take two tabs by mouth at 1pm, 3pm, and 11pm the day prior to the surgery. promethazine (PHENERGAN) 25 mg tablet Take 1 tab by mouth every 4 hours as needed for nausea. iv contrast (will be provided with radiology test) CT Chest ABD/PEL-Inject, intravenously, once for 1 dose.No IV access, insert saline lock prior to the beginning of sedation, infusion, injection of imaging exam. Discontinue saline lock post exam. If Pt. has a central line or IVAD, may access for administration according to line specific nursing protocol. Once exam is complete flush line and de-access according to line specific nursing protocol in the CT contrast administration guidelines link. enteric contrast (will be provided with radiology test) For CT CHESTABD/PEL W IVCON Routine order Administer, As Directed One Time Only, via Oral, Rectal, both Oral and Rectal, Enteric Tube, Stoma or Indwelling Catheter, Enteric Contrast as designated per enteric contrast guidelines No medication comments found. ALLERGIES No Known Allergies Objective PHYSICAL EXAM: General: alert and oriented and healthy appearance. Pertinent negatives noted - not distressed. Skin: normal color, no rash or lesions. HEENT: pupils equal round. Cardiovascular: regular rate and rhythm, normal S1 and S2, no rub, murmurs, or gallop. Respiratory: normal breath sounds, no wheezes or crackles. No chest wall deformity or tenderness. Abdomen: bowel sounds present. Extremities: no deformity, no edema or tenderness, no joint swelling or clubbing. Neurological: normal cognition and motor skills. Gait normal. No weakness or sensory deficit. PAIN ASSESSMENT: VITALS: BP 145/93 Pulse 100 Temp 97.9 Resp 16 Ht 5' 4 (1.63m) Wt 138 lb (62.6kg) SpO2 98% BMI 23.68 kg/(m2). Diagnostic tests reviewed for today's visit: Lab Value Units Date High Low HB No results within date range. HCT No results within date range. WBC No results within date range. PLT No results within date range. NA No results within date range. K No results within date range. GLUC No results within date range. BUN No results within date range. CREAT No results within date range. PTSEC No results within date range. INR No results within date range. APTT No results within date range. ALT No results within date range. AST No results within date range. TBILI No results within date range. TSH No results within date range. Lab Value Units Date High Low HCGQT No results within date range. UHCG No results within date range. HCG, BODY* No results within date range. Lab Value Units Date High Low ABORHD No results within date range. ABSCREEN No results within date range. No results found for: HBA1C No results found for this or any previous visit (from the past 8760 hours). No results found for this or any previous visit (from the past 26481 hours). Surgical scrub given day of PST. ARISCAT risk index interpretation 0 to 25 points: Low risk: 1.6% pulmonary complication rate 26 to 44 points: Intermediate risk: 13.3% pulmonary complication rate 45 to 123 points: High risk: 42.1% pulmonary complication rate Implantable Devices: None The Following Tests/Procedures Have Been Initiated: CBC CMP type and screen CEA ordered in [facility] by surgeon Assessment/Plan Diagnosis: Colonic mass [K63.89] PLAN Planned Procedure: Procedure(s): LAP LOW ANTEIOR RESECTION (N/A) I spent a total of 40 minutes on the date of the service which included preparing to see the patient, [id number] patient care, completing clinical documentation, obtaining and/or reviewing separately obtained history, performing a medically appropriate examination, and counseling and educating the patient/family/caregiver. Instructions Given to Patient: Instructions located in the after visit summary. Patient given verbal and written preop instructions and voices comprehension and compliance. SIGNATURE: Sheridan Yao APRN.CNP PATIENT NAME: Corine Stuart DATE: July 26, 2024 TIME: 12:51 PM PAGER/CONTACT #: [id number] Observed: 07/26/2024 12:00 AM Status: COMPLETED Source: [facility] Education ([facility]) CORINE STUART ([id number]) 1970 F Date Time Provider Department 07/26/24 KELLEY MONTOYA [facility] Reason for Visit: Patient Education [91] During your visit today, we recorded the following information about you: Allergies As of Date: 07/26/2024 (No Known Allergies) Date Reviewed: 07/26/2024 Reviewed by: Sheridan aYo APRN.CNP - Fully Assessed Prescriptions as of 07/26/2024 - metroNIDAZOLE (FLAGYL) 500 mg tablet Take two tabs by mouth at 1pm, 3pm, and 11pm the day prior to surgery. - neomycin 500 mg tablet Take two tabs by mouth at 1pm, 3pm, and 11pm the day prior to the surgery. - promethazine (PHENERGAN) 25 mg tablet Take 1 tab by mouth every 4 hours as needed for nausea. - Protein Supplement liqd Take 30 g by mouth once daily. Protein drink daily - atorvastatin (LIPITOR) 80 mg tablet Take 80 mg by mouth daily at bedtime. - pantoprazole DR (PROTONIX) 40 mg tablet Take 1 tablet by mouth every 12 hours. - iv contrast (will be provided with radiology test) CT Chest ABD/PEL-Inject, intravenously, once for 1 dose.No IV access, insert saline lock prior to the beginning of sedation, infusion, injection of imaging exam. Discontinue saline lock post exam. If Pt. has a central line or IVAD, may access for administration according to line specific nursing protocol. Once exam is complete flush line and de-access according to line specific nursing protocol in the CT contrast administration guidelines link. - enteric contrast (will be provided with radiology test) For CT CHESTABD/PEL W IVCON Routine order Administer, As Directed One Time Only, via Oral, Rectal, both Oral and Rectal, Enteric Tube, Stoma or Indwelling Catheter, Enteric Contrast as designated per enteric contrast guidelines Encounter Status:Closed by KELLEY MONTOYA on 07/26/24 ABRAM Observed: 07/26/2024 12:00 AM Status: COMPLETED Source: [facility] Telephone (AGGENS3) CORINE STUART ([id number]) 1970 F Date Time Provider Department 07/26/24 ИВАН GARAY AGGENS3 During your visit today, we recorded the following information about you: Aura Astudillo 07/26/2024 10:43 AM Signed Surgery Checklist Type: LAP LOW ANTERIOR RESECTION + TAP Admission Type: inpatient Anesthesia: General Date: 07/29/24 Arrival Time: 9:45 AM Surgery Time: 11:45 AM Location: [facility] Pre-Testing and Surgery Information sent to the patient's MyChart. Spoke to the patient and she is aware of the time, date, and location for her Pre-Testing appointment. Kelley Reich has been sent a email informing her about the patient's upcoming Pre-Testing appointment. Called [facility] and left a detailed voice message informing them of the patient's name, date of , MRN,Pre-Testing appointment, location of stoma, type of surgery,and Surgeon. Aura Astudillo Allergies As of Date: 07/26/2024 (No Known Allergies) Date Reviewed: 07/19/2024 Reviewed by: Jose L Gomez RN - Fully Assessed Reason for Visit: Procedure [88] Cmt: LAP LOW ANTERIOR RESECTION + TAP Prescriptions as of 07/26/2024 - metroNIDAZOLE (FLAGYL) 500 mg tablet Take two tabs by mouth at 1pm, 3pm, and 11pm the day prior to surgery. - neomycin 500 mg tablet Take two tabs by mouth at 1pm, 3pm, and 11pm the day prior to the surgery. - promethazine (PHENERGAN) 25 mg tablet Take 1 tab by mouth every 4 hours as needed for nausea. - atorvastatin (LIPITOR) 80 mg tablet Take 80 mg by mouth daily at bedtime. - pantoprazole DR (PROTONIX) 40 mg tablet Take 1 tablet by mouth every 12 hours. - iv contrast (will be provided with radiology test) CT Chest ABD/PEL-Inject, intravenously, once for 1 dose.No IV access, insert saline lock prior to the beginning of sedation, infusion, injection of imaging exam. Discontinue saline lock post exam. If Pt. has a central line or IVAD, may access for administration according to line specific nursing protocol. Once exam is complete flush line and de-access according to line specific nursing protocol in the CT contrast administration guidelines link. - enteric contrast (will be provided with radiology test) For CT CHESTABD/PEL W IVCON Routine order Administer, As Directed One Time Only, via Oral, Rectal, both Oral and Rectal, Enteric Tube, Stoma or Indwelling Catheter, Enteric Contrast as designated per enteric contrast guidelines Problem List As Of Date: 07/26/2024 (None) Encounter Status:Closed by AURA ASTUDILLO on 07/26/24 NURSING PROG Observed: 07/19/2024 4:12 PM Status: COMPLETED Source: [facility] HNO ID: [id number] Author: JOSE L GOMEZ, KARLEY Service: Nursing Author Type: Registered Nurse Type: Nursing Progress Note Filed: 07/19/2024 16:12 Note Text: Pt dressed independently. Pt d/cd from PACU in stable condition. NURSING PROG Observed: 07/19/2024 3:42 PM Status: COMPLETED Source: [facility] HNO ID: [id number] Author: JOSE L GOMEZ RN Service: Nursing Author Type: Registered Nurse Type: Nursing Progress Note Filed: 07/19/2024 16:12 Note Text: Dr. Garay at the bedside to update ptLisa BUSTILLOS POSTPROC EVAL Observed: 07/19/2024 3:41 PM Status: COMPLETED Source: [facility] HNO ID: [id number] Author: OZZY ORTA MD Service: Anesthesiology Author Type: Physician Type: Anesthesia Postprocedure Evaluation Filed: 07/19/2024 15:42 Note Text: POST ANESTHESIA EVALUATION NOTE : 1970 Procedure Summary Date: 07/19/24 Room / Location: [facility] Anesthesia Start: 1443 Anesthesia Stop: 1527 Procedure: SIGMOIDOSCOPY Diagnosis: Colonic mass Scheduled Providers: Иван Garay MD Responsible Provider: Ozzy Orta MD Anesthesia Type: MAC ASA Status: 3 Anesthesia Type: MAC Post Anesthesia Patient Status Patient Evaluation: PACU. Anticipated Disposition: phase 2 then home. Neurological Status: aware and responsive. Pulmonary Status: breathing comfortably on room air Airway Control: returned to baseline unsupported. Cardiovascular Status: stable. Pain Management: clinically adequate Postoperative Hydration: acceptable. Intraoperative Events: no significant anesthesia events Post Operative Nausea/Vomiting Status: no significant post operative nausea or vomiting Recommendation: continue current plan of care. Anesthesia Observations No Documentation SIGNATURE: Ozzy Orta MD PATIENT NAME: Corine Stuart DATE: July 19, 2024 TIME: 3:41 PM CSN: [id number] NURSING PROG Observed: 07/19/2024 3:15 PM Status: COMPLETED Source: [facility] HNO ID: [id number] Author: THERESA VOGT RN Service: Nursing Author Type: Registered Nurse Type: Nursing Progress Note Filed: 07/19/2024 15:16 Note Text: TATTOO INK TO RECTAL MASS SITE PER DR. GARAY. NURSING PROG Observed: 07/19/2024 3:07 PM Status: COMPLETED Source: [facility] HNO ID: [id number] Author: THERESA VOGT RN Service: Nursing Author Type: Registered Nurse Type: Nursing Progress Note Filed: 07/19/2024 15:08 Note Text: ELEVIEW INJECTED TO RECTAL MASS SITE PER DR. GARAY. TISS PATH BX REPORT Collected: 07/20/19 3:02 PM Status: F Source: [facility] Order Comment: Specimen Type : TISSUE SPECIMEN Ordering Facility: [facility] Address: [address] [place] [address] TYPE CODE TESTS RESULT OUT OF RANGE REFERENCE UNITS PATHOLOGY [id number] CASE REPORT Result Comment: Surgical Pat hology Report Case: [id number] Authorizing Provider: Иван Garay MD Collected: 07/19/2024 03:02 PM Ordering Location: [facility] Received: 07/19/2024 03:46 PM Pathologist: Pepper Shea MD Specimen: Rectum, Biopsy, RECTAL MASS PATHOLOGY [id number] FINAL DIAGNOSIS Result Comment: Rectal mass, biopsy: - Invasive adenocarcinoma. - See comment. at 1510 EDT PATHOLOGY [id number] DIAGNOSIS COMMENT Ancillary testing for mismatch repair proteins has been requested and will be reported. The case was reviewed in consultation with Dr. Stephy Georges who concurs. PATHOLOGY [id number] GROSS DESCRIPTION Result Comment: A. Rectum, B iopsy Received in formalin labeled rectal mass are multiple segments of ji-brown tissue aggregating to 3.0 x 1.5 x 0.3 cm. The specimen is totally submitted in 1 cassette. Gross examination performed at [facility], [address] [place] [address] July 23, 2024 3:06 PM PATHOLOGY [facility] FINAL PERFORMING LAB Result Comment: Diagnostic i nterpretation performed at: [facility], [address] [place] [address] CLIA# [id number] Assistant Professor In Family Studies: Hebr Rodriguez MD PATHOLOGY [id number] AP DISCLAIMER Result Comment: Laboratory D eveloped Test (LDT) Disclaimer: Performance characteristics of immunohistochemical, immunofluorescent, and chromogenic in-situ hybridization tests have been determined by the performing laboratory within [facility]'s Masood Lexi [facility] Pathology and Laboratory Medicine Department ([facility], [facility], [facility], [facility], [facility], Count Includes [facility], [facility]) in a manner consistent with CLIA requirements. One or more of these tests may not have been cleared or approved by the FDA. [facility] is regulated under CLIA as qualified to perform high-complexity testing. These tests are used for clinical purposes. These should not be regarded as investigational or for research. Positive and negative controls stain appropriately. Performed By: #### 94427-7 # ### [facility] CLIA [id number] [address] [facility] MISMATCH REPAIR PROTEINS BY IHC Collected: 07/19/2024 3:02 PM Status: F Source: [facility] Order Comment: Specimen Type : TISSUE SPECIMEN Ordering Facility: [facility] Address: [address] [place] [address] TYPE CODE TESTS RESULT OUT OF RANGE REFERENCE UNITS LAB [id number] MMR INTERPRETATION Proficien t (Microsatellite Stable) LAB [id number] MLH1 IMMUNOHISTOCHEMICA L RESULTS Normal/Intact Nuclear Expression LAB [id number] PMS2 IMMUNOHISTOCHEMICA L RESULTS Normal/Intact Nuclear Expression LAB [id number] MSH2 IMMUNOHISTOCHEMICA L RESULTS Normal/Intact Nuclear Expression LAB [id number] MSH6 IMMUNOHISTOCHEMICA L RESULTS Normal/Intact Nuclear Expression LAB [id number] MLH1 PROMOTER METHYLATION ASSAY No LAB [id number] TUMOR TYPE MMR Primary Colorectal Adenocarcinoma LAB [id number] [facility] CASE NUMBER MMR [id number] LAB [id number] FIXATIVE Formalin, 10% Neutral Buffered LAB [id number] BIOMARKER INTERPRETATION COMMENT AND REFERENCE RANGE Result Comment: Intact expre ssion of MMR (mismatch repair) proteins by immunohistochemistry is highly correlated with a microsatellite stable result by MSI (microsatellite instability) PCR analysis, and the results from these tests are viewed as clinically equivalent by the FDA. This result excludes at least 90-95% of Domínguez syndrome. These tests are an imperfect screen because some mutations may not produce loss of immunohistochemical expression. MSI molecular testing can be performed upon request in cases with a high clinical suspicion and appropriate family history. In a phase 2 study of patients with metastatic carcinoma, Malorie et al. (SDJ 2015;372:3549-98) reported that clinical benefit of pembrolizumab, an anti- programmed 1 (PD-1) immune checkpoint inhibitor, was predicted by the tumor's mismatch repair status; mismatch repair deficient (dMMR) tumors are more responsive to PD-1 blockade than mismatch repair proficient tumors. Pembrolizumab is FDA-approved for treating adult and pediatric patients with unresectable or metastatic solid tumors that display microsatellite instability- high (MSI-H) by PCR assay or dMMR by immunohistochemistry (IHC). The FDA does not distinguish between PCR and IHC-based assays, as these are considered equivalent and complimentary tests. As clinically indicated, and in the appropriate setting of genetic counseling with informed patient consent, further genetic testing may be helpful. For more information or questions about this result, please call the [facility] at [phone]. LAB [id number] BIOMARKER METHOD Result Comment: Immunohistoc hemistry was performed on formalin fixed paraffin-embedded tissue using the following clones: MLH1 (clone M1 mouse monoclonal); PMS2 (A16-4 mouse monoclonal); MSH2 ([id number] mouse monoclonal); MSH6 (SP93 rabbit monoclonal); followed by ultrasensitive bright field detection (Optiview with amplification) from [[employer], [place]]. LAB [id number] AP BIOMARKER DISCLAIMER Result Comment: Laboratory D eveloped Test (LDT) Disclaimer: Performance characteristics of immunohistochemical, immunofluorescent, and chromogenic in-situ hybridization tests have been determined by the performing laboratory within [facility]'s [facility] Pathology and Laboratory Medicine Department ([facility], [facility], [facility], [facility], [facility], Count Includes [facility], or [facility]) in a manner consistent with CLIA requirements. One or more of these tests may not have been cleared or approved by the FDA. [facility]PLM is regulated under CLIA as qualified to perform high-complexity testing. These tests are used for clinical purposes. These should not be regarded as investigational or for research. Positive and negative controls stain appropriately. LAB FPLAB FINAL PERFORMING LAB Result Comment: Diagnostic i nterpretation performed at: [facility], [address] [place] [address], [place] [address] CLIA# [id number] Assistant Professor In Family Studies: Dustin Kenny MD Electronically signed out by: Jagdeep Evans MD LAB [id number] AP BLOCK ID [id number] Performed By: #### [id number] # ### [facility] CLIA [id number] [address] [place] [address] [place] PROGRESS Observed: 07/19/2024 2:30 PM Status: COMPLETED Source: [facility] HNO ID: [id number] Author: YULIA PINEDA APRN.CNP Service: ? Author Type: Nurse Practitioner Type: Progress Notes Filed: 07/19/2024 12:43 Note Text: Summary: PAT HANDP completed 07/10/[address] Garay. OPERATIVE NO Observed: 07/19/2024 2:30 PM Status: COMPLETED Source: [facility] HNO ID: [id number] Author: ИВАН GARAY MD Service: Colorectal Author Type: Physician Type: Operative Report Filed: 07/19/2024 15:39 Note Text: OPERATIVE/PROCEDURE REPORT LOG ID: [id number] Surgery/Procedure Date: Incision/Procedure Start Time: 2:48 PM Incision Close/Procedure End Time: 3:19 PM Surgeon(s)/Proceduralist(s) and Application Support(s): Surgeons and Role: * Иван Garay MD - Proceduralist No Additional Staff Procedure(s): Flexible sigmoidoscopy, injection of Elaview and of tattoo pigment, hot snare for removal of part of the rectal mass Anesthesia: MAC Brief History: The patient is a pleasant 53-year-old female with recently found rectal mass. She presents for further evaluation of this. Prior biopsies were consistent with polyp but there is imaging findings on MRI concerning for possible invasive disease. For this reason and to better assess her anatomy I discussed with her a flexible sigmoidoscopy which she presents for today Procedure Details: The patient was placed in the left lateral decubitus position. A digital rectal exam was performed and this was normal. The Olympus colonoscope was introduced into the rectum and advanced to the sigmoid colon at 30 cm. We withdrew slowly noting no significant abnormalities of the sigmoid colon except for diverticulosis. At the rectosigmoid junction, just proximal to the third rectal valve, a polypoid appearing mass was noted which was flat and wide-based. It was in a challenging spot to see well, right around the turn, and initially it looked that it might be mostly polypoid. We used Elaview to try and lift this starting at the edges and found that this was not able to lift it all, with the middle seeming to be very fixed. After this I injected tattoo pigment about 1 cm beyond the mass at 3 positions, 1 cc each. We then used a hot snare to take a large piece of one of the edges of the mass. After this we used cold forceps to take several more bites in the location we had snared off to try and get deeper sections. We monitor this area and noted that he mild amount of bleeding to stop on its own. Retroflexion was performed and this showed no other pathology. The scope was then withdrawn and the patient tolerated the procedure well. Pre-Op/Pre-Procedure Diagnosis: Rectosigmoid mass Post-Op/Post-Procedure Diagnosis: Same Specimens: See above EBL: None Complications: None Recommendations:f/u pathology I/primary surgeon/proceduralist performed the procedure with assistance. Иван Garay MD SIGNATURE: Иван Garay MD PATIENT NAME: Corine Stuart DATE: July 19, 2024 TIME: 3:35 PM PAGER/CONTACT #: [phone] ANES PRE-OP Observed: 07/19/2024 1:24 PM Status: COMPLETED Source: [facility] HNO ID: [id number] Author: OZZY ORTA MD Service: Anesthesiology Author Type: Physician Type: Anesthesia Preprocedure Evaluation Filed: 07/19/2024 13:33 Note Text: ANESTHESIOLOGY DAY OF SURGERY NOTE : 1970 Procedure Information Date/Time: 07/19/24 1430 Scheduled providers: Иван Garay MD Procedure: SIGMOIDOSCOPY Location: [facility] Estimated body mass index is 23.34 kg/m? as calculated from the following: Height as of 07/16/24: 162.6 cm (5' 4). Weight as of 07/16/24: 61.7 kg (136 lb). Most recent hematocrit and potassium results: No results found for this basename: HCT,HEMATOCRIT,K,POTASSIUM 53yo female with tobacco misuse, colon mass, HL, GERD Relevant Problems No relevant active problems I - PHYSICAL EVALUATION AIRWAY Patient intubated: No. Mallampati: II. TM distance: >3 FB. Neck ROM: full ROM without neurological symptoms. Mouth opening: adequate. DENTAL Dentures, upper: complete. II - ANESTHESIA PLAN ASA Score: 3 Anesthetic Plan: MAC The patient is not a current smoker. NPO Status: adequate Beta Anuradha Monitoring Plan Monitoring plan: standard ASA. Post Procedure Analgesic Plan Postoperative analgesic plan: other (NONE). Informed Consent Anesthetic risks, benefits, alternatives, personnel and consent discussed: yes. Patient / Responsible Constitution Party agrees to proceed: yes Patient / Surrogate agrees to blood products: blood products not planned Significant changes in the patient condition since the History and Physical, not otherwise documented in primary service progress note: no. Potential Anesthesia issues that may suggest increased risk of complications or contraindication to planned procedure: none. Vitals Value Taken Time BP 103/69 07/19/24 1257 Pulse 99 07/19/24 1257 Resp 16 07/19/24 1257 Temp 36.7 ?C (98.1 ?F) 07/19/24 1257 SpO2 100 % 07/19/24 1257 Outpatient Medications as of 07/19/2024 Medication Sig atorvastatin (LIPITOR) 80 mg tablet Take 80 mg by mouth daily at bedtime. pantoprazole DR (PROTONIX) 40 mg tablet Take 1 tablet by mouth every 12 hours. iv contrast (will be provided with radiology test) CT Chest ABD/PEL-Inject, intravenously, once for 1 dose.No IV access, insert saline lock prior to the beginning of sedation, infusion, injection of imaging exam. Discontinue saline lock post exam. If Pt. has a central line or IVAD, may access for administration according to line specific nursing protocol. Once exam is complete flush line and de-access according to line specific nursing protocol in the CT contrast administration guidelines link. enteric contrast (will be provided with radiology test) For CT CHESTABD/PEL W IVCON Routine order Administer, As Directed One Time Only, via Oral, Rectal, both Oral and Rectal, Enteric Tube, Stoma or Indwelling Catheter, Enteric Contrast as designated per enteric contrast guidelines Facility-Administered Medications as of 07/19/2024 Medication Dose Route Frequency lidocaine 10 mg/mL (1 %) 1-2 mg injection (XYLOCAINE) 0.1-0.2 mL INTRADERMAL PRN lactated ringers iv infusion 5-30 mL/hr INTRAVENOUS CONTINUOUS I have interviewed and examined the patient. I have reviewed the medical record and/or the pre-anesthesia evaluation, pertinent labs, and test results. This contains updated information obtained within 48 hours of Surgery/Procedure. SIGNATURE: Ozzy Orta MD PATIENT NAME: Corine Stuart DATE: July 19, 2024 TIME: 1:24 PM CSN: [id number] MRI RECTUM WO/W IVCON Observed: 07/18/19 4:10 PM Status: F Source: [facility] * * *Final Report* * * DATE OF EXAM: Jul 17 2024 4:10PM [facility] 0754 - MRI RECTUM WO/W IVCON / PROCEDURE REASON: Malignant neoplasm of rectum (HCC) * * * * Physician Interpretation * * * * MRI OF THE PELVIS WITHOUT AND WITH CONTRAST: RECTAL CANCER STAGING CLINICAL HISTORY: Staging colonic mass Rectal tumor histology: None available Prior chemotherapy or radiation: No Other: COMPARISON: CT abdomen and pelvis 07/10/2024 TECHNIQUE: Magnet: 1.5 scanner. Multiplanar MRI with multiple sequences before and after contrast. Contrast: IV: 6 ml of Elucirem Rectal: 60 ml of Surgilube RESULT: PRIMARY TUMOR: MORPHOLOGY, LOCATION, AND CHARACTERISTICS: Distance to the anal verge: 11.6 cm (2, 20) Distance to the top of sphincter complex/anorectal junction: 9 cm (2, 20) Relationship to anterior peritoneal reflection: Above Craniocaudal length: 2.6 cm (4, 21) Tumor location: Mid rectum (5-10 cm) Morphology: Polypoid Mucinous: No mucin MR-T stage: T3d (tumor penetrates > 15 mm beyond muscularis propria) Structures with possible invasion by T4b tumors: N/A Invasion of anal sphincter complex: Absent. TUMOR DEPOSITS AND EXTRAMURAL VASCULAR INVASION (EMVI): Tumor deposits:(separate from metastatic lymph nodes): A 1.0 cm ill-defined nodularity extends to the peritoneal fat in the left perirectal region EMVI: No. MESORECTAL FASCIA (MRF): Shortest distance of extraluminal part of the tumor to MRF: N/A - tumor is above the peritoneal reflection. Tumor extension through the peritonealized portion of the rectum into peritoneal fat: As above LYMPH NODES: Mesorectal/superior rectal lymph nodes and/or tumor deposits: N+ (short axis 5-9 mm AND at least 2 morphologic criteria) N Stage: N1 Index nodes: 0.6 cm irregular superior rectal lymph nodes (19, 3) 0.5 cm indeterminate: Old superior rectal lymph nodes posteriorly (19, 4) Suspicious extra mesorectal lymph nodes: No OTHER FINDINGS: Diverticulosis without evidence of acute inflammation. Hysterectomy. No adnexal mass. Bladder is unremarkable. IMPRESSION: A 2.6 cm superior rectal mass with adjacent tumor deposit extending into the peritoneal fat. Stage: T N+ MRF: Tumor invades peritoneal fat Sphincter involvement: No. Suspicious extra mesorectal lymph nodes: Perirectal tumor deposit EMVI: No. v 07/29/20 Call Center Analyst: JOAQUIN Transcribe Date/Time: Jul 17 2024 4:35P Dictated by : MARIZA WINTER MD This examination was interpreted and the report reviewed and electronically signed by: MARIZA WINTER MD on Jul 17 2024 4:48PM EST [id number] PROGRESS Observed: 07/17/2024 2:30 PM Status: COMPLETED Source: [facility] HNO ID: [id number] Author: NATASHA ALSTON RT(R) Service: ? Author Type: Technologist Type: Progress Notes Filed: 07/17/2024 15:00 Note Text: Radiology Service Progress Note DATE OF SERVICE: July 17, 2024 TIME: 2:59 PM PATIENT IDENTITY VERIFICATION COMPLETED USING TWO (2) STANDARD IDENTIFIERS: Name and Date of confirmed by patient verbally. FALL SCREENING: Has the patient had 2 falls in the last year or 1 fall with injury or currently using an Ambulatory Assistive Device (Walker, Cane, Wheelchair, Crutches, etc.)? No PATIENT GENDER DATA: Assigned female at . status: : No status: NO. PATIENT RELEVANT IMPLANT DATA REVIEWED: Yes PATIENT PRESENTS WITH AN IMPLANTABLE OR ATTACHED COMPONENT PREP OPERATOR: No ALLERGIES: Reviewed and unchanged CONTRAST ALLERGY: NO. EXAM: MRI - CONTRAST TYPE: GROUP II PERIPHERAL IV DATA: Ambulatory: A peripheral IV was started in the Left antecubital site with a Angio cath: 22 gauge. RADIOLOGY DEPARTMENT: MR; Exam(s) Completed: Body: Rectal. Lavender Administered: No SIGNATURE: Natasha Alston, RT(R) PATIENT NAME: Corine Stuart DATE: July 17, 2024 TIME: 2:[address] CHEST W IVCON Observed: 07/10/2024 2:06 PM Status: F Source: [facility] * * *Final Report* * * DATE OF EXAM: Jul 10 2024 2:06PM [facility] 0539 - CT CHEST W IVCON / PROCEDURE REASON: Colonic mass * * * * Physician Interpretation * * * * EXAMINATION: CT CHEST WITH IV CONTRAST and CT ABDOMEN AND PELVIS WITH IV CONTRAST CLINICAL HISTORY: Rectosigmoid colonic polyp suspicious for malignancy. Metastatic disease evaluation. TECHNIQUE: CT of the chest from the thoracic inlet to the upper abdomen was performed following IV contrast. CT of the abdomen and pelvis was performed using standard technique, scanning from just above the dome of the diaphragm to the symphysis pubis. MQ: CTCAPW_4 Contrast: IV: 100 ml of Omnipaque 350 Oral: 450 ml of Omni 240 10-25ml diluted with water CT Radiation dose: Integrated Dose-length product (DLP) for this visit = 608.18 mGy*cm. CT Dose Reduction Employed: Automated exposure control (AEC) COMPARISON: None. RESULT: Limitations: None. Chest: Lines, tubes, and devices: None. Neck base: Thyroid is normal. No lymphadenopathy. Mediastinum: No lymphadenopathy. Esophagus: Unremarkable. Axilla: No lymphadenopathy. Cardiac: Normal in size. Mild coronary artery calcifications. Thoracic aorta: Thoracic aorta is normal in caliber with atherosclerotic calcifications. Pulmonary artery: The main pulmonary artery is normal in caliber. Lungs: Ill-defined mild groundglass opacities in the right upper lobe. No focal consolidation. Bibasilar atelectasis and/or scarring. Paraseptal emphysema. 0.2 cm right upper lobe nodule (8:46). 0.3 cm right lower lobe nodule (8:63). The central airways are patent. Bones/Soft Tissues: No suspicious osseous lesion. Chest wall is unremarkable. Abdomen / Pelvis: Liver: Multiple scattered hypodense lesions throughout the liver measuring up to 1.0 cm. Many of the lesions are too small to characterize but are favored to be benign. Biliary: No bile duct dilation. Gallbladder is unremarkable. Spleen: No mass. No splenomegaly. Pancreas: No mass or duct dilation. Adrenals: No mass. Kidneys: No mass, calculus or hydronephrosis. GI tract: 2.8 x 2.7 x 2.3 cm ill-defined area of enhancement at the rectosigmoid junction (3:97 and 605:69). Colonic diverticulosis. No dilated bowel. Lymph nodes: No abdominal or pelvic lymphadenopathy. Mesentery/Peritoneum: No ascites or mass. Retroperitoneum: No mass. Vasculature: The celiac axis and SMA are patent. The portal vein and branches, splenic vein, SMV, and hepatic veins are patent. Arterial atherosclerotic disease without aneurysm. Pelvis: No mass, ascites or fluid collection. Bones/soft tissues: No suspicious osseous lesion. Tiny fat-containing umbilical hernia. IMPRESSION: CT CHEST: Small right upper lobe and right lower lobe pulmonary nodules measuring up to 0.3 cm. Technically indeterminant if patient is positive for malignancy, however these are favored to be benign. No thoracic lymphadenopathy. Ill-defined groundglass opacities in the right upper lobe, likely infectious or inflammatory. CT ABDOMEN AND PELVIS: 2.8 cm ill-defined mass at the rectosigmoid junction likely corresponding to findings on recent colonoscopy. No lymphadenopathy in the abdomen or pelvis. Multiple hypodense lesions throughout the liver are too small to accurately characterize but favored to represent cysts. Call Center Analyst: PSCB Transcribe Date/Time: Jul 10 2024 2:24P Dictated by : ROXY ESCOBAR MD This examination was interpreted and the report reviewed and electronically signed by: ROXY ESCOBAR MD on Jul 10 2024 2:40PM EST [id number] CT ABD/PEL W IVCON Observed: 07/10/2024 2:06 PM Status: F Source: [facility] * * *Final Report* * * DATE OF EXAM: Jul 10 2024 2:06PM [facility] 0530 - CT ABD/PEL W IVCON / PROCEDURE REASON: Colonic mass * * * * Physician Interpretation * * * * EXAMINATION: CT CHEST WITH IV CONTRAST and CT ABDOMEN AND PELVIS WITH IV CONTRAST CLINICAL HISTORY: Rectosigmoid colonic polyp suspicious for malignancy. Metastatic disease evaluation. TECHNIQUE: CT of the chest from the thoracic inlet to the upper abdomen was performed following IV contrast. CT of the abdomen and pelvis was performed using standard technique, scanning from just above the dome of the diaphragm to the symphysis pubis. MQ: CTCAPW_4 Contrast: IV: 100 ml of Omnipaque 350 Oral: 450 ml of Omni 240 10-25ml diluted with water CT Radiation dose: Integrated Dose-length product (DLP) for this visit = 608.18 mGy*cm. CT Dose Reduction Employed: Automated exposure control (AEC) COMPARISON: None. RESULT: Limitations: None. Chest: Lines, tubes, and devices: None. Neck base: Thyroid is normal. No lymphadenopathy. Mediastinum: No lymphadenopathy. Esophagus: Unremarkable. Axilla: No lymphadenopathy. Cardiac: Normal in size. Mild coronary artery calcifications. Thoracic aorta: Thoracic aorta is normal in caliber with atherosclerotic calcifications. Pulmonary artery: The main pulmonary artery is normal in caliber. Lungs: Ill-defined mild groundglass opacities in the right upper lobe. No focal consolidation. Bibasilar atelectasis and/or scarring. Paraseptal emphysema. 0.2 cm right upper lobe nodule (8:46). 0.3 cm right lower lobe nodule (8:63). The central airways are patent. Bones/Soft Tissues: No suspicious osseous lesion. Chest wall is unremarkable. Abdomen / Pelvis: Liver: Multiple scattered hypodense lesions throughout the liver measuring up to 1.0 cm. Many of the lesions are too small to characterize but are favored to be benign. Biliary: No bile duct dilation. Gallbladder is unremarkable. Spleen: No mass. No splenomegaly. Pancreas: No mass or duct dilation. Adrenals: No mass. Kidneys: No mass, calculus or hydronephrosis. GI tract: 2.8 x 2.7 x 2.3 cm ill-defined area of enhancement at the rectosigmoid junction (3:97 and 605:69). Colonic diverticulosis. No dilated bowel. Lymph nodes: No abdominal or pelvic lymphadenopathy. Mesentery/Peritoneum: No ascites or mass. Retroperitoneum: No mass. Vasculature: The celiac axis and SMA are patent. The portal vein and branches, splenic vein, SMV, and hepatic veins are patent. Arterial atherosclerotic disease without aneurysm. Pelvis: No mass, ascites or fluid collection. Bones/soft tissues: No suspicious osseous lesion. Tiny fat-containing umbilical hernia. IMPRESSION: CT CHEST: Small right upper lobe and right lower lobe pulmonary nodules measuring up to 0.3 cm. Technically indeterminant if patient is positive for malignancy, however these are favored to be benign. No thoracic lymphadenopathy. Ill-defined groundglass opacities in the right upper lobe, likely infectious or inflammatory. CT ABDOMEN AND PELVIS: 2.8 cm ill-defined mass at the rectosigmoid junction likely corresponding to findings on recent colonoscopy. No lymphadenopathy in the abdomen or pelvis. Multiple hypodense lesions throughout the liver are too small to accurately characterize but favored to represent cysts. Call Center Analyst: [facility] Transcribe Date/Time: Jul 10 2024 2:24P Dictated by : ROXY ESCOBAR MD This examination was interpreted and the report reviewed and electronically signed by: ROXY ESCOBAR MD on Jul 10 2024 2:40PM EST [id number] CNOV Observed: 07/10/2024 10:00 AM Status: COMPLETED Source: [facility] Office Visit (AGGENS3) CORINE STUART ([id number]) 1970 F Date Time Provider Department 07/10/24 10:00 AM ИВАН GARAY3 During your visit today, we recorded the following information about you: Pulse Blood pressure Weight 102/minute 109/78 61.7 kg Иван Garay MD 07/10/2024 10:39 AM Signed Иван Garay M.D. Colon AND Rectal Surgery [address] [place] [address], [address] [place] [address] VANESSA Stuart is a 53 year old White female with recently found rectosigmoid colon polyp and concern for colon cancer HPI The patient was referred by Fabi Mosquera for my consultation regarding rectosigmoid colon polyp. My final recommendations will be communicated back to the requesting physician by way of shared Medical record or letter to requesting physician via electronic or [place] mail. The patient is a pleasant 53-year-old female who recently underwent her first colonoscopy. During this she was noted to have several colon polyps and a Rectosigmoid mass concerning for cancer both biopsies of this showing tubular adenoma. She was also taken for EGD at that time and found to have a number of duodenal and gastric polyps. She denies any changes to her bowel habits or blood in her stool. Surgical history is notable for partial hysterectomy and appendectomy Family history is notable for a brother who had advanced colon cancer diagnosed in his mid 40s and passed from this shortly after Review of Systems Constitutional: Negative for chills, fever and weight loss. HENT: Negative for congestion, ear pain, hearing loss, sinus pain and sore throat. Eyes: Negative for blurred vision, double vision and pain. Respiratory: Negative for cough, shortness of breath and wheezing. Cardiovascular: Negative for chest pain, palpitations and leg swelling. Gastrointestinal: Negative for abdominal pain, blood in stool, constipation, diarrhea, heartburn, nausea and vomiting. Genitourinary: Negative for dysuria, frequency and urgency. Musculoskeletal: Negative for back pain, joint pain and neck pain. Skin: Negative for itching and rash. Neurological: Negative for dizziness, weakness and headaches. Endo/Heme/Allergies: Negative for environmental allergies. Does not bruise/bleed easily. Psychiatric/Behavioral: Negative for depression and memory loss. The patient is not nervous/anxious and does not have insomnia. History reviewed. No pertinent past medical history. PAST SURGICAL HISTORY Procedure Laterality Date TONSILLECTOMY AND ADENOIDECTOMY <AGE 12 1988 TOTAL ABDOM HYSTERECTOMY 1998 partial Social History Tobacco Use Smoking status: Every Day Current packs/day: 0.50 Types: Cigarettes Smokeless tobacco: Never Substance Use Topics Alcohol use: Not Currently Drug use: Not Currently Types: Marijuana History reviewed. No pertinent family history. The ROS, medical, surgical, family, and social history were reviewed by Иван Garay MD ALLERGIES No Known Allergies Current Outpatient Medications Medication Sig atorvastatin (LIPITOR) 80 mg tablet Take 80 mg by mouth daily at bedtime. pantoprazole DR (PROTONIX) 40 mg tablet Take 1 tablet by mouth every 12 hours. iv contrast (will be provided with radiology test) CT Chest ABD/PEL-Inject, intravenously, once for 1 dose.No IV access, insert saline lock prior to the beginning of sedation, infusion, injection of imaging exam. Discontinue saline lock post exam. If Pt. has a central line or IVAD, may access for administration according to line specific nursing protocol. Once exam is complete flush line and de-access according to line specific nursing protocol in the CT contrast administration guidelines link. enteric contrast (will be provided with radiology test) For CT CHESTABD/PEL W IVCON Routine order Administer, As Directed One Time Only, via Oral, Rectal, both Oral and Rectal, Enteric Tube, Stoma or Indwelling Catheter, Enteric Contrast as designated per enteric contrast guidelines No current facility-administered medications for this visit. OBJECTIVE BP 109/78 (BP Site: Left Arm, BP Position: Sitting, BP Cuff Size: Regular Adult) Pulse 102 Wt 61.7 kg (136 lb) There is no height on file. Physical Exam Constitutional: General: She is not in acute distress. Appearance: Normal appearance. She is not ill-appearing. Cardiovascular: Rate and Rhythm: Normal rate and regular rhythm. Heart sounds: Normal heart sounds. No murmur heard. No friction rub. No gallop. Pulmonary: Effort: Pulmonary effort is normal. No respiratory distress. Breath sounds: Normal breath sounds. No wheezing or rales. Abdominal: General: There is no distension. Palpations: Abdomen is soft. There is no hepatomegaly. Tenderness: There is no abdominal tenderness. Musculoskeletal: General: No deformity. Normal range of motion. Skin: General: Skin is warm and dry. Findings: No rash. Neurological: Mental Status: She is alert. Coordination: Coordination normal. Gait: Gait normal. Psychiatric: Mood and Affect: Mood normal. Judgment: Judgment normal. Plan ASSESSMENT/PLAN: 1. Colonic mass - ICD9: 569.89, ICD10: K63.89 - CONSULT TO MEDICAL GENETICS - CANCER - CT ABD/PEL W IVCON - CT CHEST W IVCON On endoscopy there was concern of malignancy, with biopsy showing polyp. Given her family history and the endoscopic concern, I do want to take this very seriously and evaluate this as soon as we can. Next we would do a flexible sigmoidoscopy to try and get more biopsies and so I can visualize this area and the pertinent anatomy. We also will get CT scans which were ordered at [facility] but we will put these in stat to see if we can get these sooner than the 30th Risks, alternatives and benefits of the planned procedure were fully discussed with the patient. Risks include but are not limited to perforation, bleeding potentially requiring transfusion with inherent risks, enteric leak, and . Also discussed cardiovascular risks and pulmonary risks. The patient seems to understand and agrees to proceed. All questions answered. Informed consent obtained. Follow up: Return for Flexible sigmoidoscopy. Иван Garay M.D. Please Note: This office note has been created using Mogot[employer], a speech recognition software program, and may contain errors including punctuation, grammar, spelling, gender, and inappropriate words or phrases that pertain to the sytem. Иван Garay MD 07/10/2024 10:38 AM Signed An Overview of Colorectal Cancer: Signs, Symptoms, and Stages To understand colorectal cancer, it is first helpful to understand what parts of the body are affected and how they work. The colon The colon is an approximately 5 to 6-foot long tube that connects the small intestine to the rectum. The coloni??which, along with the rectum, is called the large intestinei??is a highly specialized organ that is responsible for processing and storing waste. The colon periodically empties its contentsi??stooli??into the rectum to begin the process of elimination. The rectum The rectum is a 5- to 6-inch chamber that connects the colon to the anus. It is the job of the rectum to hold the stool until defecation (evacuation) occurs. What is colorectal cancer? Cancer that begins in the colon is called a colon cancer, while cancer in the rectum is known as a rectal cancer. Cancers affecting either of these organs also may be referred to as a colorectal cancer. Colorectal cancers generally develop over time from adenomatous (precancerous) polypsi??growthsi??after a series of mutations (abnormalities) arise in their cellular DNA. The exact cause of colorectal cancer is not known. Some of the risk factors for colorectal cancer involve a family history of colon or rectal cancer, diet, alcohol intake, smoking, and inflammatory bowel disease. What are the signs and symptoms of colorectal cancer? Unfortunately, some colorectal cancers might be present without any signs or symptoms. For this reason, it is very important to have regular colorectal screenings (examinations) to detect problems early. The best screening evaluation is a colonoscopy. Other screening modalities include fecal occult blood tests, flexible sigmoidoscopy, barium enema, and CT colonography (virtual colonoscopy). The age at which such screening tests begin depends upon your risk factors, especially a family history of colon and rectal cancers. However, most colorectal cancers are associated with signs or symptoms. One of the early signs of colorectal cancer is bleeding. However, tumors often bleed only small amounts, off and on, so that evidence of the blood is found only during chemical testing of the stool, which is called a fecal occult blood test. Other signs and symptoms include: Change in bowel habits: Constipation, diarrhea, narrowing of stools, incomplete evacuation, and bowel incontinencei??although usually symptoms of other, less serious problemsi??can also be symptoms of colorectal cancer. Blood on or in the stool: By far the most noticeable of all the signs, blood on or in the stool can be associated with colorectal cancer. However, it does not necessarily indicate cancer, since numerous other problems can cause bleeding in the digestive tract, including hemorrhoids, anal tears (fissures), ulcerative colitis, and Crohn's disease, to name only a few. In addition, iron and some foods, such as beets, can give the stool a black or red appearance, falsely indicating blood in the stool. However, if you notice blood in or on your stool, see your doctor to rule out a serious condition and to ensure that proper treatment is received. Unexplained anemia: Anemia is a shortage of red blood cells, the sort that carry oxygen throughout the body. If you are anemic, you may experience shortness of breath. You may also feel tired and sluggish, so much so that rest does not make you feel better. Abdominal pain or bloating Unexplained weight loss Vomiting If you experience any of these signs or symptoms, it is important to see your doctor for evaluation. For a patient with colorectal cancer, early diagnosis and treatment can be life-saving. What are the stages of colorectal cancer? Colorectal cancer is described clinically by the stages at which it is discovered. The various stages of a colorectal cancer are determined by the depth of invasion through the wall of the intestine; the involvement of the lymph nodes (the drainage nodules); and the spread to other organs (metastases). Listed below is a description of the stages of colorectal cancer and their treatment. In most cases, treatment requires surgical removal (resection) of the affected part of the intestine. For some tumors, chemotherapy elsie??for rectal cancersi??radiation are added to manage the disease. Stage 0. For cancers that are stage 0i??also known as carcinoma in situi??the disease remains within the lining of the colon or rectum. Therefore, removal of the cancer, either by polypectomy via colonoscopy or by surgery if the lesion is too large, may be all that is required for treatment. Stage 1. Stage 1 colorectal cancers have grown into the wall of the intestine but have not spread beyond its muscular coat. The standard treatment of a stage I colon cancer is usually a colon resection alone, in which the affected part of the colon and its lymph nodes are removed. The type of surgery used to treat a rectal cancer is dependent upon its location, but includes a low anterior resection or an abdominoperineal resection, which are described in other patient information forms. Stage 2. A stage 2 colorectal cancer has penetrated beyond the muscular layers of the large intestine (stage 2B) and even spread into adjacent tissue (stage 2C). However, it has not yet reached the lymph nodes. Usually the only treatment for this stage of colon cancer is a surgical resection, although chemotherapy after surgery may be added. For a stage 2 rectal cancer, a surgical resection is sometimes preceded or followed by chemotherapy and/or radiation. Stage 3. A stage 3 colorectal cancer is considered an advanced stage of cancer as the disease has spread to the lymph nodes. For a colon cancer, surgery is usually done first, followed by chemotherapy. Chemotherapy and radiation may precede or follow surgery for a stage 3 rectal cancer. Stage 4. For patients with stage 4 colorectal cancer, the disease has spread (metastasized) to distant organs such as the liver, lungs, or ovaries. When the cancer has reached this stage, surgery is generally used for relieving or preventing complications as opposed to curing the patient of the disease. Occasionally the cancer's spread is restricted enough to where it can all be removed by surgery. In the case of minimal disease in the liver, the tumor may be treated with radiofrequency ablation (destruction with heat), cryotherapy (destruction by freezing), or intra-arterial chemotherapy. For stage 4 cancer that cannot be surgically removed, chemotherapy, radiation therapy, or both may be used to relieve, delay, or prevent symptoms. References [employer]. Colorectal Cancer Overview Accessed 04/01/2015. Colon Cancer [place]. Get information Accessed 04/01/2015. [employer]. Colon and Rectal Cancer Accessed 04/01/2015. ? Copyright 8314-9517 [facility]. 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 Discontinue saline lock post exam. If Pt. has a central line or IVAD, may access for administration according to line specific nursing protocol. Once exam is complete flush line and de-access according to line specific nursing protocol in the CT contrast administration guidelines link.Disp: 1 eachRfl: 0 enteric contrast (will be provided with radiology test)For CT CHESTABD/PEL W IVCON Routine order Administer, As Directed One Time Only, via Oral, Rectal, both Oral and Rectal, Enteric Tube, Stoma or Indwelling Catheter, Enteric Contrast as designated per enteric contrast guidelinesDisp: 1 eachRfl: 0 MRI RECTUM WO/W IVCON [[id number]] Order #: [id number] FUTURE iv contrast (will be provided with radiology test)MRI Rectum Inject, intravenously, once for 1 dose. No IV access, insert saline lock prior to the beginning of sedation, infusion, injection of imaging exam. Discontinue saline lock post exam. If Pt has a central line or IVAD, may access for administration according to line specific nursing protocol. Once exam is complete flush line and de-access according to line specific nursing protocol in the MR contrast administration guidelines link.Disp: 1 eachRfl: 0 enteric contrast (will be provided with radiology test)MRI RECTUM WO/W. Administer, As Directed One Time Only, via Oral, Rectal, both Oral and Rectal, Enteric Tube, Stoma or Indwelling Catheter,? Enteric Contrast as designated per enteric contrast guidelinesDisp: 1 eachRfl: 0 Prescriptions as of 07/10/2024 - atorvastatin (LIPITOR) 80 mg tablet Take 80 mg by mouth daily at bedtime. - pantoprazole DR (PROTONIX) 40 mg tablet Take 1 tablet by mouth every 12 hours. - iv contrast (will be provided with radiology test) CT Chest ABD/PEL-Inject, intravenously, once for 1 dose.No IV access, insert saline lock prior to the beginning of sedation, infusion, injection of imaging exam. Discontinue saline lock post exam. If Pt. has a central line or IVAD, may access for administration according to line specific nursing protocol. Once exam is complete flush line and de-access according to line specific nursing protocol in the CT contrast administration guidelines link. - enteric contrast (will be provided with radiology test) For CT CHESTABD/PEL W IVCON Routine order Administer, As Directed One Time Only, via Oral, Rectal, both Oral and Rectal, Enteric Tube, Stoma or Indwelling Catheter, Enteric Contrast as designated per enteric contrast guidelines - iv contrast (will be provided with radiology test) MRI Rectum Inject, intravenously, once for 1 dose. No IV access, insert saline lock prior to the beginning of sedation, infusion, injection of imaging exam. Discontinue saline lock post exam. If Pt has a central line or IVAD, may access for administration according to line specific nursing protocol. Once exam is complete flush line and de-access according to line specific nursing protocol in the MR contrast administration guidelines link. - enteric contrast (will be provided with radiology test) MRI RECTUM WO/W. Administer, As Directed One Time Only, via Oral, Rectal, both Oral and Rectal, Enteric Tube, Stoma or Indwelling Catheter,? Enteric Contrast as designated per enteric contrast guidelines Problem List As Of Date: 07/10/2024 (None) Other instructions from your clinician: An Overview of Colorectal Cancer: Signs, Symptoms, and Stages To understand colorectal cancer, it is first helpful to understand what parts of the body are affected and how they work. The colon The colon is an approximately 5 to 6-foot long tube that connects the small intestine to the rectum. The coloni??which, along with the rectum, is called the large intestinei??is a highly specialized organ that is responsible for processing and storing waste. The colon periodically empties its contentsi??stooli??into the rectum to begin the process of elimination. The rectum The rectum is a 5- to 6-inch chamber that connects the colon to the anus. It is the job of the rectum to hold the stool until defecation (evacuation) occurs. What is colorectal cancer? Cancer that begins in the colon is called a colon cancer, while cancer in the rectum is known as a rectal cancer. Cancers affecting either of these organs also may be referred to as a colorectal cancer. Colorectal cancers generally develop over time from adenomatous (precancerous) polypsi??growthsi??after a series of mutations (abnormalities) arise in their cellular DNA. The exact cause of colorectal cancer is not known. Some of the risk factors for colorectal cancer involve a family history of colon or rectal cancer, diet, alcohol intake, smoking, and inflammatory bowel disease. What are the signs and symptoms of colorectal cancer? Unfortunately, some colorectal cancers might be present without any signs or symptoms. For this reason, it is very important to have regular colorectal screenings (examinations) to detect problems early. The best screening evaluation is a colonoscopy. Other screening modalities include fecal occult blood tests, flexible sigmoidoscopy, barium enema, and CT colonography (virtual colonoscopy). The age at which such screening tests begin depends upon your risk factors, especially a family history of colon and rectal cancers. However, most colorectal cancers are associated with signs or symptoms. One of the early signs of colorectal cancer is bleeding. However, tumors often bleed only small amounts, off and on, so that evidence of the blood is found only during chemical testing of the stool, which is called a fecal occult blood test. Other signs and symptoms include: Change in bowel habits: Constipation, diarrhea, narrowing of stools, incomplete evacuation, and bowel incontinencei??although usually symptoms of other, less serious problemsi??can also be symptoms of colorectal cancer. Blood on or in the stool: By far the most noticeable of all the signs, blood on or in the stool can be associated with colorectal cancer. However, it does not necessarily indicate cancer, since numerous other problems can cause bleeding in the digestive tract, including hemorrhoids, anal tears (fissures), ulcerative colitis, and Crohn's disease, to name only a few. In addition, iron and some foods, such as beets, can give the stool a black or red appearance, falsely indicating blood in the stool. However, if you notice blood in or on your stool, see your doctor to rule out a serious condition and to ensure that proper treatment is received. Unexplained anemia: Anemia is a shortage of red blood cells, the sort that carry oxygen throughout the body. If you are anemic, you may experience shortness of breath. You may also feel tired and sluggish, so much so that rest does not make you feel better. Abdominal pain or bloating Unexplained weight loss Vomiting If you experience any of these signs or symptoms, it is important to see your doctor for evaluation. For a patient with colorectal cancer, early diagnosis and treatment can be life-saving. What are the stages of colorectal cancer? Colorectal cancer is described clinically by the stages at which it is discovered. The various stages of a colorectal cancer are determined by the depth of invasion through the wall of the intestine; the involvement of the lymph nodes (the drainage nodules); and the spread to other organs (metastases). Listed below is a description of the stages of colorectal cancer and their treatment. In most cases, treatment requires surgical removal (resection) of the affected part of the intestine. For some tumors, chemotherapy elsie??for rectal cancersi??radiation are added to manage the disease. Stage 0. For cancers that are stage 0i??also known as carcinoma in situi??the disease remains within the lining of the colon or rectum. Therefore, removal of the cancer, either by polypectomy via colonoscopy or by surgery if the lesion is too large, may be all that is required for treatment. Stage 1. Stage 1 colorectal cancers have grown into the wall of the intestine but have not spread beyond its muscular coat. The standard treatment of a stage I colon cancer is usually a colon resection alone, in which the affected part of the colon and its lymph nodes are removed. The type of surgery used to treat a rectal cancer is dependent upon its location, but includes a low anterior resection or an abdominoperineal resection, which are described in other patient information forms. Stage 2. A stage 2 colorectal cancer has penetrated beyond the muscular layers of the large intestine (stage 2B) and even spread into adjacent tissue (stage 2C). However, it has not yet reached the lymph nodes. Usually the only treatment for this stage of colon cancer is a surgical resection, although chemotherapy after surgery may be added. For a stage 2 rectal cancer, a surgical resection is sometimes preceded or followed by chemotherapy and/or radiation. Stage 3. A stage 3 colorectal cancer is considered an advanced stage of cancer as the disease has spread to the lymph nodes. For a colon cancer, surgery is usually done first, followed by chemotherapy. Chemotherapy and radiation may precede or follow surgery for a stage 3 rectal cancer. Stage 4. For patients with stage 4 colorectal cancer, the disease has spread (metastasized) to distant organs such as the liver, lungs, or ovaries. When the cancer has reached this stage, surgery is generally used for relieving or preventing complications as opposed to curing the patient of the disease. Occasionally the cancer's spread is restricted enough to where it can all be removed by surgery. In the case of minimal disease in the liver, the tumor may be treated with radiofrequency ablation (destruction with heat), cryotherapy (destruction by freezing), or intra-arterial chemotherapy. For stage 4 cancer that cannot be surgically removed, chemotherapy, radiation therapy, or both may be used to relieve, delay, or prevent symptoms. References [employer] [employer]. Colorectal Cancer Overview Accessed 04/01/2015. Colon Cancer [place]. Get information Accessed 04/01/2015. [employer]. Colon and Rectal Cancer Accessed 04/01/2015. ? Copyright 6883-2917 [facility]. All rights reserved Prescriptions ordered this encounter Disp Refills Start End IV CONTRAST (RADIOLOGY PROCEDURE) - * 1 ea* 0 07/10/2024 Class: In Office Sig: CT Chest ABD/PEL-Inject, intravenously, once for 1 dose.No IV access, insert saline lock prior to the beginning of sedation, infusion, injection of imaging exam. Discontinue saline lock post exam. If Pt. has a central line or IVAD, may access for administration according to line specific nursing protocol. Once exam is complete flush line and de-access according to line specific nursing protocol in the CT contrast administration guidelines link. ENTERIC CONTRAST (RADIOLOGY PROCEDUR* 1 ea* 0 07/10/2024 Class: In Office Sig: For CT CHESTABD/PEL W IVCON Routine order Administer, As Directed One Time Only, via Oral, Rectal, both Oral and Rectal, Enteric Tube, Stoma or Indwelling Catheter, Enteric Contrast as designated per enteric contrast guidelines IV CONTRAST (RADIOLOGY PROCEDURE) - * 1 ea* 0 07/10/2024 07/11/2024 Class: In Office Sig: MRI Rectum Inject, intravenously, once for 1 dose. No IV access, insert saline lock prior to the beginning of sedation, infusion, injection of imaging exam. Discontinue saline lock post exam. If Pt has a central line or IVAD, may access for administration according to line specific nursing protocol. Once exam is complete flush line and de-access according to line specific nursing protocol in the MR contrast administration guidelines link. ENTERIC CONTRAST (RADIOLOGY PROCEDUR* 1 ea* 0 07/10/2024 07/11/2024 Class: In Office Sig: MRI RECTUM WO/W. Administer, As Directed One Time Only, via Oral, Rectal, both Oral and Rectal, Enteric Tube, Stoma or Indwelling Catheter,? Enteric Contrast as designated per enteric contrast guidelines Disposition: Return for Flexible sigmoidoscopy. Follow-up and Disposition History for Encounter Date Provider Department Center 07/10/2024 [id number], [id number] Letter Text Encounter Status:Closed by ИВАН GARAY on 07/10/24 PROGRESS Observed: 07/10/2024 9:57 AM Status: COMPLETED Source: [facility] HNO ID: [id number] Author: ИВАН GARYA MD Service: ? Author Type: Physician Type: Progress Notes Filed: 07/10/2024 10:39 Note Text: Иван Garay M.D. Colon AND Rectal Surgery [address] [facility], [address] [place] [address] VANESSA Stuart is a 53 year old White female with recently found rectosigmoid colon polyp and concern for colon cancer HPI The patient was referred by Fabi Mosquera for my consultation regarding rectosigmoid colon polyp. My final recommendations will be communicated back to the requesting physician by way of shared Medical record or letter to requesting physician via electronic or US mail. The patient is a pleasant 53-year-old female who recently underwent her first colonoscopy. During this she was noted to have several colon polyps and a Rectosigmoid mass concerning for cancer both biopsies of this showing tubular adenoma. She was also taken for EGD at that time and found to have a number of duodenal and gastric polyps. She denies any changes to her bowel habits or blood in her stool. Surgical history is notable for partial hysterectomy and appendectomy Family history is notable for a brother who had advanced colon cancer diagnosed in his mid 40s and passed from this shortly after Review of Systems Constitutional: Negative for chills, fever and weight loss. HENT: Negative for congestion, ear pain, hearing loss, sinus pain and sore throat. Eyes: Negative for blurred vision, double vision and pain. Respiratory: Negative for cough, shortness of breath and wheezing. Cardiovascular: Negative for chest pain, palpitations and leg swelling. Gastrointestinal: Negative for abdominal pain, blood in stool, constipation, diarrhea, heartburn, nausea and vomiting. Genitourinary: Negative for dysuria, frequency and urgency. Musculoskeletal: Negative for back pain, joint pain and neck pain. Skin: Negative for itching and rash. Neurological: Negative for dizziness, weakness and headaches. Endo/Heme/Allergies: Negative for environmental allergies. Does not bruise/bleed easily. Psychiatric/Behavioral: Negative for depression and memory loss. The patient is not nervous/anxious and does not have insomnia. History reviewed. No pertinent past medical history. PAST SURGICAL HISTORY Procedure Laterality Date TONSILLECTOMY AND ADENOIDECTOMY <AGE 12 1988 TOTAL ABDOM HYSTERECTOMY 1998 partial Social History Tobacco Use Smoking status: Every Day Current packs/day: 0.50 Types: Cigarettes Smokeless tobacco: Never Substance Use Topics Alcohol use: Not Currently Drug use: Not Currently Types: Marijuana History reviewed. No pertinent family history. The ROS, medical, surgical, family, and social history were reviewed by Иван Garay MD ALLERGIES No Known Allergies Current Outpatient Medications Medication Sig atorvastatin (LIPITOR) 80 mg tablet Take 80 mg by mouth daily at bedtime. pantoprazole DR (PROTONIX) 40 mg tablet Take 1 tablet by mouth every 12 hours. iv contrast (will be provided with radiology test) CT Chest ABD/PEL-Inject, intravenously, once for 1 dose.No IV access, insert saline lock prior to the beginning of sedation, infusion, injection of imaging exam. Discontinue saline lock post exam. If Pt. has a central line or IVAD, may access for administration according to line specific nursing protocol. Once exam is complete flush line and de-access according to line specific nursing protocol in the CT contrast administration guidelines link. enteric contrast (will be provided with radiology test) For CT CHESTABD/PEL W IVCON Routine order Administer, As Directed One Time Only, via Oral, Rectal, both Oral and Rectal, Enteric Tube, Stoma or Indwelling Catheter, Enteric Contrast as designated per enteric contrast guidelines No current facility-administered medications for this visit. OBJECTIVE BP 109/78 (BP Site: Left Arm, BP Position: Sitting, BP Cuff Size: Regular Adult) Pulse 102 Wt 61.7 kg (136 lb) There is no height on file. Physical Exam Constitutional: General: She is not in acute distress. Appearance: Normal appearance. She is not ill-appearing. Cardiovascular: Rate and Rhythm: Normal rate and regular rhythm. Heart sounds: Normal heart sounds. No murmur heard. No friction rub. No gallop. Pulmonary: Effort: Pulmonary effort is normal. No respiratory distress. Breath sounds: Normal breath sounds. No wheezing or rales. Abdominal: General: There is no distension. Palpations: Abdomen is soft. There is no hepatomegaly. Tenderness: There is no abdominal tenderness. Musculoskeletal: General: No deformity. Normal range of motion. Skin: General: Skin is warm and dry. Findings: No rash. Neurological: Mental Status: She is alert. Coordination: Coordination normal. Gait: Gait normal. Psychiatric: Mood and Affect: Mood normal. Judgment: Judgment normal. Plan ASSESSMENT/PLAN: 1. Colonic mass - ICD9: 569.89, ICD10: K63.89 - CONSULT TO MEDICAL GENETICS - CANCER - CT ABD/PEL W IVCON - CT CHEST W IVCON On endoscopy there was concern of malignancy, with biopsy showing polyp. Given her family history and the endoscopic concern, I do want to take this very seriously and evaluate this as soon as we can. Next we would do a flexible sigmoidoscopy to try and get more biopsies and so I can visualize this area and the pertinent anatomy. We also will get CT scans which were ordered at [facility] but we will put these in stat to see if we can get these sooner than the 30 Risks, alternatives and benefits of the planned procedure were fully discussed with the patient. Risks include but are not limited to perforation, bleeding potentially requiring transfusion with inherent risks, enteric leak, and . Also discussed cardiovascular risks and pulmonary risks. The patient seems to understand and agrees to proceed. All questions answered. Informed consent obtained. Follow up: Return for Flexible sigmoidoscopy. Иван Garay M.D. Please Note: This office note has been created using Mogotest, a speech recognition software program, and may contain errors including punctuation, grammar, spelling, gender, and inappropriate words or phrases that pertain to the sytem. ABRAM Observed: 07/10/2024 12:00 AM Status: COMPLETED Source: [facility] Telephone (AGGENS3) CORINE STUART ([id number]) 1970 F Date Time Provider Department 07/10/24 ИВАН GARAY AGGENS3 During your visit today, we recorded the following information about you: Aura Astudillo 07/10/2024 11:05 AM Signed Corine Stuart has been scheduled for CT. Date: 07/10/24 Time: 1:30 pm Location: [place]. Patient is to arrive 15 minutes early. Patient is informed: Yes Made at appointment. Aura Astudillo Allergies As of Date: 07/10/2024 (No Known Allergies) Date Reviewed: 07/10/2024 Reviewed by: Иван Garay MD - Fully Assessed Reason for Visit: Appointment [186] Cmt: CT Prescriptions as of 07/10/2024 - atorvastatin (LIPITOR) 80 mg tablet Take 80 mg by mouth daily at bedtime. - pantoprazole DR (PROTONIX) 40 mg tablet Take 1 tablet by mouth every 12 hours. - iv contrast (will be provided with radiology test) CT Chest ABD/PEL-Inject, intravenously, once for 1 dose.No IV access, insert saline lock prior to the beginning of sedation, infusion, injection of imaging exam. Discontinue saline lock post exam. If Pt. has a central line or IVAD, may access for administration according to line specific nursing protocol. Once exam is complete flush line and de-access according to line specific nursing protocol in the CT contrast administration guidelines link. - enteric contrast (will be provided with radiology test) For CT CHESTABD/PEL W IVCON Routine order Administer, As Directed One Time Only, via Oral, Rectal, both Oral and Rectal, Enteric Tube, Stoma or Indwelling Catheter, Enteric Contrast as designated per enteric contrast guidelines Problem List As Of Date: 07/10/2024 (None) Encounter Status:Closed by AURA ASTUDILLO on 07/10/24 CNPN Observed: 07/10/2024 12:00 AM Status: COMPLETED Source: [facility] Telephone (AGGENS3) CORINE STUART ([id number]) 1970 F Date Time Provider Department 07/10/24 ИВАН GARAY During your visit today, we recorded the following information about you: Aura Astudillo 07/10/2024 11:57 AM Signed . Zoila Cordoba 07/11/2024 12:01 PM Signed Had to reschedule patient from 07/15/2024 to 07/17/2024 due to MRI needing 60 min slot for this order. Patient requested I let you know. Zoila Cordoba, PSS Allergies As of Date: 07/10/2024 (No Known Allergies) Date Reviewed: 07/10/2024 Reviewed by: Иван Garay MD - Fully Assessed Prescriptions as of 07/11/2024 - atorvastatin (LIPITOR) 80 mg tablet Take 80 mg by mouth daily at bedtime. - pantoprazole DR (PROTONIX) 40 mg tablet Take 1 tablet by mouth every 12 hours. - iv contrast (will be provided with radiology test) CT Chest ABD/PEL-Inject, intravenously, once for 1 dose.No IV access, insert saline lock prior to the beginning of sedation, infusion, injection of imaging exam. Discontinue saline lock post exam. If Pt. has a central line or IVAD, may access for administration according to line specific nursing protocol. Once exam is complete flush line and de-access according to line specific nursing protocol in the CT contrast administration guidelines link. - enteric contrast (will be provided with radiology test) For CT CHESTABD/PEL W IVCON Routine order Administer, As Directed One Time Only, via Oral, Rectal, both Oral and Rectal, Enteric Tube, Stoma or Indwelling Catheter, Enteric Contrast as designated per enteric contrast guidelines - iv contrast (will be provided with radiology test) MRI Rectum Inject, intravenously, once for 1 dose. No IV access, insert saline lock prior to the beginning of sedation, infusion, injection of imaging exam. Discontinue saline lock post exam. If Pt has a central line or IVAD, may access for administration according to line specific nursing protocol. Once exam is complete flush line and de-access according to line specific nursing protocol in the MR contrast administration guidelines link. - enteric contrast (will be provided with radiology test) MRI RECTUM WO/W. Administer, As Directed One Time Only, via Oral, Rectal, both Oral and Rectal, Enteric Tube, Stoma or Indwelling Catheter,? Enteric Contrast as designated per enteric contrast guidelines Problem List As Of Date: 07/10/2024 (None) Encounter Status:Closed by AURA ASTUDILLO on 07/11/24 LIPID PANEL, STANDARD Collected: 07/08/2024 8:10 AM Status: F Source: [facility] TYPE CODE TESTS RESULT OUT OF RANGE REFERENCE UNITS LAB [id number] CHOLESTEROL, TOTAL 203 High <200 mg/dL LAB [id number] HDL CHOLESTEROL 33 Low > OR = 50 mg/dL LAB [id number] TRIGLYCERIDES 102 Normal <150 mg/dL LAB [id number] LDL-CHOLESTEROL 148 High mg/dL (calc) Result Comment: Reference ra nge: <100 Desirable range <100 mg/dL for primary prevention; <70 mg/dL for patients with CHD or diabetic patients with > or = 2 CHD risk factors. LDL-C is now calculated using the Bhanu calculation, which is a validated novel method providing better accuracy than the Friedewald equation in the estimation of LDL-C. Min MACHADO et al. ANNA. 2013;310(19): 0670-1053 (http://education.[employer].WILEX/faq/OPN375) LAB [id number] CHOL/HDLC RATIO 6.2 High <5.0 (calc) LAB [id number] NON HDL CHOLESTEROL 170 High <130 mg/dL (calc) Result Comment: For patients with diabetes plus 1 major ASCVD risk factor, treating to a non-HDL-C goal of <100 mg/dL (LDL-C of <70 mg/dL) is considered a therapeutic option. Performed By: #### [id number], 76 00 #### [facility] [address], [address] [place] [id number] Pharmacist Manager: Dale Navas MD COMPREHENSIVE METABOLIC PANEL Collected : 07/08/2024 8:10 AM Status: F Source: [facility] TYPE CODE TESTS RESULT OUT OF RANGE REFERENCE UNITS LAB [id number] GLUCOSE 81 Normal 65-99 mg/dL Result Comment: Fasting reference interval LAB [id number] UREA NITROGEN (BUN) 12 Normal 7-25 mg/dL LAB [id number] CREATININE 0.83 Normal 0.50-1.03 mg/dL LAB [id number] EGFR 84 Normal > OR = 60 mL/min/1 .73m2 LAB [id number] BUN/CREATININE RATIO SEE NOTE: 6-22 (calc) Result Comment: Not Reported : BUN and Creatinine are within reference range. LAB [id number] SODIUM 141 Normal 135-146 mmol/L LAB [id number] POTASSIUM 3.9 Normal 3.5-5.3 mmol/L LAB [id number] CHLORIDE 105 Normal 98-110 mmol/L LAB [id number] CARBON DIOXIDE 27 Normal 20-32 mmol/L LAB [id number] CALCIUM 9.6 Normal 8.6-10.4 mg/dL LAB [id number] PROTEIN, TOTAL 6.9 Normal 6.1-8.1 g/dL LAB [id number] ALBUMIN 4.2 Normal 3.6-5.1 g/dL LAB [id number] GLOBULIN 2.7 Normal 1.9-3.7 g/dL (calc) LAB [id number] ALBUMIN/GLOBUL IN RATIO 1.6 Normal 1.0-2.5 (calc) LAB [id number] BILIRUBIN, TOTAL 0.5 Normal 0.2-1.2 mg/dL LAB [id number] ALKALINE PHOSPHATASE 121 Normal 37-153 U/L LAB [id number] AST 27 Normal 10-35 U/L LAB [id number] ALT 35 High 6-29 U/L Performed By: #### 18633, 76 00 #### [facility] [address] [facility], [address] [place] [address] Pharmacist Manager: Dale Navas MD ALLERGIES DATE TYPE / CODE NAME / CODE REACTION SEVERITY SOURCE Drug Class/455424679(SNO MED CT) NO KNOWN ALLERGIES [facility] ENCOUNTERS ADMIT/DISCHARGE ACCOUNT NUMBER ADMITTING ENCOUNTER CLASS LOCATION SOURCE 11/20/2024/11/21/19 [id number] [facility] 11/19/2024/11/20/19 [id number] [facility] 11/19/2024/11/20/19 [id number] [facility] 11/07/2024/11/08/19 [id number] [facility] 11/05/2024/11/06/19 [id number] [facility] ing:[facility] 11/04/2024/11/05/19 [id number] Amb[facility] 11/04/2024/11/05/19 [id number] Amb[facility] 11/01/2024 [id number] Amb[facility] 11/01/2024/11/02/19 [id number] Ambulatory [facility] 11/01/2024 [id number] Ambulatory [facility] HospitalBuild ing:WOCT [facility] 10/24/2024/10/25/19 25 [id number] Ambulatory [facility] HospitalBuild ing:WOHE [facility] 10/22/2024/10/23/19 25 [id number] Ambulatory [facility] Hospital[facility] ing:WOHE [facility] 10/21/2024/10/22/19 25 [id number] Ambulatory [facility] Hospital[facility] ing:WO[facility] 10/21/2024/10/22/19 25 [id number] Ambulatory [facility] ing:WOHE [facility] 10/10/2024/10/11/19 25 [id number] Ambulatory [facility] Hospital[facility] ing:WO[facility] 10/08/2024/10/09/19 25 [id number] Ambulatory [facility] ing:WO[facility] 10/07/2024/10/08/19 25 [id number] Ambulatory [facility] ing:WO[facility] 10/07/2024/10/08/19 25 [id number] Ambulatory [facility] HospitalBuild ing:WOHITESH [facility] 09/26/2024/09/27/19 25 [id number] Ambulatory [facility] HospitalBuild ing:WOHITESH [facility] 09/24/2024/09/25/19 25 [id number] Ambulatory [facility] HospitalBuild ing:WOHE [facility] 09/23/2024/09/24/19 25 [id number] Ambulatory [facility] Hospital[facility] ing:WOHE [facility] 09/23/2024/09/24/19 25 [id number] Ambulatory [facility] ing:WO[facility] 09/20/2024/09/21/19 25 [id number] [facility] 09/12/2024/09/13/19 25 [id number] Ambulatory [facility] HospitalBuild ing:WOHE [facility] 09/10/2024/09/11/19 25 [id number] Ambulatory [facility] HospitalBuild ing:WOHE [facility] 09/02/2024/09/03/19 25 [id number] Ambulatory [facility] HospitalBuild ing:WOHE [facility] 08/27/2024/08/28/19 25 [id number] Amb[facility] HospitalBuild ing:WOHE [facility] 08/19/2024/08/20/19 25 [id number] [facility] 08/16/2024/08/17/19 25 [id number] SCAR ESCOBAR [facility]IR[facility]: POOLBed: [facility] 08/13/2024/08/14/19 25 [id number] Ambulatory [facility] HospitalBuild ing:CCLB [facility] 08/13/2024/08/14/19 25 [id number] [facility] 07/29/2024/08/01/19 25 [id number] ИВАН GARAY [facility] 07/26/2024/07/27/19 25 [id number] [facility] 07/26/2024/07/27/19 25 [id number] [facility] 07/25/2024/07/26/19 25 [id number] Ambulatory [facility] Hospital[facility] ing:WOLB [facility] 07/19/2024 [id number] [facility]/17[facility]2024 [id number] Amb[facility] Hospital[facility] ing:WOMR [facility] 07/10/2024 [id number] [facility] 07/10/2024 [id number] [facility] 07/10/2024/07/11/19 25 [id number] [facility] ng:AGGENS5 [facility] PAYERS ENCOUNTER GUARANTOR PAYER SUBSCRIBER SOURCE 11/20/2024 Primary Insurance:BLUE CARD PPO OOSPolicy Number: [id number] e Date:7137-18-18Yfyr Name:John JURADO YULISA: [id number] [place] [address] [facility] 11/19/2024 Primary Insurance:BLUE CARD PPO OOSPolicy Number: [id number] e Date:9540-72-85Lnat Name:BIBADRIEN MÁRQUEZ: [id number] [place], [place] [address] [place] [address] 11/19/2024 Primary Insurance:BLUE CARD PPO OOSPolicy Number: [id number] e Date:4198-21-39Ufpx Name:John MÁRQUEZ: [id number] [place] [address] [facility] 11/07/2024 Primary Insurance:BLUE CARD PPO OOSPolicy Number: [id number] e Date:4725-33-29Qbia Name:John JURADO YULISA: [id number] [place] [address] [facility] 11/05/2024 Primary Insurance:BLUE CARD PPO OOSPolicy Number: [id number] e Date:0744-16-72Hocl Name:BIBADRIEN MÁRQUEZ: [id number] [place] [address] [facility] 11/04/2024 Primary Insurance:BLUE CARD PPO OOSPolicy Number: [id number] e Date:1487-49-47Zjwa Name:BIBADRIEN MÁRQUEZ: [id number] [place] [address] [facility] 11/04/2024 Primary Insurance:BLUE CARD PPO OOSPolicy Number: [id number] e Date:3873-46-11Mnjg Name:John STUARTJOVON: [id number] [place] [address] [facility] 11/01/2024 Primary Insurance:BLUE CARD PPO OOSPolicy Number: [id number] e Date:1159-44-26Wyfg Name:John JURADO FREDIHEATHERJOVON: [id number] [place] [address] [facility] 11/01/2024 Primary Insurance:BLUE CARD PPO OOSPolicy Number: [id number] e Date:6707-95-98Fcxx Name:John STUARTJOVON: [id number] [place] [address] [facility] 11/01/2024 Primary Insurance:BLUE CARD PPO OOSPolicy Number: [id number] e Date:8613-75-13Arno Name:John JURADO YULSIA: [id number] [place] [address] [facility] 10/24/2024 Primary Insurance:BLUE CARD PPO OOSPolicy Number: [id number] e Date:7622-68-28Ornd Name:John JURADO YULISA: [id number] [place] [phone] [facility] 10/22/2024 Primary Insurance:BLUE CARD PPO OOSPolicy Number: [id number] e Date:0717-40-95Uwtu Name:John JURADO YULISA: [id number] [place] [phone] [facility] 10/21/2024 Primary Insurance:BLUE CARD PPO OOSPolicy Number: [id number] e Date:4993-20-82Dwza Name:John JURADO YULISA: [id number] [place] [address] [facility] 10/21/2024 Primary Insurance:BLUE CARD PPO OOSPolicy Number: [id number] e Date:5069-00-33Glvs Name:John JURADO YULISA: [id number] [place] [address] [facility] 10/10/2024 Primary Insurance:BLUE CARD PPO OOSPolicy Number: [id number] e Date:5177-55-12Rcwh Name:John JURADO YULISA: [id number] [place] [address] [facility] 10/08/2024 Primary Insurance:BLUE CARD PPO OOSPolicy Number: [id number] e Date:9351-79-45Aany Name:BIBADRIEN MÁRQUEZ: [id number] [place] [address] [facility] 10/07/2024 Primary Insurance:BLUE CARD PPO OOSPolicy Number: [id number] e Date:7596-19-91Hdsk Name:BIBADRIEN MÁRQUEZ: [id number] [place] [phone] [facility] 10/07/2024 Primary Insurance:BLUE CARD PPO OOSPolicy Number: [id number] e Date:7767-64-42Arzk Name:BIBADRIEN MÁRQUEZ: [id number] [place] [phone] [facility] 09/26/2024 Primary Insurance:BLUE CARD PPO OOSPolicy Number: [id number] e Date:6415-77-73Dtsx Name:BIBADRIEN MÁRQUEZ: [id number] [place] [phone] [facility] 09/24/2024 Primary Insurance:BLUE CARD PPO OOSPolicy Number: [id number] e Date:7897-34-35Mror Name:John MÁRQUEZ: [id number] [place] [address] [facility] 09/23/2024 Primary Insurance:BLUE CARD PPO OOSPolicy Number: [id number] e Date:2136-87-05Ucse Name:John JURADO YULISA: [id number] [place] [address] [facility] 09/23/2024 Primary Insurance:BLUE CARD PPO OOSPolicy Number: [id number] e Date:1240-08-90Hqvd Name:John JURADO YULISA: [id number] [place] [address] [facility] 09/20/2024 Primary Insurance:BLUE CARD PPO OOSPolicy Number: [id number] e Date:7554-40-58Sbpm Name:John JURADO YULISA: [id number] [place] [phone] [facility] 09/12/2024 Primary Insurance:BLUE CARD PPO OOSPolicy Number: [id number] e Date:6871-44-48Grjx Name:John JURADO YULISA: [id number] [place] [phone] [facility] 09/10/2024 Primary Insurance:BLUE CARD PPO OOSPolicy Number: [id number] e Date:0074-89-25Hxwi Name:John JURADO YULISA: [id number] [place] [phone] [facility] 09/02/2024 Primary Insurance:BLUE CARD PPO OOSPolicy Number: [id number] e Date:7530-59-75Ddiz Name:John JURADO YULISA: [id number] [place] [phone] [facility] 08/27/2024 Primary Insurance:BLUE CARD PPO OOSPolicy Number: [id number] e Date:1985-41-68Iaox Name:John STUARTJOVON: [id number] [place] [phone] [facility] 08/19/2024 Primary Insurance:BLUE CARD PPO OOSPolicy Number: [id number] e Date:3337-66-01Ifgb Name:John STUARTJOVON: [id number] [place] [phone] [facility] 08/16/2024 Primary Insurance:BLUE CARD PPO OOSPolicy Number: [id number] e Date:5167-52-35Tryx Name:John STUARTJOVON: [id number] [place] [phone] [facility] 08/13/2024 Primary Insurance:BLUE CARD PPO OOSPolicy Number: [id number] e Date:2394-04-36Klos Name:John JURADO KALEEB: [id number] [place] [phone] [facility] 08/13/2024 Primary Insurance:BLUE CARD PPO OOSPolicy Number: [id number] e Date:7299-94-19Bunm Name:John JURADO YULISA: [id number] [place] [phone] [facility] 07/29/2024 Primary Insurance:BLUE CARD PPO OOSPolicy Number: [id number] e Date:2743-31-54Eqdj Name:John JURADO YULISA: [id number] [place] [phone] [facility] 07/26/2024 Primary Insurance:BLUE CARD PPO OOSPolicy Number: [id number] e Date:3287-22-40Smms Name:John JURADO YULISA: [id number] [place] [phone] [facility] 07/26/2024 Primary Insurance:BLUE CARD PPO OOSPolicy Number: [id number] e Date:7696-84-47Gnpr Name:John JURADO YULISA: [id number] [place] [phone] [facility] 07/25/2024 Primary Insurance:BLUE CARD PPO OOSPolicy Number: [id number] e Date:6663-61-59Zkct Name:John JURADO YULISA: [id number] [place] [phone] [facility] 07/19/2024 Primary Insurance:BLUE CARD PPO OOSPolicy Number: [id number] e Date:9592-72-85Nslk Name:BIBADRIEN MÁRQUEZ: [id number] [place] [phone] [facility] 07/17/2024 Primary Insurance:BLUE CARD PPO OOSPolicy Number: [id number] e Date:2865-46-85Shai Name:BIBADRIEN MÁRQUEZ: [id number] [place] [phone] [facility] 07/10/2024 Primary Insurance:BLUE CARD PPO OOSPolicy Number: [id number] e Date:2861-20-72Pvqk Name:BIBADRIEN MÁRQUEZ: [id number] [place] [phone] [facility] 07/10/2024 Primary Insurance:BLUE CARD PPO OOSPolicy Number: [id number] e Date:5987-02-79Ffzt Name:John MÁRQUEZ: [id number] [place] [phone] [facility] 07/10/2024 Primary Insurance:BLUE CARD PPO OOSPolicy Number: [id number] e Date:4721-53-52Jjws Name:John MÁRQUEZ: [id number] [place] [address] [facility]
[2024-11-25] VITALS (9 sets, daily range): BP systolic 98–140; BP diastolic 70–74; PULSE 85–97; RESP 12–19; TEMP 36.1–36.5; O2SAT 91–100; BMI 22.8
--- NOTE | 2024-11-25 10:15 | RAD_ITS ---
PROCEDURE: ERCP BILIARY/PANCREAS; O.R. FLUORO FOR C-ARM 11/25/2024 REASON FOR EXAM: ERCP TECHNIQUE: Procedure Code: RADERCP; RADORFL_C_ARM Modality: DX Procedure: ERCP BILIARY/PANCREAS; O.R. FLUORO FOR C-ARM Fluoroscopy time: 45.7 seconds. Dose: 9.29 mGy. RAD/O.R. Fluoro for C-Arm IMPRESSION: Fluoroscopy was performed for ERCP. 7 fluoroscopic images were also obtained. Reading Location: [id number]
--- NOTE | 2024-11-25 10:15 | RAD_ITS ---
PROCEDURE: ERCP BILIARY/PANCREAS; O.R. FLUORO FOR C-ARM 11/25/2024 REASON FOR EXAM: ERCP TECHNIQUE: Procedure Code: RADERCP; RADORFL_C_ARM Modality: DX Procedure: ERCP BILIARY/PANCREAS; O.R. FLUORO FOR C-ARM Fluoroscopy time: 45.7 seconds. Dose: 9.29 mGy. RAD/ERCP Biliary/Pancreas IMPRESSION: Fluoroscopy was performed for ERCP. 7 fluoroscopic images were also obtained. Reading Location: [id number]
--- NOTE | 2024-11-25 10:20 | PCM.HP.STD ---
HPI - General General Date of Admission: 11/25/24 Date of Service: 11/25/24 Chief Complaint: periampullary lesion and elevated lft's HPI Narrative HUNTER STUART, is a 54 F who present for her ERCP after undergoing upper endoscopy and discovered to have Gastric metaplasia in this periampullary area on an upper endoscopy. I established Mar 2024 with epigastric abd pain for around 3 years. Gallbladder work up unremarkable. Constipation alternating with loose stools for many years. Uses laxatives PRN. No hx of colonoscopy. Pt brother passes away from colon cancer in his 40s. EGD 06.12.24; - LA Grade B reflux esophagitis with no bleeding. Biopsied. - Small hiatal hernia. - A few gastric polyps. Treated with a hot snare. - Multiple duodenal polyps. Biopsied. Colonoscopy 06.12.24; - Diverticulosis in the recto-sigmoid colon, in the sigmoid colon and in the descending colon. - Five 16 mm polyps in the sigmoid colon, in the ascending colon and in the cecum, removed with a cold snare. Resected and retrieved. - One 20 mm polyp in the sigmoid colon, removed with a hot snare. Resected and retrieved. Tattooed. - Likely malignant tumor in the recto-sigmoid colon. Biopsied. - Mild inflammation was found in the ileum secondary to ileitis. Biopsied. 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 Dr. Rose contacted patient with results. Recommendation for referral to surgery for partial colectomy [facility] Medical History Easy bruising Cancer Former smoker Wears glasses Wears dentures Anxiety High cholesterol Loss of consciousness Seizures Home Medications ?Medication ?Instructions ?Recorded ?Last Taken ?Type atorvastatin 80 mg tablet 80 mg PO QHS 04/04/24 06/11/24 History pantoprazole 40 mg tablet,delayed 40 mg PO BID 3 months #180 tabs 10/04/24 10/29/24 Rx release lidocaine-prilocaine 2.5 %-2.5 % 1 applic topical PRN PRN PORT 10/24/24 10/30/24 History topical cream magnesium oxide 250 mg PO DAILY 10/24/24 10/29/24 History prochlorperazine maleate 10 mg 10 mg PO Q6H PRN nausea and 10/24/24 Unknown History tablet vomiting Allergy/AdvReac Type Severity Reaction Status Date / Time No Known Allergies Allergy Verified 10/30/24 08:45 Surgical History History of partial colectomy Hx of colonoscopy History of vascular access device Hx of appendectomy Hx of tonsillectomy Hx of hysterectomy, total Social History Smoking Status: Former smoker ROS Constitutional Constitutional: Denies fatigue, fever(s), poor appetite, weight gain or weight loss Gastrointestinal Gastrointestinal: Denies belching, bloating, change in bowel habits, change in stool character, chewing difficulty, coffee ground emesis, constipation, cramping, diarrhea, dyspepsia, dysphagia, early satiety, excessive flatus, fecal incontinence, heartburn, hematemesis, hematochezia, hemorrhoids, loose stools, melena, nausea, odynophagia, rectal bleeding, tenesmus, vomiting or weight changes Physical Exam Const alert, oriented x3, no apparent distress and healthy appearing General Appearance: cooperative GI normal to inspection, nondistended, normoactive bowel sounds, soft to palpation, non-tender and non-distended Percussion: normal to percussion Rectal Exam: deferred Assessment & Plan Assessment/Plan (1) Choledocholithiasis: (2) RUQ pain: (3) Epigastric pain: (4) Ampullary adenoma: PLAN: 54-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 She comes in for ERCP after imaging shows choledocholithiasis. She will undergo ERCP will possible ampullectomy and sphincterotomy with stone removal. She was explained alternatives, risk and benefits include not withstanding bleeding, infection, sepsis, perforation, need for return and . She will have an ASA of 3.
[2024-11-25] MEDS: Lactated Ringers 1,000 ML 15 ML IV (10:46)
--- NOTE | 2024-11-25 11:03 | PCM.PRE.AN2 ---
ASA Classification* ASA Classification ASA Classification: 3 Assessment & Plan Anesthesia* Anesthesia Assessment Anesthesia Assessment: Discussed sedation and/or anesthesia options, risks, benefits, and alternatives with patient/parents/legal guardian/POA. Questions invited. The patient/parents/legal guardian/POA seems to understand and agrees to proceed with anesthesia plan. Reviewed the physical assessment, medical history, allergy history and patient home medications list prior to surgery/procedure/anesthetic and documented any changes. Performed airway and anesthesia risk assessments. Anesthesia Type Anesthesia Type: General History Source History Obtained from:: Patient and Chart Anesthesia Focused Assessment* Temperature: 97.7 F Pulse Rate: 85 Blood Pressure: 121/71 Respiratory Rate: 12 Pulse Ox: 99 Oxygen Delivery Method: Room Air Airway Assessment Mouth opens: >3 cm Mallampati Score: II Teeth Condition: Upper Labs Anesthesia Preop lab: CBC CHEMISTRY COAG Pre-Assessment Diagnosis/Proposed Procedure Planned Operative Procedure(s): ERCP Anesthesia History Anesthesia History - cardiovascular technologist: Anesthesia History - cardiovascular technologist Hx Hospitalization No 11/21/24 10:13 Any Problems With Anesthesia No 11/21/24 10:13 Cholinesterase deficiency No 11/21/24 10:13 You/Your Family Experience No 11/21/24 10:13 fever (hyperthermia) with Relationship Recent Exposure to Contagious No 11/25/24 10:28 Disease Does patient have nerve No 11/21/24 10:13 stimulator Patient instructed to have device shut off --Does patient have Pacemaker No 11/25/24 10:28 or ICD? When Was Last Pacemaker Check QUESTION #4 FULL TEXT: You/Your Family Experience fever (hyperthermia) with Anesthesia Last Oral Intake Last Oral intake: Last Oral Intake NPO since 19:00 11/25/24 10:28 Meds taken in AM with sips of Yes 11/25/24 10:28 water? Meds patient instructed to take am of surgery PONV PONV - cardiovascular technologist: PONV - cardiovascular technologist Female Yes 11/21/24 10:13 HX of Motion Sickness No 11/21/24 10:13 HX of N/V After Surgery No 11/21/24 10:13 Non-Smoker Yes 11/21/24 10:13 Duration of Surgery greater No 11/21/24 10:13 than 60 minutes Number of Risk Factors 2 11/21/24 10:13 PONV Score Moderate Risk 11/21/24 10:13 Height & Weight Height & Weight: Anesthesia: Height & Weight Height 5 ft 4 in 11/25/24 10:28 Weight: 60.3 kg 11/25/24 10:28 Body Mass Index (BMI) 22.8 11/25/24 10:28 Respiratory Assessment Respiratory Assessment - cardiovascular technologist: Respiratory Tract Infection Hx - cardiovascular technologist Hx Respiratory Tract Infection No 11/21/24 10:13 STOP Sleep Apnea STOP Sleep Apnea - cardiovascular technologist: STOP Sleep Apnea - cardiovascular technologist Hx Hypertension No 11/21/24 10:13 Hx Sleep Apnea No 11/21/24 10:13 CPAP BIPAP Do you snore loudly (louder Yes 11/21/24 10:13 than talking or can be heard Do you often feel tired/ Yes 11/21/24 10:13 fatigued/ sleepy during daytime? Has anyone observed you stop Yes 11/21/24 10:13 breathing during sleep? STOP Results Positive 11/21/24 10:13 QUESTION #5 FULL TEXT : Do you snore loudly (louder than talking or can be heard through closed doors)? 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 Specify any problems Hx of Preganancy in last 3 No 11/21/24 10:13 Months Nurse Filling Out Transfusion JZOLLINGE 11/21/24 10:13 & Questions: Date: 11/21/24 11/21/24 10:13 Time: 10:16 11/21/24 10:13 Patient unable to answer at this time (ie. confused, unrespo /Reproduction History /Reproductive History - cardiovascular technologist: /Reproductive Hx- cardiovascular technologist Hx Now No 11/21/24 10:13 Gestational Age (in weeks): EDC: Hx Hx Para Hx Section SAB No 11/21/24 10:13 Active Medications Active Medications: Current Medications Generic Name Dose Route Start Last Admin Trade Name Freq PRN Reason Stop Dose Admin Lactated Ringer's 1,000 mls @ 15 mls/hr 11/25/24 10:15 11/25/24 10:46 IV 15 mls/hr .Q48H RUDY Administration Sodium Chloride 10 - 40 ml 11/25/24 10:44 0.9% Saline Lock 10 Ml Syringe IV UD PRN Port-a-Cath (VAD)/R Port Flush Sodium Chloride 10 - 40 ml 11/25/24 10:44 0.9 % Nacl (Sterile) Posiflush 10 Ml IV UD PRN Port access or dressing change PFSH Medical History Easy bruising Cancer Former smoker Wears glasses Wears dentures Anxiety High cholesterol Loss of consciousness Seizures Home Medications ?Medication ?Instructions ?Recorded ?Last Taken ?Type atorvastatin 80 mg tablet 80 mg PO QHS 04/04/24 11/24/24 History pantoprazole 40 mg tablet,delayed 40 mg PO BID 3 months #180 tabs 10/04/24 11/25/24 Rx release lidocaine-prilocaine 2.5 %-2.5 % 1 applic topical PRN PRN PORT 10/24/24 11/25/24 History topical cream magnesium oxide 250 mg PO DAILY 10/24/24 11/24/24 History prochlorperazine maleate 10 mg 10 mg PO Q6H PRN nausea and 10/24/24 Unknown History tablet vomiting Allergy/AdvReac Type Severity Reaction Status Date / Time No Known Allergies Allergy Verified 11/25/24 10:25 Surgical History History of partial colectomy Hx of colonoscopy History of vascular access device Hx of appendectomy Hx of tonsillectomy Hx of hysterectomy, total Social History Smoking Status: Former smoker Addt'l Information Additional Findings: >4 mets Review of Systems (Anesthesia) ROS Narrative System reviewed and no additional complaints, except as documented. Physical Exam Const alert, oriented x3 and average body habitus Neck full ROM Resp normal respiratory effort and normal air movement Cardio regular rate and regular rhythm Neuro oriented x3 and moves all extremities
--- NOTE | 2024-11-25 11:15 | COLBX_PTH ---
PATIENT: HUNTER STUART LOC: EN U#:[id number] AGE/SX: 54/F ROOM: RE11/25/[address]: Dr. Helio Rose DO : 1970 BED: DIS: 11/25/2024 SPEC #: [id number] RECD: 11/25/24 14:19 STATUS: KEE REQ #: [id number] DYLAN: 11/25/24 11:[address]: Helio Rose DEPT: SURGICAL PATHOLOGY RECD BY: Gus Flood ENTERED: 11/25/24 14:59 SP TYPE: COLON BX OTHR DR: Dr. Slim Black MD Tissues: A - Ampulla of Vater B - Ampulla of Vater Procedures: Surgery Specimen Level IV HEADER OPERATION: ERCP, balloon sweep, sphincterectomy, ampullectomy and biopsy PRE-OP DIAGNOSIS: Choledocholithiasis, right upper quadrant pain, epigastric pain, ampullary adenoma TISSUE SUBMITTED: A- Ampulla, B- Ampulla biopsy MICROSCOPIC DIAGNOSIS A. Ampulla, excision: * Yomi gland hyperplasia. B. Ampulla, biopsy: * Polypoid intestinal mucosa with reactive/inflammatory changes. COMMENT A, B) Selected slides/images were reviewed in intradepartmental consultation by Dr Kourtney Cuadra (GI pathology division, [facility]). MICROSCOPIC DESCRIPTION Slides are reviewed. GROSS DESCRIPTION A. Received in fixative is one container labeled with the patient's name and designated Ampulla. The specimen consists of a 0.8 x 0.7 x 0.4 cm ji-pink to red granular polyp. The resection margin is trisected. Entirely submitted in 1 cassette. B. Received in fixative is one container labeled with the patient's name and designated Ampulla biopsy. The specimen consists of one irregular fragment of ji tissue that measures 0.4 cm. The specimen is totally submitted in one cassette. SD 11/25/2024 CPT:62356q7
--- NOTE | 2024-11-25 12:13 | OP.ERCP_ITS ---
Patient Name: Corine Rubi Procedure Date: 11/25/2024 10:24 AM Date of : 1970 Age: 54 Procedure: ERCP Indications: Common bile duct stone(s), Abdominal pain of suspected biliary origin, Elevated liver enzymes, Diagnostic sampling, Ampullary adenoma Providers: Helio Rose DO Referring MD: Slim Black Medicines: Monitored Anesthesia Care Patient Profile: This is a 54 year old female. Refer to note in patient chart for documentation of history and physical. Patient has symptoms of acute right upper quadrant abdominal pain. This patient has no history of previous ERCP. This patient has no history of surgical alteration of the upper digestive tract anatomy. Complications: No immediate complications. Procedure: Pre-Anesthesia Assessment: - Prior to the procedure, a History and Physical was performed, and patient medications and allergies were reviewed. The patient is competent. The risks and benefits of the procedure and the sedation options and risks were discussed with the patient. All questions were answered and informed consent was obtained. Patient identification and proposed procedure were verified by the physician in the pre-procedure area. Mental Status Examination: alert and oriented. Airway Examination: normal oropharyngeal airway and neck mobility. Respiratory Examination: clear to auscultation. CV Examination: normal. Prophylactic Antibiotics: The patient does not require prophylactic antibiotics. Prior Anticoagulants: The patient has taken no anticoagulant or antiplatelet agents except for NSAID medication. ASA Grade Assessment: II - A patient with mild systemic disease. After reviewing the risks and benefits, the patient was deemed in satisfactory condition to undergo the procedure. The anesthesia plan was to use monitored anesthesia care (MAC). Immediately prior to administration of medications, the patient was re-assessed for adequacy to receive sedatives. The heart rate, respiratory rate, oxygen saturations, blood pressure, adequacy of pulmonary ventilation, and response to care were monitored throughout the procedure. The physical status of the patient was re-assessed after the procedure. After obtaining informed consent, the scope was passed under direct vision. Throughout the procedure, the patient's blood pressure, pulse, and oxygen saturations were monitored continuously. The Duodenoscope was introduced through the mouth, and advanced to the duodenum and used to inject contrast into the bile duct. The ERCP was accomplished without difficulty. The patient tolerated the procedure well. Scope In: 11:34:37 AM Scope Withdrawal Time 0 hours 0 minutes 2 seconds Scope Out: 11:57:01 AM Total Procedure Duration Time 0 hours 22 minutes 24 seconds Findings: The braid cutter film was normal. The esophagus was successfully intubated under direct vision. The scope was advanced to a normal major papilla in the descending duodenum without detailed examination of the pharynx, larynx and associated structures, and upper GI tract. The upper GI tract was grossly normal. The bile duct was deeply cannulated with the short-nosed traction sphincterotome. Contrast was injected. I personally interpreted the bile duct images. There was brisk flow of contrast through the ducts. Image quality was adequate. Contrast extended to the entire biliary tree. Opacification of the entire opacified area, main bile duct and entire biliary tree was successful. The maximum diameter of the ducts was 8 mm. The lower third of the main bile duct contained two stones, the largest of which was 3 mm in diameter. A long 0.025 inch Jagwire was passed into the biliary tree. A 5 mm biliary sphincterotomy was made with a traction (standard) sphincterotome using ERBE electrocautery. There was no post-sphincterotomy bleeding. The biliary tree was swept with a 12 mm balloon starting at the upper third of the main bile duct, middle third of the main bile duct, lower third of the main duct, cystic duct, left intrahepatic duct(s), left main hepatic duct, right intrahepatic duct(s) and right main hepatic duct. Sludge was swept from the duct. All stones were removed. [Site] were biopsied with a [Device] [Purpose]. Biopsy was performed in the ampulla through the ERCP scope with a cold forceps for histology. The polyp was removed with a hot snare. The polypectomy was performed through the ERCP scope. Resection and retrieval were complete. Impression: - Biopsy was performed in the ampulla. - Polypectomy was performed. - Choledocholithiasis was found. Complete removal was accomplished by biliary sphincterotomy and balloon extraction. - A biliary sphincterotomy was performed. - The biliary tree was swept. - Biopsy was performed [Site]. Procedure Code(s): --- Professional --- 82806, Endoscopic retrograde cholangiopancreatography (ERCP); with removal of calculi/debris from biliary/pancreatic duct(s) 31359, Endoscopic retrograde cholangiopancreatography (ERCP); with sphincterotomy/papillotomy 67158, Endoscopic retrograde cholangiopancreatography (ERCP); with biopsy, single or multiple 50377, Esophagogastroduodenoscopy, flexible, transoral; with removal of tumor(s), polyp(s), or other lesion(s) by snare technique 48202, 26, Endoscopic catheterization of the biliary ductal system, radiological supervision and interpretation CPT copyright 2021 [employer]. All rights reserved. The codes documented in this report are preliminary and upon supervisor tunnel heading review may be revised to meet current compliance requirements. Helio Rose DO 11/25/2024 12:12:43 PM This report has been signed electronically. Number of Addenda: 0 Note Initiated On: 11/25/2024 10:24 AM
--- NOTE | 2024-11-25 12:13 | OP.PROVAT_ITS ---
11/25/2024 Slim Black Re : ERCP procedure for Corine Rubi [place] This procedure was performed on Monday, November 25, 2024. My impressions and recommendations are as follows: Impressions : - Biopsy was performed in the ampulla. - Polypectomy was performed. - Choledocholithiasis was found. Complete removal was accomplished by biliary sphincterotomy and balloon extraction. - A biliary sphincterotomy was performed. - The biliary tree was swept. - Biopsy was performed [Site]. Recommendations : My findings are described in the full procedure note, which is enclosed. If I can be of further assistance, please feel free to contact me at . Sincerely, Helio Rose, 11/25/2024 12:12:43 PM This report has been signed electronically.
--- NOTE | 2024-11-25 12:27 | PCM.POST.ANE ---
Anesthesia: Postop Eval I Current Vital Signs Temperature: 97 F Pulse Rate: 97 Blood Pressure: 136/73 Respiratory Rate: 16 Pulse Ox: 100 Oxygen Delivery Method: Room Air Assessment Airway patent: Yes Spontaneous unlabored respirations: Yes Mental status: Awake and Calm nausea: No Vomiting: No Anesthesia Complication: No Fluid Hydration Crystalloid volume administer (ml): 800 Total IV fluid infused: 800 Progress Note Anesthesia document: Postop Eval 1 completed: Yes
[2024-11-25] MEDS: 0.9% Saline Lock 10 ML Syringe IV (12:51)
--- NOTE | 2024-11-25 13:15 | PCM.POSTANE2 ---
Anesthesia Postop Eval I Sum Postop Eval Completion status Anesthesia document: Postop Eval 1 completed: Yes Anesthesia Postop Eval I Summary Anesthesia Postop Eval I Summary: Anesthesia Postop Eval I: Assessment Summary Airway patent Yes 11/25/24 12:27 [email or web address] Spontaneous unlabored Yes 11/25/24 12:27 [email or web address] respirations Mental status Awake,Calm 11/25/24 12:27 [email or web address] nausea No 11/25/24 12:27 [email or web address] Vomiting No 11/25/24 12:27 [email or web address] Anesthesia Postop Eval I: Fluid Summary Crystalloid volume administer 800 11/25/24 12:27 [email or web address] (ml) Colloids volume administered ( ml) Blood Product volume administered (ml) Total IV fluid infused 800 11/25/24 12:27 [email or web address] Anesthesia Postop Eval I: Summary Notes Anesthesia Complication No 11/25/24 12:27 [email or web address] Anesthesia Complication Comment: Post-operative progress note Anesthesia: Postop Eval II Evaluation Mental status: Awake and Calm Pain Level: 0 nausea: No Vomiting: No Complications Anesthesia Complication: No
== END 2024-11-25 12:56 | disposition home or self-care (01) ==
LOC: EN 10:03 → AC 10:05
PROVIDERS: PCP Family Medicine; Referring Provider Family Medicine; Visit Provider Internal Medicine Gastroenterology
PROC: (CPT 43260; principal; 2024-11-25 10:55)
DX: K80.50 Calculus of bile duct without cholangitis or cholecystitis without obstruction (principal); Z87.891 Personal history of nicotine dependence; E78.00 Pure hypercholesterolemia, unspecified; D13.5 Benign neoplasm of extrahepatic bile ducts; Z79.899 Other long term (current) drug therapy; Z90.49 Acquired absence of other specified parts of digestive tract; Z90.710 Acquired absence of both cervix and uterus; R10.11 Right upper quadrant pain; R10.13 Epigastric pain; K31.89 Other diseases of stomach and duodenum; K31.7 Polyp of stomach and duodenum
CPT/HCPCS: 43262; 43261; 43264; 43278; 74330; 76000; 88305; A4216; J2405